=== PATIENT | female | born 1950 | race Caucasian/White ===

== ENCOUNTER 2017-03-08 11:06 | Emergency (ER) | payer MEDICARE, MEDICAID, SELFPAY | END 2017-03-08 12:43 | disposition home or self-care (01) | PROVIDERS: Emergency Provider Nurse Practitioner Family; Family Provider Family Medicine; Visit Provider Nurse Practitioner Family | DX: J10.1 Influenza due to other identified influenza virus with other respiratory manifestations (principal); Z79.899 Other long term (current) drug therapy; I10 Essential (primary) hypertension | CPT/HCPCS: G0463; 87804; 99201 ==

== ENCOUNTER → 2017-04-02 08:27 | Outpatient (CLI) | payer MEDICARE, MEDICAID, SELFPAY ==
--- NOTE | 2017-04-02 08:41 | US_ITS ---
US abdomen limited HISTORY: Right upper quadrant pain ITS.REASON: ABD PAIN ORDERING PHYSICIAN: Colin Montoya MD PATIENT AGE: 66 years COMPARISON: None FINDINGS: The pancreas, liver, and right kidney show no acute finding. Multiple gallstones are present with a thickened gallbladder wall is up to 1 cm. Minimal pericholecystic fluid noted. Common bile duct is normal at 3 mm. IMPRESSION: Cholelithiasis with thickened gallbladder wall and minimal pericholecystic fluid suggesting cholecystitis.
== END ==
PROVIDERS: Family Provider Family Medicine; PCP Family Medicine; Visit Provider Family Medicine
DX: R10.9 Unspecified abdominal pain (principal)
CPT/HCPCS: 76705

== ENCOUNTER 2017-04-09 06:02 | Day surgery (SDC) | payer MEDICARE, MEDICAID, SELFPAY ==
[2017-04-07 11:10] VITALS: BMI 24.5
[2017-04-09] VITALS (11 sets, daily range): BP systolic 115–138; BP diastolic 59–80; PULSE 63–84; RESP 16–18; TEMP 36.1–43; O2SAT 90–100
--- NOTE | 2017-04-09 07:09 | P.PN_ITS ---
[facility] Anesthesia Checklist - Patient Identification Patient Identification: Arm Band, Verbal (Name & ) - Structural Data Admitted From: Home Planned Operative Procedure/s: lap choly Consent for Planned Operative Procedure(s) Verified: Yes Verified Documents: Surgical Consent - Chart Verification Results Verified: CBC, BMP - Additional verifications Patient : No Anesthesia Reactions: No Hx Blood Transfusions: No Blood Transfusion Reaction: No Cephalosporin Allergy: No Previous Colonoscopy: No - Cardiovascular Assessment Heart Sounds: S1 & S2 Pulse Strength: Strong Pulse Rhythm: Regular Peripheral Edema: No - Airway Assessment C-Spine Mobility Assessed: Yes TMJ Mobility Assessed: Yes Dentition: Good Dentition - Neurological Assessment Level of Consciousness: Awake, Alert, Appropriate Hx Seizures: No Numbness or tingling in extremities: No - Genitourinary Assessment 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 Anesthesia HX I have reviewed the patient's past medical history: Yes Medical History: Reports:: Cancer (skin), Carotid Stenosis, Coronary Artery Disease, Depression, Gastroesophageal Reflux Disease(GERD), Hypertension Denies:: Diabetes Mellitus Type 1, Diabetes Mellitus Type 2, Internal Pacemaker, MRSA, Seizures Other Medical History: Reports: Fibromyalgia. Denies: Blood Transfusion Reaction Laterality Cases: Bilateral: Tonsillectomy Other Surgeries: Yes: Hysterectomy-Total, Other (back). No: Pacemaker Amputation: No Fractures: No *Family Hx:: Cancer, Diabetes, Heart Attack, Hypertension, Stroke
--- NOTE | 2017-04-09 08:57 | HMH.OPNOTE ---
Date of procedure: 04/09/17 Pre-op Diagnosis:: Chronic cholecystitis Post-op diagnosis:: other (Acute cholecystitis) Procedure performed:: Laparoscopic cholecystectomy Surgeon:: Tate Diaz MD Motor Expert(s):: Liliya Brantley SENIOR QA TESTER:: Dimas Cota Anesthesia: SIOBHAN Estimated blood loss (mL): 50 Clinical Note:: Patient is a pleasant 66-year-old white female referred by Dr. Blas Montoya. She had about 12 days ago episode of acute postprandial pain in the high epigastric area with radiation to the bilateral upper quadrants and into her back with associated bloating. She tried [id number] regimens without relief. She saw her primary care provider and had a gallbladder ultrasound which revealed multiple gallstones with gallbladder wall thickening and some minor pericholecystic fluid. She was scheduled for outpatient surgical consultation and was seen in the office a couple of days ago. Her symptoms were partially controlled with strict dietary monitoring. She has some tenderness in the right upper quadrant. Options were discussed and she wished to proceed with cholecystectomy. Operative findings:: Thickened inflamed edematous gallbladder with multiple stones consistent with acute on chronic cholecystitis. Operative note:: Consent was obtained and patient was taken to the operating room. She was positioned in a supine position. General anesthesia was induced via endotracheal tube. Abdomen was prepped and draped in the standard surgical fashion. Infraumbilical skin incision was made. While performing abdominal wall lifts Veress needle was inserted and CO2 pneumoperitoneum was achieved to 15 mmHg. 11 mm trocar was inserted the umbilicus. Intraperitoneal contents were visualized. It was noted that there was some gas within the omentum during insufflation adjacent to the colon. At the completion of procedure this was inspected and there appeared to be no obvious bowel injury. Patient was positioned in reverse Trendelenburg with left side down. A couple of 5 mm trochars were inserted in the right upper abdomen. 10 mm trocar was inserted in the epigastrium. Gallbladder is easily identified. It was very edematous tense indurated. It was grasped and retracted anteriorly over the dome of the liver. They are worse acute inflammatory adhesions which were easily swept out of the gallbladder. Infundibulum/Gonzalez's pouch of the gallbladder retracted anteriorly and laterally. Careful dissection was carried out at the neck of the gallbladder ultimately identifying the cystic duct and cystic artery. Critical view of safety was identified. Cystic duct was multiply clipped and then divided. Cystic artery was correlated with Brayan ultrasonic harmonic lexx and divided. Gallbladder was dissected free from the liver in a retrograde fashion using Brayan ultrasonic harmonic lexx. Gallbladder was placed within an Endo Catch retrieval device and removed from the peritoneal cavity via the umbilical trocar site which required some extension of the skin and fascial incisions for delivery. Gallbladder fossa and perihepatic spaces were irrigated and aspirated until clear. Some spot use of electrocautery was used on the gallbladder fossa for good hemostasis. At the completion of the procedure inspection of the air within the omental tissues was inspected and there appeared to be no obvious injury. This was performed with visual inspection of the pericolonic tissues using the endoscopic [place]. Due to pneumoperitoneum was then evacuated. Fascia at the umbilicus was closed with several interrupted 0 Vicryl sutures. Local anesthetic was infiltrated. Skin incisions were closed with 4-0 Monocryl in a subcuticular fashion. Steri-Strips and dressings were applied. Condition: stable Disposition: PACU Specimens:: Gallbladder & contents Complications:: None
--- NOTE | 2017-04-09 08:59 | HMH.ANESI ---
[facility] Anesthesia Record Part I Intake, IV Amount: 1,800 Estimated blood loss (mL): 10 Urine output (mL): 0 Blood Products used (#): none Blood Pressure: 138/65 SaO2: 96 Pulse Rate: 79 Respiratory Rate: 16 Temperature: 97.5 F Patient is:: Drowsy, Nasal O2 Stable to PACU at:: 08:57
--- NOTE | 2017-04-09 09:00 | P.PN_ITS ---
[facility] Anesthesia Record Part II Discharge Time: 09:27 Destination: Surgical Day Care (OP Surgery) PACU nurse assessment reviewed?: Yes Patient Condition:: Good Anesthesia Complications:: None
--- NOTE | 2017-04-09 09:00 | P.OP_ITS ---
Date of procedure: 04/09/17 Pre-op Diagnosis:: Chronic cholecystitis Post-op diagnosis:: other (Acute cholecystitis) Procedure performed:: Laparoscopic cholecystectomy Surgeon:: Tate Diaz MD Steel Handler(s):: Liliya Brantley PEOPLESOFT HCM DEVELOPER:: Dimas Cota Anesthesia: SIOBHAN Estimated blood loss (mL): 50 Clinical Note:: Patient is a pleasant 66-year-old white female referred by Dr. Blas Montoya. She had about 12 days ago episode of acute postprandial pain in the high epigastric area with radiation to the bilateral upper quadrants and into her back with associated bloating. She tried [id number] regimens without relief. She saw her primary care provider and had a gallbladder ultrasound which revealed multiple gallstones with gallbladder wall thickening and some minor pericholecystic fluid. She was scheduled for outpatient surgical consultation and was seen in the office a couple of days ago. Her symptoms were partially controlled with strict dietary monitoring. She has some tenderness in the right upper quadrant. Options were discussed and she wished to proceed with cholecystectomy. Operative findings:: Thickened inflamed edematous gallbladder with multiple stones consistent with acute on chronic cholecystitis. Operative note:: Consent was obtained and patient was taken to the operating room. She was positioned in a supine position. General anesthesia was induced via endotracheal tube. Abdomen was prepped and draped in the standard surgical fashion. Infraumbilical skin incision was made. While performing abdominal wall lifts Veress needle was inserted and CO2 pneumoperitoneum was achieved to 15 mmHg. 11 mm trocar was inserted the umbilicus. Intraperitoneal contents were visualized. It was noted that there was some gas within the omentum during insufflation adjacent to the colon. At the completion of procedure this was inspected and there appeared to be no obvious bowel injury. Patient was positioned in reverse Trendelenburg with left side down. A couple of 5 mm trochars were inserted in the right upper abdomen. 10 mm trocar was inserted in the epigastrium. Gallbladder is easily identified. It was very edematous tense indurated. It was grasped and retracted anteriorly over the dome of the liver. They are worse acute inflammatory adhesions which were easily swept out of the gallbladder. Infundibulum/Gonzalez's pouch of the gallbladder retracted anteriorly and laterally. Careful dissection was carried out at the neck of the gallbladder ultimately identifying the cystic duct and cystic artery. Critical view of safety was identified. Cystic duct was multiply clipped and then divided. Cystic artery was correlated with Brayan ultrasonic harmonic lexx and divided. Gallbladder was dissected free from the liver in a retrograde fashion using Brayan ultrasonic harmonic lexx. Gallbladder was placed within an Endo Catch retrieval device and removed from the peritoneal cavity via the umbilical trocar site which required some extension of the skin and fascial incisions for delivery. Gallbladder fossa and perihepatic spaces were irrigated and aspirated until clear. Some spot use of electrocautery was used on the gallbladder fossa for good hemostasis. At the completion of the procedure inspection of the air within the omental tissues was inspected and there appeared to be no obvious injury. This was performed with visual inspection of the pericolonic tissues using the endoscopic [place]. Due to pneumoperitoneum was then evacuated. Fascia at the umbilicus was closed with several interrupted 0 Vicryl sutures. Local anesthetic was infiltrated. Skin incisions were closed with 4-0 Monocryl in a subcuticular
== END 2017-04-09 10:20 | disposition home or self-care (01) ==
PROVIDERS: Family Provider Family Medicine; PCP Nurse Practitioner Family; Visit Provider Surgery
PROC: 0FT44ZZ Resection of Gallbladder, Percutaneous Endoscopic Approach (ICD-10-PCS; CPT 47562; principal; 2017-04-09 07:30)
DX: K81.1 Chronic cholecystitis (principal)
CPT/HCPCS: 47562; 88304; 96374; J0131; J2405; J2710

== ENCOUNTER → 2017-09-30 07:47 | Outpatient (CLI) | payer MEDICARE, MEDICAID, SELFPAY ==
--- NOTE | 2017-09-30 07:50 | CT_ITS ---
CT lumbar spine wo con INDICATION: Low back pain. Previous surgery. ITS.REASON: LUMBAR RADICULOPATHY ORDERING PHYSICIAN: Marvin Simental PATIENT AGE: 66 years COMPARISON: MRI of lumbar spine from today as well as 05/03/2015 and 10/27/2014 TECHNIQUE: Axial images are obtained without contrast. Sagittal and coronal reformatted images are reviewed as well. All CT scans at the facility use one or more dose reduction, viz: automated exposure control; ma/kV adjustment per patient size (including targeted exams where dose is matched to indication; i.e. head); or iterative reconstruction technique. FINDINGS Previous extensive laminectomy with posterior fusion. L2-L 5 Stable, good alignmentThrough the fused segment Bilateral pedicle screws at L2, L3, L4 and L5 with associated posterior rods and fixation elements The metallic streak artifact from these fixation elements does slightly decreased resolution but adequate quality scan overall.. We again see the extensive laminectomy defect from L2 through L4/5 level which decompressing the spinal canal through this region.. Multilevel discectomy when compared back to 2015. Single Disc spacer device is seen at each of the involved levels-L2/3, L3/4, L4/5. . Again note the relative straightening of the lumbar lordosis but improvement in the alignment with with correction of mild retrolisthesis L4-5 and mild anterolisthesis L2/3 with this surgical procedure versus 2015 presurgical images L5/S1. Degenerative disc changes,. A small mildly hyperdense cephalad extruded disc fragment I believe present at the right lateral recess axial image 38. It measures 7.5 mm at its base on this image. Likely arises from the right L5/S1 disc itself which appears slightly decreased in height versus previous 2016 MR study. There is also been progressive ligament flavum hypertrophy.. [id number] recess and foraminal encroachment due to combination of features. L4/5.: Laminectomy. Pedicle screws Posterior fusion elements. Disc spacer device Mild posterior hypertrophic endplate ridging, with focal leftward spurring most evident towards the left lateral recess and anterior to the left foramen. Axial slice 35 sagittal 34. Yields mild Encroachment at the left lateral recess and entrance to left foramen Note focal endplate irregularity and mild endplate concavity most evident at superior endplate midline anteriorly. Perhaps slight progression of the reactive endplate features versus 2016 about this narrowed L4/5 disc/. . L3/4 Laminectomy. Pedicle screws Posterior fusion elements. Disc spacer device disc space narrowing. Minimal spurring and disc prominence at entry right foramen-yields mild right foraminal encroachment L2/3. Laminectomy. Pedicle screws Posterior fusion elements. Disc spacer device Scant posterior hypertrophic ridging and spondylosis. Mild encroachment at entry of foramen L1/2 disc intact with perhaps scant bulge But Facet & calcified ligamentum flavum hypertrophy indents the posterior thecal sac and yield borderline-spinal stenosis . T12/L1.Stable Disc intact. Mild posterior element hypertrophy and degenerative change T11/12. Nondisplaced narrowing. Mild posterior element hypertrophy. Minor disc bulge towards right foramen. Disc bulge towards the right foramen. .. ......IMPRESSION...... 1.. Postsurgical changes L-spine: L2-L5 : extensive decompression laminectomy with posterior fusion.. Disc spacer device placement each of these disc levels. Slight additional/progressive reactive endplate changes and irregularities about the L4/5 L3/4 levels. No significant recurrent disc herniation or protrusion evident at the in this postsurgical segment 2... *L5/S1. :Small new cephalad extruded disc fragment on right, most likely
--- NOTE | 2017-09-30 08:09 | MR_ITS ---
MR lumbar spine wo/w con, MR 3-d myelogram/MRCP Ordering Physician: Marvin Simental Patient Age: 66 years: Female HISTORY: ITS.REASON: LUMBAR RADICULOPATHY Back surgery in January 2015.. Persistent/recurrent Low back pain with bilateral hip and leg pain. Pain with sitting and walking. AllMild bilateral foraminal encroachment PATIENT AGE: 66 years COMPARISON: MRI of lumbar spine from today as well as 05/03/2015 and 10/27/2014 TECHNIQUE: Axial images are obtained without contrast. Sagittal and coronal reformatted images are reviewed as well. All CT scans at the facility use one or more dose reduction, viz: automated exposure control; ma/kV adjustment per patient size (including targeted exams where dose is matched to indication; i.e. head); or iterative reconstruction technique. FINDINGS Previous extensive laminectomy with posterior fusion. L2-L 5 Stable, good alignmentThrough the fused segment Bilateral pedicle screws at L2, L3, L4 and L5 with associated posterior rods and fixation elements The metallic susceptibility artifact from these fixation elements does slightly decreased resolution but adequate quality scan overall.. We again see the extensive laminectomy defect from L2 through L4/5 level which decompressing the spinal canal through this region.. Multilevel discectomy when compared back to 2015. Single Disc spacer device is seen at each of the involved levels-L2/3, L3/4, L4/5. . Again note the relative straightening of the lumbar lordosis but improvement in the alignment with with correction of mild retrolisthesis L4-5 and mild anterolisthesis L2/3 with this surgical procedure versus 2015 presurgical images L5/S1. Degenerative disc changes,. On both CT and MR from today there appears to be a small cephalad extruded disc fragment I believe present encroach upon right lateral recess axial image 30. It measures 8 mm mm at its base on this image. Likely arises from the right L5/S1 disc & extending superiorly. L5/S1 disc demonstrates additional desiccation with slight decreased height versus previous 2016 MR study reflecting such as well.. There is also been progressive of now generous ligament flavum hypertrophy along with facet hypertrophy. Features together combine to yield [id number] recess and foraminal encroachment.. L4/5.: Laminectomy. Pedicle screws Posterior fusion elements. Disc spacer device Mild posterior ridging, with mild focal spurring to the left most evident towards the left lateral recess and anterior left foramen. This is actively better seen on CT.. (Sagittal slice 10, MR axial slice 27). Resulting mild Encroachment at the left lateral recess and entrance to left foramen Slight progressive reactive endplate signal changes and irregularities about the narrowed disc... These features may demonstrate some mild enhancement but at this level and L3/4 but most likely reflection of endplate reactive change. No good evidence of discectomy. Again Perhaps slight progression of the reactive endplate features versus 2016 at both L4/5 and L3/4 level.. . L3/4 Laminectomy. Pedicle screws Posterior fusion elements. Disc spacer device disc space narrowing. Mild posterior ridging. Minimal spurring & disc prominence at entry right and left foramen-yields mild encroachment upon entry of both right. Right slightly more than left . Mild reactive endplate changes about the narrowed disc L2/3. Laminectomy. Pedicle screws Posterior fusion elements. Disc spacer device Mild posterior hypertrophic ridging with trace foraminal disc bulge. Mild foraminal encroachment bilateral. L1/2 disc intact with very minor scant bulge Most notable is the calcified ligamentum flavum hypertrophy along with facet hypertrophy. Indents these features the posterior thecal sac and yield
--- NOTE | 2017-09-30 09:02 | HMH.ITSHM ---
PERCOCET GABAPENTIN CYMBALTA NEXIUM TIAZADONE
== END ==
PROVIDERS: Family Provider Family Medicine; PCP Nurse Practitioner Family; Visit Provider Neurological Surgery
DX: M54.16 Radiculopathy, lumbar region (principal)
CPT/HCPCS: 72131; 72158; 76376; A9576

== ENCOUNTER → 2018-10-02 10:28 | Outpatient (CLI) | payer MEDICARE, MEDICAID, SELFPAY ==
--- NOTE | 2018-10-02 10:30 | CA_ITS ---
PROCEDURE: 2-D M-mode and color Doppler study INDICATIONS FOR THE TEST: Chest pain+ COPD Heart Murmur Tobacco Smoking Palpitations+ Fatigue+ Syncope Edema+ Hypertension+Diabetes Mellitus Rheumatic Fever SOB+PRINGLE+Obesity Hyperlipidemia+ Family History HD Additional History CAD, ABN EKG, GERD PATIENT INFORMATION HEIGHT: 61 WEIGHT:145 GENDER: Female B/P:138/76 2-D/M-MODE INTERPRETATION: 2-D MEASUREMENTS OBSERVED VALUES IN CMS Right Ventricular Dimension (RVDd) 2.0 Interventricular Septum (Thickness)(IVsd) 1.4 Left Ventricular Internal Dimensions(LVIDd) 4.5 Left Ventricular Posterior Wall (Thickness)(LVPWd) 0.9 Aortic Root 2.4 Aortic Cusp Separation 1.9 Left Atrial Dimensions (LAD) 3.0 2D 1. Left atrium is mildly enlarged, left ventricle is normal size, mild concentric left hypertrophy, visually estimated ejection fraction 55% with no regional wall motion abnormality. 2. The right atrium and right ventricle are normal size and contractility. 3. The aortic valve is minimally thickened and fibrosed. 4. The mitral and tricuspid valve leaflets are minimally thickened. 5. The pulmonic valve is poorly visualized 6. No significant pericardial effusion noted. DOPPLER INTERROGATION: Doppler interrogation of the aortic, mitral and tricuspid valvular presence of mild mitral and tricuspid regurgitation, tricuspid regurgitation jet velocity is inadequate for calculation of the right ventricular systolic pressure, grade 1 diastolic dysfunction seen with tissue Doppler evidence of raised left atrial pressure. CONCLUSION: 1. Mildly enlarged left atrium, normal left ventricular size, mild concentric left ventricular hypertrophy, visually estimated ejection fraction 55% with no regional wall motion abnormality, grade 1 diastolic dysfunction seen with tissue Doppler evidence of raised left atrial pressure. 2. Mild mitral and tricuspid regurgitation 3. No significant pericardial effusion noted.
--- NOTE | 2018-10-02 12:19 | NM_ITS ---
NM cedric perf SPECT rest str History:Chest pain, SOB, Palpitations, Syncope, Fatigue, HTN, High cholesterol, Family history Procedure: Patient received a 0.4 mg of intravenous Lexiscan, resting heart rate 55 bpm, resting blood pressure 145/74, with Lexiscan maximum heart rate achieve was bpm which is % of the maximum predicted heart rate and blood pressure was 147/72. WIth Lexiscan patient complained of chest pain. Electrocardiogram: Resting electrocardiogram showed sinus rhythm, with Lexiscan there is less than 1.5mm ST segment depression noted from the baseline EKG. The EKG portion of the Lexiscan Myoview is nondiagnostic. Cardias Stress and Resting SPECT images: Cardias Stress and Resting SPECT images were obtained using technetium 99m Myoview 32.3 mCi stress and 10.46 mCi at rest. Gated SPECT further analysis of segmental wall motion and calculation of ejection fraction also done. Cardiac stress and resting SPECT show uniform myocardial activity without segmental perfusion abnormality, however there appears to be transient ischemic dilatation of the left ventricle is in the concern is for presence balanced ischemia, the computer derived ejection fraction is over 65% with no regional wall motion abnormality Conclusion: 1. The EKG portion of the Lexiscan Myoview is nondiagnostic. 2. No scintigraphic evidence of reversible ischemia seen, computer derived ejection fraction is over 65% with no regional wall motion abnormality, however there appears to be transient ischemic dilatation of the left ventricle raising the concern is for presence of balanced ischemia. 3. Abnormal Lexiscan Myoview study.
[2018-10-02 12:22] LABS: Anion Gap 10.6 mEq/L (5-15); Blood Urea Nitrogen 18 mg/dL (7-18); Calcium 9.2 mg/dL (8.5-10.1); Carbon Dioxide 32 mmol/L (21.0-32.0); Chloride 102 mmol/L (98-107); Creatinine,Serum 1.13 mg/dL (0.55-1.02); Estimated Glomerular Filt Rate 48 ml/min (>60); GFR (African American) 58 ML/MIN (>60); Glucose 91 mg/dL (74-106); Potassium 4.6 mmoL/L (3.5-5.1); Sodium 140 mmol/L (136-145)
--- NOTE | 2018-10-02 13:14 | HMH.ITSHM ---
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 [] gabapentine metoprolol losartan estrdiol aripirazole
== END ==
PROVIDERS: PCP Family Medicine; Visit Provider Internal Medicine Cardiovascular Disease
DX: R06.02 Shortness of breath (principal); I20.9 Angina pectoris, unspecified; I50.9 Heart failure, unspecified; R53.83 Other fatigue
CPT/HCPCS: 36415; 78452; 80048; 83880; 93017; 93306; A9502; J2785

== ENCOUNTER → 2018-10-07 07:48 | Outpatient (CLI) | payer SELFPAY ==
--- NOTE | 2018-10-07 08:05 | CT_ITS ---
HISTORY dyspnea. Short of breath. Chest pain. CAD. 67 years COMPARISON: None Technique: All CT scans at this facility use one or more dose reduction techniques, viz.: automated exposure control, ma/kV adjustment per patient size (including targeted exams where dose is matched to indication, i.e. head) or iterative reconstruction technique. FINDINGS: Coronary calcium score 9, indicating minimal plaque burden & low cardiovascular disease risk. I would note that score of 9 calcification, reflects minimal calcification Left Anterior Descending artery only Limited images submitted of the chest for the calcium score shows demonstrate dense calcified node anterior to the left bronchus reflecting old granulomatous disease. Mild Chronic changes at medial lung jones bilaterally incidentally noted.. IMPRESSION Coronary calcium score = 9, indicating minimal plaque burden & low cardiovascular disease risk.
== END ==
PROVIDERS: PCP Family Medicine; Visit Provider Internal Medicine Cardiovascular Disease
DX: I20.9 Angina pectoris, unspecified (principal); R06.02 Shortness of breath; R53.83 Other fatigue
CPT/HCPCS: 75571

== ENCOUNTER → 2018-10-14 12:52 | Outpatient (CLI) | payer MEDICARE, SELFPAY | PROVIDERS: PCP Family Medicine; Visit Provider Internal Medicine Cardiovascular Disease | DX: R40.0 Somnolence (principal); R53.83 Other fatigue; G47.33 Obstructive sleep apnea (adult) (pediatric) | CPT/HCPCS: G0399 ==

== ENCOUNTER 2018-10-28 09:25 | Outpatient (RCR) | payer MEDICARE, SELFPAY | END 2018-12-07 13:52 | disposition home or self-care (01) | LOC: PT 09:25 | PROVIDERS: Visit Provider Internal Medicine | DX: Z95.5 Presence of coronary angioplasty implant and graft (principal) | CPT/HCPCS: 93798 ==

== ENCOUNTER → 2019-01-05 16:26 | Outpatient (CLI) | payer MEDICARE, SELFPAY ==
[2019-01-05 18:36] LABS: Blood Urea Nitrogen 15 mg/dL (7-18); Creatinine,Serum 1.08 mg/dL (0.55-1.02); Estimated Glomerular Filt Rate 50 ml/min (>60); GFR (African American) 61 ML/MIN (>60)
== END ==
PROVIDERS: Visit Provider Urology
DX: R31.9 Hematuria, unspecified (principal)
CPT/HCPCS: 36415; 82565; 84520

== ENCOUNTER → 2019-01-06 08:48 | Outpatient (CLI) | payer MEDICARE, SELFPAY ==
--- NOTE | 2019-01-06 08:51 | CT_ITS ---
PROCEDURE: CT ABDOMEN PELVIS WO/W CON CLINICAL INDICATION: HEMATURIA Hematuria, low to mid abdominal pain/pelvic cramping COMPARISON: SPLUMBWO CT lumbar spine wo con from 09/30/2017 TECHNIQUE: IV Contrast: 75ML OPTIRAY 350 Oral Contrast none Axial images obtained with sagittal and coronal reformats. All CT scans at the facility use one or more dose reduction, viz: automated exposure control, ma/kV adjustment per patient size (including targeted exams where dose is matched to indication, i.e. head), or iterative reconstruction technique. FINDINGS: Lower thorax: No acute finding The the liver, spleen, adrenal glands, pancreas, and kidneys have an unremarkable appearance. No renal or ureteral calculi. No renal mass. No hydronephrosis. Delayed images of the right kidney show bilateral excretion without evidence of obstruction. Artifact is present from lumbar surgery with multilevel inter pedicular screws from L1-S1. Mild amount of retained colonic feces. No intestinal obstruction or free air. There is a tiny umbilical hernia containing fat. No evidence of appendicitis or diverticulitis. There are post hysterectomy changes. There are few scattered diverticula within the sigmoid colon. Urinary bladder has an unremarkable appearance extensive postsurgical changes are present in the lumbar spine and sacrum. Sclerotic density involves the right ilium inferiorly and anteriorly may be due to a bone island. IMPRESSION: No acute abdominal or pelvic findings. Extensive postsurgical changes of the lumbar spine. No renal or ureteral calculi. Dictated by: Ganesh Jurado MD 01/06/2019 17:27 Electronically signed by Ganesh Jurado MD in [place] 01/07/2019 06:29
== END ==
PROVIDERS: PCP Family Medicine; Visit Provider Urology
DX: R31.9 Hematuria, unspecified (principal)
CPT/HCPCS: 74178; Q9967

== ENCOUNTER → 2019-01-26 14:25 | Outpatient (CLI) | payer MEDICARE, SELFPAY ==
--- NOTE | 2019-01-26 14:58 | XR_ITS ---
PROCEDURE: XR CHEST 2V CLINICAL HISTORY: HYPERTENSION, PRE-OP Productive cough COMPARISON: CXR CHEST(2 VIEWS-NOT PORTABLE) from 01/23/2016 FINDINGS: The cardiomediastinal silhouette and pulmonary vascularity are within normal limits. The lungs are clear without infiltrates, suspicious nodules, or pleural effusions. Granulomas present in the left upper lobe. Postsurgical changes of the lumbar spine with inter pedicular screws and stabilizing larry at L1 and L2. Coronary artery stent is present. IMPRESSION: No change with no acute finding Dictated by: Ganesh Jurado MD 01/26/2019 15:16 Electronically signed by Ganesh Jurado MD in [place] 01/26/2019 15:16
== END ==
PROVIDERS: PCP Family Medicine; Visit Provider Nurse Practitioner Family
DX: Z01.818 Encounter for other preprocedural examination (principal); I10 Essential (primary) hypertension
CPT/HCPCS: 71046

== ENCOUNTER → 2019-02-18 20:17 | Outpatient (CLI) | payer MEDICARE, SELFPAY | PROVIDERS: PCP Family Medicine; Visit Provider Nurse Practitioner Family | DX: G47.33 Obstructive sleep apnea (adult) (pediatric) (principal); G47.00 Insomnia, unspecified; I25.10 Atherosclerotic heart disease of native coronary artery without angina pectoris; R07.9 Chest pain, unspecified; I10 Essential (primary) hypertension | CPT/HCPCS: 95811 ==

== ENCOUNTER → 2019-07-28 06:15 | Outpatient (CLI) | payer MEDICARE, MEDICAID, SELFPAY ==
--- NOTE | 2019-07-28 06:16 | CA_ITS ---
APPROVED REPORT Exam: Pharmacologic Technologist: Kristina Mckeon Ht: 5 ft 1 in Wt: 145 lbs BSA: 1.65 m2 HR: 55 bpm BP: 109/62 mmHg Indications: Shortness of Air, chest pain Medical History Medications: Furosemide (LASIX),,,,, Gabapentin,,,,, Losartan,,,,, Atorvastatin,,,,, Estradiol,,,,, CloPIdogrel,,,,, DulOXETINE,,,,, OxYCODONE,,,,, Tizanidine,,,,, Esomeprazole,,,,, Trazodone,,,,, Asprin,,,,, Stress Test Details Test: LEXISCAN HR Resting HR: 62 bpm Max Heart Rate (APMHR): 150 bpm Max HR Achieved: 77 bpm Target HR (85% APMHR): 127 bpm % of APMHR: 51 Recovery HR: 65 bpm BP Resting BP: 109.0/62.0 mmHg Max BP: 131.0/71.0 mmHg Recovery BP: 131.0/71.0 mmHg ECG Clinical Exercise duration: 04:00 min Highest Stage Achieved: Exercise capacity: 1.0 METs Stress ECG Conclusion Resting ECG: Sinus Bradycardia Lexiscan portion completed. Patient complained of shortness of breath during peak infusion. Symptoms: Shortness of breath during peak infusion. Resolved in recovery. No chest pain. Arrhythmias/Ectopy: Occasional PAC ST-T Changes: Less than 1.[address] depression. Conclusion: Images to follow. Test Summary RECOVERY 05:00 . . 61 . 131/ 71 . . REST 16:19 . . 62 . 109/ 62 . . Stage 1 . . . . . . . Myoview Injected Stage 1 01:00 . . 68 . . . . Stage 2 01:00 . . 68 . 111/ 66 . . Stage 3 01:00 . . 64 . 110/ 77 . . Stage 4 01:00 . . 67 . 114/ 69 . Stop exercise at 04:00 RECOVERY 01:00 . . 68 . 111/ 71 . . RECOVERY 02:00 . . 67 . 111/ 71 . . RECOVERY 03:00 . . 65 . 113/ 68 . . RECOVERY 04:00 . . 63 . 93/ 70 . . RECOVERY 05:00 . . 61 . 131/ 71 . . RECOVERY 05:10 . . 66 . 131/ 71 . . Electronically signed by : Terry Boyle, 07/29/2019 10:40:49
--- NOTE | 2019-07-28 06:16 | CA_ITS ---
APPROVED REPORT EXAM: Comprehensive 2D, Doppler, and color-flow Echocardiogram Infrastructure Developer: Reina Du CRT Ht: 5 ft 1 in Wt: 147lbs BSA: 1.66 BP: 135/69 mmHg Indications: cad, cp, stents, deidre, gerd, anxiety, cm, htn, hld, sob, 2D Dimensions LVOT 1.72 cm (M/F) 1.5-2.5 M-Mode Dimensions RVDd 2.71 cm (0.9-2.6) LVDd 3.71 cm (3.5-5.7) LVDs 2.22 cm (3.5-5.7) IVSd 1.68 cm (0.6-1.1) PWd 0.75 cm (0.6-1.1) EF (Teich) 71.60% FS 40.20% EDV (Teich) 58.50 mL ESV (Teich) 16.60 mL LV Diastology E/A Ratio 0.73 Mitral Valve MV A Velocity 77.00 (40-130 cm/s) Left Ventricle Atrium is mildly enlarged, left ventricle is normal size, mild concentric left ventricular hypertrophy, visually estimated ejection fraction 55% with no regional wall motion abnormality. Grade 1 diastolic dysfunction seen without tissue Doppler evidence of raise left atrial pressure. Right Ventricle Right atrium and right ventricle are normal size and contractility. Aortic Valve The aortic valve is minimally thickened and fibrosed, there is no aortic stenosis or aortic insufficiency. Mitral Valve Mitral valve is grossly normal, there is mild mitral regurgitation. Tricuspid Valve Tricuspid valve is grossly normal, there is mild tricuspid regurgitation, tricuspid regurgitation jet velocity is inadequate for calculation of the right ventricular systolic pressure. Pulmonic Valve Pulmonic valve is poorly visualized. Great Vessels Aortic root is normal size. Pericardium No significant pericardial effusion noted. Conclusion 1. Mildly enlarged left atrium, normal left ventricular size, mild concentric left ventricular hypertrophy visually estimated ejection fraction 55% with no regional wall motion abnormality, grade 1 diastolic dysfunction seen without tissue Doppler evidence of raise left atrial pressure. 2. Mild mitral and tricuspid regurgitation. 3. No significant pericardial effusion noted. Electronically signed by : Terry Boyle, 07/29/2019 12:03:32
--- NOTE | 2019-07-28 06:16 | NM_ITS ---
APPROVED REPORT Exam: Nuclear Stress Test Indication: Chest pain, SOB, CAD, HTN, High cholesterol, Family history Patient Location: Outpatient Stress Tech: Kristina Mckeon NM Tech:Leta Macedo, ARRT, RT (R)(N) Ht: 5 ft 1 in Wt: 145 lbs Bra Size: 34D HR: 55 bpm BP: 109/62 mmHg BSA: 1.65 m2 BMI: 27.3 History: Chest pain, SOB, CAD, HTN, High cholesterol, Family history Procedure: Patient received a 0.4 mg of intravenous Lexiscan, resting heart rate 55 bpm, resting blood pressure 109/62 mmHg, with Lexiscan maximum heart rate achived was 70 bpm which is Less than 85 % of the maximum predicted heart rate and blood pressure was 111/66 mmHg. With Lexiscan, patient denied any complaint of chest pain. Electrocardiogram Resting electrocardiogram showed sinus rhythm, with Lexiscan there is less than 1.[address] segment depression noted from the baseline EKG. The EKG portion of the Lexiscan Myoview is nondiagnostic. Cardiac Stress and Resting SPECT Images: Cardiac Stress and Resting SPECT images were obtained using technetium 99m Myoview 31.8 mCi stress and 10.45 mCi at rest. Gated SPECT with analysis of segmental wall motion and calculation of the ejection fraction also done. Cardiac stress and resting SPECT images show a mild fixed defect in the anterior wall with normal contracted gated SPECT is likely secondary to soft tissue attenuation, no reversible ischemia seen. Computer derived ejection fraction is over 65% with no regional wall motion abnormality, right ventricle is normal size and contractility. Conclusion: 1. The EKG portion of the Lexiscan Myoview is nondiagnostic. 2. No scintigraphic evidence of reversible ischemia seen, a mild fixed defect in the anterior wall is likely secondary to soft tissue attenuation, computer derived ejection fraction is over 65% with no regional wall motion abnormality, right ventricle is normal size and contractility. 3. Likely normal Lexiscan Myoview study. Electronically signed by : Terry Boyle, 07/29/2019 10:44:04
--- NOTE | 2019-07-28 08:23 | HMH.ITSHM ---
Current Home Medications as stated by this patient Anahi Leach or billing representative. []ARIPIPRAZOLE DULOXETINE ESTRADIOL LOSARTAN METOPROLOL LIPITOR GABAPENTIN ESOMEPRAZOLE OXYCODONE TIZANIDINE ASA PLAVIX FUROSEMIDE
== END ==
PROVIDERS: PCP Family Medicine; Visit Provider Urology
DX: E78.2 Mixed hyperlipidemia (principal); I25.118 Atherosclerotic heart disease of native coronary artery with other forms of angina pectoris; I65.29 Occlusion and stenosis of unspecified carotid artery; R06.02 Shortness of breath
CPT/HCPCS: 78452; 93017; 93306; A9502; J2785

== ENCOUNTER 2019-08-26 07:41 | Day surgery (SDC) | payer MEDICARE, MEDICAID, SELFPAY ==
[2019-08-26] VITALS (13 sets, daily range): BP systolic 116–149; BP diastolic 66–84; PULSE 65–77; RESP 16; TEMP 36.8; O2SAT 91–99; BMI 28.1
[2019-08-26 08:15] LABS: Basophils % 0.6 % (0.1-2.0); Eosinophils # 0.2 K/mm3 (0.0-0.4); Eosinophils % 3.3 % (0.1-12.0); Hematocrit 42.9 % (37.0-47.0); Hemoglobin 13.7 g/dL (12.2-16.2); Lymphocytes # 1.2 K/mm3 (0.7-4.5); Lymphocytes % 17.5 % (10-50); Mean Corpuscular HGB Conc 31.9 g/dL (31.8-35.4); Mean Corpuscular Hemoglobin 29.4 pg (27.0-31.2); Mean Corpuscular Volume 92.2 fl (81-99); Mean Platelet Volume 7.1 fl (7.4-10.4); Monocytes # 0.5 K/mm3 (0.1-1.0); Monocytes % 7.2 % (1.7-9.3); Neutrophils # 4.8 K/mm3 (1.8-7.8); Neutrophils % 71.4 % (37.0-80.0); Platelet Count 309 K/mm3 (142-424); Red Blood Count 4.65 M/mm3 (4.20-5.40); White Blood Count 6.7 K/mm3 (4.8-10.8)
[2019-08-26 08:24] LABS: Chloride 103 mmol/L (98-107)
[2019-08-26 08:25] LABS: Potassium 4.4 mmoL/L (3.5-5.1); Sodium 137 mmol/L (136-145)
[2019-08-26 08:28] LABS: Anion Gap 11.4 mEq/L (5-15); Blood Urea Nitrogen 17 mg/dl (7-17); Calcium 9.1 mg/dl (8.4-10.2); Carbon Dioxide 27 mmol/L (22.0-30.0); Creatinine Clearance Estimated 56 mL/min (50-200); Estimated Glomerular Filt Rate 62 ml/min (>60); GFR (African American) 75 ML/MIN (>60); Glucose 104 mg/dl (74-100)
[2019-08-26 10:17] LABS: CATHL Activated Clotting Time 348 SEC (74-125)
--- NOTE | 2019-08-26 13:04 | HMH.PHACLD ---
Anahi Leach has received discharge medication counseling on the following medications: CONTINUE MEDICATIONS: PLAVIX, ASPIRIN, METOPROLOL, ATORVASTATIN, LOSARTAN
== END 2019-08-26 13:14 | disposition home or self-care (01) ==
LOC: CATHLAB 07:42
PROVIDERS: PCP Family Medicine; Visit Provider Internal Medicine
DX: I11.0 Hypertensive heart disease with heart failure; I25.118 Atherosclerotic heart disease of native coronary artery with other forms of angina pectoris; I65.29 Occlusion and stenosis of unspecified carotid artery; E78.5 Hyperlipidemia, unspecified; Z95.5 Presence of coronary angioplasty implant and graft; Z79.02 Long term (current) use of antithrombotics/antiplatelets; Z79.82 Long term (current) use of aspirin; Z79.899 Other long term (current) drug therapy; Z88.8 Allergy status to other drugs, medicaments and biological substances; I50.32 Chronic diastolic (congestive) heart failure
CPT/HCPCS: 80048; 85025; 85347; 92928; 93458; 93571; 99152; 99153; C1725; C1769; C1876; C9600; J0153; J1644; Q9967

== ENCOUNTER → 2019-09-23 13:52 | Outpatient (CLI) | payer MEDICARE, MEDICAID, SELFPAY ==
--- NOTE | 2019-09-23 15:01 | XR_ITS ---
PROCEDURE: XR DEXA AXIAL SKELETON CLINICAL HISTORY: POSTMENOPAUSAL [age] COMPARISON: No exams were available for comparison FINDINGS: The right hip BMD is 0.640 with a t-score of -1.9. The left hip BMD is 0.582 with a t-score of -2.4. The left forearm BMD is 0.649 with a t-score of -0.8. IMPRESSION: This patient is considered osteopenic according to the World Health Organization criteria. Bone density is between 10 and 25 percent below young normal . Fracture risk is moderate. Treatment is advised. Based on these results of follow-up exam is recommended in 2 years Dictated by: Ganesh Jurado MD 09/23/2019 18:23 Electronically signed by Ganesh Jurado MD in [place] 09/24/2019 10:06
--- NOTE | 2019-09-23 15:02 | MM_ITS ---
PROCEDURE: MM DIG SCREENING MAMM BI W/CAD DIGITAL BREAST TOMOSYNTHESIS INCLUDED Patient Age:68Y CLINICAL INDICATION: SCREENING 68-year-old.-Takes estrogen. No new complaints. Family history noncontributory COMPARISON: DIGMAMMS MAMMOGRAM SCREEN-DIGITAL SALES MANAGER N/C from 06/14/2004 [facility] DIGITAL MAMM-SCREEN BILATERAL from 12/07/2009 [facility] DIGITAL MAMM-DX BILATERAL from 06/13/2010 TECHNIQUE: Standard CC and MLO images were obtained. R2 CAD reviewed. Bilateral digital breast tomosynthesis included. FINDINGS: Slight heterogeneous, the Moderately dense breast bilaterally but note slow gradual fatty replacement when compared back to prior 2010 digital mammogram fibroglandular elements are most notable towards superior breast but no new dominant or suspicious mass but no suspicious calcifications. Left breast: Stable. No significant new findings. Right breast Stable. No significant new findings. Tomosynthesis images are helpful particularly at right breast but IMPRESSION: Stable mammogram-with no new areas of significant concern. Moderately dense breast Bilateral follow-up 1 year recommended The BI-RAD Category: 2 Benign Finding(s) FOLLOW-UP: 1YR 1 Year Follow-up (A letter has been sent to the patient regarding results of the study.) Dictated by: Chilango Irby MD 09/29/2019 13:00 Electronically signed by Chilango Irby MD in [place] 09/29/2019 13:00
== END ==
PROVIDERS: PCP Family Medicine; Visit Provider Physician Assistant
DX: Z12.31 Encounter for screening mammogram for malignant neoplasm of breast (principal); Z78.0 Asymptomatic menopausal state; R06.02 Shortness of breath
CPT/HCPCS: 77063; 77067; 77080; 94060; 94640; 94726; 94729

== ENCOUNTER → 2019-09-28 07:45 | Outpatient (CLI) | payer MEDICARE, MEDICAID, SELFPAY ==
[2019-09-28 08:59] LABS: Basophils # 0.1 K/mm3 (0-0.2); Basophils % 1.2 % (0.1-2.0); Eosinophils # 0.2 K/mm3 (0.0-0.4); Eosinophils % 3.4 % (0.1-12.0); Hematocrit 44.4 % (37.0-47.0); Hemoglobin 14.4 g/dL (12.2-16.2); Lymphocytes % 14.3 % (10-50); Mean Corpuscular HGB Conc 32.4 g/dL (31.8-35.4); Mean Corpuscular Hemoglobin 30.5 pg (27.0-31.2); Mean Platelet Volume 7.3 fl (7.4-10.4); Monocytes # 0.4 K/mm3 (0.1-1.0); Neutrophils # 5.3 K/mm3 (1.8-7.8); Platelet Count 334 K/mm3 (142-424); Red Blood Count 4.73 M/mm3 (4.20-5.40); Red Cell Distribution Width 13.5 % (11.5-17.5); White Blood Count 7.1 K/mm3 (4.8-10.8)
[2019-09-28 09:12] LABS: Chloride 101 mmol/L (98-107)
[2019-09-28 09:13] LABS: Potassium 5.1 mmoL/L (3.5-5.1); Sodium 138 mmol/L (136-145)
[2019-09-28 09:15] LABS: Alanine Aminotransferase 14 U/L (12-78); Albumin Level 3.9 g/dl (3.5-5.0); Albumin/Globulin Ratio 1.7 (1.1-1.8); Alkaline Phosphatase 96 U/L (38-126); Anion Gap 12.1 mEq/L (5-15); Aspartate Amino Transferase 20 U/L (14-36); Bilirubin,Total 0.3 mg/dl (0.2-1.3); Blood Urea Nitrogen 16 mg/dl (7-17); Carbon Dioxide 30 mmol/L (22.0-30.0); Cholesterol 110 mg/dl (140-200); Estimated Glomerular Filt Rate 71 ml/min (>60); GFR (African American) 86 ML/MIN (>60); Globulin 2.3 g/dL (1.3-3.2); Total Protein,Serum 6.2 g/dl (6.3-8.2); Triglycerides 167 mg/dl (30-150); VLDL Cholesterol 33 mg/dL (0-40)
[2019-09-28 09:16] LABS: Chol/HDL Ratio 2.2 (1-3.5); HDL Cholesterol 50 mg/dl (40-60)
[2019-09-28 09:22] LABS: Calcium 9.3 mg/dl (8.4-10.2)
[2019-09-28 09:27] LABS: Direct LDL Cholesterol 43.65 mg/dL (100-129)
[2019-09-28 09:28] LABS: Glucose 99 mg/dl (74-100)
[2019-09-28 09:31] LABS: Free T4 (Free Thyroxine) 0.96 ng/dl (0.78-2.19)
[2019-09-28 09:46] LABS: Thyroid Stimulating Hormone 1.47 uIU/mL (0.465-4.68)
[2019-09-29 15:27] LABS: Vitamin B12 570 pg/mL (232-1245)
== END ==
PROVIDERS: Visit Provider Physician Assistant
DX: E53.8 Deficiency of other specified B group vitamins (principal); E78.2 Mixed hyperlipidemia; H81.10 Benign paroxysmal vertigo, unspecified ear; I10 Essential (primary) hypertension
CPT/HCPCS: 36415; 80053; 80061; 82607; 84439; 84443; 85025

== ENCOUNTER → 2019-09-30 13:01 | Outpatient (CLI) | payer MEDICARE, MEDICAID, SELFPAY ==
[2019-09-30 14:36] LABS: NT Pro Brain Natriuretic Pep. 51.1 pg/mL (0-125)
== END ==
PROVIDERS: Internal Medicine Cardiovascular Disease; Visit Provider Nurse Practitioner Family
DX: E78.5 Hyperlipidemia, unspecified (principal); I10 Essential (primary) hypertension; I25.10 Atherosclerotic heart disease of native coronary artery without angina pectoris; I65.29 Occlusion and stenosis of unspecified carotid artery; R06.02 Shortness of breath
CPT/HCPCS: 36415; 83880

== ENCOUNTER → 2019-11-23 12:05 | Outpatient (CLI) | payer MEDICARE, SELFPAY ==
[2019-11-23 12:45] LABS: Basophils # 0.1 K/mm3 (0-0.2); Basophils % 0.7 % (0.1-2.0); Eosinophils # 0.2 K/mm3 (0.0-0.4); Eosinophils % 2.2 % (0.1-12.0); Hematocrit 44.4 % (37.0-47.0); Lymphocytes # 1.2 K/mm3 (0.7-4.5); Lymphocytes % 17.2 % (10-50); Mean Corpuscular HGB Conc 33.7 g/dL (31.8-35.4); Mean Corpuscular Volume 91.9 fl (81-99); Monocytes # 0.4 K/mm3 (0.1-1.0); Monocytes % 5.3 % (1.7-9.3); Neutrophils # 5.1 K/mm3 (1.8-7.8); Neutrophils % 74.5 % (37.0-80.0); Platelet Count 277 K/mm3 (142-424); Red Blood Count 4.84 M/mm3 (4.20-5.40); Red Cell Distribution Width 13.4 % (11.5-17.5); White Blood Count 6.9 K/mm3 (4.8-10.8)
[2019-11-23 14:02] LABS: Alanine Aminotransferase 15 U/L (12-78); Albumin Level 4.3 g/dl (3.5-5.0); Albumin/Globulin Ratio 1.8 (1.1-1.8); Alkaline Phosphatase 98 U/L (38-126); Anion Gap 13.4 mEq/L (5-15); Aspartate Amino Transferase 20 U/L (14-36); Bilirubin,Total 0.6 mg/dl (0.2-1.3); Blood Urea Nitrogen 14 mg/dl (7-17); Calcium 9.9 mg/dl (8.4-10.2); Carbon Dioxide 31 mmol/L (22.0-30.0); Chloride 99 mmol/L (98-107); Creatine Kinase 34 U/L (30-135); Estimated Glomerular Filt Rate 55 ml/min (>60); GFR (African American) 66 ML/MIN (>60); Globulin 2.4 g/dL (1.3-3.2); Glucose 97 mg/dl (74-100); Potassium 4.4 mmoL/L (3.5-5.1); Sodium 139 mmol/L (136-145); Total Protein,Serum 6.7 g/dl (6.3-8.2); Uric Acid 5.3 mg/dl (2.5-6.2)
[2019-11-23 14:06] LABS: C-Reactive Protein 1.5 mg/L (0-4)
[2019-11-23 14:14] LABS: Erythrocyte Sedimentation Rate 10 mm/hr (0-30)
[2019-11-23 14:32] LABS: Thyroid Stimulating Hormone 1.56 uIU/mL (0.465-4.68)
[2019-11-24 13:15] LABS: RA Latex Turbid. <10.0 IU/mL (0.0-13.9)
[2019-11-25 08:38] LABS: Anti-Cyclic Citrullinated Pept 2 units (0-19)
== END ==
PROVIDERS: Visit Provider Internal Medicine Rheumatology
DX: M79.7 Fibromyalgia (principal); M79.604 Pain in right leg; M19.041 Primary osteoarthritis, right hand; M25.50 Pain in unspecified joint; M54.9 Dorsalgia, unspecified
CPT/HCPCS: 36415; 80053; 82550; 84443; 84550; 85025; 85651; 86140; 86200; 86431

== ENCOUNTER → 2020-05-15 15:12 | Outpatient (CLI) | payer MEDICARE, SELFPAY ==
[2020-05-15 17:08] LABS: Blood Urea Nitrogen 18 mg/dl (7-17); Estimated Glomerular Filt Rate 55 ml/min (>60); GFR (African American) 66 ML/MIN (>60)
== END ==
PROVIDERS: Visit Provider Psychiatry & Neurology Neurology
DX: Z01.818 Encounter for other preprocedural examination (principal); M54.5 Low back pain; M54.2 Cervicalgia
CPT/HCPCS: 36415; 82565; 84520

== ENCOUNTER → 2020-05-17 13:30 | Outpatient (CLI) | payer MEDICARE, SELFPAY ==
--- NOTE | 2020-05-17 13:36 | MR_ITS ---
PROCEDURE: MR CERVICAL SPINE WO/W CON CLINICAL INDICATION: POSTURAL TREMOR AND CERVICAL DISC MYELOPATHY Chronic neck pain and right hand tremors COMPARISON: CT CSWO CT CERVICAL SPINE W/O CONT from 06/07/2012 TECHNIQUE: Standard multiplanar multiecho sequences are performed without contrast. 3-D MIP and myelographic images are also rendered and reviewed FINDINGS: There is reversal of the cervical lordosis. Craniocervical junction has an unremarkable appearance. C2-C3: 3 mm anterolisthesis of C2. Moderate left-sided foraminal narrowing is present from facet hypertrophic change. C3-C4: Degenerate disc disease with minimal bulging disc. Bilateral foraminal narrowing left greater than right. C4-C5: Degenerative disc disease with minimal bulging disc. Bilateral foraminal narrowing. C5-C6: Degenerative disc disease with mild bulging disc slightly eccentric toward the left. Mild bilateral foraminal narrowing. C6-C7: Degenerative disc disease with minimal bulging disc with mild bilateral foraminal narrowing. C7-T1: 3 mm anterolisthesis of C7. There is a hyperintense T1 and T2 lesion involving the T2 vertebral body with punctate areas of decreased signal consistent with a hemangioma. There is minimal bulging disc at T2-T3 and T3-T4. IMPRESSION: Multilevel cervical spondylosis with bulging disc as well as foraminal narrowing. Please see above for detailed description at each level. Dictated by: Ganesh Jurado MD 05/18/2020 15:56 Ganesh Jurado MD in [place] 05/18/2020 15:56
== END ==
PROVIDERS: PCP Family Medicine; Referring Provider Psychiatry & Neurology Neurology; Visit Provider Psychiatry & Neurology Neurology
DX: M54.2 Cervicalgia (principal); G25.2 Other specified forms of tremor
CPT/HCPCS: 72156; 76376; A9576

== ENCOUNTER 2020-05-31 13:03 | Outpatient (RCR) | payer MEDICARE, SELFPAY | END 2020-05-31 13:05 | disposition home or self-care (01) | LOC: PT 13:03 | PROVIDERS: PCP Family Medicine; Visit Provider Anesthesiology | DX: M96.1 Postlaminectomy syndrome, not elsewhere classified (principal) | CPT/HCPCS: 97163 ==

== ENCOUNTER 2021-03-07 07:14 | Emergency (ER) | payer MEDICARE, SELFPAY ==
[2021-03-07 07:15] VITALS: BP 153/90; PULSE 77; RESP 18; TEMP 36.8; O2SAT 96; BMI 25.1
--- NOTE | 2021-03-07 07:40 | XR_ITS ---
PROCEDURE INFORMATION: Exam: XR Right Hip Exam date and time: 03/07/2021 7:40 AM Age: 70 years old Clinical indication: Hip pain; Right hip; Prior surgery; Additional info: Severe low back pain into right hip TECHNIQUE: Imaging protocol: XR Right hip. Views: 2 or 3 views hip with pelvis when performed. AP view of the pelvis, AP views of the right hip in neutral and frogleg position COMPARISON: CT ABDOMEN PELVIS WO/W CON 01/06/2019 9:12 AM FINDINGS: Bones/joints: Similar sclerotic focus lateral right iliac bone. Similar lumbosacral fusion hardware. Stable bone island left proximal femur. Mild degenerative changes at the symphysis pubis again noted. No significant degenerative changes of the hips, no fracture or malalignment. Soft tissues: Unremarkable. IMPRESSION: No acute findings.
--- NOTE | 2021-03-07 07:42 | XR_ITS ---
PROCEDURE INFORMATION: Exam: XR Lumbosacral Spine Exam date and time: 03/07/2021 7:42 AM Age: 70 years old Clinical indication: Low back pain; Prior surgery; Additional info: Severe low back pain into right hip TECHNIQUE: Imaging protocol: XR of the lumbosacral spine. Views: 2 or 3 views. AP, lateral and spot lumbosacral views COMPARISON: SPLUMBWW MR lumbar spine wo/w con 09/30/2017 8:19 AM FINDINGS: Bones/joints: Spinal fusion rods and pedicle screws again noted traversing L2 through L5, additional hardware has been placed inferiorly with pedicle screws traversing S1 bilaterally and more inferior screws traversing bilateral SI joints. Interbody disc grafts again noted including addition of disc graft at L5-S1. Increasing sclerosis within the articular endplates of L1-L2. No wedge compression deformity. Discogenic endplate changes lower thoracic spine. Soft tissues: Unremarkable. Intraperitoneal space: There has been a cholecystectomy. IMPRESSION: Postoperative changes as detailed above. Worsening discogenic endplate changes at L1-L2.
--- NOTE | 2021-03-07 09:36 | HMH.EDGENADL ---
ED Disposition Clinical Impression: Back pain Disposition: Home, Self-Care Condition on Discharge: Fair Instructions: DI for Chronic Pain -- Adult Prescriptions: predniSONE [Prednisone 20mg Tab] 40 mg PO DAILY #5 tab Transmission Status: Pending to [id number] Referrals: Tiffany Sweeney APRN [Primary Care Provider] - - Critical Care Critical Care Time: No Attestation: On 03/07/21, the high probability of a clinically significant, sudden or life threatening deterioration of the following system(s) required my full and direct attention, intervention and personal management. The time I documented below is in addition to time spent performing reported procedures but includes the following listed in this critical care notation. Medical Decision Making - Jeovany Inquiry Pt receiving controlled substance: Yes Jeovany was queried for this patient: Yes Risks and benefits of using a controlled substance: were discussed with pt by me Vital Signs: 03/07/21 07:15 Temperature 98.3 F Temperature Source Oral Pulse Rate [Right Radial] 77 Respiratory Rate 18 Blood Pressure [Right Arm] 153/90 H Blood Pressure Mean [Right Arm] 111 Blood Pressure Source [Right Arm] Automatic Cuff Blood Pressure Position [Right Arm] Sitting 02 Sat by Pulse Oximetry 96 Oxygen Delivery Method Room Air - Lab Data Lab results reviewed: Yes: I reviewed the patient's lab results. Orders (Tests/Meds): ED MEDICATIONS Generic Name Dose Route Start Last Admin Trade Name Freq PRN Reason Stop Dose Admin Lidocaine 1 each 03/07/21 08:30 03/07/21 09:09 Lidocaine 5% Transdermal Patch TP 04/06/21 08:29 1 each Q24H KATELYNN Administration Methocarbamol 500 mg 03/07/21 09:00 03/07/21 09:10 Methocarbamol 500mg Tablet PO 04/06/21 08:59 500 mg BID KATELYNN Administration Discontinued Medications Generic Name Dose Route Start Last Admin Trade Name Freq PRN Reason Stop Dose Admin Morphine Sulfate 4 mg 03/07/21 09:37 Morphine 4mg/Ml Syringe IV 03/07/21 09:38 ONCE ONE Morphine Sulfate 4 mg 03/07/21 09:53 03/07/21 09:55 Morphine 2mg/Ml Syringe IM 03/07/21 09:54 4 mg ONCE ONE Administration Prednisone 60 mg 03/07/21 09:38 03/07/21 09:55 Prednisone 20mg Tab PO 03/07/21 09:39 60 mg ONCE ONE Administration ORDERS Category Date Time Status UA [Urinalysis and Microscopic] Stat Lab 03/07/21 08:48 Ordered Medical Decision Narrative: Patient is a 70-year-old female with past medical history of chronic back pain presenting to the ED with right-sided back pain. Patient is awake, alert, not in acute distress. Patient is hemodynamically stable, well. Patient's physical exam is remarkable for right-sided paraspinal lumbar muscle tenderness. No midline tenderness. Differential includes but is not limited to muscloskeletal pain, sciatica, arthritis, low concern for acute fractures, dislocations. This x-rays of patient's lumbar spine were performed. Patient is given lidocaine patch, Robaxin. Was also given morphine, prednisone which helped the patient's pain resolved. Patient is stable for discharge. Patient is given strict return precautions and follow-up instructions. General Adult HPI - General Chief complaint: PAIN Stated complaint: right back/hip pain Time Seen by Provider: 03/07/21 09:36 Mode of Arrival: Ambulatory Limitations: No Limitations Description of Symptoms (Recalled from ER Triage Doc. by RN): Pt c/o rt hip pain. Pt states that she pulled a muscle around the rt hip the day before Thanksgiving when trying to pull down the door to her attic. Pt states that she has been evaluated by her PCP and just completed a round of PO steroids. Pt advises that she took care of her grandchild a couple days ago and over done it and is now c/o pain again. Pt states that the pain will sometimes go down her rt leg and tingle across lumbar region of the back, but mainly stays in the area of the
--- NOTE | 2021-03-07 11:32 | PC.NURSE ---
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
[2021-03-07 12:35] VITALS: BP 129/71; PULSE 79; RESP 14; TEMP 36.8; O2SAT 97
== END 2021-03-07 12:36 | disposition home or self-care (01) ==
PROVIDERS: Emergency Provider Emergency Medicine; PCP Nurse Practitioner Family
DX: M54.50 Low back pain, unspecified (principal); M25.551 Pain in right hip; I25.10 Atherosclerotic heart disease of native coronary artery without angina pectoris; F41.8 Other specified anxiety disorders; I10 Essential (primary) hypertension; E78.5 Hyperlipidemia, unspecified; K21.9 Gastro-esophageal reflux disease without esophagitis; M79.7 Fibromyalgia
CPT/HCPCS: 72100; 73502; 96372; 99282

== ENCOUNTER → 2021-08-29 12:28 | Outpatient (CLI) | payer MEDICARE, SELFPAY ==
[2021-08-29 13:39] LABS: Blood Urea Nitrogen 8 mg/dl (7-17); Estimated Glomerular Filt Rate 71 ml/min (>60); GFR (African American) 85 ML/MIN (>60)
== END ==
PROVIDERS: PCP Nurse Practitioner Family; Visit Provider Nurse Practitioner Family
DX: R10.9 Unspecified abdominal pain (principal)
CPT/HCPCS: 36415; 82565; 84520

== ENCOUNTER → 2021-08-31 08:37 | Outpatient (CLI) | payer MEDICARE, MEDICAID, SELFPAY ==
--- NOTE | 2021-08-31 08:41 | CT_ITS ---
FINAL REPORT TECHNIQUE: Axial CT images of the abdomen and pelvis were obtained before and after the administration of IV contrast. Oral contrast was administered.This study was performed with techniques to keep radiation doses as low as reasonably achievable (ALARA). Individualized dose reduction techniques using automated exposure control or adjustment of mA and/or kV according to the patient''s size were employed. CLINICAL HISTORY: ABD PAIN COMPARISON: January 06, 2019 FINDINGS: Abdomen: There is mild bibasilar atelectasis. The heart is normal in size. The liver has an unremarkable appearance, without evidence of mass or biliary duct dilatation. There has been cholecystectomy. The spleen is unremarkable. No adrenal masses present. The pancreas has an unremarkable appearance. The kidneys enhance normally. There is mild vascular calcification. The aorta is normal in caliber. There is no free fluid or adenopathy. No mass or abnormal fluid collection is seen. Precontrast images demonstrate no evidence of nephrolithiasis. Pelvis: The appendix is normal. The urinary bladder is unremarkable. No inflammatory process is seen. There is no evidence of mass or adenopathy. There has been hysterectomy. There is diverticulosis of the sigmoid colon. There is no evidence of bowel obstruction. Postoperative changes are seen in the lumbar spine and pelvis. IMPRESSION: No evidence of acute intra-abdominal process. Reviewed, Interpreted and Dictated by Tate Aguiar III, MD Transcribed by Mic Obrien Authenticated and . [facility]
== END ==
PROVIDERS: PCP Nurse Practitioner Family; Visit Provider Nurse Practitioner Family
DX: R10.11 Right upper quadrant pain (principal)
CPT/HCPCS: 74178; Q9967

== ENCOUNTER 2021-09-16 15:46 | Emergency (ER) | payer MEDICARE, MEDICAID, SELFPAY ==
--- NOTE | 2021-09-16 16:45 | HMH.EDUTC ---
[facility] [place] Impression: Herpes zoster Qualifiers: Herpes zoster complications: without complications Qualified Code(s): B02.9 - Zoster without complications Disposition: Home, Self-Care Condition on Discharge: Good Instructions: Shingles, DI for Shingles, Lidocaine Transdermal Patch, Acyclovir Additional Instructions: Take tylenol or ibuprofen for pain or fever. Take the medications as directed. Follow up with your regular doctor in 48 to 72 hours GO TO THE ER FOR ANY WORSENING SYMPTOMS Don't start the oral steroids until tomorrow, since you had the shot here today. Prescriptions: Acyclovir 800 mg PO 5XDAY 7 Days #35 tab Transmission Status: Received by [facility] predniSONE [Deltasone 10mg tablet] 10 mg PO DAILY 9 Days #21 tab Transmission Status: Received by [facility] Lidocaine [Lidoderm 5% transdermal patch] 1 each TP Q24H PRN #10 patch PRN Reason: Moderate Pain Transmission Status: [facility] Referrals: Tiffany Sweeney APRN [Primary Care Provider] - Time of Disposition: 17:35 Medical Decision Making - Medical Records Medical records reviewed: No: I reviewed the patient's medical records. - Jeovany Inquiry Pt receiving controlled substance: No Vital Signs: 09/16/21 16:59 09/16/21 17:36 Temperature 98.1 F 98.1 F Temperature Source Oral Pulse Rate 85 Pulse Rate [Left] 85 Respiratory Rate 16 16 Blood Pressure 127/65 Blood Pressure [Right Arm] 127/65 Blood Pressure Mean [Right Arm] 85 02 Sat by Pulse Oximetry 99 Orders (Tests/Meds): ED MEDICATIONS Discontinued Medications Generic Name Dose Route Start Last Admin Trade Name Freq PRN Reason Stop Dose Admin Methylprednisolone Sodium Succinate 125 mg 09/16/21 16:59 09/16/21 17:00 Methylprednisolone Sod Succ 125mg Vial IM 09/16/21 17:00 125 mg ONCE ONE [place] [facility] [place] - General Stated complaint: possible shingles Time Seen by Provider: 09/16/21 16:46 - History of Present Illness Provider Complaint: She states that since 2 days ago she has had a painful rash on her right upper leg. - Related Data Home Medications Medication Instructions Recorded Confirmed estradiol 1 mg tablet 1 mg PO QDAY 04/07/17 03/26/21 gabapentin 800 mg tablet 800 mg PO TID 04/07/17 03/26/21 aripiprazole 5 mg tablet 5 mg PO DAILY 09/24/18 03/26/21 duloxetine 60 mg capsule,delayed 60 mg PO BID cap 09/24/18 03/26/21 release tizanidine 4 mg capsule 4 mg PO DAILY PRN 09/24/18 03/26/21 oxycodone-acetaminophen 5 mg-325 1 tab PO BID tab 10/29/18 03/26/21 mg tablet aspirin 81 mg tablet,delayed 81 mg PO DAILY 02/18/19 03/26/21 release esomeprazole magnesium 40 mg 40 mg PO DAILY cap 07/21/19 03/26/21 capsule,delayed release amantadine HCl 100 mg capsule 100 mg PO BID 03/26/21 03/26/21 furosemide 20 mg tablet 20 mg PO Q OTHER DAY PRN tab 03/26/21 Previous Rx's Medication Instructions Recorded clopidogrel 75 mg tablet See Rx Instructions .ROUTE 03/19/21 .COMPLEX #30 tab losartan 50 mg tablet See Rx Instructions .ROUTE 05/16/21 .COMPLEX #30 tab atorvastatin 40 mg tablet See Rx Instructions .ROUTE 07/17/21 .COMPLEX #90 tab Acyclovir 800 mg PO 5XDAY 7 Days #35 tab 09/16/21 Lidocaine [Lidoderm 5% transdermal 1 each TP Q24H PRN #10 patch 09/16/21 patch] predniSONE [Deltasone 10mg tablet] 10 mg PO DAILY 9 Days #21 tab 09/16/21 Allergies Allergy/AdvReac Type Severity Reaction Status Date / Time iodine Allergy Mild Verified 03/26/21 09:28 [facility] History - Hepatitis A Screen Attestation statement:: This patient has been screened for Hepatitis A risk factors. I have reviewed the patient's past medical history: Yes Medical History: Reports:: Anxiety, Cancer, Cardiomyopathy, Carotid Stenosis, Coronary Artery Disease, Depression, Gastroesophageal Reflux Disease(GERD), Hyperlipidemia, Hypertension Denies:: Diabetes Mellitus
[2021-09-16 16:59] VITALS: BP 127/65; PULSE 85; RESP 16; TEMP 36.7; O2SAT 99; BMI 24.9
[2021-09-16 17:36] VITALS: BP 127/65; PULSE 85; RESP 16; TEMP 36.7
== END 2021-09-16 17:41 | disposition home or self-care (01) ==
PROVIDERS: Emergency Provider Nurse Practitioner Family; PCP Nurse Practitioner Family
DX: B02.9 Zoster without complications (principal)
CPT/HCPCS: 99212; G0463

== ENCOUNTER → 2021-09-24 08:15 | Outpatient (CLI) | payer MEDICARE, MEDICAID, SELFPAY ==
--- NOTE | 2021-09-24 08:17 | XR_ITS ---
FINAL REPORT TECHNIQUE: Bone densitometry calculations of the left forearm and both hips were obtained. CLINICAL HISTORY: . OSTEOPENIA COMPARISON: September 23, 2019 FINDINGS: DEXA BONE DENSITY AXIAL SKELETON Using the left forearm, the bone mineral density of the distal 1/3 is 0.652 g/cm2, corresponding to T-score of -0.7. Previously measured 0.649 g/cm2, corresponding to T-score of -0.8. Using the left hip, the bone mineral density of the femoral neck is 0.589 g/cm2, corresponding to a T-score of -2.3. Previously measured 0.582 g/cm2, corresponding to T-score of -2.4. Using the right hip, the bone mineral density of the femoral neck is 0.600 g/cm2, corresponding to a T-score of -2.2 previously measured. 0.640 g/cm2, corresponding to T-score of -1.9. NOTE: T-score: Standard deviation compared with peak bone mass of young adult mean. *Following the recommendations of the International Society of Bone densitometry, classification of hip BMD is based on the lower of two T-scores; total hip or femoral neck. IMPRESSION: Diminished bone mineral density of the left forearm and both hips consistent with osteopenia. FRAX 10 year fracture risk is 13 % for major osteoporotic fracture based on right hip calculations. Reviewed, Interpreted and Dictated by Feng Heck MD Transcribed by Ava Tucker Authenticated and [facility]
--- NOTE | 2021-09-24 08:17 | MM_ITS ---
PROCEDURE INFORMATION: Exam: MG Bilateral Screening 3D Mammography Exam date and time: 09/24/2021 8:21 AM Age: 70 years old Clinical indication: Screening mammogram. TECHNIQUE: Imaging protocol: Bilateral Screening tomosynthesis and 2D mammography including computer-aided detection (CAD) when performed. COMPARISON: 1. MG MM DIG SCREENING MAMM BI W/CAD 09/23/2019 3:34 PM 2. MG DMDB DIGITAL MAMM-DX BILATERAL 06/13/2010 1:07 PM 3. MG DMSB DIGITAL MAMM-SCREEN BILATERAL 12/07/2009 2:38 PM 4. OT DIGMAMMS MAMMOGRAM SCREEN-PLATE SHOP HELPER N/C 06/14/2004 6:39 PM FINDINGS: MAMMOGRAPHY: Breast composition: The breast is heterogeneously dense, which may obscure small masses. Mass: None. Architectural distortion: No new or suspicious architectural distortion. Calcifications: No new or suspicious calcifications are present Asymmetric density: No new or suspicious asymmetric density is present Skin thickening: None. Axillary adenopathy: None. IMPRESSION: No mammographic evidence of malignancy. Recommend annual screening mammography unless otherwise clinically indicated. ASSESSMENT: BI-RADS category 1: Negative
== END ==
PROVIDERS: PCP Nurse Practitioner Family; Visit Provider Nurse Practitioner Family
DX: Z12.31 Encounter for screening mammogram for malignant neoplasm of breast (principal); Z78.0 Asymptomatic menopausal state
CPT/HCPCS: 77063; 77067; 77080

== ENCOUNTER → 2022-04-10 07:24 | Outpatient (CLI) | payer MEDICARE, MEDICAID, SELFPAY ==
--- NOTE | 2022-04-10 07:26 | CA_ITS ---
FINAL REPORT TECHNIQUE: Color Doppler, duplex Doppler and dykes scale sonography of the bilateral neck arterial vasculature was performed. Velocities were measured in the carotid arteries. Stenosis evaluation based on the validated velocity criteria. CLINICAL HISTORY: TIRSO, CAD FINDINGS: The peak systolic velocity of the right common carotid artery is 72 cm/s. The peak systolic velocity of the right internal carotid artery is 128 cm/s and end diastolic velocity 43 cm/s. The ICA/CCA ratio is 2.5. A small amount of plaque is present. The right external carotid artery is patent. The right vertebral artery is patent with antegrade flow. The peak systolic velocity of the left common carotid artery is 101 cm/s. The peak systolic velocity of the left internal carotid artery is 121 cm/s and end diastolic velocity 45 cm/s. The ICA/CCA ratio is 1.7. A small amount of plaque is present. The left external carotid artery is patent.The left vertebral artery is patent with antegrade flow. IMPRESSION: Less than 50% bilateral carotid stenoses. Bilateral patent vertebral arteries with antegrade flow. If indicated, CTA or MRA could further evaluate. Reviewed, Interpreted and Dictated by Javed Nava MD Transcribed by Tiffany Valencia Authenticated and [facility]
--- NOTE | 2022-04-10 07:26 | CA_ITS ---
APPROVED REPORT EXAM: Comprehensive 2D, Doppler, and color-flow Echocardiogram Group Insurance Special Agent: Daniela cJ, TAMMY, RVS Ht: 5 ft 1 in Wt: 142lbs BSA: 1.63 BP: 132/77 mmHg Indications: SOA, Abn EKG, CAD, Hx-CM Echo Enhancing Agent Comments: Lung impedence throughout exam 2D Dimensions IVSd 1.16 cm LVEF (Visual) 66.20 % PWd 0.94 cm LA Volume 28.50 mL LVDd 3.90 cm LA Volume Index [id number] mL/m2 (M/F) 16-34 LVDs 2.50 cm Aortic Root 2.86 cm Left Atrium 2.50 cm LVOT 2.01 cm (M/F) 1.5-2.5 M-Mode Dimensions LA Diam 3.15 cm (1.9-4.0) Ao Diam 2.74 cm (2.0-3.7) EPSs 0.24 cm TAPSE 2.06 (<1.7) LV Diastology E Decel Time 163.00 (160-240 msec) E/A Ratio 0.70 MED E' 5.60 (< 7 cm/sec) MED A' 13.20 cm/s E'/MED E' Ratio 10.07 (>14) LAT E' 6.50 (<10 cm/sec) LAT A' 9.30 cm/s E/LAT E' Ratio 8.68 (>14) Aortic Valve LVOT Max 88.00 (70-110 cm/s) LVOT VTI 22.03 cm AoV Peak Edward. 118.00 (50-130 cm/s) AO Peak GR. 5.60 mmHg AO Mean GR. 2.80 (<5 mmHg) AO VTI 22.76 (18-25 cm) VANNESSA (VTI) 3.07 (2.5-4.5 cm2) Mitral Valve MV A Velocity 81.00 (40-130 cm/s) E/A Ratio 0.70 MV Decel. Time 163.00 (160-240 ms) MV PHT 77.00 ms Pulmonary Valve PV Peak Velocity 81.00 (50-150 cm/s) Tricuspid Valve TR P. Velocity 224.00 cm/s RAP Estimate 10.00 mmHg RVSP 30.10 mmHg Left Ventricle Left atrium is mildly enlarged the left ventricle is normal size, mild concentric left ventricular hypertrophy estimated ejection fraction 55% with no regional wall motion abnormality, grade 1 diastolic dysfunction seen without tissue Doppler evidence of raise left atrial pressure. Right Ventricle Right atrium and right ventricle are mildly enlarged with normal contractility. Aortic Valve Aortic valve is minimally thickened and fibrosed there is no aortic stenosis or aortic insufficiency. Mitral Valve Mitral valve is grossly normal, there is trace mitral regurgitation. Tricuspid Valve Tricuspid valve grossly normal, there is trace tricuspid regurgitation, tricuspid regurgitation jet velocity is inadequate for calculation of the right ventricular systolic pressure. Pulmonic Valve Pulmonic valve is poorly visualized. Great Vessels Aortic root normal size. Inferior vena cava is normal size with normal inspiratory collapse. Pericardium No significant pericardial effusion noted. Conclusion 1. Mild biatrial enlargement, normal left ventricular size, mild concentric left ventricular hypertrophy, estimated ejection fraction 55% with no regional wall motion abnormality, grade 1 diastolic dysfunction seen without tissue Doppler evidence of raise left atrial pressure. 2. Mildly enlarged right ventricle with normal contractility. 3. Trace mitral and tricuspid regurgitation. 4. No significant pericardial effusion noted. 5. Inferior vena cava is normal size with normal inspiratory collapse. Electronically signed by : Terry Boyle MD 04/11/2022 05:38:57
--- NOTE | 2022-04-10 07:29 | NM_ITS ---
APPROVED REPORT Exam: Nuclear Stress Test Indication: CAD, HTN, HYPERLIPIDEMIA, FM HX, C.P., SOB Patient Location: Outpatient Stress Tech: Kristina Mckeon NM Tech:Blaire Gonzales EDWARDRosita RT (R)(N)(M) Ht: 5 ft 1 in Wt: 138 lbs Bra Size: 34D HR: 71 bpm BP: 123/75 mmHg BSA: 1.61 m2 TID: 1.71 BMI: 26.0 History: CAD, HTN, HYPERLIPIDEMIA, FM HX, C.P., SOB Procedure: Patient received a 0.4 mg of intravenous Lexiscan, resting heart rate 71 bpm, resting blood pressure 123/75 mmHg, with Lexiscan maximum heart rate achived was 87 bpm which is Less than 35 % of the maximum predicted heart rate and blood pressure was 135/77 mmHg. With Lexiscan, patient denied any complaint of chest pain. Electrocardiogram Resting electrocardiogram shows sinus rhythm, with Lexiscan less than 1.[address] segment depression noted from a baseline EKG seen. The EKG portion of the Lexiscan is nondiagnostic. Cardiac Stress and Resting SPECT Images: Cardiac Stress and Resting SPECT images were obtained using technetium 99m Myoview 31.4 mCi stress and 10.00 mCi at rest. Gated SPECT for analysis of segmental wall motion and calculation of the ejection fraction also done. Prone images were also obtained. Cardiac stress and muscle SPECT may show uniform myocardial activity without segmental perfusion abnormality, however there is marked transient ischemic dilatation of the left ventricle seen, raising the concern for presence of balanced ischemia or multivessel coronary artery disease. Computer derived ejection fraction is over 65% with no regional wall motion abnormality, right ventricle is mildly enlarged with normal contractility. Conclusion: 1. The EKG portion of the Lexiscan is nondiagnostic. 2. No scintigraphic evidence of reversible ischemia seen, computer derived ejection fraction is over 65% with no regional wall motion abnormality, right ventricle is mildly enlarged with normal contractility, there is marked transient ischemic dilatation of the left ventricle seen, raising the concerns for presence of balanced ischemia or multivessel coronary artery disease, right ventricle is mildly enlarged with normal contractility. 3. Abnormal Lexiscan Myoview study. Electronically signed by : Terry Boyle MD 04/11/2022 06:48:38
--- NOTE | 2022-04-10 10:00 | CA_ITS ---
APPROVED REPORT Exam: Pharmacologic Technologist: Kristina Mckeon Ht: 5 ft 1 in Wt: 142 lbs BSA: 1.63 m2 HR: 71 bpm BP: 123/75 mmHg Indications: Chest pain, Shortness of Air Medical History Medications: Aspirin,,,,, Metoprolol,,,,, Gabapentin,,,,, Losartan,,,,, Estradiol,,,,, CloPIdogrel,,,,, DulOXETINE,,,,, Tizanidine,,,,, PriMIDONE,,,,, AmANTADINE,,,,, RoSUVASTATIN,,,,, Aripiprazole,,,,, Stress Test Details Test: LEXISCAN HR Resting HR: 66 bpm Max Heart Rate (APMHR): 147.105669 bpm Max HR Achieved: 87 bpm Target HR (85% APMHR): 124.037012 bpm % of APMHR: 59.18 Recovery HR: 67 bpm BP Resting BP: 123.0/75.0 mmHg Max BP: 154.0/79.0 mmHg Recovery BP: 140.0/73.0 mmHg ECG Resting ECG: Normal sinus rhythm, low voltage QRS Clinical Exercise duration: 04:00 min Highest Stage Achieved: Stress ECG Conclusion Symptoms: Mild shortness of air and head discomfort. No chest pain. Arrhythmias/Ectopy: None ST-T Changes: No significant changes. Conclusion: Unremarkable Lexiscan stress. Myoview images reported separately. Test Summary REST . . . . . . . Resting REST 05:13 . . 66 . 123/ 75 . . Stage 1 . . . . . . . Myoview Injected Stage 1 01:00 . . 81 . . . . Stage 2 01:00 . . 79 . 135/ 77 . . Stage 3 01:00 . . 74 . 138/ 74 . . Stage 4 01:00 . . 73 . 133/ 75 . Stop exercise at 04:00 RECOVERY 01:00 . . 77 . . . . RECOVERY 02:00 . . 72 . . . . RECOVERY 03:00 . . 67 . 154/ 79 . . RECOVERY 03:17 . . 71 . 146/ 76 . . Electronically signed by : Terry Boyle MD 04/11/2022 06:36:09
== END ==
PROVIDERS: PCP Nurse Practitioner Family; Visit Provider Nurse Practitioner Family
DX: E78.2 Mixed hyperlipidemia (principal); I10 Essential (primary) hypertension; I25.118 Atherosclerotic heart disease of native coronary artery with other forms of angina pectoris; I42.9 Cardiomyopathy, unspecified; I51.89 Other ill-defined heart diseases; I65.29 Occlusion and stenosis of unspecified carotid artery; R06.00 Dyspnea, unspecified; R07.89 Other chest pain; R09.89 Other specified symptoms and signs involving the circulatory and respiratory systems; R94.31 Abnormal electrocardiogram [ECG] [EKG]
CPT/HCPCS: 78452; 93017; 93306; 93880; A9502; J2785

== ENCOUNTER → 2022-04-15 09:33 | Outpatient (CLI) | payer MEDICARE, MEDICAID, SELFPAY ==
[2022-04-15 10:26] LABS: Basophils # 0.1 K/mm3 (0-0.2); Basophils % 0.9 % (0.1-2.0); Eosinophils # 0.3 K/mm3 (0.0-0.4); Eosinophils % 3.4 % (0.1-12.0); Hematocrit 41.5 % (37.0-47.0); Hemoglobin 13.5 g/dL (12.2-16.2); Lymphocytes # 1.2 K/mm3 (0.7-4.5); Lymphocytes % 15.3 % (10-50); Mean Corpuscular HGB Conc 32.5 g/dL (31.8-35.4); Mean Corpuscular Hemoglobin 29.4 pg (27.0-31.2); Mean Corpuscular Volume 90.3 fl (81-99); Mean Platelet Volume 7.7 fl (7.4-10.4); Monocytes # 0.4 K/mm3 (0.1-1.0); Monocytes % 5.6 % (1.7-9.3); Neutrophils # 5.8 K/mm3 (1.8-7.8); Neutrophils % 74.7 % (37.0-80.0); Platelet Count 320 K/mm3 (142-424); Red Blood Count 4.59 M/mm3 (4.20-5.40); Red Cell Distribution Width 13.5 % (11.5-17.5); White Blood Count 7.8 K/mm3 (4.8-10.8)
[2022-04-15 10:43] LABS: Chloride 108 mmol/L (98-107); Potassium 4.3 mmoL/L (3.5-5.1); Sodium 141 mmol/L (136-145)
[2022-04-15 10:45] LABS: Bilirubin,Unconjugated 0.1 mg/dL (0.0-1.1); Blood Urea Nitrogen 13 mg/dl (7-17); Estimated Glomerular Filt Rate 61 ml/min (>60); GFR (African American) 74 ML/MIN (>60)
[2022-04-15 10:46] LABS: Alanine Aminotransferase 19 U/L (12-78); Albumin Level 3.9 g/dl (3.5-5.0); Alkaline Phosphatase 109 U/L (38-126); Anion Gap 11.3 mEq/L (5-15); Aspartate Amino Transferase 23 U/L (14-36); Bilirubin,Direct 0.2 mg/dl (0.0-0.4); Bilirubin,Indirect 0.1 mg/dL (0.0-0.9); Bilirubin,Total 0.3 mg/dl (0.2-1.3); Calcium 8.9 mg/dl (8.4-10.2); Carbon Dioxide 26 mmol/L (22.0-30.0); Chol/HDL Ratio 2.2 (1-3.5); Cholesterol 93 mg/dl (140-200); Glucose 119 mg/dl (74-100); HDL Cholesterol 42 mg/dl (40-60); Magnesium 1.9 mg/dl (1.6-2.3); Total Protein,Serum 6.1 g/dl (6.3-8.2); Triglycerides 205 mg/dl (30-150); VLDL Cholesterol 41 mg/dL (0-40)
[2022-04-15 10:58] LABS: Direct LDL Cholesterol 37.72 mg/dL (100-129)
[2022-04-15 11:04] LABS: Free T4 (Free Thyroxine) 1.13 ng/dl (0.78-2.19)
[2022-04-15 11:18] LABS: Thyroid Stimulating Hormone 0.07 uIU/mL (0.465-4.68)
== END ==
PROVIDERS: PCP Nurse Practitioner Family; Visit Provider Nurse Practitioner
DX: R94.30 Abnormal result of cardiovascular function study, unspecified; R06.09 Other forms of dyspnea; I20.8 Other forms of angina pectoris
CPT/HCPCS: 36415; 80048; 80061; 80076; 83735; 84439; 84443; 85025

== ENCOUNTER 2022-04-22 08:16 | Day surgery (SDC) | payer MEDICARE, MEDICAID, SELFPAY ==
[2022-04-22] VITALS (16 sets, daily range): BP systolic 108–158; BP diastolic 59–85; PULSE 54–89; RESP 17–18; TEMP 37.1; O2SAT 92–97; BMI 26.6
--- NOTE | 2022-04-22 | IR_ITS ---
APPROVED REPORT Patient Location: Outpatient Utilization Management Manager: FERNY Tay RT (R) PROCEDURES Selective coronary angiogram Intravascular ultrasound of the LAD Intravascular ultrasound of the dominant right coronary Drug-eluting stent deployment to the mid dominant right coronary INDICATION Coronary artery disease, History of coronary artery stents with suspected in-stent restenosis, Ambiguous angiography, Dominant right coronary artery with an MLA of 3.9 mm???, High risk abnormal Myoview, Accelerated angina pectoris Informed consent was obtained prior to the procedure. COMPLICATIONS None Estimated Blood Loss: Less than 10 ml TECHNIQUE One percent lidocaine used to anesthetize the right anterior aspect of the wrist. The right radial artery was accessed via the Seldinger technique. A 6 Stateless sheath was placed in the right radial artery. 2.5 mg of verapamil, 800 mcg of nitroglycerin, 1mg Lidocaine and 5000 U Heparin were given through the arterial sheath. The papa catheter was also used to perform selective coronary angiogram. At the end the diagnostic angiogram therapeutic heparin was administered giving a therapeutic ACT and the guide catheter was placed in the left main artery followed by Choice PT extra-support wire. Intravascular ultrasound probe was used to interrogate the LAD. There was haziness at the transition between the jackson vessel in the mid LAD stent as well as angiographic ambiguity within the stent suggesting possible severe in-stent restenosis. Because of this intravascular ultrasound probe was advanced which demonstrated excellent stent apposition within the mid LAD with no significant in-stent restenosis as well as an excellent transition from the jackson mid LAD into the LAD itself. Because of this no intervention was performed on the LAD. The guide catheter was pulled back and then used to cannulate the right coronary artery. Wire was placed distally and intravascular ultrasound probe was advanced which demonstrated an MLA of 3.9 mm??? within the mid dominant right coronary. A 4 mm x 18 mm resolute Sonoita stent was placed in the mid dominant right coronary artery and deployed at 20 dena reducing the stenosis to 0%. There was proximal spasm which responded to 800 mcg of intracoronary nitroglycerin. VEE-3 flow was present before and after the procedure. At the end of the procedure the apparatus was removed the sheath was removed good hemostasis was achieved using TR banding patient was transferred to the postop putting in stable condition ANGIOGRAPHIC RESULTS The left main artery Normal The left anterior descending artery Has proximal 20 to 30% eccentric stenosis with a stent in the mid segment which is widely patent with minimal in-stent restenosis nothing greater than 20 to 30%. The vessel has excellent proximal distal transitioning. The remaining LAD has mild 10% luminal irregularities The circumflex artery Nondominant with mild mid vessel luminal regularities 10 to 20% in severity The right coronary artery There is a dominant vessel and has a 60 to 70% stenosis by angiography which produced an MLA of 3.9 mm??? The COOLEY ventriculogram reveals Not performed The left ventricular end-diastolic pressure Not measured IMPRESSION Severe stenosis in the mid dominant right coronary artery as described above with successful stenting reducing the severe stenosis to 0% with 1 drug-eluting stent Widely patent mid LAD stent with minimal in-stent restenosis PLAN 1. Dual antiplatelet therapy 2. Risk factor modification 3. LDL less than 55 to be treated with high intensity statin 4. Avoidance of tobacco products 5. Cardiac rehabilitation Electronically signed by
[2022-04-22 10:41] LABS: CATHL Activated Clotting Time 322 SEC (74-125)
--- NOTE | 2022-04-22 14:13 | P.CONPHA_ITS ---
PHA Back Hoe Machine Operator Discharge Med Motor Racer: Anahi Mccrayg has received discharge medication counseling on the following medications: -ASPIRIN (PATIENT ON PREVIOUSLY, NO QUESTIONS) -PLAVIX (PATIENT ON PREVIOUSLY, NO QUESTIONS) -LOSARTAN (PATIENT ON PREVIOUSLY, NO QUESTIONS) -METOPROLOL (PATIENT ON PREVIOUSLY, NO QUESTIONS) -ROSUVASTATIN (PATIENT ON PREVIOUSLY, NO QUESTIONS) PATIENT VERBALIZED NO QUESTIONS AT THIS TIME.
== END 2022-04-22 14:08 | disposition home or self-care (01) ==
PROVIDERS: PCP Nurse Practitioner Family; Visit Provider Internal Medicine
DX: R94.39 Abnormal result of other cardiovascular function study (principal); I25.118 Atherosclerotic heart disease of native coronary artery with other forms of angina pectoris; Z82.49 Family history of ischemic heart disease and other diseases of the circulatory system; I65.23 Occlusion and stenosis of bilateral carotid arteries; I10 Essential (primary) hypertension; E78.5 Hyperlipidemia, unspecified; Z79.899 Other long term (current) drug therapy
CPT/HCPCS: 85347; 92928; 92978; 92979; 93454; 99152; C1725; C1769; C1876; C9600; J1644; Q9967

== ENCOUNTER → 2022-05-08 07:30 | Outpatient (CLI) | payer MEDICARE, MEDICAID, SELFPAY ==
[2022-05-08 07:54] LABS: Basophils # 0.1 K/mm3 (0-0.2); Basophils % 1.2 % (0.1-2.0); Eosinophils # 0.3 K/mm3 (0.0-0.4); Hematocrit 42.8 % (37.0-47.0); Hemoglobin 13.3 g/dL (12.2-16.2); Lymphocytes # 1.1 K/mm3 (0.7-4.5); Lymphocytes % 17.5 % (10-50); Mean Corpuscular HGB Conc 31.1 g/dL (31.8-35.4); Mean Corpuscular Hemoglobin 28.9 pg (27.0-31.2); Mean Platelet Volume 7.3 fl (7.4-10.4); Monocytes # 0.4 K/mm3 (0.1-1.0); Monocytes % 6.7 % (1.7-9.3); Neutrophils # 4.4 K/mm3 (1.8-7.8); Neutrophils % 70.5 % (37.0-80.0); Platelet Count 336 K/mm3 (142-424); Red Cell Distribution Width 13.5 % (11.5-17.5); White Blood Count 6.2 K/mm3 (4.8-10.8)
[2022-05-08 08:08] LABS: Chloride 102 mmol/L (98-107); Potassium 4.4 mmoL/L (3.5-5.1); Sodium 136 mmol/L (136-145)
[2022-05-08 08:11] LABS: Anion Gap 8.4 mEq/L (5-15); Blood Urea Nitrogen 16 mg/dl (7-17); Calcium 8.6 mg/dl (8.4-10.2); Carbon Dioxide 30 mmol/L (22.0-30.0); Estimated Glomerular Filt Rate 70 ml/min (>60); GFR (African American) 85 ML/MIN (>60); Glucose 108 mg/dl (74-100)
== END ==
PROVIDERS: PCP Nurse Practitioner Family; Visit Provider Internal Medicine
DX: I25.10 Atherosclerotic heart disease of native coronary artery without angina pectoris (principal); Z48.89 Encounter for other specified surgical aftercare
CPT/HCPCS: 36415; 80048; 85025

== ENCOUNTER 2023-05-28 08:31 | Day surgery (SDC) | payer MEDICARE, MEDICAID, SELFPAY ==
[2023-05-28] VITALS (12 sets, daily range): BP systolic 136–177; BP diastolic 78–100; PULSE 60–79; RESP 16–19; TEMP 36.6; O2SAT 95–99; BMI 27.8
--- NOTE | 2023-05-28 | IR_ITS ---
APPROVED REPORT Patient Location: Outpatient Darkroom Worker: FERNY Tay RT (R) PROCEDURES Left heart catheterization Left ventriculogram Selective coronary angiogram FFR to the proximal LAD INDICATION Coronary artery disease, Worsening angina pectoris Informed consent was obtained prior to the procedure. COMPLICATIONS None Estimated Blood Loss: Less than 10 mls TECHNIQUE One percent lidocaine used to anesthetize the right anterior aspect of the wrist. The right radial artery was accessed via the Seldinger technique. A 6 Korean sheath was placed in the right radial artery. 2.5 mg of Verapamil, 800 mcg of nitroglycerin, 1mg Lidocaine and 5000 U Heparin were given through the arterial sheath. The papa catheter was also used to perform left heart catheterization, left ventriculogram and selective coronary angiogram. Following the diagnostic angiogram cath works FFR angiography was performed which demonstrated the proximal LAD had an FFR index of 0.95. Because of this the apparatus was removed the sheath was removed good hemostasis was achieved using TR banding patient was transferred to the postop holding area in stable condition. ANGIOGRAPHIC RESULTS The left main artery Normal The left anterior descending artery Has a proximal 40% stenosis followed by an additional 40% stenosis immediately distal to the first diagonal artery followed by a widely patent stent which has excellent distal transitioning. The circumflex artery Nondominant with diffuse 10 to 20% luminal irregularities The right coronary artery Is large and dominant and has a proximal 30 to 40% tubular stenosis followed by a mid vessel stent which is also widely patent with excellent distal transitioning The COOLEY ventriculogram reveals Normal 60% The left ventricular end-diastolic pressure 15 mmHg FFR index 0.95 in the proximal LAD IMPRESSION Nonocclusive coronary disease with widely patent stents in the mid LAD and mid dominant right coronary Normal ejection fraction Normal left ventricular end-diastolic pressure PLAN 1. Continue medical management with risk factor modification Electronically signed by : Marvin Disla MD 05/28/2023 10:59:43
[2023-05-28 09:14] LABS: Basophils # 0.1 K/mm3 (0-0.2); Eosinophils # 0.3 K/mm3 (0.0-0.4); Eosinophils % 4.1 % (0.1-12.0); Hematocrit 46.9 % (37.0-47.0); Hemoglobin 15.4 g/dL (12.2-16.2); Lymphocytes # 1.4 K/mm3 (0.7-4.5); Lymphocytes % 22.5 % (10-50); Mean Corpuscular HGB Conc 32.8 g/dL (31.8-35.4); Mean Corpuscular Hemoglobin 31.3 pg (27.0-31.2); Mean Corpuscular Volume 95.4 fl (81-99); Mean Platelet Volume 7.8 fl (7.4-10.4); Monocytes # 0.5 K/mm3 (0.1-1.0); Neutrophils # 3.9 K/mm3 (1.8-7.8); Neutrophils % 63.4 % (37.0-80.0); Platelet Count 289 K/mm3 (142-424); Red Blood Count 4.92 M/mm3 (4.20-5.40); Red Cell Distribution Width 13.6 % (11.5-17.5); White Blood Count 6.1 K/mm3 (4.8-10.8)
[2023-05-28 09:25] LABS: Anion Gap 13.3 mEq/L (5-15); Blood Urea Nitrogen 12 mg/dl (7-17); Calcium 9.4 mg/dl (8.4-10.2); Carbon Dioxide 30 mmol/L (22.0-30.0); Chloride 101 mmol/L (98-107); Creatinine Clearance Estimated 52 mL/min (50-200); Estimated Glomerular Filt Rate 54 ml/min (>60); GFR (African American) 66 ML/MIN (>60); Glucose 102 mg/dl (74-100); Potassium 4.3 mmoL/L (3.5-5.1); Sodium 140 mmol/L (136-145)
[2023-05-28] MEDS: diphenhydrAMINE 50MG/ML VIAL 50 MG IV (10:37)
[2023-05-28] MEDS: HEPARIN 1,000 UNITS/500ML NS (CATH LAB) 3000 UNIT IV (10:39)
[2023-05-28] MEDS: VERAPAMIL 2.5MG/ML 2ML VIAL 2.5 MG IV (10:39)
[2023-05-28] MEDS: NITROGLYCERIN 800MCG/8ML SYR (CATH LAB) 800 MCG IA (10:39)
[2023-05-28] MEDS: HEPARIN 1,000 UNITS/ML 10ML VIAL (CATH LAB) 10000 UNIT IV (10:39)
[2023-05-28] MEDS: LIDOCAINE 1% 10ML MDV 20 ML IJ (10:39)
[2023-05-28] MEDS: MIDAZOLAM HCL 1MG/1ML 5ML VIAL 1 MG IV (10:40)
[2023-05-28] MEDS: FENTANYL 100MCG/2ML VIAL 50 MCG IV (10:40)
[2023-05-28] MEDS: 0.9 % SODIUM CHLORIDE 500 ML 25 ML IV (10:40)
[2023-05-28] MEDS: IOPAMIDOL-370 (76%);100ML BOTTLE 50 ML IV (13:10)
== END 2023-05-28 13:58 | disposition home or self-care (01) ==
PROVIDERS: PCP Nurse Practitioner Family; Visit Provider Internal Medicine
DX: I25.110 Atherosclerotic heart disease of native coronary artery with unstable angina pectoris (principal); Z95.5 Presence of coronary angioplasty implant and graft; Z79.899 Other long term (current) drug therapy; R94.31 Abnormal electrocardiogram [ECG] [EKG]; I11.0 Hypertensive heart disease with heart failure; E78.5 Hyperlipidemia, unspecified; I50.9 Heart failure, unspecified
CPT/HCPCS: 80048; 85025; 93458; 93571; 99152; C1725; C1769; J1644; Q9967

== ENCOUNTER 2023-06-13 08:26 | Day surgery (SDC) | payer MEDICARE, MEDICAID, SELFPAY ==
[2023-06-10 15:27] VITALS: BMI 27.6
[2023-06-13] VITALS (7 sets, daily range): BP systolic 112–137; BP diastolic 57–67; PULSE 69–78; RESP 16–18; TEMP 36.2; O2SAT 92–97
[2023-06-13] MEDS: LACTATED RINGERS 1000ML 1,000 ML 25 ML IV (08:52)
--- NOTE | 2023-06-13 08:56 | P.PCN_ITS ---
Procedure: Date: 06/13/23 Patient Date of :: 1950 Procedure Performed:: Esophagogastroduodenoscopy with biopsy Colonoscopy with removal of polypoid mass and polypectomy Indications:: Patient is a 72-year-old female whom I had seen in the past for gallbladder. She has a family history of colon cancer with her mother being diagnosed with colon cancer in her 60s. She had performed colonoscopy with Dr. Jon in 2009 which was reportedly completely normal . 5 to 6-year follow-up colonoscopy was recommended. Recently she has had some atypical chest pain and underwent cardiac workup which was negative for cardiac etiology. She describes difficulty swallowing pills and chest pressure . Cardiology had asked if I could perform upper endoscopy as well as colonoscopy. Plan was to proceed with colonoscopy for her family history of colon cancer and performed upper endoscopy for dysphagia and atypical noncardiac chest pain. However, this sounds as though it could be functional such as esophageal spasm. . Performing Provider:: Tate Diaz MD Referring Provider:: Tiffany Sweeney Sedation:: MAC sedation Procedure:: Patient history was obtained and appropriate physical examination was performed. Patient's medications and allergies were reviewed. Informed consent was obtained after explaining the benefits, alternatives, and risks of the procedure including, but not limited to, bleeding, perforation, missed lesions, and adverse reaction to anesthesia medications. Patient was transported to endoscopy procedure room. Patient was connected to monitoring devices. Throughout the procedure the patient's blood pressure, pulse, and oxygen saturations were monitored continuously. Patient identification and planned procedure were verified by the staff. Patient was positioned in lateral decubitus position. Attention was first turned initially to upper endoscopy. Olympus endoscope was inserted via the oropharynx. There was some minor cricopharyngeal spasm. There was some tortu osity to the esophagus consistent with mild esophageal dysmotility. There was no evidence of any appreciable esophagitis. Gastroesophageal junction was encountered at approximately 35 cm. Stomach was cannulated and insufflated. There was some diffuse moderate gastritis/gastropathy. Linear gastropathy in the antrum. There were scattered polyps consistent with fundic gland polyps. A couple of these were biopsied. At the gastric cardia when retroflexion was performed there appeared to be polyps consistent with hyperplastic polyps. Ultimately biopsy was obtained. Gastric antral biopsy was obtained to assess for H. pylori. Pylorus was traversed. Duodenum appeared unremarkable. Endoscope was withdrawn into the distal esophagus and biopsy was obtained to evaluate for microscopic esophagitis. Stomach was desufflated and the endoscope was withdrawn. Attention was then turned to colonoscopy. Digital anorectal exam was performed. Variable stiffness Olympus colonoscope was inserted and advanced under direct visualization to the cecum. Adequacy of the colonic preparation was noted. The colonoscope was advanced a short distance into the terminal ileum. The colonoscope was then slowly withdrawn while carefully examining the color, texture, anatomy, and integrity of the mucosoa circumferentially. Colonoscope was then withdrawn. IMPRESSION: Colonic preparation was rather poor. Fair visualization was achieved with thorough irrigation and suctioning. In the cecum seemingly across from the ileocecal valve there was a large flat sessile polypoid masslike lesion. This m easured approximately 25 to 30 cm. It was removed in a piecemeal fashion initially using the hot snare. Retrieval of specimens required maceration with Mcmillan net and retrieval in a piecemeal fashion. What appeared to be residual polypoid tissue was then removed with cold snare followed by biopsy forceps. Due to the edema it was difficult to determine if the lesion was removed in its entirety but it appeared as likely. Minimal amount of Ailin ink was used to jannette the area for possible future colonoscopy submucosally. Hemoclip was placed at the site. Initially there was felt to be a possible polyp on the proximal side of the ileocecal valve but this was not noted at this time. However, prep was suboptimal. Colonoscope was then slowly withdrawn through the remainder of the colon with high-volume irrigation and suctioning performed as needed. In the distal sigmoid colon there was a moderate adenomatous polyp removed with cold snare. There was some minor oozing and Hemoclip was deployed for assurance of hemostasis. Colonoscope was withdrawn. . Findings:: Cricopharyngeal spasm Minor esophageal dysmotility Gastroesophageal junction at approximately 35 cm Possible hyperplastic gastric cardia polyps, biopsied Diffuse fundic gland polyps, biopsied Moderate nonerosive gastritis/gastropathy Fair colonic preparation despite high-volume irrigation and suctioning Sessile polypoid mass in the cecum Adenomatous polyp in the distal sigmoid colon Recommendations:: Pending her pathology she may require right hemicolectomy versus early interval follow-up colonoscopy in a few months with aggressive alternate bowel prep. Complications:: None immediately apparent Estimated blood obtained (mL): 3 Colonoscopy Component Colonoscopy Component Was a colonoscopy performed during today's procedure?: Yes Recommended follow up colonoscopy of at least 10 years?: No If no, follow up colonoscopy recommended in ___ years?: See above Reason for not recommending >/= 10 yr follow-up interval?: See above
--- NOTE | 2023-06-13 10:15 | EXP.ANES.CKL ---
[facility] Disclaimer: The information contained in this section may have been updated after the patient was seen, as this information can be updated by other users. Medical History Abnormal result of cardiovascular function study CAD (coronary artery disease) Typical angina Diastolic dysfunction Family history of coronary artery disease HLD (hyperlipidemia) Abnormal EKG Daytime somnolence Chest pain Fatigue HTN (hypertension) Carotid artery stenosis Cardiomyopathy Surgical History History of tonsillectomy and adenoidectomy History of colonoscopy History of back surgery History of hysterectomy Family History Other Colon cancer Social History Smoking Status: Never smoker second hand exposure: No alcohol intake: never counseling provided: provider counseling substance use type: denies use current occupational status: retired Travel in the last 8 weeks: Inside the [facility] household members: none housing: house current occupational exposures/hazards: No caffeine: No H Anesthesia Checklist Patient Identification Patient Identification: Arm Band and Verbal (Name & ) Structural Data Admitted From: Home Planned Operative Procedure/s: EGD/Colonoscopy Consent for Planned Operative Procedure(s) Verified: Yes Verified Documents: Surgical Consent and History and Physical NPO Status Verified Time NPO: 06:00 Chart Verification Results Verified: CBC, BMP and ECG Additional verifications Patient : No Anesthesia Reactions: No Hx Blood Transfusions: No Blood Transfusion Reaction: No Cardiovascular Assessment Heart Sounds: S1 & S2 Pulse Rhythm: Irregular Peripheral Edema: No Airway Assessment Mallampati Score:: Class II C-Spine Mobility Assessed: Yes (FROM) TMJ Mobility Assessed: Yes Dentition: Good Dentition (Nothing loose per pt.) Neurological Assessment Level of Consciousness: Awake, Alert, Appropriate and Follows Commands Hx Seizures: No Numbness or tingling in extremities: No Anesthesia Plan Anesthesia Risk discussed: Yes Anesthesia Plan: Verified ASA Class: III Anesthesia Type: MAC
--- NOTE | 2023-06-13 11:47 | EXP.ANES.I ---
[facility] Anesthesia Record Part I Anesthesia Record I Intake, IV Amount: 500 Hydration: Adequate Estimated blood loss (mL): 5 Urine output (mL): 0 Blood Products used (#): none Blood Pressure: 112/58 SaO2: 93 Pulse Rate: 72 Airway Patency: Patent Respiratory Rate: 16 Temperature: 97.1 F Patient is:: Awake (Talking) and Stable Stable to PACU at:: 11:49
== END 2023-06-13 12:11 | disposition home or self-care (01) ==
PROVIDERS: PCP Nurse Practitioner Family; Visit Provider Surgery
PROC: 0DJ08ZZ Inspection of Upper Intestinal Tract, Via Natural or Artificial Opening Endoscopic (ICD-10-PCS; CPT 43235; principal; 2023-06-13 09:30)
DX: K22.4 Dyskinesia of esophagus (principal); J39.2 Other diseases of pharynx; R07.89 Other chest pain; D12.5 Benign neoplasm of sigmoid colon; D12.0 Benign neoplasm of cecum; K21.00 Gastro-esophageal reflux disease with esophagitis, without bleeding; R13.10 Dysphagia, unspecified; Z80.0 Family history of malignant neoplasm of digestive organs; Z12.11 Encounter for screening for malignant neoplasm of colon; K31.7 Polyp of stomach and duodenum
CPT/HCPCS: 43239; G0105; 88305; J2704

== ENCOUNTER 2023-08-14 10:37 | Outpatient (CLI) | payer MEDICARE, MEDICAID, SELFPAY ==
--- NOTE | 2023-08-14 10:41 | MR_ITS ---
FINAL REPORT CLINICAL HISTORY: POST-LAMINECTOMY SYNDROME COMPARISON: None FINDINGS: Multiplanar MR imaging of the lumbar spine was performed without contrast. There is magnetic susceptibility artifact secondary to instrumentation used for a posterior L2-S1 fusion. There are also interbody grafts present at the L2-3, L3-4, L4-5, and L5-S1 disc space levels. On the sagittal T2-weighted images, there is abnormal decreased signal throughout the lumbar discs. The vertebrae are of normal height. The vertebral alignment is normal. At the T11-12 and T12-L1 levels there are diffuse bulges present that produces neural foraminal narrowing. These were not imaged in the axial plane, however if clinically indicated an MRI of the thoracic spine could be performed for further evaluation. L1-2: A small annular bulge is present with posterolateral disc protrusions and moderate bilateral neural foraminal narrowing. L2-3: There is mild endplate hypertrophy and mild bilateral neural foraminal narrowing. L3-4: There is mild endplate hypertrophy and mild bilateral neural foraminal narrowing. L4-5: There is mild endplate hypertrophy and mild bilateral neural foraminal narrowing. L5-S1: There is mild endplate hypertrophy. IMPRESSION: There is no significant canal stenosis or neural foraminal narrowing. Reviewed, Interpreted and Dictated by Feng Heck MD Transcribed by Megan Rooney Authenticated and [facility]
== END 2023-08-14 23:59 | disposition home or self-care (01) ==
LOC: RAD 10:38
PROVIDERS: PCP Nurse Practitioner Family; Visit Provider Anesthesiology
DX: M96.1 Postlaminectomy syndrome, not elsewhere classified (principal)
CPT/HCPCS: 72148

== ENCOUNTER 2023-10-27 10:37 | Outpatient (CLI) | payer MEDICARE, SELFPAY ==
--- NOTE | 2023-10-27 10:43 | MM_ITS ---
PROCEDURE INFORMATION: Exam: MG Bilateral Screening 3D Mammography Exam date and time: 10/27/2023 10:30 AM Age: 72 years old Clinical indication: Screening examination TECHNIQUE: Imaging protocol: Bilateral Screening tomosynthesis and 2D mammography including computer-aided detection (CAD) when performed. COMPARISON: 1. MG MM DIG SCREENING MAMM BI W/CAD 09/24/2021 8:21 AM 2. MG MM DIG SCREENING MAMM BI W/CAD 09/23/2019 3:34 PM FINDINGS: MAMMOGRAPHY: Breast composition: The breasts are heterogeneously dense, which may obscure small masses. Mass: None. Architectural distortion: None. Calcifications: No suspicious calcifications. Asymmetric density: None. Skin thickening: None. Axillary adenopathy: None. IMPRESSION: No mammographic evidence of malignancy. Annual screening is recommended unless otherwise clinically indicated. ASSESSMENT: BI-RADS Category 1: Negative
== END 2023-10-27 23:59 | disposition home or self-care (01) ==
LOC: RAD 10:37
PROVIDERS: PCP Nurse Practitioner Family
DX: Z12.31 Encounter for screening mammogram for malignant neoplasm of breast (principal)
CPT/HCPCS: 77063; 77067

== ENCOUNTER 2023-12-25 10:22 | Day surgery (SDC) | payer MEDICARE, SELFPAY ==
[2023-12-23 14:42] VITALS: BMI 27.6
[2023-12-25 10:45] VITALS: BP 162/81; PULSE 94; RESP 18; TEMP 36.2; O2SAT 96
[2023-12-25] MEDS: LACTATED RINGERS 1000ML 1,000 ML 25 ML IV (10:53)
--- NOTE | 2023-12-25 11:02 | EXP.ANES.CKL ---
[facility] Disclaimer: The information contained in this section may have been updated after the patient was seen, as this information can be updated by other users. Medical History Abnormal result of cardiovascular function study CAD (coronary artery disease) Typical angina Diastolic dysfunction Family history of coronary artery disease HLD (hyperlipidemia) Abnormal EKG Daytime somnolence Chest pain Fatigue HTN (hypertension) Carotid artery stenosis Cardiomyopathy Surgical History History of tonsillectomy and adenoidectomy History of colonoscopy History of back surgery History of hysterectomy Family History Other Colon cancer Social History Smoking Status: Never smoker second hand exposure: No alcohol intake: never counseling provided: provider counseling substance use type: denies use current occupational status: retired Travel in the last 8 weeks: None household members: none housing: house current occupational exposures/hazards: No caffeine: Yes [facility] Anesthesia Checklist Patient Identification Patient Identification: Arm Band and Verbal (Name & ) Structural Data Admitted From: Home Planned Operative Procedure/s: Colonoscopy Consent for Planned Operative Procedure(s) Verified: Yes Verified Documents: Surgical Consent, History and Physical and Cardiac Clearance NPO Status Verified Time NPO: 00:00 Additional verifications Anesthesia Reactions: No Hx Blood Transfusions: No Blood Transfusion Reaction: No Airway Assessment Mallampati Score:: Class II C-Spine Mobility Assessed: Yes TMJ Mobility Assessed: Yes Dentition: Good Dentition Neurological Assessment Level of Consciousness: Awake Hx Seizures: No Numbness or tingling in extremities: Yes Anesthesia Plan Anesthesia Risk discussed: Yes Anesthesia Plan: Verified ASA Class: III Anesthesia Type: MAC
--- NOTE | 2023-12-25 12:27 | EXP.HP ---
History of Present Illness *Admission Date: 12/25/23 *Reason for visit:: Large adenomatous colon polyp *History of present illness: Mrs. Alejandro is a 73-year-old female who is here for colonoscopy secondary to a large adenomatous polyp. The examination is deemed medically necessary for colonoscopy. The patient has been seen, interviewed and examined prior to the procedure by both myself and the anesthesia provider. [facility] Disclaimer: The information contained in this section may have been updated after the patient was seen, as this information can be updated by other users. Medical History Abnormal result of cardiovascular function study CAD (coronary artery disease) Typical angina Diastolic dysfunction Family history of coronary artery disease HLD (hyperlipidemia) Abnormal EKG Daytime somnolence Chest pain Fatigue HTN (hypertension) Carotid artery stenosis Cardiomyopathy Surgical History History of tonsillectomy and adenoidectomy History of colonoscopy History of back surgery History of hysterectomy Family History Other Colon cancer Social History Smoking Status: Never smoker second hand exposure: No alcohol intake: never counseling provided: provider counseling substance use type: denies use current occupational status: retired Travel in the last 8 weeks: None household members: none housing: house current occupational exposures/hazards: No caffeine: Yes Other Medical History Have you received the Flu Vaccine for this season: Yes Have you received the Pneumonia Vaccine: Yes Review of Systems Review of Systems Review of systems (narrative): Negative *Cardiovascular Comments: Negative *Gastrointestinal Comments: Negative *Genitourinary Comments: Negative *Musculoskeletal Comments: Negative *Neurologic Comments: Negative Meds Home Medications and Allergies Home Medications ?Medication ?Instructions ?Recorded ?Confirmed ?Type estradiol 1 mg tablet 1 mg PO QDAY hormones 04/07/17 12/25/23 History duloxetine 60 mg capsule,delayed 60 mg PO BID nerves 09/24/18 12/25/23 History release tizanidine 4 mg capsule 4 mg PO DAILY PRN restlessness 09/24/18 12/25/23 History aspirin 81 mg tablet,delayed 81 mg PO DAILY . 02/18/19 12/25/23 History release (Aspir-) atorvastatin 40 mg tablet 40 mg PO DAILY #90 tabs 09/05/22 12/25/23 Rx sodium sul 1.479 gram-potas ch See Rx Instructions PO PER PKG DIR 07/03/23 12/25/23 Rx 0.188 gram-magnes sul 0.225 gram #24 tabs tablet (Sutab) losartan 50 mg tablet 50 mg PO DAILY . #90 tabs 07/25/23 12/25/23 Rx metoprolol succinate 25 mg 25 mg PO DAILY . #90 tabs 09/29/23 12/25/23 Rx tablet,extended release 24 hr (Toprol XL) aripiprazole 10 mg tablet 10 mg PO DAILY 11/24/23 12/25/23 History isosorbide mononitrate 30 mg 30 mg PO DAILY #90 tabs 11/24/23 12/25/23 Rx tablet,extended release 24 hr oxycodone-acetaminophen 10 mg-325 1 tab PO BID 11/24/23 12/25/23 History mg tablet esomeprazole magnesium 40 mg 40 mg PO DAILY 12/18/23 12/25/23 History capsule,delayed release gabapentin 600 mg tablet 600 mg PO BID 12/18/23 12/25/23 History ciprofloxacin HCl 100 mg tablet 0 mg PO BID 12/25/23 12/25/23 History New Prescriptions to Start Prescriptions: Allergies Allergy/AdvReac Type Severity Reaction Status Date / Time iodine Allergy Mild Hives Verified 12/25/23 10:36 Exam Data for Last 24 hours Vital signs and Labs for Last 24 Hours: Temp Pulse Resp BP Pulse Ox O2 Del Method 97.1 F L 94 H 18 162/81 H 96 Room Air 12/25/23 10:45 12/25/23 10:45 12/25/23 10:45 12/25/23 10:45 12/25/23 10:45 12/25/23 10:45 I & O for Last 24 hours: Intake & Output 12/22/23 12/23/23 12/24/23 12/25/23 23:59 23:59 23:59 23:59 Weight 146 lb *Routine HEENT Exam Head: Present normocephalic Eye: Present EOMI and PERRL ENT: Present mucous membranes moist *Routine Neck Exam Neck: Present supple *Routine Respiratory Exam Respiratory: Present CTA bilaterally *Routine Cardiovascular Exam Cardiovascular: Present RRR *Routine Abdominal Exam Abdominal: Present soft and normoactive bowel sounds; Absent tenderness *Routine Rectal Exam Rectal:: deferred *Routine Genitalia Exam Genitalia:: deferred *Routine Extremities Exam Extremities: Absent cyanosis, clubbing or edema *Routine Skin Exam Skin: Present warm; Absent rash *Routine Neurological Exam Neurological: Present alert and oriented X3 Assessment and Plan *Assessment and plan (1) Personal history of colon polyps, unspecified: Status: Acute Category: Medical Code(s): Z86.0100 - Personal history of colon polyps, unspecified (2) Family history of colon cancer: Status: Acute Category: Medical Code(s): Z80.0 - Family history of malignant neoplasm of digestive organs Plan A/P: 1. Personal history of large adenomatous polyp and strong family history of colon cancer is the preprocedural diagnosis. The patient will be anesthetized/sedated using MAC sedation. The patient has been seen and examined. Cardiac and lung assessment prior to the examination is stable. Proceed with planned colonoscopy
[2023-12-25 12:32] VITALS: O2SAT 100
--- NOTE | 2023-12-25 12:38 | HMH.PROCNOTE ---
[facility] Procedure Note Date: 12/25/23 Time: 13:10 Procedure Note:: Colonoscopy Procedure Report: Colonoscopy with foreign body (Endo Clip) removal, cold snare polypectomy and soft coagulation Endoscopist: Korey Maxwell II, MD Referring physician: Tiffany BOYD Date of Procedure: December 25, 2023 Equipment: Olympus 190 variable stiffness pediatric colonoscope Sedation: MAC sedation Indication: Mrs. Leach is a 73-year-old female who underwent a colonoscopy in 2009 ([facility]) and this was normal. She had a colonoscopy again in May 2023 and had a large cecal polyp that measured 25 to 30 mm. This was removed in a piecemeal fashion. There appeared to be residual polypoid tissue in the patient is arrange for repeat colonoscopy with removal of any residual advanced adenoma. The patient's mother had colon cancer at the age of 68. The patient does report some chronic constipation. She reports no rectal bleeding, weight loss or abdominal pain. Procedure: Prior to the procedure, a history and physical exam was performed, and patient's medications and allergies were reviewed. The risks, benefits and alternatives of the sedation and procedure were discussed with the patient. All questions were answered and informed consent was obtained. The patient was brought to the procedure room. Patient identification and proposed procedure were verified by the physician and the nurse. The patient was placed in a left lateral decubitus position and the scope was passed under direct vision. Throughout the procedure, the patient's blood pressure, pulse, and oxygen saturations were monitored continuously. The colonoscopy was accomplished without difficulty. The patient tolerated the procedure well. Findings: On digital rectal examination there was normal rectal tone. There were external hemorrhoidal tags. The colonoscope was introduced through the anal canal to the rectum and advanced to the cecum. The ileocecal valve and appendiceal orifice were identified. The scope was advanced a short distance into the ileum which appeared grossly normal. The scope was then withdrawn into the colon. There was spot ink tattoo in the cecum. There was also an Endo Clip that was over the site of the prior polyp removal. Because there was remaining adenomatous polyp in this location, the Endo Clip was removed using the snare. After this clip was removed, the polyp was assessed to be about 10-11 mm. This was removed completely via cold snare polypectomy and was flat granular adenoma. The margins of this polyp and the central portion were ablated/coagulated using soft coagulation with the snare tip. Upon withdrawal there were 2 additional polyps (ascending x 1 (5 mm) and sigmoid x 1 (4 mm)). Both of these were removed via cold snare polypectomy. There were a few scattered diverticuli in the descending and sigmoid colon. There was some plant residue in the colon but the preparation was still optimal. Upon retroflexion within the rectum there were grade 2 internal hemorrhoids. The preparation was excellent throughout with [place] Preparation Score of 7?8 out of 9. The cecal time was 12 minutes. Impression: 1. Residual cecal polyp (10 to 11 mm) status post removal and soft coagulation of margin and polypectomy site 2. 2 additional diminutive polyps 3. Left-sided diverticulosis 4. Grade 2 internal hemorrhoids with external tags Plan: I will follow-up the polyp histology . Prior pathology had not shown any high-grade dysplasia and this was a flat and larger tubular adenoma. Now that this has been completely removed, I would recommend 3-year surveillance interval and this will certainly be based on polyp pathology. I would recommend a fiber bowel regimen on a long-term daily maintenance basis.
[2023-12-25 13:08] VITALS: BP 176/98; PULSE 89; RESP 18; TEMP 36.5; O2SAT 90
[2023-12-25 13:18] VITALS: BP 125/65; PULSE 88; RESP 18; O2SAT 96
[2023-12-25 13:28] VITALS: BP 137/74; PULSE 96; RESP 18; O2SAT 96
[2023-12-25 13:38] VITALS: BP 132/86; PULSE 84; RESP 18; O2SAT 97
== END 2023-12-25 13:38 | disposition home or self-care (01) ==
PROVIDERS: PCP Nurse Practitioner Family; Visit Provider Internal Medicine Gastroenterology
PROC: 0DJD8ZZ Inspection of Lower Intestinal Tract, Via Natural or Artificial Opening Endoscopic (ICD-10-PCS; CPT 45378; principal; 2023-12-25 12:00)
DX: K63.5 Polyp of colon (principal); K57.30 Diverticulosis of large intestine without perforation or abscess without bleeding; K64.1 Second degree hemorrhoids; Z86.0100 Personal history of colon polyps, unspecified; Z80.0 Family history of malignant neoplasm of digestive organs
CPT/HCPCS: 45385; 88300; 88305; J7120

== ENCOUNTER 2024-07-09 12:52 | Outpatient (CLI) | payer MEDICARE, SELFPAY ==
--- OUTSIDE RECORDS SUMMARY | 2024-07-09 12:54 | XMS_ITS | Data Portability ---
Author Organization [facility] - TODD Arndt MODE CLOSED Address [address] [facility] [facility] [facility] [address] [place] [address] Care Team Providers Care Director Of Revenue Name Role Phone HARSHIL RACHAEL Primary Care Provider Assessment Encounter Date Assessment Date Assessment LastModified by Organization Details LastModified Time 04/24/2018 04/24/2018 Pt is S/P L5-S1 Extension of Fusion To Iliac Bolts (Previous L2-5) on 04/08/2018. Here for staple removal. Incision is well healed, rick were removed. Pt tolerated procedure well. [email or web address] Not available 04/24/2018 14:53:37 05/11/2018 05/11/2018 Mrs. Leach is doing very well after an L5-S1 extension. Her x-rays today look great. I gave her printed copies. She will follow up again in 3 months with repeat x-rays of the lumbar spine. I encouraged her to break her Percocet 7.5 sent half if she needs to. She has been taking some leftover Percocet fives rarely. We discussed her expected level of activity over the coming 3 months. [email or web address] Not available 05/11/2018 13:13:26 08/03/2018 08/03/2018 lumbar x ray performed today shows good placement of hardware without evidence of loosening Ms. Leach is a 67-year-old female status post extension of her lumbar fusion to include L2 through the iliacs on 04/08/[address] Simental reassured her that she can continue to heal from the surgery for up to a year. Expect her back and leg symptoms to gradually improve with time. She understands to call if she has any questions or concerns. Follow up as needed. Seen by Dr. Simental and myself. [email or web address] Not available 08/03/2018 13:18:28 Plan of Treatment Reminders Order Date Submit Date Provider Last Modified By Organization Details Last Modified Time Details Appointments None recorded. Lab surgical pathology study 2023 024 [facility], [address] [place], [address], 4 14:31:27 urinalysis , dipstick, auto 2018 019 [email or web address] [facility], [address], [place], [address], 9 20:36:18 Referral None recorded. Procedures None recorded. Surgeries None recorded. Imaging None recorded. Medication Orders Efudex 5 % topical cream 2023 024 [email or web address] [id number] [id number], [address], [id number], 4 10:23:34 Patient TargetsNo targets recorded. Patient Instructions Encounter Date Encounter Id Patient Instructions Last Modified By Organization Details Last Modified Time 12/23/2018 [id number] healthy together Not availabl e 12/24/2018 20:36:18 blood in the urine: care instructions [email or web address] Not available 12/24/2018 20:36:18 Reason for Referral None Reported. Results Created Date Observation Date Name Description Value Unit Range Abnormal Flag Note LastModifiedBy Organization Detail LastModifiedTime 12/24/19 19 12/23/2018 urina lysis , dipst ick, auto Unknown Analyte Yellow Not Available [facility] [address] [facility] [address], [place], [address], 12/23/2018 12:24:43 12/24/19 19 12/23/2018 urina lysis , dipst ick, auto Unknown Analyte Clear Not Available [facility] [address], [place], [address], 12/23/2018 12:24:43 12/24/1912/23/2018 urina lysis , dipst ick, auto Unknown Analyte 1.015 Not Available [facility] [address] [facility] [address], [place], [address], 12/23/2018 12:24:43 12/24/1912/23/2018 urina lysis , dipst ick, auto Unknown Analyte 1.003 - 1.035 Not Available [facility] [address] [facility] [address], [place], [address], 12/23/2018 12:24:43 12/24/1912/23/2018 urina lysis , dipst ick, auto Unknown Analyte 5.0 Not Available [facility] [address], [place], [address], 12/23/2018 12:24:43 12/24/1912/23/2018 urina lysis , dipst ick, auto Unknown Analyte 5.0 - 8.0 Not Available [facility] [address] [place] [address] [address], [place], [address], 12/23/2018 12:24:43 12/24/1912/23/2018 urina lysis , dipst ick, auto Unknown Analyte 500 Trini/ul (++) Not Available [facility] [address] [facility] [address], [place], [address], 12/23/2018 12:24:43 12/24/1912/23/2018 urina lysis , dipst ick, auto Unknown Analyte Negati ve Not Available [facility] [address], [place], [address], 12/23/2018 12:24:43 12/24/1912/23/2018 urina lysis , dipst ick, auto Unknown Analyte Negati ve Not Available [facility] [address] [facility] [address], [place], [address], 12/23/2018 12:24:43 12/24/1912/23/2018 urina lysis , dipst ick, auto Unknown Analyte Negati ve Not Available [facility] [address], [place], [address], 12/23/2018 12:24:43 12/24/1912/23/2018 urina lysis , dipst ick, auto Unknown Analyte Negtiv e Not Available [facility] [address], [place], [address], 12/23/2018 12:24:43 12/24/1912/23/2018 urina lysis , dipst ick, auto Unknown Analyte Negati ve - Trace Not Available [facility] [address], [place], [address], 12/23/2018 12:24:43 12/24/1912/23/2018 urina lysis , dipst ick, auto Unknown Analyte Normal Not Available [facility] [address], [place], [address], 12/23/2018 12:24:43 12/24/1912/23/2018 urina lysis , dipst ick, auto Unknown Analyte Normal Not Available [facility] [address], [place], [address], 12/23/2018 12:24:43 12/24/1912/23/2018 urina lysis , dipst ick, auto Unknown Analyte Negati ve Not Available [facility] [address] [facility] [address], [place], [address], 12/23/2018 12:24:43 12/24/1912/23/2018 urina lysis , dipst ick, auto Unknown Analyte Negati ve Not Available [facility] [address], [place], [address], 12/23/2018 12:24:43 12/24/1912/23/2018 urina lysis , dipst ick, auto Unknown Analyte Normal Not Available [facility] [address], [place], [address], 12/23/2018 12:24:43 12/24/1912/23/2018 urina lysis , dipst ick, auto Unknown Analyte Normal - 1mg/dl Not Available [facility] [address], [place], [address], 12/23/2018 12:24:43 12/24/1912/23/2018 urina lysis , dipst ick, auto Unknown Analyte Negati ve Not Available [facility] [address], [place], [address], 12/23/2018 12:24:43 12/24/1912/23/2018 urina lysis , dipst ick, auto Unknown Analyte Negati ve Not Available [facility] [address] [facility] [address], [place], [address], 12/23/2018 12:24:43 12/24/19 19 12/23/2018 urina lysis , dipst ick, auto Unknown Analyte Negati ve Not Available [facility] [address] [facility] [address], [place], [address], 12/23/2018 12:24:43 12/24/1912/23/2018 urina lysis , dipst ick, auto Unknown Analyte Negati ve Not Available [facility] [address] [facility] [address], [place], [address], 12/23/2018 12:24:43 12/24/1912/23/2018 urina lysis , dipst ick, auto Unknown Analyte Clean Catch Not Available [facility] [address] [place] [address] [address], [place], [address], 12/23/2018 12:24:43 12/24/1912/23/2018 urina lysis , dipst ick, auto Unknown Analyte Automa nikky Not Available [facility] [address] [place] [address] [address], [place], [address], 12/23/2018 12:24:43 05/11/19 19 05/11/2018 XR, lumbo sacra l spine , 2 or [address] [place] [address] Patidaniel lara Name: CARLOS lara : [address] Orderi ng Provid er: VIANEY SIMENTAL EXAM DATE: 2018 EXAM: XR LUMBAR AP/LAT CLINIC AL INFORM ATION: Postop erativ e. IMAGES PROVID ED: AP, latera l, and coned- down views of the lumbar spine. COMPAR ANGEL LUIS: None. FINDIN GS AND IMPRES MALU: Spinal fusion is noted at L2-S2 level with pedicu lar screws and connec ting rods. Surgic al hardwa re is satisf actori ly placed . No eviden ce of loosen ing or infect ion is seen. Other levels are normal . Interp reted By: Magalie Madden MD Electr onical ly Signed By: Magalie Madden MD on 1:33 PM [facility] [address] [place] [address], [address], 05/20/2018 12:23:41 08/04/19 19 08/03/2018 XR, lumbo sacra l spine , 2 or [address] [address] [address] lara Name: CARLOS alra : [address] Orderi ng Provid er: VIANEY SIMENTAL EXAM DATE: 2018 EXAM: XR LUMBAR AP/LAT CLINIC AL INFORM ATION: Back pain. IMAGES PROVID ED: AP, latera l and coned down views of the lumbar spine. COMPAR ANGEL LUIS: FINDIN GS: Previo us lumbos acral fusion . This extend s from L2 to S2. No hardwa re compli cation . No loosen ing is noted. The psoas margin s are define d. No radiog raphic eviden ce of injury is noted. IMPRES MALU: Stable uncomp licate d appear ing lumbos acral fusion Interp reted By: Junaid Patel MD Electr onical ly Signed By: Junaid Patel MD on 12:06 PM [facility] [address] [place], [address], 08/07/2018 12:32:16 01/08/20 19 01/06/2019 CT, abdom en + pelvi s, w/wo contr ast No observ ation record ed. [email or web address] [place] [address] [facility] [address] [place], [phone], 01/25/2019 06:55:42 Result Notes None recorded. Problems Name Problem SNOMED Code Status Onset Date Resolution Date Notes Provider Name and Address Organization Details Recorded Time Pain in right lower limb 385759520 Active 2014 From Automated Load;Provi tam: Lorraine Oakes;Juan tatus: [facility] 07:[facility]18 Low back pain 223849930 Active 2014 From Automated Load;Provi tam: Lorraine Oakes;Juan tatus: Active [facility] 9 07:59:18 Lumbar spondylosi s 662042362 Active 2015 From Automated Load;Provi tam: Siegrist, Elin;Sta tus: Active Dana Mckeon [facility] 9 07:59:18 Problem Notes None recorded. Procedures Surgical History Date Name Laterality Status Provider Name and Address Organization Details Recorded Time 04/07/19 24 Blade Biopsy w/ ED&C completed [facility] 04/07/2023 10:09:12 04/07/19 24 Destruction Premalignant Lesion(s) completed [facility] 04/07/2023 10:20:41 04/08/19 19 POSTERIOR LUMBAR INTERBODY FUSION, ADDITIONAL INTERSPACE (SURG) completed [facility] 05/08/2018 08:31:56 Cholecystectomy completed [facility] 09/22/2017 11:18:28 Back Surgery completed [facility] 09/22/2017 11:18:35 Other completed [facility] 09/22/2017 11:18:55 Other completed [facility] 09/22/2017 11:19:10 Imaging Results Imaging Date Name Status LastModified by Organiz ation Details LastModified Time 05/11/2018 XR, lumbosacral spine, 2 or 3 view completed [facility] [address] [place], [address], 05/20/2018 12:23:41 08/03/2018 XR, lumbosacral spine, 2 or 3 view completed [facility] [address] [place], [address], 08/07/2018 12:32:16 01/06/2019 CT, abdomen + pelvis, w/wo contrast completed [address] [facility] [address], [id number], 01/25/2019 06:55:42 Procedure Notes None recorded. Medical Equipment None Reported. Allergies No known drug allergies Medications Name Sig Start Date Stop Date Status Note LastModified by Organization Details LastModified Time ibuprofen 200mg active Not Available Not Available Not Available muscle rub active Not Available Not Av ailable Not Available toothpaste - 2 pack active Not Available Not Available Not Available magnesium oxide 400mg active Not Available Not Available Not Available losartan 50 mg tablet TAKE 1 TABLET BY MOUTH ONCE DAILY active Not Available Not Available No t Available cyclobenzapr ine 10 mg tablet Take 1 tablet 3 times a day by oral route as needed. 2018 active Not Available Not Available Not Avai lable atorvastatin 40 mg tablet TAKE 1 TABLET BY MOUTH ONCE DAILY active Not Available Not Available No t Available primidone 50 mg tablet TAKE 4 TABLETS BY MOUTH EVERY NIGHT AT BEDTIME active Not Available Not Available No t Available gabapentin 600 mg tablet Three times a day active Not Available Not Available No t Available Multiple Vitamin capsule Daily active Frequ ency: daily ;Medi catio n Descr iptio n: multi vitam in; Dosag e:1; Route :oral ; refil ls:0 Not Available Not Available Not Available ofloxacin 0.3 % eye drops active Not Available Not Available Not Available tizanidine 4 mg tablet TAKE 1 TABLET BY MOUTH EVERY 8 HOURS active Not Available Not Available No t Available tolterodine ER 4 mg capsule,exte nded release 24 hr active Not Available Not Available Not Available meloxicam 15 mg tablet Daily active Frequ ency: daily ;Medi catio n Descr iptio n: melox icam; Dosag e:1; Route :oral ; refil ls:0 Not Available Not Available Not Available isosorbide mononitrate ER 30 mg tablet,exten ded release 24 hr TAKE 1 TABLET BY MOUTH ONCE DAILY active Not Available Not Available No t Available fluorouracil 5 % topical cream APPLY TOPICALLY TO THE AFFECTED AREA TWICE DAILY FOR 2 WEEKS active Not Available Not Available No t Available topiramate 25 mg tablet active Not Available Not Available Not Available clopidogrel 75 mg tablet active Not Available Not Available Not Available amlodipine 5 mg tablet Two times a day active Not Available Not Available No t Available pramipexole 0.5 mg tablet TAKE 1 TABLET BY MOUTH THREE TIMES DAILY active Not Available Not Available Not Available oxycodone-ac etaminophen 5 mg-325 mg tablet active Not Available Not Available Not Available propranolol 10 mg tablet TAKE 1 TABLET BY MOUTH TWICE DAILY active Not Available Not Available No t Available prednisolone acetate 1 % eye drops,suspen malu INSTILL 1 DROP INTO THE LEFT EYE THREE TIMES DAILY active Not Available Not Available Not Available estradiol 1 mg tablet Daily active Not Available Not Available No t Available gabapentin 800 mg tablet TAKE 1 TABLET BY MOUTH THREE TIMES DAILY DIRECTED active Not Available Not Available Not Available meclizine 25 mg tablet active Not Available Not Available No t Available cephalexin 500 mg capsule active Not Available Not Available Not Available pantoprazole 40 mg tablet,delay ed release active Not Available Not Available N ot Available oseltamivir 75 mg capsule active Not Available Not Available Not Available diclofenac 0.1 % eye drops active Not Available Not Available Not Available esomeprazole magnesium 40 mg capsule,mayo yed release Daily active Not Available Not Available Not Available buspirone 10 mg tablet active Not Available Not Available No t Available furosemide 20 mg tablet TAKE 1 TABLET BY MOUTH EVERY OTHER DAY NEEDED active Not Available Not Available No t Available metoprolol succinate ER 25 mg tablet,exten ded release 24 hr TAKE 1 TABLET BY MOUTH ONCE DAILY active Not Available Not Available No t Available polyethylene glycol 3350 17 gram/dose oral powder active Not Available Not Available Not Available oxycodone-ac etaminophen 7.5 mg-325 mg tablet TAKE 1 TABLET BY MOUTH EVERY 8 HOURS active Not Available Not Available No t Available levofloxacin 750 mg tablet active Not Available Not Available Not Available methylpredni solone 4 mg tablets in a dose pack FOLLOW PACKAGE DIRECTIONS active Not Available Not Available N ot Available losartan 50 mg-hydrochlo rothiazide 12.5 mg tablet active Not Available Not Available Not Available aripiprazole 10 mg tablet active Not Available Not Available Not Available aripiprazole 5 mg tablet active Not Available Not Available Not Available rosuvastatin 5 mg tablet TAKE 1 TABLET BY MOUTH ONCE DAILY active Not Available Not Available No t Available nitrofuranto in monohydrate/ macrocrystal s 100 mg capsule TAKE 1 CAPSULE BY MOUTH EVERY 12 HOURS WITH FOOD FOR 7 DAYS active Not Available Not Available N ot Available duloxetine 60 mg capsule,mayo yed release Daily active Not Available Not Available Not Available tizanidine 4 mg capsule Bedtime active Frequ ency: hs;Me dicat ion Descr iptio n: tizan idine ; Dosag e:1-2 ; Route :oral ; refil ls:0 Not Available Not Available Not Available aripiprazole 2 mg tablet active Not Available Not Available Not Available Xiidra 5 % eye drops in a dropperette active Not Available Not Available Not Available Relistor 150 mg tablet TAKE 3 TABLETS BY MOUTH EVERY DAY DIRECTED active Not Available Not Available No t Available Restasis MultiDose 0.05 % eye drops active Not Available Not Available Not Available Sutab 1.479-0.188- 0.225 gram tablet TAKE DIRECTED active Not Available Not Available No t Available Vitals Date Recorded Body height Body mass index (BMI) Body weight Systolic blood pressure Diastolic blood pressure Provider Name and Address Organization Details Last Updated DateTime 05/11/2018 154.94 cm 25.7 kg/m2 07285.56 g 120 mm[Hg] 80 mm[Hg] [facility] 9 13:06:32 Date Recorded Body height Body mass index (BMI) Body weight Systolic blood pressure Diastolic blood pressure Provider Name and Address Organization Details Last Updated DateTime 08/03/2018 154.94 cm 25.7 kg/m2 70047.56 g 126 mm[Hg] 82 mm[Hg] [facility] 9 13:02:19 Date Recorded Body height Body mass index (BMI) Body weight Provider Name and Address Organization Details Last Updated DateTime 12/23/2018 154.94 cm 27 kg/m2 43729.71 g Allie Hoskins [facility] 12/23/2018 12:22:18 Social History Question Answer Notes LastModified by Organizat ion Details LastModified Time Tobacco Smoking Status Never Smoker Marce Coleman [facility] 09/22/2017 11:18:18 What Is Your Level Of Alcohol Consumption? None Information not available 12/23/2018 How Much Tobacco Do You Chew? None [email or web address] Information not available 12/23/2018 Marital Status [email or web address] Informatio n not available 12/23/2018 What Was The Date Of Your Most Recent Tobacco Screening? 08/03/2018 Information n ot available 05/04/2019 How Much Tobacco Do You Smoke? No [email or web address] Information not available 12/23/2018 Sex: Unknown Functional Status None recorded. Mental Status None recorded. Family History Relationship Description Onset Age of this Age Resolved Age Notes LastModified by Organization Details LastModified Time Unspecified Relation Malignant neoplastic disease [email or web address] Not available 09/22 11:17:50 Unspecified Relation Diabetes mellitus [email or web address] Not available 09/22 11:17:55 Unspecified Relation Hypertensive disorder [email or web address] Not available 09/22 11:17:59 Unspecified Relation Cerebrovascu lar accident [email or web address] Not available 11:18:07 Medical History Condition Response Osteoporosis/Osteopenia Y Arthritis Y High Cholesterol Y Acid Reflux (GERD) Y Cancer Y Fibromyalgia Y Hypertension Y Depression Y Gynecological HistoryNo gynecological history recorded. Obstetrics History GPAL:G 0 P 0 0 0 0 Past Encounters Encounter ID Performer Location Encounter Start Date Encounter Closed Date Diagnosis/Indication Diagnosis SNOMED-CT Code Diagnosis ICD10 Code Diagnosis Note [id number] KAREEM BORGES PA-C [facility] [address] [place] [address] 09/22/2017 10:15:27 09/22/2017 13:07:04 Lumbar radiculopathy 232857806 M54.16 Ms. Leach presents with progressiv chema worsening mechanical low back and bilateral radicular leg pain. Interestin gly she had great relief of these symptoms after a SCS trial last year, but did not get the same relief after placement of a permanent stimulator . She had the stimulator removed after the generator failed. Her exam is non-focal without signs of cauda equina or myelopathy . Given her progressiv e symptoms despite exhaustive conservati ve treatment, including chiropract ic, narcotic medication s, and a spinal cord stimulator , will proceed with a lumbar MRI to assess for any adjacent level stenosis. In particular L5-S1 as this seems to best follow her leg pain. Will also proceed with a lumbar CT to assess for any pseudoarth rosis or hardware issues. She will follow up with Dr. Simental after these studies. She is happy with this plan. [id number] YOCASTA SCHRADER PA-C [facility] [address] [place] [address] 10/09/2017 13:31:19 10/10/2017 14:38:35 Lumbar radiculopathy [id number] M54.[address] LC Films Pt provided CD - Well fused L2-L5 fusion, appropriat e placement of hardware - Right L5S1 superior migrated disc herniation abutting the descending L5 nerve root. 66F s/p L2-L5 PLIF [place] [address] Simental, prior SCS, with Right L5-S1 disc herniation . The patients primary symptom is low back pain. She does have some right leg pain, but seems secondary to her axial pain. Treatment options were discussed in detail with the patient including extension of fusion to iliac as well as trialing more injections . Given that she has not had an injection in over 2 years and the size of the herniation , I feel that she should give this a try first. She may get better from this disc herniation and not require extension. Additional ly her primary symptom is not posterior leg pain, so extension of fusion surgery may not be the best answer for her axial back pain, but remains an option. We will have her back in clinic in 2 months to monitor her progress. Pt agrees with this plan. I gave her CD back at the end of this visit. [id number] YOCASTA SCHRADER PA-C [facility] [address] [place] [address] 03/02/2018 15:00:36 03/04/2018 10:43:12 Lumbar radiculopathy [id number] M54.[address] LC Films Pt provided CD - Well fused L2-L5 fusion, appropriat e placement of hardware - Right L5S1 superior migrated disc herniation abutting the descending L5 nerve root. 66F s/p L2-L5 PLIF [place] [address] Simental, prior Percutaneo us spinal cord stimulator Removed earlier this year, with adjacent level stenosis and right greater than left foraminal stenosis. The patient is track conservati ve therapy for her adjacent level disease but only found of modest temporary relief. This case was discussed with Dr. Simental he is recommendi ng extending her fusion to iliac bolts. This procedure was discussed in detail using a spinal model and discussing the risks benefits and postoperat jovani course in detail with the patient. The patient agrees to proceed. We would expect her to stay in the hospital a couple days. She agrees to proceed. We will have her meet with her surgery coordinato r to schedule. The patient was seen and examined by myself and also by Dr. Simental who agrees with above. [id number] THAO SIMENTAL MD NEUROSURG MARTIN DAVIS [address] [place] [address] 04/24/2018 10:59:02 04/24/2018 14:54:28 [id number] THAO SIMENTAL MD NEUROSURG MARTIN [facility] R[facility]AN [address] [place] [address] 05/11/2018 13:00:10 05/12/2018 12:18:35 Postoperative care [id number] Z48.89 [id number] THAO SIMENTAL MD NEUROSURG MARTIN UZMA DAVIS [address] [place] [address] 08/03/2018 12:53:02 08/03/2018 13:31:42 Lumbar radiculopathy [id number] M54.16 [id number] GINETTE CORTES MD [facility] [address] [place] [address] 12/23/2018 11:32:02 12/23/2018 12:35:03 Yoan hematuria [id number] R31.0 we will arrange for CT scan of the abdomen and pelvis without and with IV contrast. She will contact me for results. We discussed the probabilit y of cystoscopy . [id number] GRUPO SEPULVEDA MD [address] [place] [address] 04/07/2023 09:43:50 04/11/2023 13:31:38 History of malignant neoplasm of skin [id number] Z85.828 L90.5 - No evidence of recurrence today- Call with any worrisome lesions or if treated lesions return- Return at regular intervals for skin exam as recommende d Multiple b enign melanocytic nevi [id number] D22.5 - Benign lesions seen on exam today- SPF 30 or higher broad-spec trum sunscreen recommende d with re-applica tion every 2 hours- Discussed sun protection measures, including wide-brimm ed hat, sun-protec tive clothing, and avoidance of sun during peak hours of 10am-4pm- Avoid tanning beds as these can increase the chances of all 3 types of skin cancer- Instructed to monitor for changes and to call us for appointmen t with any changing or worrisome lesions Seborrheic keratosis [id number] L82.1 - Benign overgrowth s of skin - Hereditary Senile angioma [id number] I 78.1 - Benign blood vessel growths - Hereditary Solar lentigo [id number] L 81.4 - Benign brown spots - Sun-induce d Actinic keratosis [id number] today, no wound care. May represent early sup bcc. Will recheck at next visitRecom mend Efudex 5% compound, SE reviewedIn structed to wait 1 month and tx bilateral forearms and dorsal handsApply bid x 2 weeks, pt showed understand ingFup with change or concerns History of Malignant melanoma [id number] Z85.89 L90.5 - No evidence of recurrence today- Call with any worrisome lesions or if treated lesions return- Return at regular intervals for skin exam as recommende d Melanoma increases the risk for another melanoma. All melanoma patients should have ongoing follow ups with dermatolog ist for skin checks and should perform monthly self exams including lymph node exams. The should also follow up with their pcp regularly to monitor for internal spread of melanoma. All first degree relatives should be checked for melanoma as the tendency may be genetic Neoplasm o f uncertain behavior of skin [id number] D48.5 Wound care givenWill fup with bx results, txd by ED&C Health Concerns Section Related Observation LastModified by Organization Detai ls LastModified Time None Recorded Concern Status LastModified by Organization Details LastModified Time None Recorded Advance Directives Directive None Recorded Payers Encounter Date Sequence Insurance Name Policy Number Policy Celeste Covered Member ID Celeste Member ID Guarantor Name 04/24/2018 1 [employer] (MEDICARE REPLACEMENT/A DVANTAGE - PPO) Carlos Leach [id number] Carlos Leach 05/11/2018 1 [employer] (MEDICARE REPLACEMENT/A DVANTAGE - PPO) Carlos Leach [id number] Carlos Leach 08/03/2018 1 [employer] (MEDICARE REPLACEMENT/A DVANTAGE - PPO) Carlos Leach [id number] Carlos Leach 12/23/2018 1 [employer] (MEDICARE REPLACEMENT/A DVANTAGE - PPO) Carlos Leach [id number] Carlos Leach 04/07/2023 1 [employer] (MEDICARE REPLACEMENT/A DVANTAGE - PPO) Carlos Leach [id number] Carlos Leach Notes Date Note Type Note Provider Name and Address Organization Details Recorded Time 05/11/2018 text/html Mrs. Carlos Leach is a 67-year-old female status post extension of both previous L2-L5 fusion L5-S1 on April 08, 2018. She is doing well with good relief of her presenting pain. THAO SIMENTAL MD [address] [place] [address], [phone], [facility] 05/11/2018 13:13:40 08/03/2018 text/html Ms. Leach is status post extension of her previous L2 through L5 fusion to L2 through iliacs on 04/08/2018. She reports her preoperative leg pain is at least 90% better. She does have some discomfort in her low back and a diffuse discomfort in her legs bilaterally. She states that her legs feel weak. She still has some difficulty walking up an incline. ELIN REDDY PA-C [address] [place] [address], [phone], [facility] 08/03/2018 13:19:12 12/23/2018 text/html patient is here for initial visit. She was referred for persistent microscopic hematuria. This was first noticed about 3 months ago. At that time she had actually had some spotting on her underwear and total hyper. That persisted for several weeks within seen to resolve. Occasionally the urine would appear slightly blood tinged. She has had no radiographic studies. She states that she typically has nocturia 2-3 times per night and urinates too often. 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 [address] a place on my chest. GRUPO SEPULVEDA MD [address] [place] [address], [phone], [facility] 04/07/2023 10:37:58 OBGyn Episode No OBEpisode recorded.
--- OUTSIDE RECORDS SUMMARY | 2024-07-09 12:54 | XMS_ITS ---
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
--- NOTE | 2024-07-09 12:55 | MR_ITS ---
FINAL REPORT CLINICAL HISTORY: PT HAS RODS IN BACK TREMORS OF NERVOUS SYSTEM lower back pain bilateral leg pain , numbness and tingling worse on right side no injury COMPARISON: 08/14/2023 FINDINGS: Multiplanar MR imaging of the lumbar spine was performed without contrast. There is extensive streak artifact from posterior fusion hardware bridging L2-S1. There is no malalignment. There are endplate reactive signal changes throughout the lumbar spine. T12-L1: There is a mild disc bulge and a left posterior lateral disc protrusion. There is moderate bilateral neuroforaminal narrowing. L1-2: There is a moderate diffuse disc bulge and moderate bilateral neuroforaminal narrowing. L2-3: There is no significant canal stenosis or neural foraminal narrowing. L3-4: There is no significant canal stenosis or neural foraminal narrowing. L4-5: There is no significant canal stenosis or neural foraminal narrowing. L5-S1: There is no significant canal stenosis or neural foraminal narrowing. IMPRESSION: Disc bulges at T12-L1 and L1-L2 with bilateral neuroforaminal narrowing. Findings appear similar to the previous exam. Reviewed, Interpreted and Dictated by Feng Heck MD Transcribed by Kya Duque Authenticated and . [facility]
== END 2024-07-09 23:59 | disposition home or self-care (01) ==
LOC: RAD 12:52
PROVIDERS: PCP Nurse Practitioner Family; Visit Provider Nurse Practitioner Family
DX: R25.1 Tremor, unspecified (principal)
CPT/HCPCS: 72148

== ENCOUNTER 2024-10-13 13:20 | Outpatient (CLI) | payer MEDICARE, SELFPAY ==
--- OUTSIDE RECORDS SUMMARY | 2023-12-30 06:20 | XMS_ITS ---
Author Organization [facility] Address [address] [address] Care Team Providers Care Incident Handler Name Role Phone Ariana Puri Primary Care Provider Halley Galvan Unavailable [phone] Katrin Fitch Unavailable [phone] REASON FOR VISIT *Evaluation and Management of Chronic Medical Conditions Encounters Encounter Location Date Provider Diagnosis [address] [address] 12/30/2023 Katrin Fitch Plan Of Treatment No Information Progress Notes * CARLOS BOYKINDOB:1950 ( 73 yo F)Acc No.[id number]:12/30/2023 Patient: CARLOS FRANK Provider: Chirss Tucker DNP :1950 A ge:73 Y S ex:Female Date:12/30/2023 Address: [place], [id number] Pcp:Ariana Puri Structured Data:General cons ent obtained : Written; Date obtained: : 08/22/2023 Subjective: * Chief Complaints: * 1 . *Evaluation and Management of Chronic Medical Conditions. * Medical History: Objective: * Vitals: Assessment: Plan: * Treatment: * * Electronic signature of Paddy Fitch APRN on 10/13/2024 at 01:23 PM EDT Sign off status: Pending * Provider: Chriss Tucker DNP Date: 1 Generated for Aruna frost/Daisy/Donnell on: 0 10/13/2024 01:23 PM EDT
--- OUTSIDE RECORDS SUMMARY | 2024-04-19 09:15 | XMS_ITS ---
Author Organization [facility] Address [address] [facility] [address] [place] [id number] Care Team Providers Care Disease Case Manager Name Role Phone Lenora Montoya Primary Care Provider [phone] Michelle Sweeney [phone] Allergies Allergen (clinical drug ingredient) Drug/Non Drug Allergy documented on EMR Reaction Allergy Type Onset Date Status Efudex hives Drug Allergy Active REASON FOR VISIT discuss medication Medications Medication SIG (Take, Route, Frequency, Duration) Notes Start Date End Date Status ARIPiprazole 10 MG 1 tablet Orally Once a day; Duration: 90 day(s) Active Percocet 7.5-325 MG 1 tab(s) orally three times a day increase by pain clinic to tid Active Vitamin C 1000 MG 1 tab(s) orally once a day Active Multiple Vitamin - 1 cap(s) orally once a day Active Lubiprostone 8 MCG 1 capsule with food and water Orally Twice a day prn Active DULoxetine HCl 60 MG TAKE 1 CAPSULE TWICE DAILY Active Ondansetron 4 MG 1 tablet on the tongue and allow to dissolve Orally q8h prn Active MiraLax 17 GM/SCOOP 1 scoop mixed with 8 ounces of fluid Orally twice daily 01/27/2024 Active Estradiol 1 MG 1 tab(s) orally once a day; Duration: 90 days Active Aspirin Adult Low Dose 81 MG 1 tab(s) orally once a day Active Atorvastatin Calcium 40 MG 1 tab(s) orally once a day Active tiZANidine HCl 4 MG 1 or 2 tab(s) orally qhs Active Esomeprazole Magnesium 40 MG TAKE 1 CAPSULE EVERY DAY Active Plavix 75 MG 1 tablet Orally Once a day Active Losartan Potassium 50 MG 1 tab(s) orally once a day Active Problems Problem Type SNOMED Code ICD Code Onset Dates Problem Status W/U Status Risk Notes Problem Anxiety and depression (F41.8) Active confirmed Vital Signs Weight 144.0 lbs 04/19/2024 Blood pressure systolic 126 mm Hg 04/19/19 25 Blood pressure diastolic 70 mm Hg 025 Heart Rate 83 /min 04/19/2024 Height 61 in 04/19/2024 BMI 27.21 kg/m2 04/19/2024 Encounters Encounter Location Date Provider Diagnosis [facility] [address] [place], [place] [id number] 04/19/2024 Michelle Sweeney Anxiety and depression F41.8 Assessments Encounter Date Diagnosis (ICD Code) Assessment Notes Treatment Notes Treatment Clinical Notes Section Notes 04/19/2024 Anxiety and depression (ICD-10 - F41.8) she is also now dealing with the of her grandson ; discussed briefly 04/19/2024 Other she continues to follow with pain management and Dr. Maxwell Plan Of Treatment Medication Medication Name Sig Start Date Stop Date Notes ARIPiprazole 10 MG 1 tablet Orally Once a day; Duration: 90 day(s) DULoxetine HCl 60 MG TAKE 1 CAPSULE TWICE DAILY Treatment Notes Assessment Notes Anxiety and depression she is also now d ealing with the of her grandson ; discussed briefly Other she continues to fol low with pain management and Dr. Maxwell Next Appt Details Follow Up: prn, Reason: Progress Notes * LUCRETIA CARLOSDOB:1950 ( 73 yo F)Acc No.[id number]:04/19/2024 Progress Notes Patient: CARLOS FRANK Provider: OLIVER Prescott :1950 A ge:73 Y S ex:Female Date:04/19/2024 [address] [id number] Pcp:Lenora Montoya Subjective: * Chief Complaints: * 1 . Discuss medication. * HPI: H PI: 73 year old female presents with c/o Patient is here today for?Pt sts she would like to discuss her Aripiprazole. Pt sts she needs refills, and sts that when she called in to the office it could not be found where it was prescribed to her. reviewed meds; this med started in 2018 ; has not been on her med list for the past year; will reenter. * ROS: C ARDIOLOGY: no C hest pain. n o S hortness of breath. ? G ASTROENTEROLOGY: Positive for h aving colonoscopy . n o N ausea. n o V omiting. n o D iarrhea. U ROLOGY: Difficulty urinating yes. n o B lood in urine.? * Medical History: H [place], Stress/Anxiety, Back pain, Sinus problems, Hiatal Hernia, Fibromyalgia, GERD, Tremor. * Surgical History: t otal hysterectomy 2004, lower back fusion 2014, tubal , tonsilectomy , back surgery mar 2018 , Cardiac Stent x1 Oct 2018, Cardiac Stent 04/22/2022. * Hospitalization/Major Diagno stic Procedure: B ack surgery Mar 2018. * Family History: F ather: 60 yrs, colon inflammation. M other: 62 yrs, colon cancer. 1 sister(s) . 1 daughter(s) . . pt has a sister due to COPD\nPt has son due to Pul Edema. * Social History: C URRENT TOBACCO USE: No . C affeine: yes, frequency: coffee, soft drinks tea. New since last visit: none. Alcohol: Yes, Type: beer once a day , Frequency: ,Years: , Determination:. * Medications: T ronald ARIPiprazole 10 MG Tablet 1 tablet Orally Once a day , Taking Lubiprostone 8 MCG Capsule 1 capsule with food and water Orally Twice a day prn , Taking Multiple Vitamin - Capsule 1 cap(s) orally once a day , Taking Vitamin C 1000 MG Tablet 1 tab(s) orally once a day , Taking Percocet 7.5-325 MG Tablet 1 tab(s) orally three times a day , Notes to Pharmacist: increase by pain clinic to tid, Taking Losartan Potassium 50 MG Tablet 1 tab(s) orally once a day , Taking Plavix 75 MG Tablet 1 tablet Orally Once a day , Taking Aspirin Adult Low Dose 81 MG Tablet Delayed Release 1 tab(s) orally once a day , Taking Estradiol 1 MG Tablet 1 tab(s) orally once a day , Taking tiZANidine HCl 4 MG Tablet 1 or 2 tab(s) orally qhs , Taking Atorvastatin Calcium 40 MG Tablet 1 tab(s) orally once a day , Taking Esomeprazole Magnesium 40 MG Capsule Delayed Release TAKE 1 CAPSULE EVERY DAY , Taking MiraLax 17 GM/SCOOP Powder 1 scoop mixed with 8 ounces of fluid Orally twice daily , Taking Ondansetron 4 MG Tablet Disintegrating 1 tablet on the tongue and allow to dissolve Orally q8h prn , Taking DULoxetine HCl 60 MG Capsule Delayed Release Particles TAKE 1 CAPSULE TWICE DAILY , Discontinued Wegovy 0.25 MG/0.5ML Solution Auto-injector 0.5 mL Subcutaneous , Discontinued Amitiza 24 MCG Capsule 1 capsule with food and water Orally Twice a day , Medication List reviewed and reconciled with the patient * Allergies: E fudex: hives. Objective: * Vitals: W t:144.0, Temp:97.9, BP:126/70, HR:83, O2 Sat:95% on RA, Nurse:YVES, Ht: 61, BMI:27.21. * Examination: G eneral Examination: General Appearance: NAD, alert, pleasant; tremors of hands bilaterally. H eart: RRR. L ungs: CTAB A&P. N eurologic Exam: alert and oriented. E xtremities: no leg edema. Assessment: * Assessment: 1. A nxiety and depression - F41.8 (Primary) Plan: * Treatment: 2. O thers Notes: she continues to follow with pain management and Dr. Maxwell * Procedure Codes: G 2211 Complex e/m visit add on, 3074F SYST BP LT 130 MM HG, 3078F DIAST BP < 80 MM HG * Follow Up: p rn * Images: Billing Information: * Visit Code: 64531 Office Visit, Est Pt., Level 3. * Procedure Codes: G2211 Complex e/m visit add on. 3074F SYST BP LT 130 MM HG. 3078F DIAST BP < 80 MM HG. * Electronic signature of Yana Sweeney APRN on 10/13/2024 at 01:23 PM EDT Sign off status: Pending * Provider: OLIVER Prescott Date: 0 04/19/2024 Generated for Aruna frost/Daisy/Brosmitting on: 0 10/13/2024 01:23 PM EDT History and Physical Notes * HPI (History of Present Illness) Category Sub-Category Detail Notes Category Not es HPI Patient is here toda y for Pt sts she would like to discuss her Aripiprazole. Pt sts she needs refills, and sts that when she called in to the office it could not be found where it was prescribed to her reviewed meds; this med started in 2018 ; has not been on her med list for the past year; will reenter Examination Category Sub-Category Detail Notes Category Not es General Examination Heart: RRR Lungs: CTAB A&P Extremities: no leg edema General Appearance: NAD, alert, pleasant ; tremors of hands bilaterally Neurologic Exam: alert and oriented
--- OUTSIDE RECORDS SUMMARY | 2024-06-21 06:15 | XMS_ITS ---
Author [facility] [address] [facility] [address] [place] [phone] Care Team Providers Care Cracking Unit Operator Name Role Phone Lenora Montoya Primary Care Provider Michelle Sweeney Unavailable [phone] Allergies Allergen (clinical drug ingredient) Drug/Non Drug Allergy documented on EMR Reaction Allergy Type Onset Date Status Efudex hives Drug Allergy Active Results Component Value Reference Range Notes MRI : Lumbar Spine without c ontrast Reviewed date:07/13/2024 01:10:27 PM Interpretation: Performing Lab: Notes/Report: Reason For Referral Diagnosis 1 Tremors of nervous s ystem (R25.1) Referral [facility] Referring Provider First Name Michelle Referring Provider Last Name Patel [facility]erred Provider Neurosurgery, . Referred Provider Specialty Neurological Surgery General Notes Michelle Sweeney 06/21/2024 10:32:10 AM > has seen Dr. Simental previously with Hx of surgery; worsening back pain; will do MRI; does go to pain management, Roula Queen 06/21/2024 11:42:54 AM > submitted via [facility] website Referral Priority Routine REASON FOR VISIT back pain, discuss referral to Dr. Simental Medications Medication SIG (Take, Route, Frequency, Duration) Notes Start Date End Date Status Percocet 7.5-325 MG 1 tab(s) orally three times a day increase by pain clinic to tid Active ARIPiprazole 10 MG 1 tablet Orally Once a day; Duration: 90 day(s) Active Ondansetron 4 MG 1 tablet on the tongue and allow to dissolve Orally q8h prn Active MiraLax 17 GM/SCOOP 1 scoop mixed with 8 ounces of fluid Orally twice daily 01/27/2024 Active tiZANidine HCl 4 MG 1 or 2 tab(s) orally qhs Active Atorvastatin Calcium 40 MG 1 tab(s) orally once a day Active MetroLotion 0.75 % 1 application Externally Twice a day; Duration: 30 days 06/21/2024 Active Aspirin Adult Low Dose 81 MG 1 tab(s) orally once a day Active Plavix 75 MG 1 tablet Orally Once a day Active Losartan Potassium 50 MG 1 tab(s) orally once a day Active Multiple Vitamin - 1 cap(s) orally once a day Active Lubiprostone 8 MCG 1 capsule with food and water Orally Twice a day prn Active Esomeprazole Magnesium 40 MG TAKE 1 CAPSULE EVERY DAY; Duration: 90 Active Vitamin C 1000 MG 1 tab(s) orally once a day Active Estradiol 1 MG TAKE 1 TABLET EVERY DAY; Duration: 90 Active DULoxetine HCl 60 MG TAKE 1 CAPSULE TWIC E DAILY Active Problems Problem Type SNOMED Code ICD Code Onset Dates Problem Status W/U Status Risk Notes Problem Lumbosacral arthrodesis (58215804) Fusion of spine, 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) Active confirmed Problem Rosacea (L71.9) Active confirmed Vital Signs Weight 147.0 lbs 06/21/2024 Blood pressure systolic 118 mm Hg 06/22/19 25 Blood pressure diastolic 70 mm Hg 025 Heart Rate 74 /min 06/21/2024 Height 61 in 06/21/2024 BMI 27.77 kg/m2 06/21/2024 Encounters Encounter Location Date Provider Diagnosis [facility] [address], [place] [phone] 06/21/2024 Michelle Sweeney Tremors of nervous system R25.1 ; Chronic pain disorder G89.4 ; Fibromyalgia M79.7 ; Lumbago with sciatica, unspecified side M54.40 ; Fusion of spine, lumbosacral region M43.27 ; Rosacea L71.9 ; Mixed hyperlipidemia E78.2 ; Essential hypertension I10 ; Moderate episode of recurrent major depressive disorder F33.1 and BMI 27.0-27.9,adult Z68.27 Assessments Encounter Date Diagnosis (ICD Code) Assessment Notes Treatment Notes Treatment Clinical Notes Section Notes 06/21/2024 Tremors of nervous system (ICD-10 - R25.1) 06/21/2024 Chronic pain disorder (ICD-10 - G89.4) continue with pain management 06/21/2024 Fibromyalgia (ICD-10 - M79.7) 06/21/2024 Lumbago with sciatica, unspecified side (ICD-10 - M54.40) worsening back pain; referral to Dr. Simental; encouraged not to lift/push or pull; she uses creams and heat andcold application 06/21/2024 Fusion of spine, lumbosacral region (ICD-10 - M43.27) 06/21/2024 Rosacea (ICD-10 - L71.9) 06/21/2024 Mixed hyperlipidemia (ICD-10 - E78.2) 06/21/2024 Essential hypertension (ICD-10 - I10) 06/21/2024 Moderate episode of recurrent major depressive disorder (ICD-10 - F33.1) 06/21/2024 BMI 27.0-27.9,adult (ICD-10 - Z68.27) Plan Of Treatment Medication Medication Name Sig Start Date Stop Date Notes Percocet 7.5-325 MG 1 tab(s) orally thre e times a day increase by pain clinic to tid tiZANidine HCl 4 MG 1 or 2 tab(s) orally qhs MetroLotion 0.75 % 1 application System Specialist ally Twice a day; Duration: 30 days 06/21/2024 Treatment Notes Assessment Notes Chronic pain disorder continue with pain management Lumbago with sciatica, unspecified side worsening back pain; referral to Dr. Simental; encouraged not to lift/push or pull; she uses creams and heat andcold application Referrals Referral Date Details 06/21/2024 06/21/2024, . Neuros urgery Next Appt Details Follow Up: prn, Reason: Progress Notes * CARLOS BOYKINDOB:1950 ( 73 yo F)Acc No.[id number]:06/21/2024 Progress Notes Patient: CARLOS FRANK Provider: OLIVER Prescott :1950 A ge:73 Y S ex:Female Date:06/21/2024 Address:[address], [place], [id number] Pcp:Lenora Montoya Subjective: * Chief Complaints: * 1 . back pain, discuss referral to Dr. Smiental. * HPI: Vernon saucedo back: 73 year old female presents with c/o Low Back Pain P t sts she has been having some lower back pain that is radiating down both of her legs. Pt sts she has had the back pain for a long time, but sts the leg pain has gotten worse in the past 3 weeks. Pt sts she would like a referral to Dr. Simental and needs an MRI done. c/o radiation of pain t o both legs. c/o previous surgery. c/o previous therapy. c/o previous imaging. Denies : tingling/ numbness. D enies : bowel or bladder dysfunction. has had previous back surgery with rods; continues with home and yard care; states she sits when pain is worse; usually no pain at rest. * ROS: C ARDIOLOGY: no C hest pain. n o S hortness of breath. ? G ASTROENTEROLOGY: Positive for h avi colonoscopy . n o N ausea. n o V omiting. n o D iarrhea. U ROLOGY: Difficulty urinating yes. n o B lood in urine.? * Medical History: H [place], Stress/Anxiety, Back pain, Sinus problems, Hiatal Hernia, Fibromyalgia, GERD, Tremor. * Surgical History: t otal hysterectomy 2004, lower back fusion 2014, tubal , tonsilectomy , back surgery mar 2018, Cardiac Stent x1 Oct 2018, Cardiac Stent [...] Frequency: ,Years: , Determination:. * Medications: T aking Lubiprostone 8 MCG Capsule 1 capsule with [...] tab(s) orally once a day , Taking MiraLax 17 GM/SCOOP Powder 1 scoop mixed with 8 ounces of fluid Orally twice daily , Taking Ondansetron 4 MG Tablet Disintegrating 1 tablet on the tongue and allow to dissolve Orally q8h prn , Taking ARIPiprazole 10 MG Tablet 1 tablet Orally Once a day , Taking DULoxetine HCl 60 MG Capsule Delayed Release Particles TAKE 1 CAPSULE TWICE DAILY , Taking Estradiol 1 MG Tablet TAKE 1 TABLET EVERY DAY , Taking Esomeprazole Magnesium 40 MG Capsule Delayed Release TAKE 1 CAPSULE EVERY DAY , Medication List reviewed and reconciled with the patient * Allergies: E fudex: hives. Objective: * Vitals: W t: 147.0, Temp: 98.4, BP: 118/70, HR: 74, Nurse: adelso, Ht: 61, BMI:27.77. * Examination: G eneral Examination: General Appearance: NAD, appears healthy, alert, pleasant. H eart: RRR. L ungs: CTAB A&P. N eurologic Exam: alert and oriented. S kin: erythema and red papules on bilateral cheeks and forehead. P eripheral pulses: normal (2+) bilaterally. E xtremities: no leg edema, pulses 2 plus bilaterally; color of feet and legs are good. L ower back: Inspection: exaggerated lordosis, scar from previous surgery. P alpation: paraspinal tenderness bilaterally at Lumbar level. S traight leg raising test: negative bilaterally. M otor system: V/ V bilaterally. R eflexes: bilaterally symmetrical, 1+. G ait: normal. R jeffry of motion: normal. ? Assessment: * Assessment: 1. T remors of nervous system - R25.1 (Primary) 2 . C hronic pain disorder - G89.4 3 . F ibromyalgia - M79.7 4 . L umbago with sciatica, unspecified side - M54.40 5 . F usion of spine, lumbosacral region - M43.27 6. R osacea - L71.9 7 . M ixed hyperlipidemia - E78.2 ? 8 . E ssential hypertension - I10 9 . M oderate episode of recurrent major depressive disorder - F33.1 1 0. B NH 27.0-27.9,adult - Z68.27 ? Plan: * Treatment: ? Referral To:. Neurosurgery??Neurological Surgery ?Reason: 2.?Chronic pain disorder? Continue Percocet Tablet, 7.5-325 MG, 1 tab(s), orally, three times a day, Notes to Pharmacist: increase by pain clinic to tid.?? Notes: continue with pain management??3.?Lumbago with sciatica, unspecified side ? Continue tiZANidine HCl Tablet, 4 MG, 1 or 2 tab(s), orally, qhs.?? Notes: worsening back pain; referral to Dr. Simental; encouraged not to lift/push or pull; she uses creams and heat andcold application??4.?Rosacea? Start MetroLotion Lotion, 0.75 %, 1 application, Externally, Twice a day, 30 days, 1, Refills 5. ? * Procedure Codes: G 2211 Complex e/m visit add on, 3074F SYST BP LT 130 MM HG, 3078F DIAST BP < 80 MM HG * Follow Up: p rn * Images: Billing Information: * Visit Code: 52676 Office Visit, Est Pt., Level 4. * Procedure Codes: G2211 Complex e/m visit add on. 3074F SYST BP LT 130 MM HG. 3078F DIAST BP < 80 MM HG. * Electronic signature of Yana Sweeney APRN on 10/13/2024 at 01:23 PM EDT Sign off status: Pending * Provider: OLIVER Prescott Date: 0 06/21/2024 Generated for Aruna frost/Daisy/Donnell on: 0 10/13/2024 01:23 PM EDT History and Physical Notes * HPI (History of Present Illness) Category Sub-Category Detail Notes Category Not es Lower back tingling/ numbness has had p revious back surgery with rods; continues with home and yard care; states she sits when pain is worse; usually no pain at rest Low Back Pain Pt sts she has been having some lower back pain that is radiating down both of her legs. Pt sts she has had the back pain for a long time, but sts the leg pain has gotten worse in the past 3 weeks. Pt sts she would like a referral to Dr. Simental and needs an MRI done radiation of pain to both legs previous surgery previous therapy previous imaging bowel or bladder dysfunction Examination Category Sub-Category Detail Notes Category Not es General Examination Heart: RRR Lungs: CTAB A&P Extremities: no leg edema, pulses 2 plus bilaterally; color of feet and legs are good General Appearance: NAD, appears healthy , alert, pleasant Skin: erythema and red pap ules on bilateral cheeks and forehead Neurologic Exam: alert and oriented Peripheral pulses: normal (2+) bilatera lly Lower back Straight leg raising test: negative bilat erally Motor system: V/ V bilaterally Reflexes: bilaterally symmetri giselle, 1+ Gait: normal Inspection: exaggerated lordosis , scar from previous surgery Palpation: paraspinal tendernes s bilaterally at Lumbar level Range of motion: normal Consultation Request Notes Referral Date Referring Provider Referred Provider Not es 06/21/2024 Michelle Sweeney Neurosurgery, .
--- OUTSIDE RECORDS SUMMARY | 2024-10-11 09:15 | XMS_ITS ---
Author Organization [facility] Address [address] [facility] [address] [place] [id number] Care Team Providers Care Dispute Resolution Specialist Name Role Phone Lenora Montoya Primary Care Provider Michelle Sweeney Unavailable [phone] Allergies Allergen (clinical drug ingredient) Drug/Non Drug Allergy documented on EMR Reaction Allergy Type Onset Date Status Efudex hives Drug Allergy Active REASON FOR VISIT face broken out Medications Medication SIG (Take, Route, Frequency, Duration) Notes Start Date End Date Status Estradiol 1 MG TAKE 1 TABLET EVERY DAY; Duration: 90 Active DULoxetine HCl 60 MG TAKE 1 CAPSULE TWICE DAILY Active Esomeprazole Magnesium 40 MG TAKE 1 CAPSULE EVERY DAY; Duration: 90 Active tiZANidine HCl 4 MG 1 or 2 tab(s) orally qhs Active Percocet 7.5-325 MG 1 tab(s) orally three times a day increase by pain clinic to tid Active MiraLax 17 GM/SCOOP 1 scoop mixed with 8 ounces of fluid Orally twice daily 01/27/2024 Not-Taking Atorvastatin Calcium 40 MG 1 tab(s) orally once a day Active Ondansetron 4 MG 1 tablet on the tongue and allow to dissolve Orally q8h prn Active Plavix 75 MG 1 tablet Orally Once a day Not-Taking Bactrim DS 800-160 MG 1 tablet Orally twice a day; Duration: 7 days 10/11/2024 Active Medrol 4 MG as directed orally daily; Duration: 6 days 10/11/2024 Active Losartan Potassium 50 MG 1 tab(s) orally once a day Active Vitamin C 1000 MG 1 tab(s) orally once a day Active Aspirin Adult Low Dose 81 MG 1 tab(s) orally once a day Active MetroLotion 0.75 % 1 application Externally Twice a day; Duration: 30 days 06/21/2024 Active Multiple Vitamin - 1 cap(s) orally once a day Active Gabapentin 600 MG 1 tablet Orally twice a day Active Problems Problem Type SNOMED Code ICD Code Onset Dates Problem Status W/U Status Risk Notes Problem Acne rosacea (L71.9) Active confirmed Vital Signs Weight 136.4 lbs 10/11/2024 Blood pressure systolic 122 mm Hg 10/12/19 25 Blood pressure diastolic 62 mm Hg 025 Heart Rate 72 /min 10/11/2024 Height 61 in 10/11/2024 BMI 25.77 kg/m2 10/11/2024 Encounters Encounter Location Date Provider Diagnosis [facility] [address] [facility] [address] [place] [address], [place] [id number] 10/11/2024 Michelle Sweeney Acne rosacea L71.9 and Abscess or cellulitis of face L03.211 Assessments Encounter Date Diagnosis (ICD Code) Assessment Notes Treatment Notes Treatment Clinical Notes Section Notes 10/11/2024 Acne rosacea (ICD-10 - L71.9) f 10/11/2024 Abscess or cellulitis of face (ICD-10 - L03.211) facial cleansing discussed Plan Of Treatment Medication Medication Name Sig Start Date Stop Date Notes Bactrim DS 800-160 MG 1 tablet Orally tw ice a day; Duration: 7 days 10/11/2024 Medrol 4 MG as directed orally d aily; Duration: 6 days 10/11/2024 MetroLotion 0.75 % 1 application Supervisor Chemical ally Twice a day; Duration: 30 days 06/21/2024 Treatment Notes Assessment Notes Acne rosacea f Abscess or cellulitis of face facial burton ansing discussed Next Appt Details Follow Up: prn, Reason: Progress Notes * CARLOS BOYKINDOB:1950 ( 73 yo F)Acc No.[id number]:10/11/2024 Progress Notes Patient: CARLOS FRANK Provider: OLIVER Prescott :1950 A ge:73 Y S ex:Female Date:10/11/2024 Address:[address], [place], [place] Pcp:Lenora Montoya Subjective: * Chief Complaints: * 1 . Face broken out. * HPI: D ermatology: 73 year old female presents with c/o rash P t states that this started 4 weeks ago. Pt states that it was very bad. Pt states she has the creams with her that she has been usingbut they have not been helping. * ROS: C ARDIOLOGY: no D izziness. n o C hest pain. G ASTROENTEROLOGY: no N ausea. n o V omiting. n o D iarrhea.? U ROLOGY: no D ifficulty urinating. n o B lood in urine. * Medical History: H [place], Stress/Anxiety, Back [...] ,Years: , Determination:. * Medications: T aking Gabapentin 600 MG Tablet 1 tablet Orally twice a day , Taking Multiple Vitamin - Capsule 1 cap(s) orally once a day , Taking Vitamin C 1000 MG Tablet 1 tab(s) orally once a day , Taking Losartan Potassium 50 MG Tablet 1 tab(s) orally once a day , Taking Aspirin Adult Low Dose 81 MG Tablet Delayed Release 1 tab(s) orally once a day , Taking Atorvastatin Calcium 40 MG Tablet 1 tab(s) orally once a day , Taking Ondansetron 4 MG Tablet Disintegrating 1 tablet on the tongue and allow to dissolve Orally q8h prn , Taking DULoxetine HCl 60 MG Capsule Delayed Release Particles TAKE 1 CAPSULE TWICE DAILY , Taking Estradiol 1 MG Tablet TAKE 1 TABLET EVERY DAY , Taking Esomeprazole Magnesium 40 MG Capsule Delayed Release TAKE 1 CAPSULE EVERY DAY , Taking MetroLotion 0.75 % Lotion 1 application Externally Twice a day , Taking Percocet 7.5-325 MG Tablet 1 tab(s) orally three times a day , Notes to Pharmacist: increase by pain clinic to tid, Taking tiZANidine HCl 4 MG Tablet 1 or 2 tab(s) orally qhs , Not-Taking Plavix 75 MG Tablet 1 tablet Orally Once a day , Not- Taking MiraLax 17 GM/SCOOP Powder 1 scoop mixed with 8 ounces of fluid Orally twice daily , Discontinued Lubiprostone 8 MCG Capsule 1 capsule with food and water Orally Twice a day prn , Discontinued ARIPiprazole 10 MG Tablet 1 tablet Orally Once a day , Medication List reviewed and reconciled with the patient * Allergies: E fudex: hives. Objective: * Vitals: W t: 136.4, Temp: 98.4, BP: 122/62, HR: 72, Nurse: pe, Ht: 61, BMI:25.77. * Examination: D ermatology: Face: m acular, erythema scattered. G eneral Examination: General Appearance: N AD, appears healthy, alert, pleasant.?Heart: R RR. L ungs: n ormal, clear to auscultation. N eurologic Exam: a lert and oriented. P eripheral pulses: n ormal (2+) bilaterally. Assessment: * Assessment: 1. A cne rosacea - L71.9 (Primary) 2 . A bscess or cellulitis of face - L03.211 Plan: * Treatment: 2. A bscess or cellulitis of face Start Bactrim DS Tablet, 800-160 MG, 1 tablet, Orally, twice a day, 7 days, 14 Tablet. Notes: facial cleansing discussed * Follow Up: p rn * Images: Billing Information: * Visit Code: 37939 Office Visit, Est Pt., Level 3. * Procedure Codes: * Electronic signature of Yana Sweeney APRN on 10/13/2024 at 01:24 PM EDT Sign off status: Pending * Provider: OLIVER Prescott Date: 10/11/2024 Generated for Aruna frost/Daisy/Mayuritting on: 10/13/2024 01:24 PM EDT History and Physical Notes * HPI (History of Present Illness) Category Sub-Category Detail Notes Category Not es Dermatology rash Pt states that t his started 4 weeks ago. Pt states that it was very bad. Pt states she has the creams with her that she has been usingbut they have not been helping Examination Category Sub-Category Detail Notes Category Not es General Examination Heart: RRR Lungs: normal, clear to aus cultation General Appearance: NAD, appears healthy , alert, pleasant Neurologic Exam: alert and oriented Peripheral pulses: normal (2+) bilatera lly Dermatology Face: macular, erythema scattered
--- OUTSIDE RECORDS SUMMARY | 2024-10-13 13:23 | XMS_ITS | Encounter Summary ---
Author Organization [employer] ([place], [place], [place], [place]) Address [address] [place] [address] Care Team Providers Care Turn Supervisor Name Role Phone Unavailable Primary Care Provider Unavailabl e Encounter Details Date Type Department Care Team (Late st Contact Info) Description 03/28/2021 Transcribed Document [facility] [address] [place] [address] ProviderJuarez MD [address] [place] [address] Social History Tobacco Use Types Packs/Day Years Used Date Smoking Tobacco: Never Assessed Comments Unknown Sex and Gender Information Value Date Recorded Sex Assigned at Female 09/11/2021 3:33 PM CDT Legal Sex Female 3:33 PM CDT Gender Identity Female 09/11/2021 3:33 PM CDT Sexual Orientation Not on file documented as of this encounter Miscellaneous Notes * Cerner Conversion Note - Historical ProviderMD - 03/28/2021 1:52 PM 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 Ambulatory Intake and History Entered On: 03/28/2021 14:02 EST Performed On: 03/28/2021 13:52 EST by Halima Rogers LPN-LVN-PATIENT CARE BEDSIDE General Info Ambulatory Accompanied By : Other: self Chief Complaint : Low Back Pain Primary Language : Indian Halima Rogers LPN-LVN-PATIENT CARE BEDSIDE - 03/28/2021 13:52 EST Height and Weight, Clinical Dosing Height Source : Measured Height Entry Format : [place] Weight Source : Standing scale Weight Entry Format : [place] Clinical Dosing Weight : 60.45 kg Weight, Pounds : 133 lb Halima Rogers LPN-LVN-PATIENT CARE BEDSIDE - 03/28/2021 13:52 EST Vital Measurements Temperature Source : Temporal artery scanning Temperature Mode : Fahrenheit Temperature, Fahrenheit : 97.9 Deg F Clinical Temperature, C : 36.6 Deg C Pulse Method : Non-Invasive BP Device Pulse Source : Brachial, Right Heart Rate, Apical : 80 bpm Pulse Rhythm : Regular Respiratory Rate : 18 Breaths/Min Blood Pressure Location : Arm, right upper Blood Pressure Source : Non-Invasive BP Device Systolic Blood Pressure : 135 mmHg Diastolic Blood Pressure : 81 mmHg Oxygen Saturation : 99 % MichaelYoselynHalima LPN-LVN-PATIENT CARE BEDSIDE - 03/28/2021 13:52 EST Pain Assessment Pain Assessment : Initial assessment Duration : years Pain Scale Used : 0-10 Scale Location : Back, lower Onset : Chronic Pain Location Comment : constant Quality : Aching, Numbness, Pressure, Sharp, Throbbing Pain Radiation : Yes Pain Radiation Location : Other: right side of body Pain Worsened by : Movement Pain Improved by : Cold therapy, Heat therapy, Massage, Medication, Relaxation Pain Intervention, Drug : Medicated Pain Intervention, Non-Drug : Cold therapy, Heat, Positioning, Relaxation Intervention, Consult : Pain management Halima Rogers LPN-LVN-PATIENT [facility] - 03/28/2021 13:52 EST Patient Health Questionnaire Depression Scale-9 (PHQ-9) Trouble Falling/Staying Asleep/Sleeping : Several days Little Interest or Pleasure Doing Things : Not at all Feeling Down, Depressed, Hopeless : Not at all Feeling Tired or Little Energy : Several days Poor Appetite or Overeating : Not at all Feel Bad About Self/That You are Failure : Not at all Trouble Concentrating on Things : Not at all Moving/Speaking Slowly, Fidgety/Restless : Not at all Thoughts of Better Off /Hurting Self : Not at all PHQ-9 Score : 2 PHQ-9 Score Interpretation : Minimal depression (0-4) Halima Rogers LPN-LVN-PATIENT [facility] - 03/28/2021 13:52 EST Functional Assessment Living Situation : Home Sensory Deficits : None Home Equipment Therapy, PT : None Professional Skilled Services : None Halima Rogers LPN-LVN-PATIENT [facility] - 03/28/2021 13:52 EST Teaching/Learning Assessment Barriers To Learning : None evident Individuals Taught : Patient Readiness to Learn : Cooperative Readiness to Learn : Demonstration, Explanation, Teach back method Learning Style Preferences Patient : Demonstration, Verbal explanation Learning Style Preferences Family : Demonstration, Verbal explanation Tamara [id number]-[id number] CARE BEDSIDE - 03/28/2021 13:52 EST Fall Risk Scales ABCs Fall Injury Risk Identification : None HUGO Hx Falls Immediate/Within 3 Months : No Hugo Secondary Diagnosis : No HUGO Use of Ambulatory Aid : None HUGO IV Therapy or IV Access : No Hugo Gait/Transferring : Normal, bedrest, immobile Hugo Mental Status : Oriented to own ability Hugo Fall Risk Score : 0 HUGO Fall Scale Risk Level : 0-24 Low Risk [place] Fall Interventions : Adequate lighting, Personal items within reach, Room free of clutter/spills Tamara Rogershugh BAO-YPU-DDEBAIS CARE BEDSIDE - 03/28/2021 13:52 EST Sleep Apnea Risk Assmt Hx of Obstructive Sleep Apnea Diagnosis : No Snore Loudly : No Tired, Fatigued, or Sleepy During Day : No Observed Stopping Breathing During Sleep : No Have/Are Being Treated for Hypertension : No BMI Greater Than 35 kg/m2 : No Age over 50 Years Old : Yes Neck Circumference Greater Than 40 cm : No Gender Male : No STOP-BANG Sleep Apnea Risk Level Score : 1 KenHalima [id number] CARE BEDSIDE - 03/28/2021 13:52 EST Pain Scale Intensity : 5 KenHalima [id number] CARE BEDSIDE - 03/28/2021 13:52 EST Image 4 - Images currently included in the form version of this document have not been included in the text rendition version of the form. documented in this encounter Plan of Treatment Not on file documented as of this encounter Visit Diagnoses Not on filedocumented in this encounter
--- OUTSIDE RECORDS SUMMARY | 2024-10-13 13:23 | XMS_ITS | Encounter Summary ---
Author Organization [employer] ([place], [place], [place], [place]) Address [address] [place] [address] Care Team Providers Care Welder Apprentice Arc Name Role Phone Unavailable Primary Care Provider Unavailabl e Encounter Details Date Type Department Care Team (Late st Contact Info) Description 05/23/2021 Transcribed Document [facility] [place] [place] Family Medicine [address] [place] [address] ProviderJuarez MD [address] [place] [address] Social History Tobacco Use Types Packs/Day Years Used Date Smoking Tobacco: Never Assessed Food Insecurity Answer Date Recorded Food run out past 12 months Not on file 03/17 Food did not last past 12 months Not on file 04/04/2023 Employment Answer Date Recorded Help finding and keeping a job Not on file 0 04/04/2023 Family and Community Support Answer Nicolas e Recorded Help with Day to Day Activities Not on file 04/04/2023 Feeling Lonely or Isolated Not on file 04/04 Educational Attainment Answer Date Jeronimo rded Speak language other than Slovenian at home Not on file 04/04/2023 Want help with school or training Not on file 04/04/2023 Substance Use Answer Date Recorded Used prescription meds for non-medical reasons N ot on file 04/04/2023 Used illegal drugs past 12 months Not on file 04/04/2023 Comments Unknown Sex and Gender Information Value Date Recorded Sex Assigned at Female 09/11/2021 3:33 PM CDT Legal Sex Female 3:33 PM CDT Gender Identity Female 09/11/2021 3:33 PM CDT Sexual Orientation Not on file documented as of this encounter Functional Status documented as of this encounter Miscellaneous Notes * Cerner Conversion Note - Historical ProviderMD - 05/23/2021 12:21 PM PROCUREMENT SPECIALIST BELLA [address] [place] [address] LUCRETIA ANAHI Alexander :1950 Visit Time:05/23/2021 Your Visit Summary Your Care Team Admitting Physician - IRVIN FLORES MD-ANS Attending Physician - IRVIN FLORES MD-ANS Primary Care Physician - SHAHRIAR CHUA MD-FAM Referring Physician - IRVIN FLORES MD-ANS These Are Your Goals No qualifying data available. Discharge Vitals Temperature 36.7 ??C Heart Rate 78 Respiratory Rate 18 Blood Pressure 123/75 What to do next Follow-Up Appointments Follow Up with IRVIN FLORSE MD-ANS When Within 2 months Where: [facility] [address] [address]- Medications What How Much When Instructions Next Dose acetaminophen-oxyCODONE (acetaminophen-oxyCODONE 325 mg-5 mg oral tablet) 1 Tablet(s) Oral Two Times A Day acetaminophen-oxyCODONE (acetaminophen-oxyCODONE 325 mg-7.5 mg oral tablet) 1 Tablet(s) Oral Every 6 Hours as needed for for pain amantadine (amantadine 100 mg oral capsule) Oral Two Times A Day ARIPiprazole (ARIPiprazole 10 mg oral tablet with sensor) Oral Every Day ascorbic acid (Vitamin C 1000 mg oral tablet) 1 Tablet(s) Oral Every Day atorvastatin (atorvastatin 40 mg oral tablet) 1 Tablet(s) Oral Every Day clopidogrel (clopidogrel 75 mg oral tablet) 1 Tablet(s) Oral Every Day DULoxetine 120 Milligram(s) Oral Every Day esomeprazole (NexIUM 40 mg oral delayed release capsule) 1 Capsule(s) Oral Every Day estradiol (estradiol 1 mg oral tablet) 1 Tablet(s) Oral Every Day gabapentin 800 Milligram(s) Oral Three Times A Day gabapentin (gabapentin 800 mg oral tablet) 1 Tablet(s) Oral Three Times A Day Duration: 30 Day(s) losartan (losartan 50 mg oral tablet) 1 Tablet(s) Oral Every Day multivitamin (Multi Vitamin+) promethazine (promethazine 25 mg oral tablet) 1 Tablet(s) Oral Three Times A Day as needed for as needed for nausea/vomiting tiZANidine (tiZANidine 4 mg oral tablet) 1 Tablet(s) Oral At Bedtime Take your medications faithfully. Do NOT skip medication. Do NOT stop taking medications without the direction of a physician. Carry a list of your medications with you at all times, and take this medication list with you to your first follow up visit. Report any side effects. Avoid herbal remedies unless discussed with your physician. As part of your treatment plan, your physician may have prescribed a limited course of a controlled substance. This medication may be given to help people with moderate or severe pain or for other medical conditions, but there are risks involved with treatment. Common side effects may include nausea, constipation, drowsiness, sweating, itching, dry mouth, and rash. More serious side effects may include cognitive and motor impairment, like problems with thinking, concentrating, alertness, and movement (e.g. slowed reflexes), and driving and operating heavy machinery can be dangerous. It is important for you to talk to your physician if you have these side effects or questions. These controlled substances can produce physical dependence and be habit-forming if taken for an extended period of time, which means that the body has gotten used to them and may experience withdrawal symptoms if they are abruptly stopped. Withdrawal symptoms can include runny nose, sweating, goose bumps, diarrhea, abdominal cramping, rapid heartbeat, difficulty sleeping, and nervousness. Please dispose of unused and medications per your retail pharmacy guidance. Allergies No Known Allergies No Known Medication Allergies Immunizations This Visit No Immunizations Found Education Materials Fall Prevention in the Home, Adult Falls can cause injuries and can happen to people of all ages. There are many things you can do to make your home safe and to help prevent falls. Ask for help when making these changes. What actions can I take to prevent falls? General Instructions ??? Use good lighting in all rooms. Replace any light bulbs that burn out. ??? Turn on the lights in dark areas. Use night-lights. ??? Keep items that you use often in [id number] places. Lower the shelves around your home if needed. ??? Set up your furniture so you have a clear path. Avoid moving your furniture around. ??? Do not have throw rugs or other things on the floor that can make you trip. ??? Avoid walking on wet floors. ??? If any of your floors are uneven, fix them. ??? Add color or contrast paint or tape to clearly jannette and help you see: ? Grab bars or handrails. ? First and last steps of staircases. ? Where the edge of each step is. ??? If you use a stepladder: ? Make sure that it is fully opened. Do not climb a closed stepladder. ? Make sure the sides of the stepladder are locked in place. ? Ask someone to hold the stepladder while you use it. ??? Know where your pets are when moving through your home. What can I do in the bathroom? Keep the floor dry. Clean up any water on the floor right away. ??? Remove soap buildup in the tub or shower. ??? Use nonskid mats or decals on the floor of the tub or shower. ??? Attach bath mats securely with double-sided, nonslip rug tape. ??? If you need to sit down in the shower, use a plastic, nonslip stool. ??? Install grab bars by the toilet and in the tub and shower. Do not use towel bars as grab bars. What can I do in the bedroom? Make sure that you have a light by your bed that is easy to reach. ??? Do not use any sheets or blankets for your bed that hang to the floor. ??? Have a firm chair with side arms that you can use for support when you get dressed. What can I do in the kitchen? Clean up any spills right away. ??? If you need to reach something above you, use a step stool with a grab bar. ??? Keep electrical cords out of the way. ??? Do not use floor indian or wax that makes floors slippery. What can I do with my stairs? Do not leave any items on the stairs. ??? Make sure that you have a light switch at the top and the bottom of the stairs. ??? Make sure that there are handrails on both sides of the stairs. Fix handrails that are broken or loose. ??? Install nonslip stair treads on all your stairs. ??? Avoid having throw rugs at the top or bottom of the stairs. ??? Choose a carpet that does not hide the edge of the steps on the stairs. ??? Check carpeting to make sure that it is firmly attached to the stairs. Fix carpet that is loose or worn. What can I do on the outside of my home? Use bright outdoor lighting. ??? Fix the edges of walkways and driveways and fix any cracks. ??? Remove anything that might make you trip as you walk through a door, such as a raised step or threshold. ??? Trim any bushes or trees on paths to your home. ??? Check to see if handrails are loose or broken and that both sides of all steps have handrails. ??? Install guardrails along the edges of any raised decks and porches. ??? Clear paths of anything that can make you trip, such as tools or rocks. ??? Have leaves, snow, or ice cleared regularly. ??? Use sand or salt on paths during winter. ??? Clean up any spills in your garage right away. This includes grease or oil spills. What other actions can I take? Wear shoes that: ? Have a low heel. Do not wear high heels. ? Have rubber bottoms. ? Feel good on your feet and fit well. ? Are closed at the toe. Do not wear open-toe sandals. ??? Use tools that help you move around if needed. These include: ? Canes. ? Walkers. ? Scooters. ? Crutches. ??? Review your medicines with your doctor. Some medicines can make you feel dizzy. This can increase your chance of falling. Ask your doctor what else you can do to help prevent falls. Where to find more information ??? Centers for Disease Control and Prevention, [place]: www.cdc.gov ??? National [place] on Aging: www.deirdre.nih.gov Contact a doctor if: ??? You are afraid of falling at home. ??? You feel weak, drowsy, or dizzy at home. ??? You fall at home. Summary ??? There are many simple things that you can do to make your home safe and to help prevent falls. ??? Ways to make your home safe include removing things that can make you trip and installing grab bars in the bathroom. ??? Ask for help when making these changes in your home. This information is not intended to replace advice given to you by your health care provider. Make sure you discuss any questions you have with your health care provider. Document Revised: 10/04/2020 Document Reviewed: 10/04/2020 [employer] Patient Education ?? 2020 [employer]. Emergency Awareness and Preventative Care STROKE is an EMERGENCY Every Minute Counts Act FAST and Check for these signs: FACE Does the face look uneven? ARM Does one arm drift down? SPEECH Does their speech sound strange? TIME Call at any sign of stroke Stroke Risk Factors Atrial Fibrillation (irregular heartbeat) Diabetes Family history of stroke Heart Disease Heavy alcohol use High Blood Pressure High Cholesterol Physical inactivity and obesity Smoking Cigarette Smoking The facts are clear, cigarette smoking will shorten your life. Smoking can cause many illnesses along the way. As a healthcare provider, we recommend that you stop smoking. Assistance with quitting is available by contacting 9-533-GRHY-NOW. This is a free resource providing counseling, support, and referral. Or you may contact your personal physician. National Suicide Prevention Lifeline: The National Suicide Prevention Lifeline is a national network of local crisis centers that provides free and confidential emotional support to people in suicidal crisis or emotional distress 24 hours a day, 7 days a week. Don't Wait! Stop a Heart Attack Before it Starts What is a heart attack? A heart attack is damage or to a part of the heart from severely decreased or lack of blood flow to the heart. Over time, arteries can become narrow from the buildup of fat and cholesterol, which is called plaque. The plaque can rupture causing a blood clot to form. When the blood clot forms, the artery can become severely narrowed or completely blocked, causing a heart attack. Heart attack is the leading cause of in the [place]. 85% of muscle damage occurs within the first 2 hours. Delay in the recognition of heart attack symptoms increases the chances of . Know the early symptoms of a heart attack: Nausea Feeling of fullness in chest Jaw Pain Pain that travels down one or both arms Fatigue/being tired Anxiety Back Pain Chest pressure, squeezing, or discomfort Shortness of breath Sweating, or a cold sweat Feeling of impending doom There are unusual signs of a heart attack, too! Women, the elderly, and diabetics may present with atypical symptoms: Fainting/dizziness Weakness Confusion Risk Factors for a Heart Attack Some heart disease risk factors, such as age and family history, cannot be changed. Others, like smoking and lack of exercise, can be changed. Smoking High Cholesterol High Blood Pressure Family History Obesity Age Gender (Males are at higher risk) Lack of Exercise Diabetes Diet Stress Excessive Alcohol Intake If you or someone you know is experiencing the signs and symptoms of a heart attack, DON???T DELAY. Call immediately and seek help. If someone collapses, perform CPR! Do not attempt to drive if you are having symptoms of heart attack. Hands-Only CPR Why Hands-Only CPR? Hands-Only CPR has been shown to be as effective as conventional CPR for cardiac arrests that occur outside of a hospital. Survival depends on immediately receiving CPR from someone nearby. How do you perform Hands-Only CPR? There are two easy steps: Call if you see a teen or adult collapse Push hard and fast in the center of the chest at a beat of 100 beats per minute. Save a life! 4 WAYS TO GET AHEAD OF SEPSIS SEPSIS is a MEDICAL EMERGENCY. Time matters! Infections put you and your family at risk for a life-threatening condition called sepsis. Sepsis is the body's extreme response to an infection. It is life-threatening, and without timely treatment, sepsis can rapidly lead to tissue damage, organ failure, and . Sepsis happens when an infection you already have-in your skin, lungs, urinary tract or somewhere else-triggers a chain reaction throughout your body. 1 PREVENT INFECTIONS Take good care of chronic conditions. Talk to your doctor about getting the recommended vaccines. 2 PRACTICE GOOD HYGIENE Wash your hands frequently. Keep cuts or open sores clean and covered until they are healed. 3 KNOW THE SYMPTOMS Confusion or disorientation Shortness of breath High heart rate Fever, shivering, or feeling very cold Extreme pain or discomfort Clammy or sweaty skin 4 ACT FAST Get medical care IMMEDIATELY if you suspect sepsis or if you have an infection that is not getting better or is getting worse. To learn more about sepsis and how to prevent infections, visit www.cdc.gov/sepsis. Test Results Laboratory or Other Results This Visit (last charted value for your 05/23/2021 visit) Urine Chemistry 03/28/2021 4:19 PM Gabapentin, Urine: 347.2 Toxicology 03/28/2021 4:19 PM Oxymorphone by LC-MS/MS, Urine: Negative Oxycodone by LC-MS/MS, Urine: Positive Phenobarbital by GCMS, Urine: 2251 ng/mL Prescribed Drug 1, Urine: gabapentin Prescribed Drug 2, Urine: percocet Prescribed Drug 3, Urine: tizanidine Prescribed Drug 4, Urine: cybalta Barbiturates Screen, Urine: Positive Heroin Metabolites, Urine PM: Negative Amphetamines, Urine PM: Negative Cannabinoids, Urine PM: Negative Cocaine, Urine PM: Negative Phencyclidine, Urine PM: Negative Propoxyphene, Urine PM: Negative Barbiturates, Urine PM: Conf to Follow Benzodiazepines, Urine PM: Negative Methadone, Urine PM: Negative Meperidine, Urine PM: Negative Tramadol, Urine PM: Negative Fentanyl, Urine PM: Negative Carisoprodol, Urine PM: Negative Oxycodone, Urine PM: Conf to Follow Opiates, Urine PM: Negative Tricyclic Antidepressants, Urine PM: Negative pH, Urine PM: 5.4 Specific [place], Urine PM: 1.005 Creatinine, Toxicology PM: 30.9 mg/dL Oxycodone Ur: 569 ng/mL Amobarbital, Urine: Negative Butalbital, Urine: Negative Secobarbital, Urine: Negative Tox Note Ur: Comment Pentobarbital, Urine: Negative Phenobarbital, Urine: Positive Oxycodone/Oxymorph: Positive Patient Name:ANAHI BOYKIN I have received and understand this information and was given the opportunity to ask questions. Patient/Agricultural Equipment Sales Manager Name: Patient/Agricultural Equipment Sales Manager Signature: Relationship to Patient: Clinician/Hospital Agricultural Equipment Sales Manager Signature: Date: Electronically signed by Titi Villar Conversion Environmental Services Associate Christine at 07/02/2022 5:42 PM CDT documented in this encounter Plan of Treatment Not on file documented as of this encounter Visit Diagnoses Not on filedocumented in this encounter
--- OUTSIDE RECORDS SUMMARY | 2024-10-13 13:23 | XMS_ITS | Clinical Summary ---
Author Organization Healthcare Address [address] [place] [address] Care Team Providers Care Smearer Name Role Phone Dimas Del Cid MD Primary Care Provider [phone] Allergies Active Allergy Reactions Criticality Noted Date Comments Iodine Other - please docum ent in the comment field Low 09/24/2021 Too much iodine, skin blistered Medications amLODIPine (Norvasc) 5 MG tablet 2 (two) times a day. 01/04/2013 Active ARIPiprazole (Abilify) 5 MG tablet 1 (one) time each day. Active clopidogrel (Plavix) 75 MG tablet 1 (one) time each day. Active DULoxetine (Cymbalta) [address] capsule 2 (two) times a day. 2022 Active gabapentin (Neurontin) 800 MG tablet 3 (three) times a day. Active esomeprazole (NexIUM) [address] capsule 1 (one) time each day. 11/26/2022 Active estradiol (Estrace) 1 MG tablet 1 (one) time each day. Active losartan (Cozaar) 50 MG tablet 1 (one) time each day. Active tiZANidine (Zanaflex) 4 MG capsule Bedtime Active metoprolol succinate XL (Toprol-XL) 25 MG 24 hr tablet 1 (one) time each day. Active oxyCODONE-aceta minophen (Percocet) 5-325 MG tablet if needed. Act jovani Active Problems No known active problems Family History Medical History Relation Name Comments Colon cancer Mother Relation Name Status Comments Mother Social History Tobacco Use Types Packs/Day Years Used Date Smoking Tobacco: Never Smokeless Tobacco: Never Tobacco Cessation:Counseling Given: Not Answered Alcohol Use Standard Drinks/Week Comments Not Currently 0 (1 standard drink = 0.6 oz pur e alcohol) Comments Unknown Sex and Gender Information Value Date Recorded Sex Assigned at Not on file Legal Sex Female 6:22 PM EDT Gender Identity Not on file Sexual Orientation Not on file Last Filed Vital Signs Vital Sign Reading Time Taken Comments Blood Pressure 128/82 02/05/2023 10:51 AM EST Pulse 80 02/05/2023 10:51 AM EST Temperature - - Respiratory Rate - - Oxygen Saturation 93% 02/05/2023 10:51 AM EST Inhaled Oxygen Concentration - - Weight 64.9 kg (143 lb) 02/05/2023 10:51 AM EST Height 154.9 cm (5' 1 ) 02/05/2023 10:51 AM EST Body Mass Index 27.02 02/05/2023 10:51 AM EST Plan of Treatment Health Maintenance Due Date Last Done Comments [facility]-Bone Density Scan 1950 [facility]-Depression Screening 1950 [facility]-Hepatitis C Screening 1950 [facility]-Medicare Annual Wellness (AWV) 1950 [facility]-Infant/Child/Adol SDOH Screenings 1950 [facility]- SDOH Screenings 1966 [facility]-Adult SDOH Screenings 1966 CT Colonography 1993 Colonoscopy 1993 FIT-DNA 1993 FIT 1993 FOBT 1993 Sigmoidoscopy 1993 [facility]-Colorectal Cancer Screening 1993 [facility]-Zoster Vaccines (1 of 2) 1998 [id number] Vaccine ( season) 2023 01/10/2023, 11/09/2020, 04/19/2020, Additional history exists [facility]-RSV Vaccine: 60+ Years or (1 - 1-dose 75+ series) 12/11/2023 [facility]-Influenza Vaccine (#1) 11/15/202401/10, 01/07/2022, 01/05/2021, Additional history exists [facility]-DTaP,Tdap,and Td Vaccines (2 - Td or Tdap) 07/01/2028 07/01/2018 [facility]-Pneumococcal Vaccine: 50+ Years Completed 09/16/2019, 07/01/2018 [facility]-Obesity Intervention Completed 02/05/2023 HPV Vaccines Aged Out No longer eligi ble based on patient's age to complete this topic [facility]-HIB Vaccines Aged Out No longer e ligible based on patient's age to complete this topic [facility]-Hepatitis A Vaccines Aged Out No longer eligible based on patient's age to complete this topic [facility]-IPV Vaccines Aged Out No longer e ligible based on patient's age to complete this topic [facility]-Rotavirus Vaccines Aged Out No lo nger eligible based on patient's age to complete this topic Insurance [employer] MEDICARE Care Teams Smearer Relationship Specialty Start Date End Date Dimas Del Cid MD [facility] [place] [address] PCP - General 07/28/20
--- OUTSIDE RECORDS SUMMARY | 2024-10-13 13:23 | XMS_ITS | Encounter Summary ---
Author Organization [employer] ([place], [place], [place], [place]) Address [address] [place] [address] Care Team Providers Care Commercial Baking Teacher Name Role Phone Unavailable Primary Care Provider Unavailabl e Encounter Details Date Type Department Care Team (Late st Contact Info) Description 05/23/2021 Transcribed Document [facility] [place] Family Medicine [address] [place] [address] ProviderJuarez MD [address] [place] [address] Social History Tobacco Use Types [...] Date Jeronimo rded Speak language other than Icelandic at home Not on file 04/04/2023 Want [...] - Historical ProviderMD - 05/23/2021 12:21 PM MATHEMATICS IMPROVEMENT TEACHER Patient Education Materials Follows: Fall Prevention in the Home, Adult Falls [...] Keep items that you use often in [id number]-vy-[id number] places. Lower the shelves around your home [...] the way. ??? Do not use floor croatian or wax that makes floors slippery. What [...] Control and Prevention, [place]: www.cdc.gov ??? National [place] on Aging: www.deirdre.nih.gov Contact a doctor if: [...] provider. Document Revised: 10/04/2020 Document Reviewed: 10/04/2020 [employer] Patient Education ? 2020 [employer] Electronically signed by Titi Villar Conversion Public Events Facilities Rental Manager Cerner at 07/02/2022 5:31 PM CDT documented in this encounter Plan of Treatment Not on file documented as of this encounter Visit Diagnoses Not on filedocumented in this encounter
--- OUTSIDE RECORDS SUMMARY | 2024-10-13 13:23 | XMS_ITS | Encounter Summary ---
Author Organization [employer] ([place], [place], [place], [place]) Address [address] [place] [address] Care Team Providers Care Authorization Specialist Name Role Phone Unavailable Primary Care Provider Unavailabl e Encounter Details Date Type Department Care Team (Late st Contact Info) Description 03/28/2021 Transcribed Document [facility] Family Medicine [facility] [place] [address] ProviderJuarez MD [facility] [place] [address] Social History Tobacco Use Types Packs/Day Years Used Date Smoking Tobacco: Never Assessed Comments Unknown Sex and Gender Information Value Date Recorded Sex Assigned at Female 09/11/2021 3:33 PM CDT Legal Sex Female 3:33 PM CDT Gender Identity Female 09/11/2021 3:33 PM CDT Sexual Orientation Not on file documented as of this encounter Miscellaneous Notes * Cerner Conversion Note - Juarez ProviderMD - 03/28/2021 3:07 PM DIRECTOR OF BUSINESS SERVICES Patient: ANAHI BOYKIN Age: 70 Years Sex: Female : 1950 Chief Complaint Low Back Pain Primary Care Provider SHAHRIAR CHUA MD-[facility] History of Present Illness This is a pleasant 70-year-old female well-known to my practice. She has a history of lumbar fusion, lumbar spondylosis, spinal stenosis. She is here for 2-month medication follow-up. Since her last visit she reports worsening of right-sided low back pain. This occurred around . She has had steroid packs, been to the ER, had treatment with her primary care. The only thing that is giving her much relief is NSAIDs. It does seem to be getting somewhat better, she has more good days now than bad days. If she has to work she notices the following day that her pain is worse. She rates this pain 10/10 she described as a spasm, aching, sharp and constant. She reports this is worse with sitting, bending, transitioning, walking. She denies any new pains radiating into her legs. She reports medications help with her regular chronic pain but not much with this new pain. She does report having constipation which she reports treating with conservative treatments. She denies any other side effects. She denies misuse or diversion of medications. Review of Systems 14 system review performed today. Pertinent positives and negatives discussed in HPI. Vital Signs T: 36.6 ??C HR: 80 RR: 18 BP: 135/81 SpO2: 99% WT: 60.45 kg Oxygen Settings (Last) No qualifying data available. Physical Exam General: Appears stated age, appears comfortable without acute distress Spine lumbosacral: Large well-healed surgical scar, no focal tenderness, range of motion: Flexion was limited and painful at 65, extension limited and painful at 0, straight leg raise is negative bilaterally Neurologic: Gait is nonantalgic, motor 5/5. Deep tendon reflexes symmetrical. Sensation light touch intact L1-S1. Psychological: Alert and oriented x3. Mood and affect are appropriate. Judgment and insight are intact. Assessment/Plan Low back strain Failed back surgical syndrome Lumbar spondylosis Spinal stenosis Chronic opiate use Chronic pain Mrs. Boykin has sprained her low back since her last visit. This does appear to be improving. Have encouraged her to continuing conservative treatments for the time being. There is no new focal deficits. Her medicines do not appear to be helping much with this new pain but do help with her chronic issues. Treatment plan: Interventions: None currently Rehabilitation: Encouraged rest, ice, avoidance of lifting, bending, twisting until this new pain subsides Behavioral: Low risk score. No aberrant behavior. Random urine drug screen today to monitor for compliance and to determine if she is in diversion. Medications: Jeovany report #[id number] was reviewed and appropriate. We have updated our controlled substances policies and agreements with her today. I reviewed safe usage and storage of medications with her as well. We will refill her Percocet 5 mg 3 times daily and gabapentin major milligrams 3 times daily and will follow-up in 2 months. If no improvement, can consider increasing her opiate regimen. Ordered: acetaminophen-oxyCODONE, 1 Tab, Oral, TID, X 30 Day(s), # 90 Tab, 0 Refill(s), Pharmacy: [facility], 154.94, cm, 01/15/21 12:31:00 EDT, CLINICALHEIGHT, 60.45, kg, 03/28/21 13:52:00 EST, CLINICALWEIGHT, 05/13/21 acetaminophen-oxyCODONE, 1 Tab, Oral, TID, X 30 Day(s), # 90 Tab, 0 Refill(s), Pharmacy: [facility], 154.94, cm, 01/15/21 12:31:00 EDT, CLINICALHEIGHT, 60.45, kg, 03/28/21 13:52:00 EST, CLINICALWEIGHT, 04/13/21 gabapentin, 1 Tab, Oral, Tab, TID, # 90 Tab, 1 Refill(s), Pharmacy: [facility], 154.94, cm, 01/15/21 12:31:00 EDT, CLINICALHEIGHT, 60.45, kg, 03/28/21 13:52:00 EST, CLINICALWEIGHT, 04/13/21 VTE Prophylaxis - Medical No VTE Prophylaxis Orders. Problem List/Past Medical History Ongoing Anxiety and depression with panic attacks Arthritis Bulging lumbar disc Cardiomyopathy (questionable) Carotid artery disorder (mild, right) Cataract Coronary artery disease (mild) DDD (degenerative disc disease), lumbar dry eyes Female stress incontinence Fibromyalgia Fibromyalgia GERD - Gastro-esophageal reflux disease H/O dizziness H/O seasonal allergies Hemorrhoids Hiatal hernia Hypertension Malignant melanoma of skin of left lower leg Restless legs syndrome Sleep apnea (family report) Historical History of mononucleosis Lumbar spinal stenosis -s/p fusion Spinal stenosis Wears reading eyeglasses Procedure/Surgical History EXCISION OF LUMBOSACRAL DISC, OPEN APPROACH (04/08/2018), FUSION LUMSAC JT W INTBD FUS DEV, POST APPR A COL, OPEN (04/08/2018), spinal cord stimulator removed (05/2017), lap low (03/2017), lumbar fusion L2-5) (2014), hysterectomy (2004), heart cath (negative) (2002), melanoma removed from left calf (2001), tonsillectomy (1964), colonoscopy, epidural and facet injection steroids, right foot bunionectomy, spinal cord stimulator attempted, wisdom teeth. Home Medications (18) Active acetaminophen-oxyCODONE 325 mg-5 mg oral tablet 1 Tab, Oral, BID acetaminophen-oxyCODONE 325 mg-5 mg oral tablet 1 Tab, Oral, TID acetaminophen-oxyCODONE 325 mg-5 mg oral tablet 1 Tab, Oral, TID acetaminophen-oxyCODONE 325 mg-7.5 mg oral tablet 1 Tab, PRN, Oral, Q6H amantadine 100 mg oral capsule , Oral, BID ARIPiprazole 10 mg oral tablet with sensor , Oral, Daily atorvastatin 40 mg oral tablet 40 mg = 1 Tab, Oral, Daily clopidogrel 75 mg oral tablet 75 mg = 1 Tab, Oral, Daily DULoxetine 120 mg, Oral, Daily estradiol 1 mg oral tablet 1 mg = 1 Tab, Oral, Daily gabapentin 800 mg, Oral, TID gabapentin 800 mg oral tablet 800 mg = 1 Tab, Oral, TID losartan 50 mg oral tablet 50 mg = 1 Tab, Oral, Daily Multi Vitamin+ NexIUM 40 mg oral delayed release capsule 40 mg = 1 Cap, Oral, Daily promethazine 25 mg oral tablet 25 mg = 1 Tab, PRN, Oral, TID tiZANidine 4 mg oral tablet 4 mg = 1 Tab, Oral, At Bedtime Vitamin C 1000 mg oral tablet 1,000 mg = 1 Tab, Oral, Daily Allergies No Known Allergies No Known Medication Allergies Social History Alcohol Alcohol Use History No. Employment/School Retired Home/Environment Lives with Alone. Substance Abuse Drug Use Hx: No. Use in Last 12 Months: No. Tobacco Smoking Status Never smoker. Used Tobacco, but Quit No. Second Hand Smoke Exposure: No. Additional Documentation Code Status No Code Status Order on Record documented in this encounter Plan of Treatment Not on file documented as of this encounter Visit Diagnoses Not on filedocumented in this encounter
--- OUTSIDE RECORDS SUMMARY | 2024-10-13 13:23 | XMS_ITS | Encounter Summary ---
Author Organization [employer] ([place], [place], [place], [place]) Address [address] [place] [address] Care Team Providers Care Lye Bath Operator Name Role Phone Unavailable Primary Care Provider Unavailabl e Encounter Details Date Type Department Care Team (Late st Contact Info) Description 05/23/2021 Transcribed Document [facility] [place] [address] [place] [address] ProviderJuarez MD [address] [place] [address] Social History Tobacco Use Types [...] Date Jeronimo rded Speak language other than Georgian at home Not on file 04/04/2023 Want [...] - Historical ProviderMD - 05/23/2021 12:21 PM VP [employer] Nursing Discharge Summary Entered On: 05/23/2021 12:22 EST Performed On: 05/23/2021 12:21 EST by ALBERT VACA RN-PATIENT CARE NON-ACUTE NON-EXEMPT Discharge Documentation Discharge Date/Time : 05/23/2021 12:21 EST Patient Disposition, General : Discharge Discharge To : Home with ambulatory/outpatient follow-up Mode Of Departure, General Discharge : Ambulatory Accompanied By, Discharge : Unaccompanied Prescriptions Given to Patient : Electronically sent Medications Given to Patient : No Discharge Instructions Reviewed With, Opportunity For Questions Given : Patient Patient Education Completed : Yes Teaching Method : Explanation, Printed materials, Teach back method Teaching Evaluation : Verbalizes understanding ALBERT VACA RN-PATIENT CARE NON-ACUTE NON-EXEMPT - 05/23/2021 12:21 EST Electronically signed by [facility] Conversion Ranch Hand Supervisor Cerner at 07/02/2022 5:49 PM CDT documented in this encounter Plan of Treatment Not on file documented as of this encounter Visit Diagnoses Not on filedocumented in this encounter
--- OUTSIDE RECORDS SUMMARY | 2024-10-13 13:23 | XMS_ITS | Encounter Summary ---
Author Organization [employer] ([place], [place], [place], [place]) Address [address] [place] [address] Care Team Providers Care Air Conditioning Supervisor Name Role Phone Unavailable Primary Care Provider Unavailabl e Encounter Details Date Type Department Care Team (Late st Contact Info) Description 04/08/2018 Transcribed Document [facility] Family Medicine [facility] [address] ProviderJuarez MD [facility] [place], [place] [address] Social History Tobacco Use Types Packs/Day Years Used Date Smoking Tobacco: Never Assessed Comments Unknown Sex and Gender Information Value Date Recorded Sex Assigned at Female 09/11/2021 3:33 PM CDT Legal Sex Female 3:33 PM CDT Gender Identity Female 09/11/2021 3:33 PM CDT Sexual Orientation Not on file documented as of this encounter Miscellaneous Notes * Cerner Conversion Note - Juarez ProviderMD - 04/08/2018 6:39 AM REPLANTER Admission History, Adult Entered On: 04/08/2018 16:14 EST Performed On: 04/08/2018 6:39 EST by Stephanie Hernandez RN Advance Directive Patient has Advance Directive *Q : No, patient refuses Advance Directive information Stephanie Hernandez RN - 04/08/2018 16:01 EST Anesthesia/Transfusion History Family History of Anesthesia Reaction : No prior transfusion(s) Blood Transfusion Acceptable to Patient : Yes Transfusion History : Prior anesthesia without reaction Family History of Anesthesia Reaction : None Stephanie Hernandez RN - 04/08/2018 16:01 EST Functional Assessment Living Situation : Home Patient Lives With : Alone Current Home Treatments : None Stephanie Hernandez RN - 04/08/2018 16:01 EST General Info Preferred Name : Anahi Arrived From : Home Mode of Arrival on Unit : Ambulatory Support Person/Patient Pulp Piler : Yes Support Person/Pt Rep Name : Carmen Smith Support Person/Pt Rep Contact Information : [phone] Want Family/Rep/Phys Notified of Admit : No Emergency Contact #1 : Carmen Smith Emergency Contact #1 Emergency Contact #1 Relationship : daughter Emergency Contact #2 : n Emergency Contact #2 Phone Number : n Emergency Contact #2 Relationship : n Information Obtained From : Patient Primary Language : Kyrgyz Preferred Communication Mode : Verbal Communication Barrier : None Stephanie Hernandez RN - 04/08/2018 16:01 EST Fall Risk Scales ABCs Fall Injury Risk Identification : Age, Bones, Surgery ABC Fall Injury Risk : Moderate to high injury risk Injury Moderate to High Risk Interventions : Specialty low bed, Supervise toileting as indicated, Transport methods appropriate to patient, Visual cues in place, Wrist band (fall risk) on per policy HUGO Hx Falls Immediate/Within 3 Months : Yes Hugo Secondary Diagnosis : Yes HUGO Use of Ambulatory Aid : Bed rest/Nurse assist HUGO IV Therapy or IV Access : Yes Hugo Gait/Transferring : Weak John Mental Status : Oriented to own ability Hugo Fall Risk Score : 70 HUGO Fall Scale Risk Level : 46 or > High Risk [place] Fall Interventions : Adequate lighting, Assistive devices within reach, Bed in low position, Call device within reach, Fall prevention handout/education per facility policy, Frequent orientation to call device, Frequent orientation to surroundings, Hourly comfort/safety rounds, Non-slip footwear, Personal items within reach, Reinforced to call for assistance before getting out of bed, Room free of clutter/spills, Upper side-rails up, Wheels locked, Wires/Cords secured Stephanie Hernandez RN - 04/08/2018 16:01 EST Fall Risk Education Grid Alarms : Verbalizes understanding Assistive Equipment Use : Verbalizes understanding Bed Height/Stabilization : Verbalizes understanding Call light use : Verbalizes understanding Door Open : Verbalizes understanding Environmental Management : Verbalizes understanding Eyeglasses Use : Verbalizes understanding Fall Community Resources : Verbalizes understanding Fall Contract/Letter : Verbalizes understanding Fall Prevention in the Home : Verbalizes understanding Stephanie Hernandez RN - 04/08/2018 16:01 EST Barriers to Learning : None evident Learning Style Preferences Patient : Printed materials Fall Risk Scale Calc Temp : 0 Stephanie Hernandez RN - 04/08/2018 16:01 EST Health Histories Smoking Status : Never (less than 100 in lifetime; none in last 30 days) Smokeless Tobacco Status : Never Stephanie Hernandez RN - 04/08/2018 16:01 EST Social History (As Of: 04/08/2018 16:14:06 EST) Tobacco: Smoking Status Never smoker. Used Tobacco, but Quit No. Second Hand Smoke Exposure: No. (Last Updated: 01/10/2015 11:10:13 EDT by EFRAIN EGAN RN) Alcohol: Alcohol Use History No. (Last Updated: 04/02/2018 11:36:42 EST by DULCE BYRD RN) Substance Abuse: Drug Use Hx: No. Use in Last 12 Months: No. (Last Updated: 01/10/2015 11:10:38 EDT by EFRAIN EGAN RN) Home/Environment: Lives with Alone. (Last Updated: 01/10/2015 11:10:32 EDT by EFRAIN EGAN RN) Employment/School: Retired (Last Updated: 01/10/2015 11:10:24 EDT by EFRAIN EGAN RN) Height and Weight, Clinical Dosing Height Source : Measured Height Entry Format : [place] Height, Feet : 0 ft(Converted to: 0 cm, 0 Inch) Height, Inches : 61 Inch(Converted to: 5 ft 1 Inch, 154.94 cm) Clinical Height : 154.94 cm Weight Source : Standing scale Weight Entry Format : [place] Clinical Dosing Weight : 65.17 kg Weight, Pounds : 143 lb Weight, Ounces : 6 oz Body Surface Area (BSA) : 1.64 m2 Body Mass Index : 27.1 kg/m2 (HI) [place] Body Weight : 47 kg Stephanie Hernandez RN - 04/08/2018 16:01 EST Infectious Disease History Infectious Disease History : Chicken pox/Shingles, Influenza, Measles, Mononucleosis, Mumps Fever/Chills Last 48 Hours : No Travel To Regions with Travel Advisories : No Travel Outside [place] Within Last 30 Days : No Contact With Traveler to Advisory Region : No Tuberculosis Symptoms : None Stephanie Hernandez RN - 04/08/2018 16:01 EST Influenza Vaccine Asmt, Adult Previous Vaccines from Immunization Schedule : No qualifying data available. Influenza Immunization, Current Season : Yes Influenza Immunization Date : 12/31/2017 EDT Stephanie Hernandez RN - 04/08/2018 16:01 EST Pneumococcal Vaccine Previous Vaccines from Immunization Schedule : No qualifying data available. Pneumonia Immunization Received : Yes Pneumonia Immunization Date : 12/31/2017 EDT Stephanie Hernandez RN - 04/08/2018 16:01 EST Nutrition History Eating Poorly Due to Decreased Appetite : No Unplanned Weight Loss in Past 3-6 Months : No Malnutrition Screening Tool Total(mal) : 0 Malnutrition Screening Tool Risk Level : Patient not at risk Stephanie Hernandez RN - 04/08/2018 16:01 EST Psychosocial History Do You Have a History of the Following? : Anxiety, Depression, Other: panic attacks (occasional) Currently in Unsafe Situation : No Tried to Harm Yourself in the Past? : No Thoughts of Harming/Killing Yourself : No Stephanie Hernandez RN - 04/08/2018 16:01 EST Sleep Apnea Risk Assmt Hx of Obstructive Sleep Apnea Diagnosis : No Snore Loudly : Yes Tired, Fatigued, or Sleepy During Day : Yes Observed Stopping Breathing During Sleep : No Have/Are Being Treated for Hypertension : Yes STOP Sleep Apnea Risk Level Score : 3 STOP Sleep Apnea Risk Level : High Stephanie Hernandez RN - 04/08/2018 16:01 EST Valuables and Belongings Valuables and Belongings : Clothing, No comfort items, No jewelry, No personal devices, No personal items, No assistive devices, No respiratory devices, No medications Clothing : Common streetwear, Outerwear Clothing Disposition : Bedside Stephanie Hernandez RN - 04/08/2018 16:01 EST Electronically signed by [facility] Conversion Qa Consultant Cerner at 07/02/2022 5:31 PM CDT documented in this encounter Plan of Treatment Not on file documented as of this encounter Visit Diagnoses Not on filedocumented in this encounter
--- OUTSIDE RECORDS SUMMARY | 2024-10-13 13:23 | XMS_ITS | Encounter Summary ---
Author Organization [employer] ([place], [place], [place], [place]) Address [address] [place] [address] Care Team Providers Care Commercial Photographer Name Role Phone Unavailable Primary Care Provider Unavailabl e Encounter Details Date Type Department Care Team (Late st Contact Info) Description 05/23/2021 Transcribed Document [facility] [place] Family Medicine [address] [place] [address] ProviderJuarez MD [address] [place] [address] Social History Tobacco Use Types [...] Date Jeronimo rded Speak language other than Maltese at home Not on file 04/04/2023 Want [...] Conversion Note - Historical ProviderMD - 05/23/2021 1:26 PM UNIFORM ATTENDANT Patient: ANAHI BOYKIN Age: 70 Years Sex: Female : 1950 Chief Complaint Back pain Primary Care Provider SHAHRIAR CHUA MD-[facility] History of Present Illness Mrs. Boykin is here for 2-month medication follow-up visit. She reports having worsening back pain over the last several visits. She complains that her medications do not seem to be working very well, she hardly gets any relief from them at all. She has been even doing chiropractic and some homeopathic care that is helped some with the spasms but the deep pain is not affected. She reports it has become increasing hard for her to stand. She cannot stand for more than 15 minutes without terrible numbness in her legs. She has to go sit down which seems to relieve the pain. It is very frustrating to her, she wants to stand, she would like to be able to start getting a garden together and do more activities outdoors. She has been on this pain medication regimen for some time and would like to consider increasing the dose today. She reports occasional constipation from her pain medications but is well managed and denies any other side effects. She is had injections in the past, none of them have ever been of much benefit. She is hesitant to have another surgery because she knows it will decrease her motion tremendously. She reports being on a medication from her neurologist that made her hair fall out, she thinks it was primidone. They rotated her to a new medication now. PHQ 2 Review of Systems 14 system review performed today. Pertinent positives and negatives discussed in HPI. Vital Signs T: 36.7 ??C HR: 78 RR: 18 BP: 123/75 SpO2: 96% HT: 154.94 cm WT: 60.45 kg BMI: 25.2 Oxygen Settings (Last) Oxygen Therapy Mode: Room air (05/23/21 11:43:00) Physical Exam General: Appears comfortable, appears stated age, weight is appropriate Spine lumbosacral: Large well-healed scars, no focal tenderness with muscular tension is noted, range of motion: Flexion was limited and painful at 70, extension limited and painful at 0, rotation and lateral bending were severely limited but not painful, straight leg raise is negative bilaterally, facet loading is positive bilaterally Neurologic: Gait nonantalgic, motor 5/5. Deep tendon reflexes symmetrical, sensation light touch intact L1-S1 dermatomes bilaterally Psychological: Alert and oriented x3. Mood and affect are appropriate. Judgment and insight are intact. Assessment/Plan Failed back surgical syndrome Spinal stenosis Chronic pain Chronic opiate use Mrs. Mccray has been having worse pain consecutively over the last several visits. Her medications seem to be losing effect. Conservative and alternative treatments have been somewhat beneficial but are not helping enough. She asks to increase her medications today. Injections have not been beneficial for her in the past. Her exam is stable. Treatment plan: Interventions: None currently, we discussed ordering a myelogram. She would like to follow-up with her surgeon before taking any other actions. I am in support of this. Rehabilitation: I encouraged stretches and home exercises as tolerated which she does regularly Behavioral: Low risk patient. No aberrant behavior. Her drug screen at her last visit did show barbiturates, this would make sense with the primidone. Otherwise drug screen was appropriate. Deferred random drug screen today. Medications: Jeovany report #[id number] was reviewed and appropriate. With lack of other treatment options at this time we have elected to increase her medications to a Percocet 7.5 mg 3 times a day. I have reviewed safe usage and storage of medications with her and advised her to be cautious for any side effects. We reviewed the risks and benefits of increasing medications and feel that at this time this increase is warranted. Will follow up with her in 2 months. Ordered: acetaminophen-oxyCODONE, 1 Tab, Oral, TID, X 30 Day(s), # 90 Tab, 0 Refill(s), Pharmacy: [facility], 154.94, cm, 05/23/21 11:43:00 EST, CLINICALHEIGHT, 60.45, kg, 05/23/21 11:43:00 EST, CLINICALWEIGHT, 07/16/21 acetaminophen-oxyCODONE, 1 Tab, Oral, TID, X 30 Day(s), # 90 Tab, 0 Refill(s), Pharmacy: [facility], 154.94, cm, 05/23/21 11:43:00 EST, CLINICALHEIGHT, 60.45, kg, 05/23/21 11:43:00 EST, CLINICALWEIGHT, 06/16/21 gabapentin, 1 Tab, Oral, Tab, TID, # 90 Tab, 1 Refill(s), Pharmacy: [facility], 154.94, cm, 05/23/21 11:43:00 EST, CLINICALHEIGHT, 60.45, kg, 05/23/21 11:43:00 EST, CLINICALWEIGHT, 06/16/21 VTE Prophylaxis - Medical No VTE Prophylaxis [...] cord stimulator attempted, wisdom teeth. Home Medications (17) Active acetaminophen-oxyCODONE 325 mg-7.5 mg oral tablet 1 Tab, Oral, TID acetaminophen-oxyCODONE 325 mg-7.5 mg oral tablet 1 Tab, Oral, TID amantadine 100 mg oral capsule , Oral, [...] 800 mg = 1 Tab, Oral, TID gabapentin 800 mg oral tablet [...]
--- OUTSIDE RECORDS SUMMARY | 2024-10-13 13:24 | XMS_ITS | Encounter Summary ---
Author Organization [employer] ([place], [place], [place], [place]) Address [address] [place] [address] Care Team Providers Care Manager Roofing Name Role Phone Unavailable Primary Care Provider Unavailabl e Encounter Details Date Type Department Care Team (Late st Contact Info) Description 04/08/2018 Transcribed Document [facility] [place] Family Medicine [address] [place] [address] ProviderJuarez MD [address] [place] [address] Social History Tobacco Use Types [...] Conversion Note - Juarez ProviderMD - 04/08/2018 12:21 PM LASERIST [facility] Main OR PACU Summary Primary Physician: THAO MURPHY MD-[facility] Finalized Date/Time: 04/08/18 15:33:46 Pt. Name: ANAHI BOYKIN /Sex: 1950 Female Med Rec #: [id number] Physician: THAO MURPHY MD-[facility] Financial #: [id number] Pt. Type: I Room/Bed: ASA/5 Admit/Disch: 04/08/18 06:40:00 - Institution: [facility] Main OR PACU I Case Times Entry 1 In PACU I 04/08/18 14:38:00 Ready for PACU 04/08/18 15:15:00 Discharge Discharge from PACU 04/08/18 15:30:00 I Last Modified By: VICKIE VAZQUEZ RN 04/08/18 15:32:44 [facility] Main OR PACU I Case Times Audit 04/08/18 15:32:44 Open Pit Quarry Supervisor: [id number] Modifier: [id number] <+> 1 Ready for PACU Discharge <+> 1 Discharge from PACU I [facility] Main OR PACU Acuity Entry 1 Start Time 04/08/18 15:15:00 Stop Time 04/08/18 15:30:00 Acuity Level [facility] PACU Acuity I Last Modified By: VICKIE VAZQUEZ RN 04/08/18 15:32:59 Finalized By: VICKIE VAZQUEZ, RN Document Signatures Signed By: VICKIE VAZQUEZ RN 04/08/18 15:33 Electronically signed by [facility] Conversion Wire Turning Machine Operator Cerner at 07/02/2022 5:43 PM CDT documented in this encounter Plan of Treatment Not on file documented as of this encounter Visit Diagnoses Not on filedocumented in this encounter
--- OUTSIDE RECORDS SUMMARY | 2024-10-13 13:24 | XMS_ITS | Encounter Summary ---
Author Organization [employer] ([place], [place], [place], [place]) Address [address] [place] [address] Care Team Providers Care Marine Farmer Name Role Phone Unavailable Primary Care Provider Unavailabl e Encounter Details Date Type Department Care Team (Late st Contact Info) Description 05/28/2021 Transcribed Document [facility] [place] [address] [place] [address] ProviderJuarez MD [address] [place] [address] Social History Tobacco Use Types [...] Date Jeronimo rded Speak language other than [place] at home Not on file 04/04/2023 Want [...] Cerner Conversion Note - Historical ProviderMD - 05/28/2021 4:33 PM CDT Event Note Entered On: 05/28/2021 16:35 EDT Performed On: 05/28/2021 16:33 EDT by Halima Rogers LPN-LVN-PATIENT CARE BEDSIDE Event Note Event Date/Time : 05/28/2021 16:34 EDT Event Location : Other: Rx refill Event Details : Other: Rx refill Description of Event : Ms. Leach called today to get a refill on Tiazandine 4mg, she would like for this rx to go to [facility]. I called [facility] @ and confirmed refill with Rosa Whitfield. Halima Rogers LPN-LVN-PATIENT CARE BEDSIDE - 05/28/2021 16:33 EDT Electronically signed by Titi Villar Conversion Wallpaper Inspector And Shipper Cerner at 07/02/2022 5:43 PM CDT documented in this encounter Plan of Treatment Not on file documented as of this encounter Visit Diagnoses Not on filedocumented in this encounter
--- OUTSIDE RECORDS SUMMARY | 2024-10-13 13:24 | XMS_ITS | Encounter Summary ---
Author Organization [employer] ([place], [place], [place], [place]) Address [address] [place] [address] Care Team Providers Care Cruise Counselor Name Role Phone Unavailable Primary Care Provider Unavailabl e Encounter Details Date Type Department Care Team (Late st Contact Info) Description 01/15/2021 Transcribed Document [facility] [place] Family Medicine [address] [place] [address] ProviderJuarez MD [address] [place] [address] Social History Tobacco Use Types [...] Cerner Conversion Note - Juarez ProviderMD - 01/15/2021 2:22 PM CDT [facility] Main OR IntraOp Summary Primary Physician: RASHAAD HUNTER MD-OPT Finalized Date/Time: 01/15/21 14:46:52 Pt. Name: ANAHI BOYKIN /Sex: 1950 Female Med Rec #: [id number] Physician: RASHAAD HUNTER MD-OPT Financial #: [id number] Pt. Type: O Room/Bed: [facility]/ Admit/Disch: 01/15/21 11:44:00 - Institution[place] [facility] [place]Op Case Attendance Entry 1 Entry 2 Entry 3 Case Attendee RASHAAD HUNTER WHITAKER, CARLY, LONGSWORTH, GARY, RN MD-OPT ROLL EDGE MACHINE OPERATOR-ANS Role Performed Surgeon/Proceduralist, ROLL EDGE MACHINE OPERATOR/Nurse Load Out Worker Account Installation Specialist, First First Time In 01/15/21 14:08:00 01/15/21 14:08:00 01/15/21 14:08:00 Time Out 01/15/21 14:46:00 01/15/21 14:46:00 01/15/21 14:46:00 Procedure Cataract Extraction w Cataract Extraction w Cataract Extraction w Intraocular Lens I Intraocular Lens I Intraocular Lens I Other Attendee Superficial Wound Closed By: Last Modified By: LATONIA PROCTOR, RN LATONIA PROCTOR, RN LATONIA PROCTOR, CHRIS 01/15/21 14:46:50 01/15/21 14:46:50 01/15/21 14:46:50 Entry 4 Case Attendee Kristin Krueger Gunstock Repairer Role Performed Scrub, First Time In 01/15/21 14:08:00 Time Out 01/15/21 14:46:00 Procedure Cataract Extraction w Intraocular Lens I Other Attendee Superficial Wound Closed By: Last Modified By: LATONIA PROCTOR RN 01/15/21 14:46:50 [facility] IntraOp Case Attendance Audit 01/15/21 14:46:50 Pit And Auxiliaries Supervisor: LONGGA Modifier: LONGGA 1 <+> Time Out 1 <*> Procedure Cataract Extraction w Intraocular Lens I 2 <+> Time Out 2 <*> Procedure Cataract Extraction w Intraocular Lens I 3 <+> Time Out 3 <*> Procedure Cataract Extraction w Intraocular Lens I 4 <+> Time Out 4 <*> Procedure Cataract Extraction w Intraocular Lens I 01/15/21 14:18:35 Pit And Auxiliaries Supervisor: LONGGA Modifier: LONGGA <+> 1 Time In <+> 1 Procedure 2 <+> Time In 2 <*> Procedure Cataract Extraction w Intraocular Lens I 3 <+> Time In 3 <*> Procedure Cataract Extraction w Intraocular Lens I 4 <+> Time In 4 <*> Procedure Cataract Extraction w Intraocular Lens I [facility] IntraOp Case Times Entry 1 Patient In Room Time 01/15/21 14:08:00 Out Room Time 01/15/21 14:46:00 Anesthesia Start Time 01/15/21 14:08:00 Stop Time 01/15/21 14:46:00 Anesthesia Ready 01/15/21 14:08:00 Surgery / Procedure Times Start Time 01/15/21 14:22:00 Stop Time 01/15/21 14:43:00 Last Modified By: LATONIA PROCTOR RN 01/15/21 14:46:48 [facility] IntraOp Case Times Audit 01/15/21 14:46:48 Pit And Auxiliaries Supervisor: LONGGA Modifier: LONGGA <+> 1 Out Room Time <+> 1 Stop Time 01/15/21 14:42:22 Pit And Auxiliaries Supervisor: LONGGA Modifier: LONGGA <+> 1 Stop Time 01/15/21 14:22:23 Pit And Auxiliaries Supervisor: LONGGA Modifier: LONGGA <+> 1 Start Time [facility] IntraOp Communication Entry 1 Communication To Family/Significant other Comment PROCEDURE STARTNG Communication By LATONIA PROCTOR RN Date and Time 01/15/21 14:24:00 Last Modified By: LATONIA PROCTOR RN 01/15/21 14:24:20 [facility] IntraOp Counts Verification Entry 1 Procedure Cataract Extraction w Intraocular Lens I Count Info Count Type Sharps Counts Verification Baseline/pre-procedure Sequence Count Results Correct, surgeon notified Counts Performed By Count Performed By Kristin Krueger Scrub (Scrub) Tech Count Performed By LATONIA PROCTOR, RN (RN) Last Modified By: LATONIA PROCTOR RN 01/15/21 13:58:36 [facility] IntraOp Counts Final Entry 1 Procedure Cataract Extraction w Intraocular Lens I Final Count Info Count Type Sharps Counts Verification Skin Closure/end of Sequence procedure Count Results Correct, surgeon notified Counts Performed By Count Performed By Kristin Krueger Scrub (Scrub) Tech Count Performed By LATONIA PROCTOR, RN (RN) Last Modified By: LATONIA PROCTOR RN 01/15/21 14:21:47 [facility] IntraOp Departure from OR Entry 1 Integumentary Assessment Integumentary WDL Assessment WDL Skin Description Dry (WDL with exeptions) Transfer/Handoff Transfer to Ambulatory unit, Phase II Handoff Method Bedside/Face to face Post-op Transport Stretcher/Gurney Via Patient Transport ANGELIQUE TAYLOR, Accompanied by HITESH BRAVO GARY, RN Last Modified By: LATONIA PROCTOR RN 01/15/21 14:42:12 [facility] IntraOp Dressing and Packing Entry 1 Type Dressing Location LEFT EYE Wound Dressing Item Eye Pad, Eye Shield Tape Type Other Applied By RASHAAD HUNTER MD-OPT Other Comments TRANSPORE TAPE Last Modified By: LATONIA PROCTOR RN 01/15/21 14:21:59 [facility] IntraOp Fire Risk Assessment Entry 1 Fire Info Surgical Site or 1- Yes Incision Above the Xyphoid Open O2 Source 1- Yes (Mask or Cannula) Available Ignition 0- No (ESU, Laser, Light Source) Fire Risk 2 Assessment Score Fire Score Fire Risk Yes Assessment Complete Fire Risk LATONIA PROCTOR RN Assessment Verified By Fire Risk 01/15/21 13:58:00 Assessment Verified Date/Time Fire Risk High Risk Protocol Yes Implemented Standard Fire Yes Safety Precautions Followed Last Modified By: LATONIA PROCTOR RN 01/15/21 13:58:52 [facility] IntraOp General Case Fill Plant Operator 1 Case Information OR OR 09 [facility] Case Level 1 Room Verified Yes Wound Class 1 - Clean Specialty Ophthalmology Anesthesia Type MAC ASA Class 3 Diagnosis Preop Diagnosis CATARACT, LEFT EYE Postop Same As Preop Yes Postop Diagnosis CATARACT, LEFT EYE Wound Class Definitions Last Modified By: LATONIA PROCTOR RN 01/15/21 14:26:29 [facility] IntraOp General Case Data Audit 01/15/21 14:26:29 Pit And Auxiliaries Supervisor: SEBASTIAN Modifier: LONGGA 1 <*> OR OR 07 [facility] 1 <+> Specialty 1 <+> ASA Class 1 <+> Wound Class 1 <+> Anesthesia Type 1 <+> Postop Same As Preop 1 <+> Preop Diagnosis 1 <+> Postop Diagnosis 1 <+> Room Verified [facility] IntraOp Implant Log Entry 1 Type Implant (Synthetic) Implant Log Implant Type Lens Implant IOL LENS ULTRASERT Identification [id number] Description Implant Quantity 1 Implant Site LEFT EYE Implant [id number] Identification Serial Number Implant [facility] Lab:Surg Identification Discount Clerk Name: Implant [id number] Identification Catalog Number Implant Has an Yes Expiration Date Implant Expiration 02/28/23 Date Tissue Implant Last Modified By: LATONIA PROCTOR RN 01/15/21 14:38:41 [facility] IntraOp Intraoperative Assessment Entry 1 Handoff Method Other Valid History / Yes Physical in Chart Preoperative Yes Checklist Reviewed/Evaluated Allergies Reviewed Yes Patient is Latex No Sensitive Isolation Not applicable Precautions Noted Level of WDL Consciousness (WDL = Alert, Oriented to Person, Place, and Time) Skin Assessment Yes Verified Present Upon IVs Arrival to OR Last Modified By: LATONIA PROCTOR RN 01/15/21 14:24:38 [facility] IntraOp Intraoperative Assessment Audit 01/15/21 14:24:38 Pit And Auxiliaries Supervisor: SEBASTIAN Modifier: LONGGA <+> 1 Patient is Latex Sensitive [facility] IntraOp Intraoperative Equipment Entry 1 Type Equipment Equipment Equipment Phacoemulsification ID Number INFINITY #1 Intraop Monitoring Electrocardiogram Three lead placement (ECG) Electrode Placement Blood Pressure Non-Invasive BP Device Source Antiembolic Devices Scopes Photo/Video Documentation Photo No Video No Last Modified By: LATONIA PROCTOR RN 01/15/21 14:24:48 [facility] IntraOp Medication Admin Entry 1 Entry 2 Entry 3 Medication/Irrigant tetracaine hcl 0.5% 2ml BSS 15ml - [id number] Duovisc ophthalmic ophthalmic solution - 0.4ml - [id number] Combo Med List Time Administered Route of TOPICAL topical INTRAOCCULAR Administration Dose Dose Unit of Measure drops drops Volume QS QS QS Administered By RASHAAD HUNTER Moore, Amanda, Scrub DUDEE, JITANDER S, -OPT Tech MD-OPT Procedure Irrigation Irrigant Volume In Irrigant Volume Out Last Modified By: LATONIA PROCTOR RN LONGSWORTH, GARY, RN LONGSWORTH, GARY, RN 01/15/21 14:29:24 01/15/21 14:29:24 01/15/21 14:29:24 Entry 4 Entry 5 Entry 6 Medication/Irrigant BSS Plain 500ml - VisionBlue 0.06% 0.5ml Neosporin ointment [id number] ophthalmic - [id number] packet - [id number] Combo Med List 1 - Combo Med Time Administered Route of INTRAOCCULAR INTRAOCCULAR TOPICAL Administration Dose Dose Unit of Measure ml Volume QS QS QS Administered By RASHAAD HUNTER DUDEE, JITANDER S, RASHAAD HUNTER, -OPT MD-OPT MD-OPT Procedure Irrigation Irrigant Volume In Irrigant Volume Out Last Modified By: LONGSWORTH, LATONIA, RN LONGLATONIA WHEATLEY RN LONGSWORTH, GARY, RN 01/15/21 14:29:24 01/15/21 14:29:24 01/15/21 14:29:24 General Comments: SHUGARCAINE SOLUTION ( 9ML BSS, 4ML EPINEPHRINE, 3ML OF 4%LIDOCAINE ) USED BY Ki BLANCO IntraOp Patient Positioning Entry 1 Procedure Cataract Extraction w Intraocular Lens I Body Position Supine Left Arm Position Resting at side Right Arm Position Resting at side Left Leg Position Uncrossed, parallel Right Leg Position Uncrossed, parallel Position Comments PT REMAINED ON EYE STRETCHER IN BILATERAL WRIST RESTRAINTS WITH PILLOW UNDER KNEES. Feet Uncrossed Yes Pressure Points Yes Checked Positioning Devices Pillows, Soft Cuff Straps Device Position HEAD ON PADDED HEADREST. ARMS ADDUCTED TO SIDES. PILLOW UNDER KNEES. Positioned By LATONIA PROCTOR RN, RASHAAD HUNTER MD-OPT, ANGELIQUE TAYLOR CRNA-ANS Position Verified Positioning Yes Verified by Anesthesia Positioning Yes Verified by Surgeon Last Modified By: LATONIA PROCTOR RN 01/15/21 14:25:12 [facility] IntraOp Sign In Entry 1 Patient, Site, Yes Procedure Identified Surgical Consent Yes Confirmed Relevant Surgical Yes Documents Available Surgical Site Yes Marked by person performing procedure Anesthesia Machine Yes Check Completed Medication Checks Yes Completed Allergies No Airway Difficult No Airway/Aspiration Risk Difficult Yes Airway/Aspiration Intervention Equipment Available Blood Loss Risk No Blood Loss Yes Intervention Equipment Prepared and Ready Blood Identifiers Not applicable Verified Per Policy Hypothermia Risk Yes Warming Measures Yes Taken Last Modified By: LATONIA PROCTOR RN 01/15/21 14:21:30 [facility] Intra Op Sign Out Entry 1 RN Confirmation Surgical Yes Procedure(s) Identified Instrument, Sponge Yes and Sharps Counts Correct/Documented Equipment Problems N/A Documented Specimen Labeled N/A Correctly Urinary Catheter N/A Documented in IView Wound Yes classification reviewed, verified and updated post case in both the General Case Data and Procedure segments [place] Patient Yes Recovery Concerns Reviewed with Anesthesia Provider, Surgeon and RN [place] Patient Yes Management Concerns Reviewed with Anesthesia Provider, Surgeon and RN Safety Checklist Yes Elements Complete? RN Sign Out LATONIA PROCTOR RN Signature RN Sign Out 01/15/21 14:42:00 Signature Date/Time Plan of Care Outcome - Fire Risk OUTCOME STATEMENT: Goal met Patient is free from injury related to surgical fire Plan of Care Outcome - Pt Positioning OUTCOME STATEMENT: Goal met Absence of signs and symptoms of positioning injury. Plan of Care Outcome - Skin Prep OUTCOME STATEMENT: Goal met Intraoperative care is consistent with measures to prevent infection Plan of Care Outcome - Xray/Images OUTCOME STATEMENT: N/A Absence of observable signs or symptoms of radiation injury Plan of Care Outcome - Counts OUTCOME STATEMENT: Goal met Absence of signs and symptoms of injury related to extraneous objects Last Modified By: LATONIA PROCTOR RN 01/15/21 14:42:56 [facility] IntraOp Skin Prep Entry 1 Procedure Cataract Extraction w Intraocular Lens I Prescribed Yes Pre-Surgical Prep Completed Prep Area LEFT EYE Intraop Prep Integumentary WDL Assessment WDL Prep Agents Betadine solution Prep by LATONIA PROCTOR RN Skin Prep Comment 5% BETADINE Hair Removal Methods No hair removal performed Last Modified By: LATONIA PROCTOR RN 01/15/21 14:25:29 [facility] IntraOp Surgical Procedures Entry 1 Procedure Cataract Extraction w Intraocular Lens Implant Additional CATARACT EXTRACTION Procedure WITH IOL LEFT EYE Description Primary Procedure Yes Primary Surgeon RASHAAD HUNTER MD-OPT Start 01/15/21 14:22:00 Stop 01/15/21 14:43:00 Anesthesia Type MAC Specialty Ophthalmology Wound Class 1 - Clean Last Modified By: LATONIA PROCTOR RN 01/15/21 14:42:37 [facility] IntraOp Surgical Procedures Audit 01/15/21 14:42:37 Pit And Auxiliaries Supervisor: LONGGA Modifier: LONGGA <+> 1 Stop 01/15/21 14:22:36 Pit And Auxiliaries Supervisor: LONGGA Modifier: LONGGA 1 <*> Procedure Cataract Extraction w Intraocular Lens Implant 1 <+> Specialty 1 <+> Start 1 <+> Wound Class [facility] IntraOp Time Out Entry 1 Procedure to be Cataract Extraction w Performed Intraocular Lens I Time Out Time Out Pause Time 01/15/21 14:19:00 All activity Yes suspended (unless life threatening emergency) Team Verbally Correct patient Confirms Information identity, Correct side and site are marked, Consent form is present and accurate, Agreement on the procedure to be done, Correct patient position, Relevant images/results properly labeled/appropriately displayed, Confirm antibiotics have been administered, Confirm the skin prep has dried, Confirm prosthesis/implant/devic e is present, Performed in location of procedure after prepped/draped, Performed before each procedure if multiple procedures Antibiotic N/A Prophylaxis Administered Or In Progress Within the Last 60 Minutes Beta Iam N/A Administered Venous N/A Thromboembolism Prophylaxis Required Anticipated Critical Events Surgeon None expected Anesthesia Provider Patient specific concerns Nursing Assures Sterility of instruments, Equipment concerns or issues, Implant Availability Essential Imaging Yes Labeled and Displayed Last Modified By: LATONIA PROCTOR RN 01/15/21 14:21:17 Case Comments <None> Finalized By: LATONIA PROCTOR, RN Document Signatures Signed By: LATONIA PROCTOR RN 01/15/21 14:46 Electronically signed by [facility] Conversion Patients Transporter Cerner at 07/02/2022 5:37 PM CDT documented in this encounter Plan of Treatment Not on file documented as of this encounter Visit Diagnoses Not on filedocumented in this encounter
--- OUTSIDE RECORDS SUMMARY | 2024-10-13 13:24 | XMS_ITS | Encounter Summary ---
Author Organization [employer] ([place], [place], [place], [place]) Address [address] [place] [address] Care Team Providers Care Hand Ii Blocker Name Role Phone Unavailable Primary Care Provider Unavailabl e Encounter Details Date Type Department Care Team (Late st Contact Info) Description 03/28/2021 Transcribed Document [facility] [place] Family Medicine [address] [place] [address] ProviderJuarez MD [address] [place] [address] Social History Tobacco Use Types [...] Conversion Note - Juarez ProviderMD - 03/28/2021 2:20 PM POWER PRESS OPERATOR Patient Education Materials Follows: Fall Prevention in the Home, Adult Falls can cause injuries and can affect people from all age groups. There are many simple things that you can do to make your home safe and to help prevent falls. Ask for help when making these changes, if needed. What actions can I take to prevent falls? General instructions ??? Use good lighting in all rooms. Replace any light bulbs that burn out. ??? Turn on lights if it is dark. Use night-lights. ??? Place frequently used items in gvsx-gy-urdeh places. Lower the shelves around your home if necessary. ??? Set up furniture so that there are clear paths around it. Avoid moving your furniture around. ??? Remove throw rugs and other tripping hazards from the floor. ??? Avoid walking on wet floors. ??? Fix any uneven floor surfaces. ??? Add color or contrast paint or tape to grab bars and handrails in your home. Place contrasting color strips on the first and last steps of stairways. ??? When you use a stepladder, make sure that it is completely opened and that the sides are firmly locked. Have someone hold the ladder while you are using it. Do not climb a closed stepladder. ??? Be aware of any and all pets. What can I do in the bathroom? Keep the floor dry. Immediately clean up any water that spills onto the floor. ??? Remove soap buildup in the tub or shower on a regular basis. ??? Use non-skid mats or decals on the floor of the tub or shower. ??? Attach bath mats securely with double-sided, non-slip rug tape. ??? If you need to sit down while you are in the shower, use a plastic, non-slip stool. ??? Install grab bars by the toilet and in the tub and shower. Do not use towel bars as grab bars. What can I do in the bedroom? Make sure that a bedside light is easy to reach. ??? Do not use oversized bedding that drapes onto the floor. ??? Have a firm chair that has side arms to use for getting dressed. What can I do in the kitchen? Clean up any spills right away. ??? If you need to reach for something above you, use a sturdy step stool that has a grab bar. ??? Keep electrical cables out of the way. ??? Do not use floor guinean or wax that makes floors slippery. If you must use wax, make sure that it is non-skid floor wax. What can I do in the stairways? Do not leave any items on the stairs. ??? Make sure that you have a light switch at the top of the stairs and the bottom of the stairs. Have them installed if you do not have them. ??? Make sure that there are handrails on both sides of the stairs. Fix handrails that are broken or loose. Make sure that handrails are as long as the stairways. ??? Install non-slip stair treads on all stairs in your home. ??? Avoid having throw rugs at the top or bottom of stairways, or secure the rugs with carpet tape to prevent them from moving. ??? Choose a carpet design that does not hide the edge of steps on the stairway. ??? Check any carpeting to make sure that it is firmly attached to the stairs. Fix any carpet that is loose or worn. What can I do on the outside of my home? Use bright outdoor lighting. ??? Regularly repair the edges of walkways and driveways and fix any cracks. ??? Remove high doorway thresholds. ??? Trim any shrubbery on the main path into your home. ??? Regularly check that handrails are securely fastened and in good repair. Both sides of any steps should have handrails. ??? Install guardrails along the edges of any raised decks or porches. ??? Clear walkways of debris and clutter, including tools and rocks. ??? Have leaves, snow, and ice cleared regularly. ??? Use sand or salt on walkways during winter months. ??? In the garage, clean up any spills right away, including grease or oil spills. What other actions can I take? Wear closed-toe shoes that fit well and support your feet. Wear shoes that have rubber soles or low heels. ??? Use mobility aids as needed, such as canes, walkers, scooters, and crutches. ??? Review your medicines with your health care provider. Some medicines can cause dizziness or changes in blood pressure, which increase your risk of falling. Talk with your health care provider about other ways that you can decrease your risk of falls. This may include working with a physical therapist or business trainer to improve your strength, balance, and endurance. Where to find more information ??? Centers for Disease Control and Prevention, [place]: https://www.cdc.gov ??? National [place] on Aging: https://yt7vlan.deirdre.nih.gov Contact a health care provider if: ??? You are afraid of falling at home. ??? You feel weak, drowsy, or dizzy at home. ??? You fall at home. Summary ??? There are many simple things that you can do to make your home safe and to help prevent falls. ??? Ways to make your home safe include removing tripping hazards and installing grab bars in the bathroom. ??? Ask for help when making these changes in your home. This information is not intended to replace advice given to you by your health care provider. Make sure you discuss any questions you have with your health care provider. Document Revised: 02/13/2018 Document Reviewed: 10/16/2017 [employer] Patient Education ? 2020 [employer] documented in this encounter Plan of Treatment Not on file documented as of this encounter Visit Diagnoses Not on filedocumented in this encounter
--- OUTSIDE RECORDS SUMMARY | 2024-10-13 13:24 | XMS_ITS | Encounter Summary ---
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
--- OUTSIDE RECORDS SUMMARY | 2024-10-13 13:24 | XMS_ITS | Encounter Summary ---
Author Organization [employer] ([place], [place], [place], [place]) Address [address] [place] [address] Care Team Providers Care Business Services Clerk Name Role Phone Unavailable Primary Care Provider Unavailabl e Encounter Details Date Type Department Care Team (Late st Contact Info) Description 08/08/2021 Transcribed Document [facility] [place] Family Medicine [address] [place] [address] ProviderJuarez MD [address] [place] [address] Social History Tobacco Use Types [...] Date Jeronimo rded Speak language other than Danish at home Not on file 04/04/2023 Want [...] Cerner Conversion Note - Historical ProviderMD - 08/08/2021 11:20 AM CDT Ambulatory Intake and History Entered On: 08/08/2021 11:23 EDT Performed On: 08/08/2021 11:20 EDT by Halima Rogers LPN-LVN-PATIENT CARE BEDSIDE General Info Ambulatory Accompanied By : Other: self Chief Complaint : back pain Primary Language : Danish Halima Rogers LPN-LVN-PATIENT CARE BEDSIDE - 08/08/2021 11:20 EDT Height and Weight, Clinical Dosing Height Source : Measured Height Entry Format : [place] Height, Feet : 5 ft(Converted to: 152 cm, 60 Inch) Height, Inches : 1 Inch(Converted to: 0 ft 1 Inch, 2.54 cm) Clinical Height : 154.94 cm Weight Source : Standing scale Weight Entry Format : [place] Clinical Dosing Weight : 60 kg Weight, Pounds : 132 lb Body Surface Area (BSA) : 1.58 m2 Body Mass Index : 25 kg/m2 (HI) [place] Body Weight : 47 kg Halima Rogers LPN-LVN-PATIENT CARE BEDSIDE - 08/08/2021 11:20 EDT Vital Measurements Temperature Source : Temporal artery scanning Temperature Mode : Fahrenheit Temperature, Fahrenheit : 98.1 Deg F Clinical Temperature, C : 36.7 Deg C Peripheral Pulse Rate : 68 bpm Pulse Rhythm : Regular Respiratory Rate : 18 Breaths/Min Blood Pressure Location : Arm, right upper Blood Pressure Source : Non-Invasive BP Device Blood Pressure Position : Sitting Systolic Blood Pressure : 167 mmHg (HI) Diastolic Blood Pressure : 80 mmHg Oxygen Saturation : 97 % Oxygen Therapy Mode : Room air Halima Rogers LPN-LVN-PATIENT CARE BEDSIDE - 08/08/2021 11:20 EDT Pain Assessment Pain Assessment : Follow-up assessment Duration : years Pain Scale Used : 0-10 Scale Location : Back Onset : Chronic Pain Location Comment : constant Quality : Aching, Tearing Pain Radiation : Yes Pain Radiation Location : Legs, bilateral Halima Rogers LPN-LVN-PATIENT CARE BEDSIDE - 08/08/2021 11:20 EDT Patient Health Questionnaire Depression Scale-9 (PHQ-9) Trouble Falling/Staying Asleep/Sleeping : More than half the days Little Interest or Pleasure Doing Things : Not at all Feeling Down, Depressed, Hopeless : Not at all Feeling Tired or Little Energy : More than half the days Poor Appetite or Overeating : Not at all Feel Bad About Self/That You are Failure : Not at all Trouble Concentrating on Things : Not at all Moving/Speaking Slowly, Fidgety/Restless : More than half the days Thoughts of Better Off /Hurting Self : Not at all PHQ-9 Score : 6 PHQ-9 Score Interpretation : Mild depression (5-9) MichaelAminah Halima, [id number] CARE BEDSIDE - 08/08/2021 11:20 EDT Functional Assessment Living Situation : Home Sensory Deficits : None Home Equipment Therapy, PT : None Professional Skilled Services : None MichaelAminahHalima [id number] CARE BEDSIDE - 08/08/2021 11:20 EDT Teaching/Learning Assessment Barriers To Learning : None evident Individuals Taught : Patient Readiness to Learn : Cooperative Readiness to Learn : Printed materials Learning Style Preferences Patient : Printed materials Learning Style Preferences Family : Printed materials Tamara Rogersecca [id number] CARE BEDSIDE - 08/08/2021 11:20 EDT Fall Risk Scales ABCs Fall Injury Risk Identification : None HUGO Hx Falls Immediate/Within 3 Months : No Hugo Secondary Diagnosis : No HUGO Use of Ambulatory Aid : None HUGO IV Therapy or IV Access : No Hugo Gait/Transferring : Normal, bedrest, immobile Hugo Mental Status : Oriented to own ability [place] Fall Risk Score : 0 HUGO Fall Scale Risk Level : 0-24 Low Risk [place] Fall Interventions : Adequate lighting, Personal items within reach, Room free of clutter/spills Ken Halima, [id number] CARE BEDSIDE - 08/08/2021 11:20 EDT Pain Scale Intensity : 9 Michael-Ana Halima, [id number] CARE BEDSIDE - 08/08/2021 11:20 EDT Image 4 - Images currently included in the form version of this document have not been included in the text rendition version of the form. documented in this encounter Plan of Treatment Not on file documented as of this encounter Visit Diagnoses Not on filedocumented in this encounter
--- OUTSIDE RECORDS SUMMARY | 2024-10-13 13:24 | XMS_ITS | Encounter Summary ---
Author Organization [employer] ([place], [place], [place], [place]) Address [address] [place] [address] Care Team Providers Care Cook Frozen Dessert Name Role Phone Unavailable Primary Care Provider Unavailabl e Encounter Details Date Type Department Care Team (Late st Contact Info) Description 02/12/2021 Transcribed Document [facility] [place] [address] [place] [address] ProviderJuarez MD [address] [place] [address] Social History Tobacco Use Types [...] Cerner Conversion Note - Historical ProviderMD - 02/12/2021 1:57 PM RECOVERY ASSISTANT Event Note Entered On: 02/12/2021 14:03 EST Performed On: 02/12/2021 13:57 EST by Halima Rogers LPN-LVN-PATIENT CARE BEDSIDE Event Note Event Date/Time : 02/12/2021 13:58 EST Event Location : Other: Rx mishap Event Details : Other: Rx mishap Description of Event : Patient called the office today stating [facility] would not fill her handwritten rx. She requested a CB. I called pt and spoke with her concerning rx. [facility] did not feel rxs, so pt picked them up from [facility] and took them to [facility] in [place] to be filled, they stated they could not fill either? I callled and spoke with Jose Luis (pharmist), to see what the problem was? He stated that someone @ [email or web address] had writted on the rx that Dr. Ramos was not with [facility] at the time of rx being written. I verbally explained to him the situation of what had happened and he said he would fill them to just have pt bring them back into pharmacy. I then called pt and advised her, and she voiced understanding. Halima Rogers, [id number] CARE BEDSIDE - 02/12/2021 13:57 EST Electronically signed by [facility], [facility] Conversion Battery Mechanic Cerner at 07/02/2022 5:28 PM CDT documented in this encounter Plan of Treatment Not on file documented as of this encounter Visit Diagnoses Not on filedocumented in this encounter
--- OUTSIDE RECORDS SUMMARY | 2024-10-13 13:24 | XMS_ITS | Encounter Summary ---
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 Name: CARLOS BOYKIN /Sex: 1950 Female Med Rec #: [id number] Physician: THAO MURPHY MD-SNU Financial #: [id number] Pt. Type: I Room/Bed: [facility] Admit/Disch: 04/08/18 06:40:00 - Institution: [facility] IntraOp Case Attendance Entry 1 Entry 2 Entry 3 Case Attendee THAO MURPHY COMBEST, ASHLEY P, THAO BENNETT MD MD-SNU Role Performed Surgeon/Proceduralist, LADLE OPERATOR/Nurse Director Auto Anesthesiologist of First Record Time In 04/08/18 11:38:00 04/08/18 11:38:00 04/08/18 11:38:00 Time Out 04/08/18 14:35:00 04/08/18 14:35:00 04/08/18 14:35:00 Procedure Lumbar Fusion Posterior Lumbar Fusion Posterior Lumbar Fusion Posterior 3 Level 3 Level 3 Level Other Attendee Superficial Wound Closed By: Last Modified By: ANASTASIA MCGINNIS RN WASSON, SANDRA D, ANASTASIA ROBIN, CHRIS 04/08/18 14:35:39 04/08/18 14:35:39 04/08/18 14:35:39 Entry 4 Entry 5 Entry 6 Case Attendee ENEIDA BUSTAMANTE ERIN M. WASSON, SANDRA D, RN Role Performed Scrub, First Scrub, First Production Machine Computer Operator, First Time In 04/08/18 11:38:00 04/08/18 11:38:00 04/08/18 11:38:00 Time Out 04/08/18 14:35:00 04/08/18 12:17:00 04/08/18 14:35:00 Procedure Lumbar Fusion Posterior Lumbar Fusion Posterior Lumbar Fusion Posterior 3 Level 3 Level 3 Level Other Attendee break Superficial Wound Closed By: Last Modified By: ANASTASIA MCGINNIS RN Hull, Tamara, RN WASSON, SANDRA D, RN 04/08/18 14:35:39 04/08/18 11:38:33 04/08/18 14:35:39 Entry 7 Entry 8 Entry 9 Case Attendee Roman Adair RN BRADY, CHRISTINA M, RN SHELTON, CLARA S Role Performed Production Machine Computer Operator, Second Production Machine Computer Operator, First Road Machinery Inspector Time In 04/08/18 11:38:00 04/08/18 11:38:00 04/08/18 11:38:00 Time Out 04/08/18 14:35:00 04/08/18 12:15:00 04/08/18 13:01:00 Procedure Lumbar Fusion Posterior Lumbar Fusion Posterior Lumbar Fusion Posterior 3 Level 3 Level 3 Level Other Attendee ORIENTEE CHRIS VIEYRA Superficial Wound Closed By: Last Modified By: Roman Adair RN Hull, Tamara, RN WASSON, SANDRA D, RN 04/08/18 12:21:20 04/08/18 12:23:18 04/08/18 13:09:44 Entry 10 Entry 11 Entry 12 Case Attendee OTHER, ATTENDEE #1 ELIN REDDY, Corry Garza, Retail Pharmacy Merchandiser Role Performed Vendor Physician hospital medical assistant LADLE OPERATOR/Nurse Director Auto Time In 04/08/18 11:38:00 04/08/18 11:38:00 04/08/18 12:17:00 Time Out 04/08/18 14:35:00 04/08/18 14:35:00 04/08/18 12:24:00 Procedure Lumbar Fusion Posterior Lumbar Fusion Posterior Lumbar Fusion Posterior 3 Level 3 Level 3 Level Other Attendee CRYSTAL ROCK dirt bike mechanic lunch relief Superficial Wound Closed By: Last Modified By: Roman Adair RN WASSON, SANDRA D, ANASTASIA ROBIN RN 04/08/18 12:23:18 04/08/18 14:35:39 04/08/18 12:52:04 Entry 13 Entry 14 Case Attendee KALIA HINES, PAVEL SON, LADLE OPERATOR Role Performed LADLE OPERATOR/Nurse Director Auto Road Machinery Inspector Time In 04/08/18 12:24:00 04/08/18 13:01:00 Time Out 04/08/18 12:40:00 04/08/18 14:35:00 Procedure Lumbar Fusion Posterior Lumbar Fusion Posterior 3 Level 3 Level Other Attendee dirt bike mechanic lunch relief Superficial Wound Closed By: Last Modified By: ANASTASIA MCGINNIS, ANASTASIA ROBIN RN 04/08/18 12:52:04 04/08/18 14:35:39 [facility] IntraOp Case Attendance Audit 04/08/18 14:35:39 Director Auto: SONIA Modifier: SONIA 1 <+> Time Out 1 <*> Procedure Lumbar Fusion Posterior 3 Level 2 <+> Time Out 2 <*> Procedure Lumbar Fusion Posterior 3 Level 3 <+> Time Out 3 <*> Procedure Lumbar Fusion Posterior 3 Level 4 <+> Time Out 4 <*> Procedure Lumbar Fusion Posterior 3 Level 5 <*> Procedure Lumbar Fusion Posterior 3 Level 6 <+> Time Out 6 <*> Procedure Lumbar Fusion Posterior 3 Level 7 <+> Time Out 7 <*> Procedure Lumbar Fusion Posterior 3 Level 8 <*> Procedure Lumbar Fusion Posterior 3 Level 9 <*> Procedure Lumbar Fusion Posterior 3 Level 10 <+> Time Out 10 <*> Procedure Lumbar Fusion Posterior 3 Level 11 <+> Time Out 11 <*> Procedure Lumbar Fusion Posterior 3 Level 12 <*> Procedure Lumbar Fusion Posterior 3 Level 13 <*> Procedure Lumbar Fusion Posterior 3 Level 14 <+> Time Out 14 <*> Procedure Lumbar Fusion Posterior 3 Level 04/08/18 13:09:44 Director Auto: WASSONSY Modifier: WASSONSY 9 <+> Time Out 9 <*> Procedure Lumbar Fusion Posterior 3 Level <+> 14 Case Attendee <+> 14 Role Performed <+> 14 Time In <+> 14 Procedure 04/08/18 12:52:04 Director Auto: HAWA Modifier: WASSONSY <+> 12 Case Attendee <+> 12 Role Performed <+> 12 Time In <+> 12 Time Out <+> 12 Procedure <+> 12 Other Attendee <+> 13 Case Attendee <+> 13 Role Performed <+> 13 Time In <+> 13 Time Out <+> 13 Procedure <+> 13 Other Attendee 04/08/18 12:37:12 Director Auto: HAWA Modifier: [email or web address] <+> 1 Procedure 2 <*> Procedure Lumbar Fusion Posterior 3 Level 3 <*> Procedure Lumbar Fusion Posterior 3 Level 4 <*> Procedure Lumbar Fusion Posterior 3 Level 5 <*> Procedure Lumbar Fusion Posterior 3 Level 6 <*> Procedure Lumbar Fusion Posterior 3 Level 7 <*> Procedure Lumbar Fusion Posterior 3 Level 8 <*> Procedure Lumbar Fusion Posterior 3 Level 9 <*> Procedure Lumbar Fusion Posterior 3 Level 10 <*> Procedure Lumbar Fusion Posterior 3 Level 11 <+> Time In 11 <*> Procedure Lumbar Fusion Posterior 3 Level 04/08/18 12:34:48 Director Auto: [email or web address] Modifier: [email or web address] 2 <*> Procedure Lumbar Fusion Posterior 3 Level 3 <*> Procedure Lumbar Fusion Posterior 3 Level 4 <*> Procedure Lumbar Fusion Posterior 3 Level 5 <*> Procedure Lumbar Fusion Posterior 3 Level 6 <*> Procedure Lumbar Fusion Posterior 3 Level 7 <*> Procedure Lumbar Fusion Posterior 3 Level 8 <+> Time In 8 <*> Procedure Lumbar Fusion Posterior 3 Level 9 <+> Time In 9 <*> Procedure Lumbar Fusion Posterior 3 Level 10 <+> Time In 10 <*> Procedure Lumbar Fusion Posterior 3 Level <+> 11 Case Attendee <+> 11 Role Performed <+> 11 Procedure 04/08/18 12:23:18 Director Auto: HAWA Modifier: [email or web address] 2 <*> Procedure Lumbar Fusion Posterior 3 Level 3 <*> Procedure Lumbar Fusion Posterior 3 Level 4 <*> Procedure Lumbar Fusion Posterior 3 Level 5 <*> Procedure Lumbar Fusion Posterior 3 Level 6 <+> Time In 6 <*> Procedure Lumbar Fusion Posterior 3 Level 7 <+> Time In 7 <*> Procedure Lumbar Fusion Posterior 3 Level <+> 8 Case Attendee <+> 8 Role Performed <+> 8 Time Out <+> 8 Procedure <+> 8 Other Attendee <+> 9 Case Attendee <+> 9 Role Performed <+> 9 Procedure <+> 10 Case Attendee <+> 10 Role Performed <+> 10 Procedure <+> 10 Other Attendee 04/08/18 12:21:20 Director Auto: HAWA Modifier: [email or web address] <+> 1 Time In 2 <+> Time In 2 <*> Procedure Lumbar Fusion Posterior 3 Level 3 <+> Time In 3 <*> Procedure Lumbar Fusion Posterior 3 Level 4 <+> Time In 4 <*> Procedure Lumbar Fusion Posterior 3 Level 5 <+> Time In 5 <+> Time Out 5 <*> Procedure Lumbar Fusion Posterior 3 Level <+> 6 Case Attendee <+> 6 Role Performed <+> 6 Procedure <+> 7 Case Attendee <+> 7 Role Performed <+> 7 Procedure <+> 7 Other Attendee [facility] IntraOp Case Times Entry 1 Patient In Room Time 04/08/18 11:38:00 Out Room Time 04/08/18 14:35:00 Anesthesia Start Time 04/08/18 11:38:00 Stop Time 04/08/18 14:35:00 Surgery / Procedure Times Start Time 04/08/18 12:21:00 Stop Time 04/08/18 14:26:00 Last Modified By: ANASTASIA MCGINNIS RN 04/08/18 14:27:23 [facility] IntraOp Case Times Audit 04/08/18 14:35:36 Director Auto: WASSONSY Modifier: WASSONSY <+> 1 Out Room Time <+> 1 Stop Time 04/08/18 14:27:23 Director Auto: [email or web address] Modifier: WASSONSY <+> 1 Stop Time 04/08/18 12:21:23 Director Auto: [email or web address] Modifier: [email or web address] <+> 1 Start Time [facility] IntraOp Cautery Entry 1 Entry 2 ESU Identification Cautery Type Monopolar ESU BiPolar ESU Cautery Type Comments ID Number [id number] ID Type Hospital Number Hospital Number Cautery Settings Cut Setting 50 8 Coag Setting 50 50 Blend Setting Bipolar Setting Argon Setting Argon [place] ESU Grounding Pad Ground Pad Type Adult Grounding Pad Type Comment Grounding Pad Site Right thigh, Posterior Grounding Pad Site Comment Grounding Pad JOHN NEUMANN RN Applied By Grounding Pad Site Warm, dry and intact Skin Condition Before Cautery Site Skin Condition Before Comment Grounding Pad Site Unchanged Skin Condition After Cautery Site Skin Condition After Comment Last Modified By: Roman Adair RN Hull, Tamara, RN 04/08/18 12:25:32 04/08/18 12:25:32 [facility] IntraOp Communication Entry 1 Entry 2 Communication To Family/Significant other Family/Significant other Comment START UPDATE Communication By ANASTASIA MCGINNIS RN WASSON, SANDRA D, RN Date and Time 04/08/18 12:22:00 04/08/18 13:58:00 Last Modified By: Roman Adair RN WASSON, SANDRA D, RN 04/08/18 12:25:47 04/08/18 13:58:39 [facility] IntraOp Communication Audit 04/08/18 13:58:39 Director Auto: HAWA Modifier: WASSONSY <+> 2 Communication By <+> 2 Date and Time <+> 2 Communication To <+> 2 Comment [facility] IntraOp Counts Verification Entry 1 Entry 2 Procedure Lumbar Fusion Posterior Lumbar Fusion Posterior 3 Level 3 Level Count Info Count Type Sponge, Sharps, Sponge, Sharps, Miscellaneous Miscellaneous Counts Verification Baseline/pre-procedure Before wound closure Sequence Count Results Not Applicable Correct, surgeon notified If Incorrect or Waived complete the Counts Action Taken form: If Intentional Retention, complete the Intential Retention form: Counts Performed By Count Performed By FLAVIO ENGLISH PAULA R. (Scrub) Count Performed By Roman Adair, ANASTASIA ROBIN RN (RN) Last Modified By: Roman Adair RN WASSON, SANDRA D, RN 04/08/18 12:23:41 04/08/18 14:06:55 [facility] IntraOp Counts Verification Audit 04/08/18 14:06:55 Director Auto: [email or web address] Modifier: WASSONSY <+> 2 Procedure <+> 2 Count Type <+> 2 Counts Verification Sequence <+> 2 Count Results <+> 2 Count Performed By (Scrub) <+> 2 Count Performed By (RN) [facility] IntraOp Counts Final Entry 1 Procedure Lumbar Fusion Posterior 3 Level Final Count Info Count Type Sponge, Sharps, Miscellaneous Counts Verification Skin Closure/end of Sequence procedure Count Results Correct, surgeon notified Counts Performed By Count Performed By ENEIDA BUSTAMANTE (Scrub) Count Performed By ANASTASIA MCGINNIS RN (RN) Last Modified By: ANASTASIA MCGINNIS RN 04/08/18 13:41:37 [facility] IntraOp Counts Final Audit 04/08/18 14:26:05 Director Auto: [email or web address] Modifier: WASSONSY 1 <*> Procedure Lumbar Fusion Posterior 3 Level 1 <+> Count Performed By (Scrub) 1 <+> Count Performed By (RN) [facility] IntraOp Cultures and Spec Summary Entry 1 Cultrures and Specimens Specimen Ordered: Yes Specimens Types Pathology Specimen(s) Labeled Pathology and Sent to Last Modified By: ANASTASIA MCGINNIS RN 04/08/18 12:52:23 General Comments: A. EXPLANTED HARWARE [facility] IntraOp Departure from OR Entry 1 Integumentary Assessment Integumentary WDL Assessment WDL Transfer/Handoff Transfer to PACU Phase I Handoff Method Phone call Handoff Reported to BRITTANY PRINCE RN Post-op Transport Stretcher/Gurney Via Patient Transport JORDAN DELGADO, Accompanied by MAUREEN MARTIN MEGHAN, PA Last Modified By: ANASTASIA MCGINNIS RN 04/08/18 14:35:31 [facility] IntraOp Departure from OR Audit 04/08/18 14:35:31 Director Auto: WASLINDENSY Modifier: WASSONSY <+> 1 Handoff Reported to [facility] IntraOp Drains and Tubes Entry 1 Device Type Rancho Drain Size 15 FR Drain/Tube Activity Inserted Drain/Tube Suction Bulb Drain/Tube Drainage Sanguineous Device Location OP SITE Method of Drainage Compression Tube Dressing Dry, Intact Condition Last Modified By: ANASTASIA MCGINNIS RN 04/08/18 13:59:17 [facility] IntraOp Dressing and Packing Entry 1 Type Dressing Location OP SITE Wound Dressing Item Steristrip, Other Applied By ELIN REDDY PA Other Comments NEOSPORIN OINTMENT, STERISTRIPS, COVADERMS Last Modified By: ANASTASIA MCGINNIS RN 04/08/18 12:53:56 [facility] IntraOp Fire Risk Assessment Entry 1 Fire Info Surgical Site or 0- No Incision Above the Xyphoid Open O2 Source 0- No (Mask or Cannula) Available Ignition 1- Yes (ESU, Laser, Light Source) Fire Risk 1 Assessment Score Fire Score Fire Risk Yes Assessment Complete Fire Risk ANASTASIA MCGINNIS RN Assessment Verified By Fire Risk 04/08/18 11:37:00 Assessment Verified Date/Time Fire Risk Standard Fire Yes Safety Precautions Followed Last Modified By: Roman Adair RN 04/08/18 12:26:13 [facility] IntraOp General Case Marine Extension Agent 1 Case Information OR OR 10 [facility] Case Level 1 Room Verified Yes Wound Class I - Clean Specialty SN Neurosurgery Anesthesia Type General ASA Class 3 Diagnosis Preop Diagnosis M54.16, LUMBAR RADICULOPATHY Postop Same As Preop No Postop Diagnosis SEE MD POST OP NOTE Last Modified By: ANASTASIA MCGINNIS RN 04/08/18 12:50:59 [facility] IntraOp General Case Data Audit 04/08/18 12:50:59 Director Auto: ROMANPRADEEP Modifier: WASSONSY <+> 1 ASA Class [facility] IntraOp Implant Log Entry 1 Entry 2 Entry 3 Type Tissue Implant Tissue Implant Implant (Synthetic) (Biologic) (Biologic) Implant Log Implant Type Hardware Tissue Implant Type Implant BONE GRFT DBX BONE VIVIGEN FRMBLE SCR SPNE SUMA FIX Identification [id number] Description Implant Quantity 1 1 2 Implant Site LUMBAR SPINE LUMBAR SPINE OP SITE Implant Identification Model Number Implant [id number] Identification Serial Number Implant Identification Lot Number Implant Musculoskeletal Lifenet:Lifenet J&J:Depuy:Depuy Spine Identification Transplant Fnd Transplant Srv Prior Authorization Nurse Name: Implant [id number] Identification Catalog Number Implant Size Implant Has an Yes Yes Expiration Date Implant Expiration 11/12/19 03/19/19 Date Wasted Radioactive Material Time Implanted Tissue Implant Continue for Tissue Implant Documentation Tissue Identification Number Graft Prep Per Prior Authorization Nurse Instructions: Tissue Preparation Method: Reconstitution Solution: Reconstitution Solution Lot Number Reconstitution Solution Expiration Date: Thawing Solution Thawing Solution Lot Number Thawing Solution Expiration Date Preparation Materials, Other Preparation Materials, Other Lot Number Preparation Materials, Other Expiration Date Tissue Prepared/Processed By Prior Authorization Nurse Yes Yes Paperwork Completed Implant Type Comment Last Modified By: ANASTASIA MCGINNIS RN WASSON, SANDRA D, ANASTASIA ROBIN RN 04/08/18 13:41:21 04/08/18 13:41:21 04/08/18 14:09:11 Entry 4 Entry 5 Entry 6 Type Implant (Synthetic) Implant (Synthetic) Implant (Synthetic) Implant Log Implant Type Hardware Hardware Hardware Tissue Implant Type Implant SCR BN VPR [id number] [id number] CONCORDE BUL OBDULIA [id number] MITESH SPINE EXPEDIUM Identification [id number] Description Implant Quantity 2 2 1 Implant Site OP SITE OP SITE OP SITE Implant Identification Model Number Implant Identification Serial Number Implant Identification Lot Number Implant J&J:Depuy:Depuy Spine J&J:Depuy:Depuy Spine J&J:Depuy:Depuy Spine Identification Prior Authorization Nurse Name: Implant [id number] Identification Catalog Number Implant Size Implant Has an Expiration Date Implant Expiration Date Wasted Radioactive Material Time Implanted Tissue Implant Continue for Tissue Implant Documentation Tissue Identification Number Graft Prep Per Prior Authorization Nurse Instructions: Tissue Preparation Method: Reconstitution Solution: Reconstitution Solution Lot Number Reconstitution Solution Expiration Date: Thawing Solution Thawing Solution Lot Number Thawing Solution Expiration Date Preparation Materials, Other Preparation Materials, Other Lot Number Preparation Materials, Other Expiration Date Tissue Prepared/Processed By Prior Authorization Nurse Paperwork Completed Implant Type Comment Last Modified By: ANASTASIA MCGINNIS RN WASSON, SANDRA D, RN WASSON, SANDRA D, RN 04/08/18 14:09:11 04/08/18 14:09:11 04/08/18 14:09:11 Entry 7 Entry 8 Type Implant (Synthetic) Implant (Synthetic) Implant Log Implant Type Hardware Hardware Tissue Implant Type Implant MIS FRANCIS PLY SCRW SET CONN SPINE CROSS SFX Identification [id number] [id number] Description Implant Quantity 12 1 Implant Site OP SITE OP SITE Implant Identification Model Number Implant Identification Serial Number Implant Identification Lot Number Implant J&J:Depuy:Depuy Spine J&J:Depuy:Depuy Spine Identification Prior Authorization Nurse Name: Implant [id number] Identification Catalog Number Implant Size Implant Has an Expiration Date Implant Expiration Date Wasted Radioactive Material Time Implanted Tissue Implant Continue for Tissue Implant Documentation Tissue Identification Number Graft Prep Per Prior Authorization Nurse Instructions: Tissue Preparation Method: Reconstitution Solution: Reconstitution Solution Lot Number Reconstitution Solution Expiration Date: Thawing Solution Thawing Solution Lot Number Thawing Solution Expiration Date Preparation Materials, Other Preparation Materials, Other Lot Number Preparation Materials, Other Expiration Date Tissue Prepared/Processed By Prior Authorization Nurse Paperwork Completed Implant Type Comment Last Modified By: ANASTASIA MCGINNIS, RN ANASTASIA MCGINNIS RN 04/08/18 14:09:11 04/08/18 14:09:11 [facility] IntraOp Implant Log Audit 04/08/18 14:09:11 Director Auto: SONIA Modifier: SONIA <+> 3 Implant Identification Description <+> 3 Implant Identification Prior Authorization Nurse Name: <+> 3 Implant Site <+> 3 Implant Quantity <+> 3 Implant Identification Catalog Number <+> 3 Implant Type <+> 3 Type <+> 4 Implant Identification Description <+> 4 Implant Identification Prior Authorization Nurse Name: <+> 4 Implant Site <+> 4 Implant Quantity <+> 4 Implant Identification Catalog Number <+> 4 Implant Type <+> 4 Type <+> 5 Implant Identification Description <+> 5 Implant Identification Prior Authorization Nurse Name: <+> 5 Implant Site <+> 5 Implant Quantity <+> 5 Implant Identification Catalog Number <+> 5 Implant Type <+> 5 Type <+> 6 Implant Identification Description <+> 6 Implant Identification Prior Authorization Nurse Name: <+> 6 Implant Site <+> 6 Implant Quantity <+> 6 Implant Identification Catalog Number <+> 6 Implant Type <+> 6 Type <+> 7 Implant Identification Description <+> 7 Implant Identification Prior Authorization Nurse Name: <+> 7 Implant Site <+> 7 Implant Quantity <+> 7 Implant Identification Catalog Number <+> 7 Implant Type <+> 7 Type <+> 8 Implant Identification Description <+> 8 Implant Identification Prior Authorization Nurse Name: <+> 8 Implant Site <+> 8 Implant Quantity <+> 8 Implant Identification Catalog Number <+> 8 Implant Type <+> 8 Type [facility] IntraOp Intraoperative Assessment Entry 1 Handoff Method Online nursing summary Valid History / Yes Physical in Chart Preoperative Yes Checklist Reviewed/Evaluated Allergies Reviewed Yes Patient is Latex No Sensitive Isolation Not applicable Precautions Noted Level of WDL Consciousness (WDL = Alert, Oriented to Person, Place, and Time) Skin Assessment No Verified Present Upon IVs Arrival to OR Last Modified By: Roman Adair RN 04/08/18 12:28:23 [facility] IntraOp Intraoperative Equipment Entry 1 Type Equipment Equipment Equipment Sheldon Suction System ID Number [id number] Setting 200 MM HG Intraop Monitoring Electrocardiogram Three lead placement (ECG) Electrode Placement Blood Pressure Non-Invasive BP Device Source Antiembolic Devices Antiembolic Devices Sequential compression device, knee high Antiembolic Device Bilateral Location Antiembolic Device [id number] ID Number Scopes Photo/Video Documentation Photo No Video No Last Modified By: Roman Adair RN 04/08/18 12:32:14 [facility] IntraOp Medication Admin Entry 1 Entry 2 Entry 3 Medication/Irrigant Bacitracin 50,00units lidocaine 1% w/ Marcaine 0.25% 30ml powder vial epinephrine 1:100,000 vial - [id number] 30ml vial - [id number] Combo Med List Time Administered Route of ADDED TO NS IRRIGATION LOCAL LOCAL Administration Dose Dose 30205 20 30 Unit of Measure units ml ml Volume Administered By THAO MURPHY TUTT, MATTHEW PAIGE, TUTT, MATTHEW PAIGE, MD-SNU MD-SNU MD-SNU Procedure Irrigation Irrigant Volume In Irrigant Volume Out Last Modified By: Roman Adair RN Hull, Tamara, RN Hull, Tamara, RN 04/08/18 12:36:50 04/08/18 12:36:50 04/08/18 12:36:50 Entry 4 Entry 5 Entry 6 Medication/Irrigant Neosporin 15Gm ointment SEALR AQUAMANTYS BIPLR SPNG SURGFOAM - [id number] Combo Med List Time Administered Route of TOPICAL OTHER TOPICAL Administration Dose Dose 1 1 Unit of Measure pkt pkt Volume Administered By ELIN REDDY PA TUTT, MATTHEW PAIGE, TUTT, MATTHEW PAIGE, MD-SNU MD-SNU Procedure Irrigation Irrigant Volume In Irrigant Volume Out Last Modified By: Roman Adair RN Hull, Tamara, RN Hull, Tamara, RN 04/08/18 12:36:50 04/08/18 12:36:50 04/08/18 12:36:50 Entry 7 Entry 8 Medication/Irrigant thrombin 5000units vancomycin 1Gm vial - topical powder - [id number] Combo Med List Time Administered Route of TOPICAL TOPICAL Administration Dose Dose 5000 500 Unit of Measure units mg Volume Administered By THAO MURPHY TUTT, MATTHEW PAIGE, MD-SNU MD-SNU Procedure Irrigation Irrigant Volume In Irrigant Volume Out Last Modified By: Roman Adair RN WASSON, SANDRA D, RN 04/08/18 12:36:50 04/08/18 14:10:04 [facility] IntraOp Medication Admin Audit 04/08/18 14:10:04 Director Auto: WASSONSY Modifier: WASSONSY 8 <*> Medication/Irrigant vancomycin 1Gm vial - [id number] <*> Dose 1 8 <*> Unit of Measure mg 04/08/18 13:58:15 Director Auto: [email or web address] Modifier: WASSONSY <+> 8 Medication/Irrigant <+> 8 Route of Administration <+> 8 Administered By <+> 8 Dose <+> 8 Unit of Measure [facility] IntraOp Patient Positioning Entry 1 Procedure Lumbar Fusion Posterior 3 Level Body Position Prone Left Arm Position Secured on padded arm board Right Arm Position Secured on padded arm board Left Leg Position Elevated Right Leg Position Elevated Feet Uncrossed Yes Pressure Points Yes Checked Positioning Devices Head Rest, Pad, Arm, Pad, Elbow, Pillows, Safety Strap, Arm(s), Safety Strap, Thighs, Table, Spinal Device Position PRONE ON T3 TRUMPF FRAME WITH CHEST, HIP AND THIGH PADS Positioned By THAO MURPHY MD-SNU, JORDAN DELGADO, MARIO, JOHN NEUMANN, RN, ELIN REDDY PA Position Verified Positioning Yes Verified by Anesthesia Positioning Yes Verified by Surgeon Last Modified By: Roman Adair RN 04/08/18 12:34:56 [facility] IntraOp Patient Positioning Audit 04/08/18 12:34:56 Director Auto: HAWA Modifier: HAWA 1 <*> Procedure Lumbar Fusion Posterior 3 Level 1 <*> Positioned By THAO MURPHY MD-Cici [facility] IntraOp Sign In Entry 1 Patient, Site, Yes Procedure Identified Surgical Consent Yes Confirmed Relevant Surgical Yes Documents Available Surgical Site N/A Marked by person performing procedure Anesthesia Machine Yes Check Completed Medication Checks Yes Completed Allergies Yes Airway Difficult Yes Airway/Aspiration Risk Difficult Yes Airway/Aspiration Intervention Equipment Available Blood Loss Risk Yes Blood Loss Yes Intervention Equipment Prepared and Ready Blood Identifiers Yes Verified Per Policy Hypothermia Risk Yes Warming Measures Yes Taken Last Modified By: Roman Adair RN 04/08/18 12:32:32 [facility] IntraOp Sign Out Entry 1 RN Confirmation Surgical Yes Procedure(s) Identified Instrument, Sponge Yes and Sharps Counts Correct/Documented Equipment Problems N/A Documented Specimen Labeled Yes Correctly Urinary Catheter Yes Documented in IView [place] Patient Yes Recovery Concerns Reviewed with Anesthesia Provider, Surgeon and RN [place] Patient Yes Management Concerns Reviewed with Anesthesia Provider, Surgeon and RN Safety Checklist Yes Elements Complete? RN Sign Out ANASTASIA MCGINNIS, RN Signature RN Sign Out 04/08/18 14:35:00 Signature Date/Time Plan of Care Outcome - [...] of Care Outcome - Xray/Images OUTCOME STATEMENT: Goal met Absence of observable signs or symptoms of radiation injury Plan of Care Outcome - Counts OUTCOME STATEMENT: Goal met Absence of signs and symptoms of injury related to extraneous objects Last Modified By: ANASTASIA MCGINNIS RN 04/08/18 13:42:56 [facility] IntraOp Sign Out Audit 04/08/18 14:35:58 Director Auto: SONIA Modifier: WASSONSY <+> 1 RN Sign Out Signature <+> 1 RN Sign Out Signature Date/Time [facility] IntraOp Skin Prep Entry 1 Procedure Lumbar Fusion Posterior 3 Level Prescribed Yes Pre-Surgical Prep Completed Prep Area BACK AFTER ALCOHOL AND HIBICLENS PREP PER DR MURPHY Intraop Prep Integumentary WDL Assessment WDL Prep Agents Alcohol, Chlorhexadine gluconate, DuraPrep Prep by JOHN NEUMANN RN Hair Removal Methods No hair removal performed Last Modified By: Roman Adair RN 04/08/18 12:33:06 [facility] IntraOp Surgical Procedures Entry 1 Procedure Lumbar Fusion Posterior 3 Level Additional (L5-S1 EXTENTION OF Procedure FUSION TO ILIAC BOLTS Description {PREVIOUS L2-L5} USING BRAINLAB AND AIRO Primary Procedure Yes Primary Surgeon THAO MURPHY MD-SNU Start 04/08/18 12:21:00 Stop 04/08/18 14:26:00 Anesthesia Type General Specialty SN Neurosurgery Wound Class I - Clean Last Modified By: Roman Adair RN 04/08/18 12:37:11 General Comments: ANCEF 2 GRAM IV PER ANESTHESIA [facility] IntraOp Surgical Procedures Audit 04/08/18 14:27:26 Director Auto: RENE1 Modifier: WASSONSY <+> 1 Stop [facility] IntraOp Temp Regulation Devices Entry 1 Temp Regulation Temperature Warm blankets, Forced Regulation Device Air Warming device Temperature 40337 Regulation Device Serial/Unit Number Temperature Upper body Regulation Site Temperature Device 43 C Setting Temperature JORDAN DELGADO, LADLE OPERATOR Regulation Device Applied by Last Modified By: Roman Adair RN 04/08/18 12:37:53 [facility] IntraOP Time Out Entry 1 Procedure to be Lumbar Fusion Posterior Performed 3 Level Time Out Time Out Pause Time 04/08/18 12:19:00 All activity Yes suspended (unless life threatening emergency) Team Verbally Correct patient Confirms Information identity, Consent form is present and accurate, Agreement on the procedure to be done, Correct patient position, Relevant images/results properly labeled/appropriately displayed, Confirm antibiotics have been administered, Confirm the skin prep has dried, Confirm prosthesis/implant/devic e is present, Performed in location of procedure after prepped/draped Antibiotic Yes Prophylaxis Administered Or In Progress Within the Last 60 Minutes Beta Iam N/A Administered Venous Yes Thromboembolism Prophylaxis Required Anticipated Critical Events Surgeon None expected Anesthesia Provider Patient specific concerns Nursing Assures Sterility of instruments, Equipment concerns or issues, Implant Availability Essential Imaging Yes Labeled and Displayed Last Modified By: Roman Adair RN 04/08/18 12:22:02 Case Comments <None> Finalized By: WILL DUCKWORTH Document Signatures Signed By: ANASTASIA MCGINNIS RN 04/08/18 14:36 WILL DUCKWORTH 04/09/18 12:07 Unfinalized History Date/Time Username Reason for Unfinalizing Freetext Reason for Unfinalizing 04/09/18 12:04 NIRAJ Correct Billing Electronically signed by Andrew Villar Conversion Deicer Element Winder Machine Cerner at 07/02/2022 5:38 PM CDT documented in this encounter Plan of Treatment Not on file documented as of this encounter Visit Diagnoses Not on filedocumented in this encounter
--- OUTSIDE RECORDS SUMMARY | 2024-10-13 13:24 | XMS_ITS | Encounter Summary ---
Author Organization [employer] ([place], [place], [place], [place]) Address [address] [place] [address] Care Team Providers Care Maintainability Engineer Name Role Phone Unavailable Primary Care Provider Unavailabl e Encounter Details Date Type Department Care Team (Late st Contact Info) Description 08/08/2021 Transcribed Document [facility] [place] [address] [place] [address] ProviderJuarez MD [address] [place] [address] Social History Tobacco Use Types [...] Date Jeronimo rded Speak language other than Romansh at home Not on file 04/04/2023 Want [...] Conversion Note - Historical ProviderMD - 08/08/2021 11:53 AM CDT Patient Education Materials Follows: Fall Prevention in [...] Keep items that you use often in rrsm-ip-mohlk places. Lower the shelves around your home [...] the way. ??? Do not use floor chinese or wax that makes floors slippery. What [...] Control and Prevention, STEADI: www.cdc.gov ??? National [place] on Aging: www.deirdre.nih.gov Contact a doctor if: [...] provider. Document Revised: 10/04/2020 Document Reviewed: 10/04/2020 [employer] Patient Education ? 2020 [employer] documented in this encounter Plan of Treatment Not on file documented as of this encounter Visit Diagnoses Not on filedocumented in this encounter
--- OUTSIDE RECORDS SUMMARY | 2024-10-13 13:24 | XMS_ITS | Encounter Summary ---
Author Organization [employer] ([place], [place], [place], [place]) Address [address] [place] [address] Care Team Providers Care Seafood Clerk Name Role Phone Unavailable Primary Care Provider Unavailabl e Encounter Details Date Type Department Care Team (Late st Contact Info) Description 04/08/2018 Transcribed Document [facility] [place] Medicine [address] [place] [address] ProviderJuarez MD [address] [place] [address] Social History Tobacco Use Types [...] - Juarez ProviderMD - 04/08/2018 12:21 PM CHEMIST INORGANIC [facility] Main OR Preop Summary Primary Physician: THAO MURPHY MD-LYDIA Finalized Date/Time: 04/08/18 14:36:43 Pt. Name: ANAHI BOYKIN /Sex: 1950 Female Med Rec #: [id number] Physician: THAO MURPHY MD-LYDIA Financial #: [id number] Pt. Type: I Room/Bed: ASA/5 Admit/Disch: 04/08/18 06:40:00 - Institution: [facility] PreOp Case Times Entry 1 In Preop 04/08/18 08:53:00 Ready for Holding n/a Room Patient Ready for 04/08/18 10:15:00 Surgery Patient Out of Preop 04/08/18 11:34:00 Patient Out of n/a Holding Room Last Modified By: SAMI COSTELLO RN 04/08/18 14:35:29 [facility] PreOp Case Times Audit 04/08/18 14:35:29 Barbering Instructor: [email or web address] Modifier: [email or web address] <+> 1 Patient Out of Preop Finalized By: SAMI COSTELLO, RN Document Signatures Signed By: SAMI COSTELLO RN 04/08/18 14:36 Electronically signed by Aurea [facility] Conversion Correctional Substance Abuse Counselor Cerner at 07/02/2022 5:28 PM CDT documented in this encounter Plan of Treatment Not on file documented as of this encounter Visit Diagnoses Not on filedocumented in this encounter
--- OUTSIDE RECORDS SUMMARY | 2024-10-13 13:24 | XMS_ITS | Encounter Summary ---
Author Organization [employer] ([place], [place], [place], [place]) Address [address] [place] [address] Care Team Providers Care Make Up Editor Name Role Phone Unavailable Primary Care Provider Unavailabl e Encounter Details Date Type Department Care Team (Late st Contact Info) Description 04/08/2018 Transcribed Document [facility] [place] Family Medicine [address] [place] [address] ProviderJuarez MD [address] [place] [address] Social History Tobacco Use Types [...] Conversion Note - Juarez ProviderMD - 04/08/2018 2:33 PM FOOD SERVICE HOTEL RUNNER Pain Assessment Entered On: 04/10/2018 3:04 EST Performed On: 04/09/2018 19:17 EST by Rafa Baptiste Rn Intervention Information: oxyCODONE Performed by MARY SANCHEZ RN on 04/09/2018 18:17:00 EST oxyCODONE,10mg Oral,Pain (Moderate 4-6) Pain Assessment Pain Assessment : Follow-up assessment Pain Scale Goal : 3 Pain Scale Used : 0-10 Scale Location : Back Onset : Acute Quality : Aching Pain Radiation : No Pain Improved by : Medication Pain Worsened by : Movement Pain Improved by Intervention : Yes Rafa Baptiste Rn - 04/10/2018 3:04 EST Pain Scale Intensity : 3 Rafa Baptiste Rn - 04/10/2018 3:04 EST Image 4 - Images currently included in the form version of this document have not been included in the text rendition version of the form. documented in this encounter Plan of Treatment Not on file documented as of this encounter Visit Diagnoses Not on filedocumented in this encounter
--- OUTSIDE RECORDS SUMMARY | 2024-10-13 13:24 | XMS_ITS | Encounter Summary ---
Author Organization [employer] ([place], [place], [place]) Address [address] [place] [address] Care Team Providers Care Sealer Dry Cell Name Role Phone Unavailable Primary Care Provider Unavailabl e Encounter Details Date Type Department Care Team (Late st Contact Info) Description 04/08/2018 Transcribed Document [facility] [place] [address] [place] [address] ProviderJuarez MD [address] [place] [address] Social History Tobacco Use Types [...] - Juarez ProviderMD - 04/08/2018 2:33 PM CLEANING MAID Pain Assessment Entered On: 04/08/2018 17:42 EST Performed On: 04/08/2018 16:54 EST by Pebbles Robert, RN Intervention Information: morphine Performed by Pebbles Robert, RN on 04/08/2018 16:24:00 EST morphine,2mg IV Push,Peripheral Line 1,Pain (Moderate 4-6) Pain Assessment Pain Assessment : Follow-up assessment Pain Scale Goal : 3 Pain Improved by Intervention : Yes Pebbles Robert, RN - 04/08/2018 17:42 EST documented in this encounter Plan of Treatment Not on file documented as of this encounter Visit Diagnoses Not on filedocumented in this encounter
--- OUTSIDE RECORDS SUMMARY | 2024-10-13 13:24 | XMS_ITS | Encounter Summary ---
Author Organization [employer] ([place], [place], [place], [place]) Address [address] [place] [address] Care Team Providers Care Cloth Measurer Name Role Phone Unavailable Primary Care Provider Unavailabl e Encounter Details Date Type Department Care Team (Late st Contact Info) Description 08/08/2021 Transcribed Document [facility] [place] Family Medicine [address] [place] [address] ProviderJuarez MD [address] [place] [address] Social History Tobacco Use Types [...] Date Jeronimo rded Speak language other than Latvian at home Not on file 04/04/2023 Want [...] Conversion Note - Historical ProviderMD - 08/08/2021 11:54 AM CDT [facility] [address] [place] [id number] ANAHI BOYKIN :1950 Visit Time:08/08/2021 Your Visit Summary Your Care Team Admitting Physician - IRVIN FLORES MD-ANS Attending Physician - IRVIN FLORES MD-ANS Primary Care Physician - SHAHRIAR CHUA MD-FAM Referring Physician - IRVIN FLORES MD-ANS These Are Your Goals No qualifying data available. Discharge Vitals Temperature 36.7 ??C Respiratory Rate 18 Blood Pressure 167/80 What to do next Follow-Up Appointments Follow Up with [facility] When Within 2 months Where: [address] [place] [address]- Medications What How Much When Instructions Next Dose amantadine (amantadine 100 mg oral capsule) Oral [...] Three Times A Day Duration: 30 Day(s) gabapentin (gabapentin 800 mg oral tablet) 1 [...] Keep items that you use often in jrem-if-uqmkc places. Lower the shelves around your home [...] the way. ??? Do not use floor lao or wax that makes floors slippery. What [...] Control and Prevention, STEADI: www.cdc.gov ??? National [place] on Aging: www.deirdre.nih.gov Contact a doctor if: [...] provider. Document Revised: 10/04/2020 Document Reviewed: 10/04/2020 [employer] Patient Education ?? 2020 [employer]. Emergency Awareness and Preventative Care STROKE is [...] Assistance with quitting is available by contacting 8-868-GWBKIdentec SolutionsNOW. This is a free resource providing counseling, [...] This Visit (last charted value for your 08/08/2021 visit) No Laboratory or Other Results This Visit Patient Name:ANAHI BOYKIN I have received and understand this information and was given the opportunity to ask questions. Patient/Diorama Model Maker Name: Patient/Diorama Model Maker Signature: Relationship to Patient: Clinician/Hospital Diorama Model Maker Signature: Date: documented in this encounter Plan of Treatment Not on file documented as of this encounter Visit Diagnoses Not on filedocumented in this encounter
--- OUTSIDE RECORDS SUMMARY | 2024-10-13 13:24 | XMS_ITS | Encounter Summary ---
Author Organization [employer] ([place], [place], [place], [place]) Address [address] [place] [address] Care Team Providers Care Business Services Specialist Sales Name Role Phone Unavailable Primary Care Provider Unavailabl e Encounter Details Date Type Department Care Team (Late st Contact Info) Description 04/08/2018 Transcribed Document [facility] [place] [address] [place] [address] ProviderJuarez MD [address], [place] [address] Social History Tobacco Use Types Packs/Day Years [...] Conversion Note - Juarez ProviderMD - 04/08/2018 6:00 PM INSTRUMENT REPAIRER HELPER Pain Assessment Entered On: 04/08/2018 17:42 EST Performed On: 04/08/2018 17:24 EST by Pebbles Robert, RN Intervention Information: acetaminophen Performed by Pebbles Robert, RN on 04/08/2018 16:24:00 EST acetaminophen,650mg Oral Pain Assessment Pain Assessment : Follow-up assessment Pain Scale Goal : 3 Pain Improved by Intervention : Yes Pebbles Robert, RN - 04/08/2018 17:42 EST documented in this encounter Plan of Treatment Not on file documented as of this encounter Visit Diagnoses Not on filedocumented in this encounter
--- OUTSIDE RECORDS SUMMARY | 2024-10-13 13:24 | XMS_ITS | Encounter Summary ---
Author Organization [employer] ([place], [place], [place], [place]) Address [address] [place] [address] Care Team Providers Care Medical Oncologist Name Role Phone Unavailable Primary Care Provider Unavailabl e Encounter Details Date Type Department Care Team (Late st Contact Info) Description 05/23/2021 Transcribed Document [facility] [place] Family Medicine [address] [place] [address] ProviderJuarez MD [address] [place] [address] Social History Tobacco Use Types [...] Date Jeronimo rded Speak language other than Surinamese at home Not on file 04/04/2023 Want [...] Conversion Note - Historical ProviderMD - 05/23/2021 11:43 AM MANAGER INTERN Ambulatory Intake and History Entered On: 05/23/2021 11:49 EST Performed On: 05/23/2021 11:43 EST by Halima Rogers LPN-LVN-PATIENT CARE BEDSIDE General Info Ambulatory Accompanied By : Other: self Chief Complaint : Back pain Primary Language : Surinamese Halima Rogers LPN-LVN-PATIENT CARE BEDSIDE - 05/23/2021 11:43 EST Height and Weight, Clinical Dosing Height Source : Measured Height Entry Format : [place] Height, Feet : 5 ft(Converted to: 152 cm, 60 Inch) Height, Inches : 1 Inch(Converted to: 0 ft 1 Inch, 2.54 cm) Clinical Height : 154.94 cm Weight Source : Standing scale Weight Entry Format : [place] Clinical Dosing Weight : 60.45 kg Weight, Pounds : 133 lb Body Surface Area (BSA) : 1.59 m2 Body Mass Index : 25.2 kg/m2 (HI) [place] Body Weight : 47 kg Halima Rogers LPN-LVN-PATIENT CARE BEDSIDE - 05/23/2021 11:43 EST Vital Measurements Temperature Source : Temporal artery scanning Temperature Mode : Fahrenheit Temperature, Fahrenheit : 98.0 Deg F Clinical Temperature, C : 36.7 Deg C Pulse Method : Non-Invasive BP Device Pulse Source : Brachial, Right Heart Rate, Apical : 78 bpm Pulse Rhythm : Regular Respiratory Rate : 18 Breaths/Min Blood Pressure Location : Arm, right upper Blood Pressure Source : Non-Invasive BP Device Blood Pressure Position : Sitting Systolic Blood Pressure : 123 mmHg Diastolic Blood Pressure : 75 mmHg Oxygen Saturation : 96 % Oxygen Therapy Mode : Room air Halima Rogers LPN-LVN-PATIENT CARE BEDSIDE - 05/23/2021 11:43 EST Pain Assessment Pain Assessment : Follow-up assessment Duration : years Pain Scale Used : 0-10 Scale Location : Back Onset : Chronic Pain Location Comment : constant Quality : Aching, Numbness, Sharp, Shooting Pain Radiation : Yes Pain Radiation Location : Back, Legs, bilateral Pain Improved by : Cold therapy, Heat therapy, Pressure, Relaxation, Repositioning Pain Intervention, Non-Drug : Cold therapy, Heat, Positioning Pain Comment : 40% pain relief with medication Halima Rogers GHT-NOD-[id number] CARE BEDSIDE - 05/23/2021 11:43 EST Patient Health Questionnaire Depression Scale-9 (PHQ-9) Trouble Falling/Staying Asleep/Sleeping : Several days Little Interest or Pleasure Doing Things : Not at all Feeling Down, Depressed, Hopeless : Several days Feeling Tired or Little Energy : Not at all Poor Appetite or Overeating : Not at all Feel Bad About Self/That You are Failure : Not at all Trouble Concentrating on Things : Not at all Moving/Speaking Slowly, Fidgety/Restless : Not at all Thoughts of Better Off /Hurting Self : Not at all PHQ-9 Score : 2 PHQ-9 Score Interpretation : Minimal depression (0-4) Halima Rogers EKZ-PHR-UPZSLJU CARE BEDSIDE - 05/23/2021 11:43 EST Functional Assessment Living Situation : Home Sensory Deficits : None Home Equipment Therapy, PT : None Professional Skilled Services : None Halima Rogers UXU-MTN-GOCXLAC CARE BEDSIDE - 05/23/2021 11:43 EST Teaching/Learning Assessment Barriers To Learning : None evident Individuals Taught : Patient Readiness to Learn : Cooperative Readiness to Learn : Printed materials Learning Style Preferences Patient : Printed materials Learning Style Preferences Family : Printed materials Halima Rogers [id number]-[id number] CARE BEDSIDE - 05/23/2021 11:43 EST Pain Scale Intensity : 4 Halima Rogers HAD-DOA-RESBXSR CARE BEDSIDE - 05/23/2021 11:43 EST Image 4 - Images currently included in the form version of this document have not been included in the text rendition version of the form. documented in this encounter Plan of Treatment Not on file documented as of this encounter Visit Diagnoses Not on filedocumented in this encounter
--- OUTSIDE RECORDS SUMMARY | 2024-10-13 13:24 | XMS_ITS | Encounter Summary ---
Author Organization [employer] ([place], [place], [place], [place]) Address [address] [place] [address] Care Team Providers Care Hand Launderer Name Role Phone Unavailable Primary Care Provider Unavailabl e Encounter Details Date Type Department Care Team (Late st Contact Info) Description 01/15/2021 Transcribed Document [facility] [place] [facility] [place] [address] [place] [address] ProviderJuarez MD [address] [place] [address] Social History Tobacco Use Types Packs/Day Years Used Date Smoking Tobacco: Never Assessed Comments Unknown Sex and Gender Information Value Date Recorded Sex Assigned at Female 09/11/2021 3:33 PM CDT Legal Sex Female 3:33 PM CDT Gender Identity Female 09/11/2021 3:33 PM CDT Sexual Orientation Not on file documented as of this encounter Miscellaneous Notes * Cerner Conversion Note - uJarez ProviderMD - 01/15/2021 2:22 PM CDT [facility] Main OR PreOp Summary Primary Physician: RASHAAD HUNTER MD-OPT Finalized Date/Time: 01/15/21 14:34:36 Pt. Name: ANAHI BOYKIN /Sex: 1950 Female Med Rec #: [id number] Physician: RASHAAD HUNTER MD-OPT Financial #: [id number] Pt. Type: O Room/Bed: [facility]/ Admit/Disch: 01/15/21 11:44:00 - Institution: [facility] [place] PreOp Case Times Entry 1 In Preop 01/15/21 11:55:00 Ready for Holding n/a Room Patient Ready for 01/15/21 12:40:00 Surgery Patient Out of Preop 01/15/21 14:03:00 Patient Out of n/a Holding Room Last Modified By: Sarah Blue RN 01/15/21 14:34:33 [facility] [place] PreOp Case Times Audit 01/15/21 14:34:33 Pressroom Worker: PILAR Modifier: PILAR <+> 1 Patient Out of Preop Finalized By: Sarah Blue, CHRIS Document Signatures Signed By: Sarah Blue RN 01/15/21 14:34 Electronically signed by Aurea [facility] Conversion Oil Dispenser Cerner at 07/02/2022 5:42 PM CDT documented in this encounter Plan of Treatment Not on file documented as of this encounter Visit Diagnoses Not on filedocumented in this encounter
--- OUTSIDE RECORDS SUMMARY | 2024-10-13 13:24 | XMS_ITS | Encounter Summary ---
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 Evaluation, Occupational Therapy Entered On: 04/09/2018 15:40 EST Performed On: 04/09/2018 14:54 EST by JEANIE PANDYA OTR/[place] General Information, OT Visit Type, OT : Initial evaluation Patient Orders : Order Date Order Ordering 04/08/2018 14:34 Occupational Therapy Evaluation and Treatme Ordered By: THAO MURPHY MD-[facility] Active Diagnoses : 04/08/2018 14:32 Spinal instabilities, lumbosacral region Therapy Diagnosis, OT : decreased independence secondary to back pain Onset of Problem, OT : 04/08/2018 EST Admission Date : 04/08/2018 06:40 Co-treated by, OT : Physical Therapist Personal Devices : Personal Devices No Devices Recorded Assistive Devices : Assistive Devices No Devices Recorded Precautions in Place : Fall prevention measures, Log roll precautions General Information Comment, OT : Lumbar fusion with brace from previous sx. JEANIE PANDYA OTR/[place] - 04/09/2018 15:29 EST General Status Patient Received Status : Supine in bed Treatment Start Time : 04/09/2018 14:35 EST Patient Left Status : Supine in bed, RN/PCT informed, All needs met and within reach RN/PCT Informed Comment : CHRIS meehan Treatment End Time : 04/09/2018 14:54 EST Treatment Time : 19 Minute(s) JEANIE PANDYA OTR/[place] - 04/09/2018 15:29 EST History and Environment, OT Living Situation, Therapy : Home Patient Lives With : Alone Persons Providing Information : Patient Home Setup : One story Stairs : Yes Stair Location(s) : Outside Outside Stairs, Number of Steps : 1 Railing Outside : No JEANIE PANDYA OTR/[place] - 04/09/2018 15:29 EST Prior LOF Bathing, OT : Independent Prior LOF Bed Mobility : Independent Prior LOF Upper Body Dressing, OT : Independent Prior LOF Lower Body Dressing, OT : Independent Prior LOF Toileting : Independent Prior LOF Transfer : Independent Prior LOF Grooming, OT : Independent Prior LOF for IADLs, OT : Independent JEANIE PANDYA OTR/[place] - 04/09/2018 15:29 EST Upper Extremity Right UE Active ROM : WFL Right UE Strength : WFL Left UE Active ROM : WFL Left UE Strength : WFL JEANIE PANDYA OTR/[place] - 04/09/2018 15:29 EST Self Care/Home Management, OT Self Feeding Assist Level, OT : Independent, complete Grooming Assist Level, OT : Independent, complete Bathing Assist Level, OT : Supervision or set-up Upper Body Dressing Assist Level, OT : Supervision or set-up Lower Body Dressing Assist Level, OT : Assist, minimal Toileting Assist Level : Supervision or set-up Toilet Transfer Assist Level : Supervision or set-up Toilet Transfer Device : Belt, gait, Walker, rolling JEANIE PANDYA OTR/[place] - 04/09/2018 15:29 EST Functional Mobility Mobility Grid Bed Roll Left : Supervision/set-up Bed Roll Right : Supervision/set-up Bed Scooting : Supervision/set-up Supine to Sit : Supervision/set-up Sit to Stand : Supervision/set-up Bed to Chair : Supervision/set-up Chair to Bed : Supervision/set-up Stand to Sit : Supervision/set-up Sit to Supine : Supervision/set-up JEANIE PANDYA OTR/L - 04/09/2018 15:29 EST AM PAC Daily Activity Putting On/Taking Off Lower Body Clothes : A little Bathing (Washing, Rinsing, Drying) : A little Toileting Includes Toilet, Bedpan, Urinal : A little Putting On/Taking Off Upper Clothing : None Taking Care of Grooming : None Eating Meals : None AM-PAC Daily Activity Raw Score : 21 JEANIE PANDYA OTR/L - 04/09/2018 15:29 EST Image 3 - Images currently included in the form version of this document have not been included in the text rendition version of the form. Functional Limitation Reporting, OT Functional Limitation Visit Type, OT : Initial evaluation Severity Determination Method, OT : Clinical Judgment, AM PAC Daily Activity Self Care G8987 - Current Mod, OT : 20 - 39% impaired, limited or restricted (CJ) Self Care G8988 - Proj Goal Mod, OT : 1 - 19% impaired, limited or restricted (CI) JEANIE PANDYA OTR/L - 04/09/2018 15:29 EST Cognition Assessment, OT Orientation : Oriented x 4 JEANIE PANDYA OTR/L - 04/09/2018 15:29 EST Indication Assessment, OT Occupational Therapy Indicated : Yes JEANIE PANDYA OTR/L - 04/09/2018 15:29 EST Plan of Care, OT OT Tx Plan/Goals Established w Patient : Yes OT Frequency Rehab : Five days per week OT Duration Rehab : Fourteen days OT Treatments Planned : Activities of daily living, Balance training, Safety education, Therapeutic activities, Therapeutic exercises JEANIE PANDYA OTR/L - 04/09/2018 15:29 EST Margin Trimmer Goals, OT Dressing, Lower Body LTG Grid Goal #1 Activity : Dressing, Lower Body Assist : Independent, modified Equipment : Long Handled Production Department Supervisor, Sock aid, Long handled shoehorn Date to Meet : 04/23/2018 EST Goal Status : Initial goal JEANIE PANDYA OTR/L - 04/09/2018 15:29 EST Toilet Transfer LTG Grid Goal #1 Activity : Toilet Transfer, Ambulatory Assist : Independent, modified Date to Meet : 04/23/2018 EST Goal Status : Initial goal YALAMARJEANIEDANIA RODRIGUEZ - 04/09/2018 15:29 EST Bed Mobility/ Bed Transfer LTG Grid Goal #1 Activity : Bed Mobility/Bed Transfer Assist : Independent, complete Date to Meet : 04/23/2018 EST Goal Status : Initial goal YA DANIA WARE - 04/09/2018 15:29 EST Treatment Note Subjective Comment : agreeable Patient's Response to Treatment : pt tolerated fairly Additional Objective Information : pt to EOB supervision. Stood from EOB supervision. Transfered functional distance with RWx. cue to stand up straight. Transfered to chair to bed supervision. Supervision to supine. AE in room . Assessment : pt needs AE education Plan for Treatment : see poc JEANIE PANDYA OTR/L - 04/09/2018 15:29 EST Pain Assessment Pain Scaled Used : 0-10 Pain scale Pain Score During-Intervention : 5 JEANIE PANDYA OTR/L - 04/09/2018 15:29 EST Image 1 - Images currently included in the form version of this document have not been included in the text rendition version of the form. Anticipated Discharge Needs, OT/PT Anticipated Discharge to : Home, with family care JEANIE PANDYA OTR/L - 04/09/2018 15:29 EST [place] OT Charges OT Eval Low Complexity : 1 JEANIE PANDYA OTR/L - 04/09/2018 15:29 EST documented in this encounter Plan of Treatment Not on file documented as of this encounter Visit Diagnoses Not on filedocumented in this encounter
--- OUTSIDE RECORDS SUMMARY | 2024-10-13 13:24 | XMS_ITS | Encounter Summary ---
Author Organization [employer] ([place], [place], [place], [place]) Address [address] [place] [address] Care Team Providers Care Nitrating Acid Mixer Name Role Phone Unavailable Primary Care Provider Unavailabl e Encounter Details Date Type Department Care Team (Late st Contact Info) Description 04/08/2018 Transcribed Document [facility] [address] [facility] [address] [id number] Marvin Simental MD [address] [place] [address] Social History Tobacco Use Types Packs/Day Years Used Date Smoking Tobacco: Never Assessed Comments Unknown Sex and Gender Information Value Date Recorded Sex Assigned at Female 09/11/2021 3:33 PM CDT Legal Sex Female 3:33 PM CDT Gender Identity Female 09/11/2021 3:33 PM CDT Sexual Orientation Not on file documented as of this encounter Miscellaneous Notes * Cerner Conversion Note - Marvin Simental MD - 04/08/2018 10:36 AM EST Patient: ANAHI BOYKIN Age: 67 years Sex: Female : 1950 Associated Diagnoses: None Author: WALKER BRAVO APRN Chief Complaint back, amelie LE pain/paresthesia Review of Systems ROS reviewed as documented in chart no change since last seen by surgeon Health Status Allergies: Allergic Reactions (Selected) Severity Not Documented Percocet 10/325- Hallucinations., Allergies (1) Active Reaction Percocet 10/325 Hallucinations Current medications: (Selected) Documented Medications Documented DULoxetine: 120 mg, Oral, Daily, 0 Refill(s) NexIUM 40 mg oral delayed release capsule: 1 Cap, Oral, Daily, 30 Cap, 0 Refill(s) Percocet 5/325: Tab, Oral, TID, PRN: as needed for pain, 0 Refill(s) Vitamin C 1000 mg oral tablet: 1 Tab, Oral, Daily, 30 Tab, 0 Refill(s) amLODIPine 5 mg oral tablet: 1 Tab, Oral, BID, 30 Tab, 0 Refill(s) estradiol 1 mg oral tablet: 1 Tab, Oral, Daily, 30 Tab, 0 Refill(s) gabapentin: 800 mg, Oral, TID, 0 Refill(s) tiZANidine 4 mg oral tablet: 1 Tab, Oral, At Bedtime, 180 Tab, 0 Refill(s), Home Medications (8) Active amLODIPine 5 mg oral tablet 5 mg = 1 Tab, Oral, BID DULoxetine 120 mg, Oral, Daily estradiol 1 mg oral tablet 1 mg = 1 Tab, Oral, Daily gabapentin 800 mg, Oral, TID NexIUM 40 mg oral delayed release capsule 40 mg = 1 Cap, Oral, Daily Percocet 5/325 , PRN, Oral, TID tiZANidine 4 mg oral tablet 4 mg = 1 Tab, Oral, At Bedtime Vitamin C 1000 mg oral tablet 1,000 mg = 1 Tab, Oral, Daily , No qualifying data available Problem list: All Problems Lumbar spinal stenosis / SNOMED CT 26662006 / Confirmed Spinal stenosis / SNOMED CT 385000322 / Confirmed Sleep apnea (family report) / SNOMED CT 580544077 / Confirmed Restless legs syndrome / SNOMED CT 79673079 / Confirmed Bulging lumbar disc / SNOMED CT 542976090 / Confirmed panic attacks / SNOMED CT 079436080 / Confirmed mono in high school / Confirmed Anxiety and depression / SNOMED CT 501699100 / Confirmed melanoma left calf of leg / Confirmed Hypertension / SNOMED CT 78823768 / Confirmed Hiatal hernia / SNOMED CT 101007030 / Confirmed Hemorrhoids / SNOMED CT 185089062 / Confirmed H/O dizziness / SNOMED CT 646830432 / Confirmed GERD - Gastro-esophageal reflux disease / SNOMED CT 4358437255 / Confirmed Fibromyalgia / SNOMED CT 306036618 / Confirmed Female stress incontinence / SNOMED CT 986624149 / Confirmed dry eyes / SNOMED CT 559767853 / Confirmed Carotid artery disorder (mild, right) / SNOMED CT 5501026316 / Confirmed DDD (degenerative disc disease), lumbar / SNOMED CT 77530997 / Confirmed Coronary artery disease (mild) / SNOMED CT 7715820789 / Confirmed Cardiomyopathy (questionable) / SNOMED CT 738676221 / Confirmed questionable-medical education specialist Dr. Lis Pop denies this. Back pain / SNOMED CT 312756194 / Confirmed At risk for sleep apnea / IMO 38283197 / Confirmed Arthritis / SNOMED CT 8203735 / Confirmed H/O seasonal allergies / SNOMED CT 9833236036 / Confirmed Cataract / SNOMED CT 479478418 / Confirmed, Active Problems (26) Anxiety and depression Arthritis At risk for sleep apnea Back pain amelie LE radiculopathy/paresthesia Bulging lumbar disc Cardiomyopathy (questionable) Carotid artery disorder (mild, right) Cataract Coronary artery disease (mild) DDD (degenerative disc disease), lumbar dry eyes Female stress incontinence Fibromyalgia GERD - Gastro-esophageal reflux disease H/O dizziness H/O seasonal allergies Hemorrhoids Hiatal hernia Hypertension Lumbar spinal stenosis melanoma left calf of leg mono in high school panic attacks Restless legs syndrome Sleep apnea (family report) Spinal stenosis Histories Past Medical History: Resolved Wears reading eyeglasses (110134596): Resolved. Family History: No family history items have been selected or recorded. Procedure history: spinal cord stimulator removed in the month of 05/2017 at 66 Years. lap low in the month of 03/2017 at 66 Years. lumbar fusion L2-5) in 2014 at 64 Years. hysterectomy in 2004 at 54 Years. heart cath (negative) in 2002 at 52 Years. melanoma removed from left calf in 2001 at 51 Years. tonsillectomy in 1964 at 14 Years. colonoscopy. wisdom teeth. epidural and facet injection steroids. spinal cord stimulator attempted. Social History Social & Psychosocial Habits Alcohol 04/02/2018 Alcohol Use History, Social Habits No Employment/School 01/10/2015 Status: Retired Home/Environment 01/10/2015 Lives with: Alone Substance Abuse 01/10/2015 Recreational Drug Use History No Recreational Drug Use Last 12 Months No Tobacco 01/10/2015 Smoking Status Never smoker Used Tobacco, but Quit No Second Hand Smoke Exposure No . Physical Examination VS/Measurements No qualifying data available General: Alert and oriented, No acute distress. Eye: Pupils are equal, round and reactive to light, Extraocular movements are intact, glasses. HENT: Normocephalic, Normal hearing. Neck: Supple, Non-tender. Respiratory: Lungs are clear to auscultation, Respirations are non-labored. Cardiovascular: Normal rate, Regular rhythm, No murmur, No gallop, No edema. Gastrointestinal: Soft, Non-tender. Genitourinary: No costovertebral angle tenderness. Lymphatics: No lymphadenopathy neck, axilla, groin. Musculoskeletal: painful ROM back, amelie LE paresthesia. Integumentary: Warm, Dry, [place]. Neurologic: Alert, Oriented. Psychiatric: Cooperative, Appropriate mood & affect. Review / Management Results review: Labs (Last four charted values) WBC 5.8 (APR 02) HB 14.5 (APR 02) HCT H 46.5 (APR 02) Plt 359 (APR 02) Na 138 (APR 02) K 4.8 (APR 02) Cl 104 (APR 02) CO2 30 (APR 02) BUN 16 (APR 02) Cr 0.90 (APR 02) Glu R 104 (APR 02) Ca 9.6 (APR 02) . Impression and Plan Condition: Stable. documented in this encounter Plan of Treatment Not on file documented as of this encounter Visit Diagnoses Not on filedocumented in this encounter
--- OUTSIDE RECORDS SUMMARY | 2024-10-13 13:24 | XMS_ITS | Encounter Summary ---
Author Organization [employer] ([place], [place], [place], [place]) Address [address] [place] [address] Care Team Providers Care Summer Camp Counselor Name Role Phone Unavailable Primary Care Provider Unavailabl e Encounter Details Date Type Department Care Team (Late st Contact Info) Description 04/02/2018 Transcribed Document [facility] [place] [address] [place] [address] ProviderJuarez MD [address] [place] [id number] Social History Tobacco Use Types Packs/Day Years Used Date Smoking Tobacco: Never Assessed Comments Unknown Sex and Gender Information Value Date Recorded Sex Assigned at Female 09/11/2021 3:33 PM CDT Legal Sex Female 3:33 PM CDT Gender Identity Female 09/11/2021 3:33 PM CDT Sexual Orientation Not on file documented as of this encounter Miscellaneous Notes * Cerner Conversion Note - Juarez ProviderMD - 04/02/2018 11:34 AM LABEL OPERATOR PAT Adult Entered On: 04/02/2018 11:37 EST Performed On: 04/02/2018 11:34 EST by DULCE BYRD RN Vital Measurements Temperature Source : Temporal artery scanning Temperature Mode : Fahrenheit Temperature, Fahrenheit : 97.9 Deg F Clinical Temperature, C : 36.6 Deg C Pulse Method : Pulse Oximetry Peripheral Pulse Rate : 73 bpm Respiratory Rate : 18 Breaths/Min Blood Pressure Location : Arm, right upper Blood Pressure Source : Non-Invasive BP Device Blood Pressure Position : Sitting Systolic Blood Pressure : 123 mmHg Diastolic Blood Pressure : 79 mmHg Oxygen Saturation : 98 % Oxygen Therapy Mode : Room air DULCE BYRD RN - 04/02/2018 11:45 EST Height and Weight, Clinical Dosing Height Source : Measured Height Entry Format : [place] Height, Feet : 0 ft(Converted to: 0 cm, 0 Inch) Height, Inches : 61 Inch(Converted to: 5 ft 1 Inch, 154.94 cm) Clinical Height : 154.94 cm Weight Source : Standing scale Weight Entry Format : [place] Clinical Dosing Weight : 65.17 kg Weight, Pounds : 143 lb Weight, Ounces : 6 oz Body Surface Area (BSA) : 1.64 m2 Body Mass Index : 27.1 kg/m2 (HI) [place] Body Weight : 47 kg DULCE BYRD RN - 04/02/2018 11:34 EST Health Histories Smoking Status : Never (less than 100 in lifetime; none in last 30 days) Smokeless Tobacco Status : Never DULCE BYRD RN - 04/02/2018 11:34 EST Social History (As Of: 04/08/2018 09:30:16 EST) Tobacco: Smoking Status Never smoker. Used Tobacco, but Quit No. Second Hand Smoke Exposure: No. (Last Updated: 01/10/2015 11:10:13 EDT by EFRAIN EGAN RN) Alcohol: Alcohol Use History No. (Last Updated: 04/02/2018 11:36:42 EST by DULCE BYRD RN) Substance Abuse: Drug Use Hx: No. Use in Last 12 Months: No. (Last Updated: 01/10/2015 11:10:38 EDT by EFRAIN EGAN, RN) Home/Environment: Lives with Alone. (Last Updated: 01/10/2015 11:10:32 EDT by EFRAIN EGAN, CHRIS) Employment/School: Retired (Last Updated: 01/10/2015 11:10:24 EDT by EFRAIN EGAN, RN) Infectious Disease History Fever/Chills Last 48 Hours : No JIAN PETER - 04/08/2018 9:29 EST Infectious Disease History : Chicken pox/Shingles, Measles, Mumps Travel To Regions with Travel Advisories : No Travel Outside [place] Within Last 30 Days : No Contact With Traveler to Advisory Region : No Tuberculosis Symptoms : None DULCE BYRD RN - 04/02/2018 11:34 EST Anesthesia/Transfusion History Family History of Anesthesia Reaction : No prior transfusion(s) Blood Transfusion Acceptable to Patient : Yes Transfusion History : Prior anesthesia without reaction Family History of Anesthesia Reaction : None DULCE BYRD RN - 04/02/2018 11:34 EST Functional Assessment Functional ADL Evaluation Index EBN Bathing : Independent (2) Dressing : Independent (2) Toileting : Independent (2) Transferring Bed or Chair : Independent (2) Continence : Independent (2) Feeding : Independent (2) JIAN PETER - 04/08/2018 9:29 EST ADL Index Score : 12 JIAN PETER - 04/08/2018 9:29 EST Advance Directive Patient has Advance Directive *Q : No, patient refuses Advance Directive information DULCE BYRD RN - 04/02/2018 11:45 EST Spiritual/Cultural Needs Any Spiritual/Cultural Needs or Requests : No DULCE BYRD RN - 04/02/2018 11:45 EST Psychosocial History Do You Have a History of the Following? : Anxiety, Depression, Other: panic attacks (occasional) Currently in Unsafe Situation : No Tried to Harm Yourself in the Past? : No Thoughts of Harming/Killing Yourself : No DULCE BYRD RN - 04/02/2018 11:34 EST Teaching/Learning Assessment Learning Style Preferences Patient : Printed materials JIAN PETER - 04/08/2018 9:29 EST Barriers To Learning : None evident Individuals Taught : Patient Readiness to Learn : Cooperative DULCE BYRD RN - 04/02/2018 11:45 EST Education Topics, Periop Preadmission Perioperative Education Grid Arrival Time/Place : Verbalizes understanding [facility] Preoperative Bathing/Cloths : Verbalizes understanding Falls : Verbalizes understanding Infection Control : Verbalizes understanding IV's : Verbalizes understanding NPO Status/Directions : Verbalizes understanding Preprocedure Preparations : Verbalizes understanding Preprocedure Tests/Labs : Verbalizes understanding Remove Body Piercings : Verbalizes understanding Take/Hold Medications Pre-Procedure : Verbalizes understanding Other : Verbalizes understanding (Comment: Bactroban [DULCE BYRD RN - 04/02/2018 11:45 EST] ) General Info Arrived From : Home Mode of Arrival on Unit : Ambulatory JIAN PETER - 04/08/2018 9:29 EST Preferred Name : Anahi Support Person/Patient Industrial 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 : Yes Support Person/Pt Rep Name : Carmen Smith Support Person/Pt Rep Contact Information : [phone] Want Family/Rep/Phys Notified of Admit : No Emergency Contact #1 : Carmen Smith Emergency Contact #1 Emergency Contact #1 Relationship : daughter Emergency Contact #2 : n Emergency Contact #2 Phone Number : n Emergency Contact #2 Relationship : n Information Obtained From : Patient Primary Language : Cymro Preferred Communication Mode : Verbal Communication Barrier : None DULCE BYRD RN - 04/02/2018 11:45 EST Randy Scale Randy Sensory Perception : Slightly limited Randy Moisture : Occasionally moist Randy Activity : Walks occasionally Randy Mobility : Slightly limited Randy Nutrition : Adequate Randy Friction and Shear : No apparent problem Randy Score : 18 DULCE BYRD RN - 04/02/2018 11:45 EST Sleep Apnea Risk Assmt Hx of Obstructive Sleep Apnea Diagnosis : No Snore Loudly : Yes Tired, Fatigued, or Sleepy During Day : Yes Observed Stopping Breathing During Sleep : No Have/Are Being Treated for Hypertension : Yes STOP Sleep Apnea Risk Level Score : 3 STOP Sleep Apnea Risk Level : High DULCE BYRD RN - 04/02/2018 11:34 EST documented in this encounter Plan of Treatment Not on file documented as of this encounter Visit Diagnoses Not on filedocumented in this encounter
--- OUTSIDE RECORDS SUMMARY | 2024-10-13 13:24 | XMS_ITS | Encounter Summary ---
Author Organization [employer] ([place], [place], [place], [place]) Address [address] [place] [address] Care Team Providers Care Inside Account Representative Name Role Phone Unavailable Primary Care Provider Unavailabl e Encounter Details Date Type Department Care Team (Late st Contact Info) Description 03/28/2021 Transcribed Document [facility] [place] [facility] [place] [address] ProviderJuarez MD [facility] [place] [address] Social History Tobacco Use Types [...] Conversion Note - Juarez ProviderMD - 03/28/2021 2:21 PM BOARD MEMBER Nursing Discharge Summary Entered On: 03/28/2021 14:21 EST Performed On: 03/28/2021 14:21 EST by KAROL ALMENDAREZ RN Discharge Documentation Discharge Date/Time : 03/28/2021 14:21 EST Patient Disposition, General : Discharge Discharge To : Home with ambulatory/outpatient follow-up Accompanied By, Discharge : Unaccompanied Prescriptions Given to Patient : Electronically sent Medications Given to Patient : No Discharge Instructions Reviewed With, Opportunity For Questions Given : Patient Patient Education Completed : Yes Teaching Method : Explanation, Printed materials, Teach back method Teaching Evaluation : Verbalizes understanding KAROL ALMENDAREZ RN - 03/28/2021 14:21 EST Electronically signed by [facility] Licensed Practical Nurse Cerner at 07/02/2022 5:38 PM CDT documented in this encounter Plan of Treatment Not on file documented as of this encounter Visit Diagnoses Not on filedocumented in this encounter
--- OUTSIDE RECORDS SUMMARY | 2024-10-13 13:24 | XMS_ITS | Encounter Summary ---
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 Discharge Vitals Temperature 36.6 ??C Heart Rate 80 Respiratory Rate 18 Blood Pressure 135/81 What to do next Follow-Up Appointments Follow Up with IRVIN FLORES MD-ANS When Within 2 months Where: Medications What How Much When Instructions Next [...] 800 Milligram(s) Oral Three Times A Day losartan (losartan 50 mg oral tablet) 1 [...] night-lights. ??? Place frequently used items in jorw-su-hepdd places. Lower the shelves around your home [...] the way. ??? Do not use floor french or wax that makes floors slippery. If [...] include working with a physical therapist or first aid trainer to improve your strength, balance, and endurance. Where to find more information ??? Centers for Disease Control and Prevention, [place]: https://www.cdc.gov ??? National [place] on Aging: https://kv1edph.deirdre.nih.gov Contact a health care provider if: ??? [...] provider. Document Revised: 02/13/2018 Document Reviewed: 10/16/2017 Elsevier Patient Education ?? 2020 Elsevier Inc. Emergency Awareness and Preventative Care STROKE is an EMERGENCY Every Minute Counts Act FAST and Check for these signs: FACE Does the face look uneven? ARM Does one arm drift down? SPEECH Does their speech sound strange? TIME Call 9-1-1 at any sign of stroke Stroke Risk [...] Assistance with quitting is available by contacting 2-009-MRTPNOW. This is a free resource providing counseling, support, and referral. Or you may contact your personal physician. [place] Suicide Prevention Lifeline: The National Suicide Prevention [...] CPR? There are two easy steps: Call 9-1-1 if you see a teen or adult [...] This Visit (last charted value for your 03/28/2021 visit) No Laboratory or Other Results This Visit Patient Name:ANAHI BOYKIN I have received and understand this information and was given the opportunity to ask questions. Patient/Transportation Manager Name: Patient/Transportation Manager Signature: Relationship to Patient: Clinician/Hospital Transportation Manager Signature: Date: documented in this encounter Plan of Treatment Not on file documented as of this encounter Visit Diagnoses Not on filedocumented in this encounter
--- OUTSIDE RECORDS SUMMARY | 2024-10-13 13:24 | XMS_ITS | Encounter Summary ---
Author Organization [employer] ([place], [place], [place], [place]) Address [address] [place] [address] Care Team Providers Care Wafer Machine Operator Name Role Phone Unavailable Primary Care Provider Unavailabl e Encounter Details Date Type Department Care Team (Late st Contact Info) Description 04/08/2018 Transcribed Document [facility] [address] [facility] [address] [id number] Marvin Simental MD [address] [place] [address] Social History Tobacco Use Types Packs/Day Years [...] Note - Marvin Simental MD - 04/08/2018 3:38 PM EST DATE OF PROCEDURE:04/08/2018 PRIMARY CARE PHYSICIAN: Louise Herrera. PREOPERATIVE DIAGNOSIS(ES): 1. Previous L2 through L5 fusion. 2. L5-S1 severe neural foraminal stenosis and spinal instability. POSTOPERATIVE DIAGNOSIS(ES): 1. Previous L2 through L5 fusion. 2. L5-S1 severe neural foraminal stenosis and spinal instability. INDICATION FOR PROCEDURE: 1. Previous L2 through L5 fusion. 2. L5-S1 severe neural foraminal stenosis and spinal instability. PROCEDURE: 1. L5-S1 posterior lumbar interbody fusion with two interbody spacers. 2. Bilateral iliac fixation. 3. L2 to iliac instrumentation. 4. Intraoperative CT scan with stereotactic navigation. 5. Posterolateral fusion at L5-S1. SURGEON: Marvin Simental M.D. DESKTOP PUBLISHING SPECIALIST: Katherine Fournier PA-C. TYPE OF ANESTHESIA: GEA. DESCRIPTION OF PROCEDURE IN DETAIL: Once consent was noted to be on chart, Mrs. Leach was taken to the operating room. She was anesthetized and placed into the prone position on a Blair spine frame after a Espino catheter was placed. She was prepped and draped in the usual sterile fashion. Preoperative antibiotics were given. She was prepped and draped in the usual sterile fashion. A time-out was called. Initial low-dose CT scan was performed to plan the skin incision as well as to place two Steinmann pins into the right iliac crest. A two-pin fixator was placed on these pins and a reference ray for further stereotactic navigation. A 10-blade was used to reopen the midline incision from L2-S2. Bovie electrocautery was used to dissect down to into the lumbosacral fascia and previous scar tissue exposing the previous hardware. Two rods, set screws and a cross-link were removed. Soft tissue was removed off of L5-S1 as well as the S2 for the iliac bolt placement. Retractors were set. A repeat CT scan was performed of the L5-S1 segment in the pelvis for placement of instrumentation. Using stereotactic navigation, the usual freehand techniques and the Prenova system, pedicle screws were placed at S1 bilaterally, S2 to iliac screws were placed with stereotactic navigation. These were placed bilaterally. The laminectomy was then performed at L5-S1, complete facetectomy was bilaterally, full decompression of the exiting L5 and descending S1 nerve roots. A bilateral discectomy was performed and an 8 mm carbon fiber spacer 23 mm in length was placed on each side in the disk space. A repeat CT scan confirmed good placement of the cages as well as a new instrumentation. A larry was bent to contour to the polyaxial heads from L2-S2. Set screws were torqued to factory specifications bilaterally. A cross-link was placed at L5-S1. These screws were torqued to factory specifications. Posterolateral bone was decorticated at L5-S1 and additional allograft and autograft laid in place for posterolateral fusion. A Abdul ball probe passed easily out the L5-S1 foramen and down along the S1 nerve roots bilaterally. A ANN drain was left in the epidural space. One Vicryl reapproximated the paraspinous muscles, 0 Vicryl closed the fascia, 2-0 Vicryl closed the space and closed the skin subcuticularly. The skin was stapled, bacitracin and Covaderm was applied. Katherine Fournier assisted throughout the surgery and helped perform the closure. SPECIMEN SENT: Old hardware. ESTIMATED BLOOD LOSS: 250 mL. DRAINS: Blair-Garber round fully fluted. COMPLICATIONS: None. Marvin Simental M.D. Dict: 04/08/2018 14:38:41 Trans: 04/08/2018 18:33:21 CC1: Marvin Simental M.D. CC2: Louise Herrera, [address] [place] [address], [address] [place] [address] documented in this encounter Plan of Treatment Not on file documented as of this encounter Visit Diagnoses Not on filedocumented in this encounter
--- OUTSIDE RECORDS SUMMARY | 2024-10-13 13:24 | XMS_ITS | Encounter Summary ---
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 Evaluation, Physical Therapy Entered On: 04/09/2018 9:25 EST Performed On: 04/09/2018 9:24 EST by NEERAJ DENT, BRETT General Information, PT Visit Type, PT : Initial evaluation Patient Orders : Order Date Order Ordering 04/08/2018 14:34 Physical Therapy Eval and Treat Ordered By: THAO MURPHY MD-U Active Diagnoses : 04/08/2018 14:32 Spinal instabilities, lumbosacral region Therapy Diagnosis, PT : Acute pain and difficulty walking Onset of Problem, PT : 04/09/2018 EST Admission Date : 04/08/2018 06:40 Personal Devices : Personal Devices No Devices Recorded Assistive Devices : Assistive Devices No Devices Recorded Precautions in Place : Fall prevention measures, Log roll precautions NEERAJ DENT, PT - 04/09/2018 9:24 EST General Information Comment, PT : admit dx: s/p L5-s1 PLIF due to instability/stenosis Brace/spine precautions (pt reporting MD major for abdominal binder) Hx: spine surgery ~5yr ago per pt report, CAD, fibromyalgia NEERAJ DENT, PT - 04/09/2018 9:26 EST General Status Patient Received Status : Supine in bed Treatment Start Time : 04/09/2018 8:48 EST Patient Left Status : Up in chair, RN/PCT informed, Communication board completed, All needs met and within reach Treatment End Time : 04/09/2018 9:09 EST Treatment Time : 21 Minute(s) NEERAJ DENT, PT - 04/09/2018 9:26 EST History and Environment Patient Lives With : Alone Persons Providing Information : Patient Home Equipment Therapy, PT : Walker Walker : Walker, front wheel Home Setup : One story Stairs : Yes Stair Location(s) : Outside Outside Stairs, Number of Steps : 1 Railing Outside : No NEERAJ DENT, PT - 04/09/2018 9:26 EST Prior Level of Function PT GRID Prior LOF Ambulation, Household : Independent Prior LOF Ambulation, Community : Independent Prior LOF Bed Mobility : Independent Prior LOF Toileting : Independent Prior LOF Transfer : Independent NEERAJ DENT, PT - 04/09/2018 9:26 EST Prior LOF Assist with ADL Comment : Likes to garden and perform household duties; has 2 dogs NEERAJ DENT, PT - 04/09/2018 9:26 EST Lower Extremity RLE Active ROM : WFL Right LE Strength : WFL LLE Active ROM : WFL Left LE Strength : WFL NEERAJ DENT, PT - 04/09/2018 9:26 EST Functional Mobility Mobility Grid Supine to Sit : Rehab Minimal assistance Sit to Stand : Rehab Minimal assistance Bed to Chair : Rehab Minimal assistance Stand to Sit : Rehab Minimal assistance NEERAJ DENT, PT - 04/09/2018 9:26 EST Sit to Stand Device : Belt, gait, Walker, front wheel Bed to Chair Device : Belt, gait, Walker, front wheel Stand to Sit Device : Belt, gait, Walker, front wheel Functional MobilityComment : cues for body mechanics and posture for OOB transfers; supervision for donning abdominal binder NEERAJ DENT, PT - 04/09/2018 9:26 EST AM [facility] Basic Mobility Turning Over in Bed : Unable Sit Down On/Stand Up From Chair w/ Arms : Unable Move Back Lying to Sitting Side of Bed : Unable Moving To/From a Bed to Chair : A little Need to Walk in Hospital Room : A little Climbing 3-5 Steps with a Railing : Total AM-[facility] Basic Mobility Raw Score : 10 AM-[facility] Basic Mobility Standardized Score : 32.29 AM-[facility] Basic Mobility CMS 0-100% Score : 76.75 % NEERAJ DENT, PT - 04/09/2018 9:26 EST Image 1 - Images currently included in the form version of this document have not been included in the text rendition version of the form. Functional Limitation Reporting, PT Functional Limitation Visit Type, PT : Initial evaluation Severity Determination Method, PT : Clinical Judgment, [facility] Basic Mobility Mobility G8978 - Current Mod, PT : 60 - 79% impaired, limited or restricted (CL) Mobility G8979 - Proj Goal Mod, PT : 40 - 59% impaired, limited or restricted (CK) NEERAJ DENT, PT - 04/09/2018 9:26 EST Gait Training/Assessment, PT Gait Assistance Level : Assist, minimal Walking Distance : 280ft with RWx Charito for posture Ambulatory Devices : Gait belt, Walker, front wheel NEERAJ DENT, PT - 04/09/2018 9:26 EST Cognition Assessment, PT Orientation : Oriented x 4 Attention Assessment : Present NEERAJ DENT PT - 04/09/2018 9:26 EST [facility] Topics Physical Therapy Education Grid Gait Training : Verbalizes understanding, Returns demonstration, Needs reinforcement Role of Physical Therapy : Verbalizes understanding, Returns demonstration, Needs reinforcement Therapeutic Exercises : Verbalizes understanding, Returns demonstration, Needs reinforcement Transfer Training : Verbalizes understanding, Returns demonstration, Needs reinforcement NEERAJ DENT, PT - 04/09/2018 9:26 EST Indication Assesessment, PT Physical Therapy Indicated : Yes PT Problem List : Impaired, endurance tolerance, Impaired, gait, Impaired, strength, Impaired, transfers NEERAJ DENT, PT - 04/09/2018 9:26 EST Plan of Care, PT PT Tx Plan/Goals Established w Patient : Yes PT Frequency Rehab : Daily, twice (bid) PT Duration Rehab : Other: 14 days OR d/c OR no skilled PTx services needed PT Treatments Planned : Gait training, Therapeutic exercises, Transfer training DENTZULLYNEERAJ, PT - 04/09/2018 9:26 EST Alf Goals Mobility/Bed Mobility LTG PT Grid Goal #1 Goal #2 Activity : Supine to sit Sit to stand Assist : Independent, modified Independent, modified Date to Meet : 04/23/2018 EST 04/23/2018 EST Goal Status : Intial Goal Intial Goal Comment : via logroll DENTZULLYNEERAJ, PT - 04/09/2018 9:26 EST EDNTZULLYNEERAJ, PT - 04/09/2018 9:26 EST Ambulation LTG Grid Goal #1 Device : Walker, front wheel Distance : 500ft Assist : Independent, modified Date to Meet : 04/23/2018 EST Goal Status : Intial Goal DENTZULLYNEERAJ, PT - 04/09/2018 9:26 EST Treatment Note Subjective Comment : pt agreed to PTx eval Patient's Response to Treatment : Stable Additional Objective Information : Reviewed BLT and issued spine packet Assessment : pt with back pain, limited endurance but able to ambulate 280ft with RWx and contact/Charito for safety/posture Plan for Treatment : cont PTx POC DENTZULLYNEERAJ, PT - 04/09/2018 9:26 EST Pain Assessment Pain Scaled Used : 0-10 Pain scale Pain Score Pre-Intervention : 3 Pain Score Post-Intervention. : 4 Location : Back Pain Intervention, Drug : Medicated DENTZULLYNEERAJ, PT - 04/09/2018 9:26 EST Image 1 - Images currently included in the form version of this document have not been included in the text rendition version of the form. Anticipated Discharge Needs, OT/PT Anticipated Discharge to : Home, with family care, Home, with home health Anticipated Home Equipment : Other: owns RWx Recommend Continued Therapy at Discharge : Yes NEERAJ DENT, PT - 04/09/2018 9:26 EST [place] PT Charges PT Eval Moderate Complexity : 1 NEERAJ DENT PT - 04/09/2018 9:26 EST documented in this encounter Plan of Treatment Not on file documented as of this encounter Visit Diagnoses Not on filedocumented in this encounter
--- OUTSIDE RECORDS SUMMARY | 2024-10-13 13:24 | XMS_ITS | Encounter Summary ---
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 Care Management Assessment/Plan Entered On: 04/09/2018 18:13 EST Performed On: 04/09/2018 18:11 EST by Almita Castañeda RN Care Management Note Care Management Note : [id number] Documentation Status Complete : Yes Almita Castañeda RN - 04/09/2018 18:11 EST Patient History Information Obtained from, Care Mgt : Medical Record Emergency Contact #1 : Carmen Smith Emergency Contact #1 Emergency Contact #1 Relationship : daughter Emergency Contact #2 : n Emergency Contact #2 Phone Number : n Emergency Contact #2 Relationship : n Living Situation : Home Patient Lives With : Alone Current Home Treatments : None Home Equipment : Walker Home Situation/Environment : External stairs Outside Stairs, Number of Steps : 1 Patient History Note : Chart review: 67 yo male pt s/p 1) L5-S1 posterior lumbar interbody fusion with two interbody spacers, 2) Bilateral iliac fixation, 3) L2 to iliac instrumentation, 4) Intraoperative CT scan with stereotactic navigation, and 5) Posterolateral fusion at L5-S1. Pt ambualted 280ft with FRW and supervision with PT. Pt will likely dc home in 1-2 days +/- services. CM will follow. lAmita Castañeda RN - 04/09/2018 18:11 EST Ant. DC Needs/Initial Plan Anticipated Discharge Needs, Care Management : Equipment needs, Home health Anticipated Home Care Needs : Physical Therapy Almita Castañeda RN - 04/09/2018 18:11 EST documented in this encounter Plan of Treatment Not on file documented as of this encounter Visit Diagnoses Not on filedocumented in this encounter
--- OUTSIDE RECORDS SUMMARY | 2024-10-13 13:24 | XMS_ITS | Encounter Summary ---
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 ALSO CALLED PT'S HOME NUMBER LISTED AND LEFT MESSAGE THAT IT WAS CALLED IN. KAROL ALMENDAREZ RN - 02/28/2021 15:23 EST Electronically signed by Maria F[facility] Conversion [employer] at 07/02/2022 5:36 PM CDT documented in this encounter Plan of Treatment Not on file documented as of this encounter Visit Diagnoses Not on filedocumented in this encounter
--- OUTSIDE RECORDS SUMMARY | 2024-10-13 13:24 | XMS_ITS | Encounter Summary ---
Author Organization [employer] ([place], [place], [place], [place]) Address [address] [place] [address] Care Team Providers Care Mechanical Inspector Name Role Phone Unavailable Primary Care Provider Unavailabl e Encounter Details Date Type Department Care Team (Late st Contact Info) Description 08/08/2021 Transcribed Document [facility] [place] Family Medicine [address] [place] [address] ProviderJuarez MD [address] [place] [address] Social History Tobacco Use Types [...] Date Jeronimo rded Speak language other than Lao at home Not on file 04/04/2023 Want [...] Conversion Note - Historical ProviderMD - 08/08/2021 1:27 PM CDT Patient: ANAHI BOYKIN Age: 70 Years Sex: Female : 1950 Chief Complaint back pain Primary Care Provider SHAHRIAR CHUA MD-[facility] History of Present Illness Mrs. Boykin is here for 2-month medication follow-up. She reports the increase in her medication was very beneficial for her until Mother's Day, she was picking up a bag of mulch and reports pulling a muscle in her back. Is continued to bother her since that time. She reports she had an x-ray but it was normal and her primary care gave her some steroids that helped for just a few days. In the muscle relaxer does not seem to be helping very much. She complains today of 7/10 pain in the mid and low back on the right side, this is a constant tightness, pressure, spasm. She denies pain radiating into the legs. She is uncomfortable with standing, walking, transitioning, sitting and driving. She does not think she needs to be on any more medications and has not stopped working since this started. She denies new numbness, tingling, incontinence. Review of Systems 14 system review performed today. Pertinent positives and negatives in HPI. Vital Signs T: 36.7 ??C HR: 68(Peripheral) RR: 18 BP: 167/80 SpO2: 97% HT: 154.94 cm WT: 60 kg BMI: 25 Oxygen Settings (Last) Oxygen Therapy Mode: Room air (08/08/21 11:20:00) Physical Exam General: Appears comfortable, appears to be her stated age, weight is appropriate Spine lumbosacral: Large well-healed surgical scar, no focal tenderness with muscular tension is noted on the right side, she transitions with difficulty but her station is neutral, range of motion: Flexion limited and painful at 40, extension limited and painful at 0, rotation and lateral bending were limited and painful, straight leg raise negative bilaterally, facet loading positive bilaterally Neurologic: Gait is antalgic. Motor 5/5. Deep tendon reflexes symmetrical. Sensation light touch intact. Psychological: Alert and oriented x3. Mood and affect are appropriate. Judgment and insight are intact. Assessment/Plan Failed back surgical syndrome Myofascial pain Lumbar spondylosis Chronic pain Chronic opiate use Mrs. Boykin has strained her low back. Her medications she reports typically work well but she is having worse pain from this muscle strain. She denies new side effects and reports that her chronic constipation is well controlled. Her exam is stable but she does seem more uncomfortable today. Treatment plan: Interventions: None currently, as we discussed in the past I have encouraged her to have a myelogram done but she declines. I am concerned with the increasing frequency of her flares in her back pain. Rehabilitation: I encouraged rest, conservative measures, no lifting, bending, twisting Behavioral: Low risk patient. No aberrant behavior. Random drug screen today to monitor for compliance and to deter misuse and diversion. Medications: Jeovany report #[id number] was reviewed and appropriate. I have reviewed safe usage and storage of medications with her today reminding her to only take medications as prescribed, to keep them safe and locked, never to combine with other substances including alcohol or sedatives, to be mindful that these medications can impair you and if impaired he should not be operating any motor vehicles. We will refill her medications and plan to follow-up in 2 months. If she is not showing any improvement I encouraged her to follow-up with me sooner. Ordered: acetaminophen-oxyCODONE, 1 Tab, Oral, TID, X 30 Day(s), # 90 Tab, 0 Refill(s), Pharmacy: [facility], 154.94, , 08/08/21 11:20:00 EDT, CLINICALHEIGHT, 60, kg, 08/08/21 11:20:00 EDT, CLINICALWEIGHT, 09/16/21 acetaminophen-oxyCODONE, 1 Tab, Oral, TID, X 30 Day(s), # 90 Tab, 0 Refill(s), Pharmacy: [facility], 154.94, cm, 08/08/21 11:20:00 EDT, CLINICALHEIGHT, 60, kg, 08/08/21 11:20:00 EDT, CLINICALWEIGHT, 08/17/21 gabapentin, 1 Tab, Oral, Tab, TID, # 90 Tab, 1 Refill(s), Pharmacy: [facility], 154.94, , 08/08/21 11:20:00 EDT, CLINICALHEIGHT, 60, kg, 08/08/21 11:20:00 EDT, CLINICALWEIGHT, 08/17/21 VTE Prophylaxis - Medical No VTE Prophylaxis [...] cord stimulator attempted, wisdom teeth. Home Medications (15) Active acetaminophen-oxyCODONE 325 mg-7.5 mg oral tablet [...] = 1 Tab, Oral, Daily gabapentin 800 mg oral tablet 800 mg [...]
--- OUTSIDE RECORDS SUMMARY | 2024-10-13 13:24 | XMS_ITS | Encounter Summary ---
Author Organization [employer] ([place], [place], [place], [place]) Address [address] [place] [address] Care Team Providers Care Surgical Resident Name Role Phone Unavailable Primary Care Provider Unavailabl e Encounter Details Date Type Department Care Team (Late st Contact Info) Description 08/08/2021 Transcribed Document [facility] [place] Family Medicine [address] [place] [address] ProviderJuarez MD [address] [place] [address] Social History Tobacco Use Types [...] Date Jeronimo rded Speak language other than Belarusian at home Not on file 04/04/2023 Want [...] Historical ProviderMD - 08/08/2021 11:53 AM CDT Nursing Discharge Summary Entered On: 08/08/2021 11:54 EDT Performed On: 08/08/2021 11:53 EDT by ALIA BARKLEY RN Discharge Documentation Discharge Date/Time : 08/08/2021 11:53 EDT Patient Disposition, General : Discharge Discharge To : Home with ambulatory/outpatient follow-up Mode Of Departure, General Discharge : Ambulatory Accompanied By, Discharge : Unaccompanied Prescriptions Given to Patient : Electronically sent Medications Given to Patient : No Discharge Instructions Reviewed With, Opportunity For Questions Given : Patient Patient Education Completed : Yes Teaching Method : Explanation, Printed materials Teaching Evaluation : Verbalizes understanding ALIA BARKLEY RN - 08/08/2021 11:53 EDT documented in this encounter Plan of Treatment Not on file documented as of this encounter Visit Diagnoses Not on filedocumented in this encounter
--- OUTSIDE RECORDS SUMMARY | 2024-10-13 13:24 | XMS_ITS | Encounter Summary ---
Author Organization [employer] ([place], [place], [place], [place]) Address [address] [place] [address] Care Team Providers Care Automation Control Integrator Name Role Phone Unavailable Primary Care Provider Unavailabl e Encounter Details Date Type Department Care Team (Late st Contact Info) Description 01/15/2021 Transcribed Document [facility] Family Medicine [address] [place] [address] ProviderJuarez MD [address] [place] [address] Social History Tobacco Use Types [...] Conversion Note - Juarez ProviderMD - 01/15/2021 2:53 PM CDT [place] [id number] ANAHI BOYKIN :1950 Visit Time:01/15/2021 What to do next Your Diagnosis Combined forms of age-related cataract, left eye, Combined forms of age-related cataract, left eye Instructions From Your Care Team Discharge Activity: Discharge Activity: Activity as tolerated Diet: Discharge Diet: Resume usual diet as tolerated Follow-Up Appointments Follow Up with RASHAAD HUNTER MD-OPT When 01/16/2021 11:00 AM EDT Where: Medications What How Much When Instructions [...] Please dispose of unused and medications per pharmacy guidance. Education Materials Monitored Anesthesia Care, Care After This sheet gives you information about how to care for yourself after your procedure. Your health care provider may also give you more specific instructions. If you have problems or questions, contact your health care provider. What can I expect after the procedure? After the procedure, it is common to have: ??? Tiredness. ??? Forgetfulness about what happened after the procedure. ??? Impaired judgment for important decisions. ??? Nausea or vomiting. ??? Some difficulty with balance. Follow these instructions at home: For at least 24 hours after the procedure: ??? Have a responsible adult stay with you. It is important to have someone help care for you until you are awake and alert. ??? Rest as needed. ??? Do not participate in activities in which you could fall or become injured. ??? Do not drive. ??? Do not use machinery. ??? Do not drink alcohol. ??? Do not take sleeping pills or medicines that cause drowsiness. ??? Do not make important decisions or sign legal documents. ??? Do not take care of children on your own. Eating and drinking ??? Follow the diet that is recommended by your health care provider. ??? Drink enough fluid to keep your urine pale yellow. ??? If you vomit: ? Drink water, juice, or soup when you can drink without vomiting. ? Make sure you have little or no nausea before eating solid foods. General instructions ??? Take yaou-wxh-dymiafg and prescription medicines only as told by your health care provider. ??? If you have sleep apnea, surgery and certain medicines can increase your risk for breathing problems. Follow instructions from your health care provider about wearing your sleep device: ? Anytime you are sleeping, including during daytime naps. ? While taking prescription pain medicines, sleeping medicines, or medicines that make you drowsy. ??? Avoid smoking. ??? Keep all follow-up visits as told by your health care provider. This is important. Contact a health care provider if: ??? You keep feeling nauseous or you keep vomiting. ??? You feel light-headed. ??? You are still sleepy or having trouble with balance after 24 hours. ??? You develop a rash. ??? You have a fever. ??? You have redness or swelling around the IV site. Get help right away if: ??? You have trouble breathing. ??? You have new-onset confusion at home. Summary ??? For several hours after your procedure, you may feel tired. You may also be forgetful and have poor judgment. ??? Have a responsible adult stay with you for at least 24 hours or until you are awake and alert. ??? Rest as told. Do not drive or operate machinery. Do not drink alcohol or take sleeping pills. ??? Get help right away if you have trouble breathing, or if you suddenly become confused. This information is not intended to replace advice given to you by your health care provider. Make sure you discuss any questions you have with your health care provider. Document Revised: 02/03/2020 Document Reviewed: 02/03/2020 [employer] Patient Education ?? 2020 [employer] Cataract Surgery, Care After This sheet gives you information about how to care for yourself after your procedure. Your health care provider may also give you more specific instructions. If you have problems or questions, contact your health care provider. What can I expect after the procedure? After the procedure, it is common to have: ??? Itching. ??? Discomfort. ??? Fluid discharge. ??? Sensitivity to light and to touch. ??? Bruising in or around the eye. ??? Mild blurred vision. Follow these instructions at home: Eye care ??? Do not touch or rub your eyes. ??? Protect your eyes as told by your health care provider. You may be told to wear a protective eye shield or sunglasses. ??? Do not put a contact lens into the affected eye or eyes until your health care provider approves. ??? Keep the area around your eye clean and dry: ? Avoid swimming. ? Do not allow water to hit you directly in the face while showering. ? Keep soap and shampoo out of your eyes. ??? Check your eye every day for signs of infection. Watch for: ? Redness, swelling, or pain. ? Fluid, blood, or pus. ? Warmth. ? A bad smell. ? Vision that is getting worse. ? Sensitivity that is getting worse. Activity ??? Do not drive for 24 hours if you were given a sedative during your procedure. ??? Avoid strenuous activities, such as playing contact sports, for as long as told by your health care provider. ??? Do not drive or use heavy machinery until your health care provider approves. ??? Do not bend or lift heavy objects. Bending increases pressure in the eye. You can walk, climb stairs, and do light stud driver. ??? Ask your health care provider when you can return to work. If you work in a lucia environment, you may be advised to wear protective eyewear for a period of time. General instructions ??? Take or apply ybgh-wup-tznmuze and prescription medicines only as told by your health care provider. This includes eye drops. ??? Keep all follow-up visits as told by your health care provider. This is important. Contact a health care provider if: ??? You have increased bruising around your eye. ??? You have pain that is not helped with medicine. ??? You have a fever. ??? You have redness, swelling, or pain in your eye. ??? You have fluid, blood, or pus coming from your incision. ??? Your vision gets worse. ??? Your sensitivity to light gets worse. Get help right away if: ??? You have sudden loss of vision. ??? You see flashes of light or spots (floaters). ??? You have severe eye pain. ??? You develop nausea or vomiting. Summary ??? After your procedure, it is common to have itching, discomfort, bruising, fluid discharge, or sensitivity to light. ??? Follow instructions from your health care provider about caring for your eye after the procedure. ??? Do not rub your eye after the procedure. You may need to wear eye protection or sunglasses. Do not wear contact lenses. Keep the area around your eye clean and dry. ??? Avoid activities that require a lot of effort. These include playing sports and lifting heavy objects. ??? Contact a health care provider if you have increased bruising, pain that does not go away, or a fever. Get help right away if you suddenly lose your vision, see flashes of light or spots, or have severe pain in the eye. This information is not intended to replace advice given to you by your health care provider. Make sure you discuss any questions you have with your health care provider. Document Revised: 12/28/2019 Document Reviewed: 08/31/2018 [employer] Patient Education ?? 2020 [employer]. Emergency Awareness and Preventative Care STROKE is [...] Assistance with quitting is available by contacting 7-968-FAAC-NOW. This is a free resource providing counseling, [...] This Visit (last charted value for your 01/15/2021 visit) No Laboratory or Other Results This Visit Patient Name:ANAHI BOYKIN I have received this information and was given the opportunity to ask questions. Patient/Farm Instructor Name: Patient/Farm Instructor Signature: Relationship to Patient: Clinician/Hospital Farm Instructor Signature: Date: documented in this encounter Plan of Treatment Not on file documented as of this encounter Visit Diagnoses Not on filedocumented in this encounter
--- OUTSIDE RECORDS SUMMARY | 2024-10-13 13:24 | XMS_ITS | Encounter Summary ---
Author Organization [employer] ([place], [place], [place], [place]) Address [address] [place] [address] Care Team Providers Care Telephoner Name Role Phone Unavailable Primary Care Provider Unavailabl e Encounter Details Date Type Department Care Team (Late st Contact Info) Description 04/08/2018 Transcribed Document [facility] Radiology [address] [place] [address] Bo Butcher MD [address] [place] [id number] Social History Tobacco Use Types Packs/Day Years Used Date Smoking Tobacco: Never Assessed Comments Unknown Sex and Gender Information Value Date Recorded Sex Assigned at Female 09/11/2021 3:33 PM CDT Legal Sex Female 3:33 PM CDT Gender Identity Female 09/11/2021 3:33 PM CDT Sexual Orientation Not on file documented as of this encounter Miscellaneous Notes * Cerner Conversion Note - Bo Btucher MD - 04/08/2018 2:27 PM EST Patient: ANAHI BOYKIN Age: 67 years Sex: Female : 1950 Associated Diagnoses: None Author: DAVID HADDAD PA-JOSEMANUEL 04/08/18 cc: medical management s/p lumbar fusion per Dr. Simental HPI: Patient is a 67 yo female [address] to [facility] per Dr. Simental for a lumbar fusion. Preoperatively patient was found to have advanced spondylolisthesis of the lumbar spine and elected surgical intervention after failing conservative treatment. Patient is followed perioperatively while hospitalized for medical management. Initital visit on floor - Denies prior stroke or seizure. Denies [place], CHF or cardiac arrhythmia. Denies DM. Denies COPD, asthma or SACHIN. Denies DVT or PE. hx melanoma left calf. Denies any bladder issues. Denies any recent illnesses that required abx. Denies prior skin infections. +HTN. +snores; +hurting in back. denies any f/c/s. n o nv/d/. no cp, soa. Past Med Hx: Anxiety and depression Arthritis At risk for [...] syndrome Sleep apnea (family report) Spinal stenosis Procedure history: spinal cord stimulator removed in [...] facet injection steroids. spinal cord stimulator attempted. Family Hx: mother and father both . No health issues with siblings. Social & Psychosocial Habits Alcohol 04/02/2018 Alcohol Use History, Social Habits No Employment/School 01/10/2015 Status: Retired Home/Environment 01/10/2015 Lives with: Alone Substance Abuse 01/10/2015 Recreational Drug Use History No Recreational Drug Use Last 12 Months No Tobacco 01/10/2015 Smoking Status Never smoker Used Tobacco, but Quit No Second Hand Smoke Exposure No Allergies (1) Active Reaction Percocet 10/325 Hallucinations Home Medications (8) Active amLODIPine 5 mg [...] 1,000 mg = 1 Tab, Oral, Daily ROS: Constitutional: [No fevers, chills, sweats] HEENT: [No ear pain, nasal congestion, sore throat] Respiratory: [No shortness of breath, cough, sputum production] Cardiovascular: [No Chest pain, palpitations, shortness of breath] Gastrointestinal: [No nausea, vomiting, diarrhea, constipation] Genitourinary: [No hematuria, dysuria, incontinence Musculoskeletal: +back pain Integumentary: [No rash, pruritus, abrasions, lesions] Neurologic: [No seizures or stroke. No dizziness or syncope. Psychiatric: [+anxiety and depression. Exam: Vitals Signs (last 24 hrs) Last Charted Minimum Maximum Temp 99 (APR 08 09:00) 99 (APR 08 09:00) 99 (APR 08:00) Mon HR 78 (APR 08:00) 78 (APR 08 09:00) 78 (APR 08:00) Resp Rate 20 (APR 08 09:00) 20 (APR 08 09:00) 20 (APR 08:00) SBP 128 (APR 08 09:00) 128 (APR 08 09:00) 128 (APR 08 09:00) DBP 69 (APR 08 09:00) 69 (APR 08 09:00) 69 (APR 08:00) SpO2 97 (APR 08:00) 97 (APR 08:00) 97 (APR 08:00) GEN: awake, but still sleepy from surgery, NAD Lymph: no cervical or axillary LAD Neck: supple, no thyromegaly HEENT: NCAT, no icterus, no thrush, nares patent, CV: S1S2, no murmur. No LE edema Resp: CTAB, NL Abd: Soft, NT, ND +BS Skin: no rashes on inspection and palpation. Ext: No LE edema. No joint edema, erythema. Neuro: O x 3, CN grossly intact Data: preop: reviewed cbc, bmp, ua EKG Ventricular Rate : 71 BPM Atrial Rate : 71 BPM P-R Interval : 130 ms QRS Duration : 66 ms Q-T Interval : 382 ms QTC Calculation(Bezet) : 415 ms P [place] : 48 degrees R [place] : -1 degrees T [place] : 58 degrees Normal sinus rhythm Low voltage QRS, consider pulmonary disease, pericardial effusion, or normal variant Borderline ECG No previous ECGs available Confirmed by Ayla BAILEY NEZAR ([id number]), city editor Evy Barragan ([id number]) on 04/03/2018 8:54:13 AM Impression: spondylolisthesis Lspine; s/p lumbar fusion per Dr. Simental HTN snores, at risk of sleep apnea hx Anxiety and depression hx Arthritis hx At risk for sleep apnea hx Back pain amelie LE radiculopathy/paresthesia hx Bulging lumbar disc hx Cardiomyopathy (questionable) hx Carotid artery disorder (mild, right) hx Cataract hx Coronary artery disease (mild) hx DDD (degenerative disc disease), lumbar hx dry eyes hx Female stress incontinence hx Fibromyalgia GERD - Gastro-esophageal reflux disease H/O dizziness H/O seasonal allergies Hemorrhoids hx Hiatal hernia hx Hypertension hx Lumbar spinal stenosis hx melanoma left calf of leg hx mono in high school hx panic attacks hx Restless legs syndrome hx Sleep apnea (family report) hx Spinal stenosis hx spinal cord stimulator removed in the month of 05/2017 at 66 Years. hx lap low in the month of 03/2017 at 66 Years. hx lumbar fusion L2-5) in 2014 at 64 Years. hx hysterectomy in 2004 at 54 Years. hx heart cath (negative) in 2002 at 52 Years. 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 hx tonsillectomy in 1964 at 14 Years. hx colonoscopy. hx wisdom teeth. hx epidural and facet injection steroids. hx spinal cord stimulator attempted. Plan: recommend outpt sleep study, pt to f/u with PCP hold amlodipine, reevalute bp in am Monitor HTN; add PRN's, hold parameters bowel regimen incentive spirometer PT/OT DVT prophylaxis noted Pain management deferred to surgeon will monitor hb/hct daily for signs of ongoing acute blood loss will monitor bun/cr daily for signs of dehydration, prerenal azotemia will monitor for signs/symptoms of post-op wound infection or hospital acquired infectious process resume outpatient medication regimen for comorbidities Assessment and treatment plan made in conjunction with Prateek Butcher MD *Scribed by Caitlin Camposally signed by Bo Butcher MD at 07/02/2022 5:43 PM CDT documented in this encounter Plan of Treatment Not on file documented as of this encounter Visit Diagnoses Not on filedocumented in this encounter
--- OUTSIDE RECORDS SUMMARY | 2024-10-13 13:24 | XMS_ITS | Encounter Summary ---
Author Organization [employer] ([place], [place], [place], [place]) Address [address] [place] [address] Care Team Providers Care Circulation Worker Name Role Phone Unavailable Primary Care Provider Unavailabl e Encounter Details Date Type Department Care Team (Late st Contact Info) Description 01/15/2021 Transcribed Document [facility] [place] [address] ProviderJuarez MD [address] [place], [place] [id number] Social History Tobacco Use Types Packs/Day Years Used Date Smoking Tobacco: Never Assessed Comments Unknown Sex and Gender Information Value Date Recorded Sex Assigned at Female 09/11/2021 3:33 PM CDT Legal Sex Female 3:33 PM CDT Gender Identity Female 09/11/2021 3:33 PM CDT Sexual Orientation Not on file documented as of this encounter Miscellaneous Notes * Cerner Conversion Note - Juarez Grant MD - 01/15/2021 2:53 PM CDT Patient Education Materials Follows: Cataract Surgery, Care After This sheet gives [...] can walk, climb stairs, and do light scalemaker. ??? Ask your health care provider when you can return to work. If you work in a lucia environment, you may be advised to wear protective eyewear for a period of time. General instructions ??? Take or apply dzgz-pjw-fmaswgv and prescription medicines only as told by [...] provider. Document Revised: 12/28/2019 Document Reviewed: 08/31/2018 [employer] Patient Education ? 2020 [employer]. Pharmacology Monitored Anesthesia Care, Care After This sheet [...] eating solid foods. General instructions ??? Take igpi-fje-dshphtp and prescription medicines only as told by [...] provider. Document Revised: 02/03/2020 Document Reviewed: 02/03/2020 [employer] Patient Education ? 2020 [employer]. documented in this encounter Plan of Treatment Not on file documented as of this encounter Visit Diagnoses Not on filedocumented in this encounter
--- OUTSIDE RECORDS SUMMARY | 2024-10-13 13:24 | XMS_ITS | Encounter Summary ---
Author Organization [email or web address] ([place], [place], [place], [place]) Address [address] [place] [address] Care Team Providers Care Memorial Adviser Name Role Phone Unavailable Primary Care Provider Unavailabl e Encounter Details Date Type Department Care Team (Late st Contact Info) Description 01/15/2021 Transcribed Document [facility] [place] [address] [place] [address] ProviderJuarez MD [address] [place] [address] Social History Tobacco Use Types [...] 01/15/2021 2:22 PM CDT [facility] Main OR PostOp Summary Primary Physician: RASHAAD HUNTER MD-OPT Finalized Date/Time: 01/15/21 15:00:34 Pt. Name: ANAHI BOYKIN /Sex: 1950 Female Med Rec #: [id number] Physician: RASHAAD HUNTER MD-OPT Financial #: [id number] Pt. Type: O Room/Bed: [facility]/ Admit/Disch: 01/15/21 11:44:00 - Institution: [facility] Main OR PostOp Case Times Entry 1 In PACU II 01/15/21 14:45:00 Ready for PACU II 01/15/21 14:57:00 Discharge Discharge from PACU 01/15/21 14:57:00 II Last Modified By: OSVALDO GARRETT, RN 01/15/21 15:00:31 Finalized By: OSVALDO GARRETT, RN Document Signatures Signed By: OSVALDO GARRETT, RN 01/15/21 15:00 Electronically signed by Aurea [facility] Conversion Janitorial Assistant Cerner at 07/02/2022 5:30 PM CDT documented in this encounter Plan of Treatment Not on file documented as of this encounter Visit Diagnoses Not on filedocumented in this encounter
--- OUTSIDE RECORDS SUMMARY | 2024-10-13 13:25 | XMS_ITS | Encounter Summary ---
Author Organization [employer] ([place], [place], [place], [place]) Address [address] [place] [address] Care Team Providers Care Employee Welfare Manager Name Role Phone Unavailable Primary Care Provider Unavailabl e Encounter Details Date Type Department Care Team (Late st Contact Info) Description 02/24/2019 Transcribed Document [facility] [place] [address] [place] [address] ProviderJuarez MD [address] [place] [address] Social History Tobacco Use Types [...] Cerner Conversion Note - Juarez ProviderMD - 02/24/2019 9:02 AM EHS ENGINEER [facility] Main OR PACU Summary Primary Physician: CHANEL FOX DPM-POD Finalized Date/Time: 02/24/19 10:47:06 Pt. Name: ANAHI BOYKIN /Sex: 1950 Female Med Rec #: [id number] Physician: CHANEL FOX DPM-POD Financial #: [id number] Pt. Type: O Room/Bed: /1 Admit/Disch: 02/24/19 05:33:00 - Institution: [facility] Main OR PACU I Case Times Entry 1 In PACU I 02/24/19 09:55:00 Ready for PACU 02/24/19 10:45:00 Discharge Discharge from PACU 02/24/19 10:45:00 I Last Modified By: Ange Rae RN 02/24/19 10:47:00 Finalized By: Ange Rae, RN Document Signatures Signed By: Ange Rae RN 02/24/19 10:47 Electronically signed by Aurea [facility] Conversion Emergency Doctor Cerner at 07/02/2022 5:42 PM CDT documented in this encounter Plan of Treatment Not on file documented as of this encounter Visit Diagnoses Not on filedocumented in this encounter
--- OUTSIDE RECORDS SUMMARY | 2024-10-13 13:25 | XMS_ITS | Encounter Summary ---
Author Organization [employer] ([place], [place], [place], [place]) Address [address] [place] [address] Care Team Providers Care Sugar Chipper Machine Operator Name Role Phone Unavailable Primary Care Provider Unavailharinder e Encounter Details Date Type Department Care Team (Late st Contact Info) Description 04/10/2018 Transcribed Document [facility] [place] Family Medicine [address] [place] [address] ProviderJuarez MD [address], [place] [...] Cerner Conversion Note - Juarez ProviderMD - 04/10/2018 2:00 AM SENIOR CONSUMER INSIGHTS CONSULTANT Pain Assessment Entered On: 04/10/2018 3:05 EST Performed On: 04/10/2018 3:14 EST by Rafa Baptiste Rn Intervention Information: acetaminophen Performed by Rafa Baptiste Rn on 04/10/2018 02:14:00 EST acetaminophen,650mg Oral Pain Assessment Pain Assessment [...]
--- OUTSIDE RECORDS SUMMARY | 2024-10-13 13:25 | XMS_ITS | Clinical Summary ---
Author Organization [employer] ([place], [place], [place], [place]) Address [address] [place] [address] Care Team Providers Care Senior Bi Developer Name Role Phone Unavailable Primary Care Provider Unavailabl e Allergies No known active allergies Medications ARIPiprazole (ABILIFY) 10 MG tablet Take 10 mg by mouth daily. Active atorvastatin (LIPITOR) 40 MG tablet Take 40 mg by mouth daily. Active clonazePAM (KlonoPIN) 0.5 MG tablet Take 0.5 mg by mouth daily. Active clopidogreL (PLAVIX) 75 mg tablet Take 75 mg by mouth daily. Active DULoxetine (CYMBALTA) 60 MG capsule Take 120 mg by mouth daily. Active estradioL (ESTRACE) 1 MG tablet Take 1 mg by mouth daily. Active losartan (COZAAR) 25 MG tablet Take 25 mg by mouth daily. Active metoprolol succinate (TOPROL-XL) 25 MG 24 hr tablet Take 25 mg by mouth daily. Active naloxone (Narcan) 4 mg/actuation [place] 1 spray by Nasal route as needed for Opioid Reversal. Active esomeprazole (NexIUM) 40 MG capsule Take 40 mg by mouth daily. Active TiZANidine (ZANAFLEX) 4 MG capsule Take 4 mg by mouth 2 (two) times daily. Active ascorbic acid, vitamin C, (vitamin C) 1000 MG tablet Take 1,000 mg by mouth daily. Active multivitamin capsule Take 1 capsule by mouth daily. Active Active Problems No known active problems Family History Medical History Relation Name Comments Arthritis Father High blood pressure Father Arthritis Mother Cancer Mother Diabetes Mother Relation Name Status Comments Father Mother Social History Tobacco Use Types Packs/Day Years Used Date Smoking Tobacco: Never Smokeless Tobacco: Never Alcohol Use Standard Drinks/Week Comments Never 0 (1 standard drink = 0.6 oz pur e alcohol) Food Insecurity Answer Date Recorded Food run [...] Date Jeronimo rded Speak language other than Mauritanian at home Not on file 04/04/2023 Want [...] PM CDT Sexual Orientation Not on file Last Filed Vital Signs Vital Sign Reading Time Taken Comments Blood Pressure 117/80 02/11/2022 10:57 AM EST Pulse 65 02/11/2022 10:57 AM EST Temperature 36.6 C (97.9 F) 02/11/2022 10:57 AM EST Respiratory Rate 18 02/11/2022 10:57 AM EST Oxygen Saturation 96% 02/11/2022 10:57 AM EST RA Inhaled Oxygen Concentration - - Weight 62.6 kg (138 lb) 02/11/2022 10:57 AM EST Height 154.9 cm (5' 1 ) 02/11/2022 10:57 AM EST Body Mass Index 26.07 02/11/2022 10:57 AM EST Plan of Treatment Health Maintenance Due Date Last Done Comments CT Colonography 1948 Colonoscopy 1948 Colorectal Cancer Screening 1948 DXA SCAN 1948 FOBT/FIT 1948 Fit-DNA (Cologuard) 1948 Sigmoidoscopy 1948 Depression Screening (12+) 1960 Hepatitis C Screening 1966 Shingles Vaccine (Zoster) (1 of 2) 1998 Tobacco Cessation Counseling and Screening (12+) 02/11/2023 02/11/2022 COVID-19 VACCINE ( - 2023-2 5 season) 2023 11/09/2020, 04/19/2020, 03/22/2020 Respiratory Syncytial Virus (RSV) Adult or (1 - 1-dose 75+ series) 12/11/2023 Falls Risk Screening 03/17/2024 Influenza Vaccine (#1) 2024 2, 01/05/2021, 01/26/2019, Additional history exists DTAP/TDAP/TD VACCINES (2 - T d or Tdap) 07/01/2028 07/01/2018 Pneumococcal 50+ years Completed 09/16/2019, 2018 Medical Devices Explanted Type Area Machine Tool Builder Device Identifier Shelf Expiration Date Model / Serial / Lot Spine Scs Spine Description:Explanted about 7 yrs ago Insurance [employer]
--- OUTSIDE RECORDS SUMMARY | 2024-10-13 13:25 | XMS_ITS | Encounter Summary ---
Author Organization [employer] ([place], [place], [place], [place]) Address [address] [place] [address] Care Team Providers Care Nursing Unit Manager Name Role Phone Unavailable Primary Care Provider Unavailabl e Encounter Details Date Type Department Care Team (Late st Contact Info) Description 04/10/2018 Transcribed Document [facility] [place] [facility] [place] [address] ProviderJuarez MD [address] [place], [place] [id number] Social History Tobacco Use Types Packs/Day Years Used Date Smoking Tobacco: Never Assessed Comments Unknown Sex and Gender Information Value Date Recorded Sex Assigned at Female 09/11/2021 3:33 PM CDT Legal Sex Female 3:33 PM CDT Gender Identity Female 09/11/2021 3:33 PM CDT Sexual Orientation Not on file documented as of this encounter Miscellaneous Notes * Cerner Conversion Note - Historical ProviderMD - 04/10/2018 3:31 PM VOCATIONAL SERVICES SPECIALIST Discharge Summary, PT Entered On: 04/10/2018 15:33 EST Performed On: 04/10/2018 15:31 EST by PAVEL PALMER PTA Discharge Summary Discharge Summary Provider Notified : Physical Therapy Reason for Discharge : Discharged from hospital Discharged to, Therapy : Home, with home health PAVEL PALMER PTA - 04/10/2018 15:31 EST Discharge Summary Comment, PT : Patient was supervision for all transfers ambulates 280ft with RWx mod indep Patient has not met 3 LTGs and would benefit from home health PT. PT agrees with written D/C summary LISA RILEY, PT - 04/10/2018 16:06 EST Weed Controller Goals Mobility/Bed Mobility LTG PT Grid Goal #1 Goal #2 Activity : Supine to sit Sit to stand Assist : Independent, modified Independent, modified Date to Meet : 04/23/2018 EST 04/23/2018 EST Goal Status : Not met Not met Comment : via logroll PAVEL PALMER PTA - 04/10/2018 15:31 EST PAVEL PALMER PTA - 04/10/2018 15:31 EST Ambulation LTG Grid Goal #1 Device : Walker, front wheel Distance : 500ft Assist : Independent, modified Date to Meet : 04/23/2018 EST Goal Status : Not met PAVEL PALMER PTA - 04/10/2018 15:31 EST AM PAC Basic Mobility Turning Over in Bed : None Sit Down On/Stand Up From Chair w/ Arms : None Move Back Lying to Sitting Side of Bed : None Moving To/From a Bed to Chair : None Need to Walk in Hospital Room : None Climbing 3-5 Steps with a Railing : A little AM-PAC Basic Mobility Raw Score : 23 AM-PAC Basic Mobility CMS 0-100% Score : 11 % PAVEL PALMER PTA - 04/10/2018 15:31 EST Image 1 - Images currently included in the form version of this document have not been included in the text rendition version of the form. Functional Limitation Reporting, PT Functional Limitation Visit Type, PT : At time of discharge Severity Determination Method, PT : Clinical Judgment, AM PAC Basic Mobility Mobility G8979 - Proj Goal Mod, PT : 40 - 59% impaired, limited or restricted (CK) Mobility G8980 - Discharge Mod, PT : 1 - 19% impaired, limited or restricted (CI) PAVEL PALMER PTA - 04/10/2018 15:31 EST Electronically signed by [facility] Conversion Wildlife Control Agent Cerner at 07/02/2022 5:49 PM CDT documented in this encounter Plan of Treatment Not on file documented as of this encounter Visit Diagnoses Not on filedocumented in this encounter
--- OUTSIDE RECORDS SUMMARY | 2024-10-13 13:25 | XMS_ITS | Encounter Summary ---
Author Organization [employer] ([place], [place], [place], [place]) Address [address] [place] [address] Care Team Providers Care Chemistry Instructor Name Role Phone Unavailable Primary Care Provider Unavailabl e Encounter Details Date Type Department Care Team (Late st Contact Info) Description 04/09/2018 Transcribed Document [facility] [place] [facility] [place] [address] ProviderJuarez MD [address], [place] [id number] Social History Tobacco Use Types Packs/Day Years Used Date Smoking Tobacco: Never Assessed Comments Unknown Sex and Gender Information Value Date Recorded Sex Assigned at Female 09/11/2021 3:33 PM CDT Legal Sex Female 3:33 PM CDT Gender Identity Female 09/11/2021 3:33 PM CDT Sexual Orientation Not on file documented as of this encounter Miscellaneous Notes * Cerner Conversion Note - Juarez ProviderMD - 04/09/2018 10:49 AM BARREL POLISHER Discharge Instructions Entered On: 04/09/2018 10:49 EST Performed On: 04/09/2018 10:49 EST by MARY SANCHEZ RN DC Instructions HWD Stroke/TIA Discharge Ins : N/A Heart Failure Discharge Ins : N/A Warfarin Discharge Ins : N/A Diet After Discharge : Resume usual diet as tolerated Activity After Discharge : As tolerated, No strenuous activities, No heavy lifting over 10 pounds, Other: NO Bending, Lifting or Twisting Driving After Discharge : Do not drive Showering/Bathing : May shower Wound/Incision Care After Discharge : Keep operative site/wound site clean and dry Hoda Velez RN - 04/10/2018 13:09 EST Special Instructions : No NSAID/s for eight weeks after surgery STOP the following medications until otherwise instructed: 1) estradiol NEDRA PINEDA, DeandraD - 04/10/2018 11:32 EST documented in this encounter Plan of Treatment Not on file documented as of this encounter Visit Diagnoses Not on filedocumented in this encounter
--- OUTSIDE RECORDS SUMMARY | 2024-10-13 13:25 | XMS_ITS | Encounter Summary ---
Author Organization [employer] ([place], [place], [place], [place]) Address [address] [place] [address] Care Team Providers Care Scale Installer Name Role Phone Unavailable Primary Care Provider Unavailabl e Encounter Details Date Type Department Care Team (Late st Contact Info) Description 04/11/2018 Transcribed Document [facility] [place] [facility] [place] [address] ProviderJuarez MD [facility] [place], [place] [id number] Social History Tobacco Use Types Packs/Day Years Used Date Smoking Tobacco: Never Assessed Comments Unknown Sex and Gender Information Value Date Recorded Sex Assigned at Female 09/11/2021 3:33 PM CDT Legal Sex Female 3:33 PM CDT Gender Identity Female 09/11/2021 3:33 PM CDT Sexual Orientation Not on file documented as of this encounter Miscellaneous Notes * Cerner Conversion Note - Juarez ProviderMD - 04/11/2018 2:51 PM HOSE CEMENTER Post Visit Phone Call Entered On: 04/11/2018 14:54 EST Performed On: 04/11/2018 14:51 EST by Halima Vargas Rn Post Visit Phone Call Post Visit Phone Call History : First call Contact Relationship to Patient : Self Contact Name : [facility] Visit Since DC : No Adequate Pain Control After Visit : Yes Surgical Dressing Clean/Dry/Intact : Yes Surgical Site Free of Redness/Swelling/Drainage : Yes Symptoms of Fever : No Symptoms of Nausea or Vomiting : No Adequate Fluid Intake : Yes Food Intake, Post Visit : Fair Bowel/Bladder Concerns : No Mobility Progressing or Maintained as Expected : Yes Discharge Instructions Understood : Yes Follow-Up Actions : None Halima Vargas Rn - 04/11/2018 14:50 EST Electronically signed by [facility] Conversion Storage Solutions Architect Cerner at 07/02/2022 5:41 PM CDT documented in this encounter Plan of Treatment Not on file documented as of this encounter Visit Diagnoses Not on filedocumented in this encounter
--- OUTSIDE RECORDS SUMMARY | 2024-10-13 13:25 | XMS_ITS | Encounter Summary ---
Author Organization [employer] ([place], [place], [place], [place]) Address [address] [place] [address] Care Team Providers Care Loan Administrator Name Role Phone Unavailable Primary Care Provider Unavailabl e Encounter Details Date Type Department Care Team (Late st Contact Info) Description 04/09/2018 Transcribed Document [facility] [place] [address] [place] [address] ProviderJuarez MD [facility] [address] Social History Tobacco Use Types [...] Conversion Note - Juarez ProviderMD - 04/09/2018 9:32 AM EXEC. CREATIVE DIRECTOR Treatment Intervention, PT Entered On: 04/10/2018 10:34 EST Performed On: 04/10/2018 10:29 EST by PAVEL PALMER PTA General Information, PT Visit Type, PT : Treatment Note Patient Orders : Order Date Order Ordering 04/08/2018 14:34 Physical Therapy Eval and Treat Ordered By: THAO MURPHY MD-[facility] 04/09/2018 09:32 PT Additional Treatment Ordered By: NEERAJ DENT PT Active Diagnoses : 04/08/2018 14:32 Spinal instabilities, lumbosacral region Admission Date : 04/08/2018 06:40 Personal Devices : Personal Devices No Devices Recorded Assistive Devices : Assistive Devices No Devices Recorded Precautions in Place : Fall prevention measures, Log roll precautions PAVEL PALMER, [facility] - 04/10/2018 10:29 EST General Status Patient Received Status : Supine in bed Treatment Start Time : 04/10/2018 8:46 EST Patient Left Status : Sitting edge of bed, All needs met and within reach, Other: RN in room RN/PCT Informed Comment : CHRIS cochran'd to treat. Treatment End Time : 04/10/2018 8:57 EST Treatment Time : 11 Minute(s) PAVEL PALMER [facility] - 04/10/2018 10:29 EST Functional Mobility Mobility Grid Supine to Sit : Rehab Modified independence Sit to Stand : Rehab Modified independence Stand to Sit : Rehab Modified independence PAVEL PALMER EXCEPTIONAL CHILDREN TEACHER ASSISTANT - 04/10/2018 10:29 EST Bed Comment : patient successfully demonstrated log roll PAVEL PALMER, EXCEPTIONAL CHILDREN TEACHER ASSISTANT - 04/10/2018 10:29 EST Gait Training/Assessment, PT Weight Bearing Status Maintained : Yes Weight Bearing Status : Full Gait Assistance Level : Independent, modified Walking Distance : 280ft Ambulatory Devices : Gait belt, Walker, front wheel Gait Deviations : Yes Gait Training Comment : patient is steady with no LOB and states she is trying to stand up straighter PAVEL PALMER EXCEPTIONAL CHILDREN TEACHER ASSISTANT - 04/10/2018 10:29 EST Cognitive Treatment, PT Orientation : Oriented x 4 PAVEL PALMER PTA - 04/10/2018 10:29 EST [facility] [place] Topics Physical Therapy Education Grid Gait Training : Returns demonstration, Needs further teaching Role of Physical Therapy : Returns demonstration Transfer Training : Returns demonstration, Needs further teaching PAVEL PALMER PTA - 04/10/2018 10:29 EST Indication Assesessment, PT Physical Therapy Indicated : Yes PAVEL PALMER PTA - 04/10/2018 10:29 EST Plan of Care, PT PT Tx Plan/Goals Established w Patient : Yes PAVEL PALMER PTA - 04/10/2018 10:29 EST [facility] Goals Mobility/Bed Mobility LTG PT Grid Goal #1 Goal #2 Activity : Supine to sit Sit to stand Assist : Independent, modified Independent, modified Date to Meet : 04/23/2018 EST 04/23/2018 EST Goal Status : Progressing, continue Progressing, continue Comment : via logroll PAVEL PALMER PTA - 04/10/2018 10:29 EST PAVEL PALMER PTA - 04/10/2018 10:29 EST Ambulation LTG Grid Goal #1 Device : Walker, front wheel Distance : 500ft Assist : Independent, modified Date to Meet : 04/23/2018 EST Goal Status : Progressing, continue PAVEL PALMER PTA - 04/10/2018 10:29 EST Treatment Note Subjective Comment : Patient agrees to treat Assessment : Patient has met 2 LTGs this date for transfers and is safe to discharge home with home health Plan for Treatment : Continue per POC. PAVEL PALMER PTA - 04/10/2018 10:29 EST Pain Assessment Pain Comment : patient states pain isnt too bad today PAVEL PALMER PTA - 04/10/2018 10:29 EST Image 1 - Images currently included in the form version of this document have not been included in the text rendition version of the form. Anticipated Discharge Needs, OT/PT Anticipated Discharge to : Home, with home health PAVEL PALMER PTA - 04/10/2018 10:29 EST [facility] Charges PT Therap. Exercise 15 min : 1 PAVEL PALMER PTA - 04/10/2018 10:29 EST documented in this encounter Plan of Treatment Not on file documented as of this encounter Visit Diagnoses Not on filedocumented in this encounter
--- OUTSIDE RECORDS SUMMARY | 2024-10-13 13:25 | XMS_ITS | Encounter Summary ---
Author Organization [employer] ([place], [place], [place], [place]) Address [address] [place] [address] Care Team Providers Care Roller Setter Name Role Phone Unavailable Primary Care Provider Unavailabl e Encounter Details Date Type Department Care Team (Late st Contact Info) Description 04/16/2018 Transcribed Document [facility] [place] Family Medicine [facility] [place] [address] ProviderJuarez MD [facility] [place], [place] [address] Social History Tobacco Use Types Packs/Day Years Used Date Smoking Tobacco: Never Assessed Comments Unknown Sex and Gender Information Value Date Recorded Sex Assigned at Female 09/11/2021 3:33 PM CDT Legal Sex Female 3:33 PM CDT Gender Identity Female 09/11/2021 3:33 PM CDT Sexual Orientation Not on file documented as of this encounter Miscellaneous Notes * Cerner Conversion Note - Juarez ProviderMD - 04/16/2018 12:31 PM RESIDENTIAL MONITOR Post Visit Phone Call Entered On: 04/16/2018 12:33 EST Performed On: 04/16/2018 12:31 EST by JOHN NEUMANN RN Post Visit Phone Call Post Visit Phone [...] : Yes Food Intake, Post Visit : Poor Bowel/Bladder Concerns : Yes Bowel Movement Last Date : 04/16/18 Mobility Progressing or Maintained as Expected : Yes Discharge Instructions Understood : Yes Follow-Up Actions : None Post Visit Comments : Follow up post [facility], no concerns at this time. JOHN NEUMANN RN - 04/16/2018 12:31 EST documented in this encounter Plan of Treatment Not on file documented as of this encounter Visit Diagnoses Not on filedocumented in this encounter
--- OUTSIDE RECORDS SUMMARY | 2024-10-13 13:25 | XMS_ITS | Encounter Summary ---
Author Organization [employer] ([place], [place], [place], [place]) Address [address] [place] [address] Care Team Providers Care Complex Care Nurse Name Role Phone Unavailable Primary Care Provider Unavailabl e Encounter Details Date Type Department Care Team (Late st Contact Info) Description 04/10/2018 Transcribed Document [facility] [place] [address] [place] [address] ProviderJuarez MD [address], [place] [id number] Social History Tobacco Use Types Packs/Day Years [...] Conversion Note - Juarez Grant MD - 04/10/2018 1:13 PM CABLE SPLICER Patient Education Materials Follows: Spinal Fusion, Care After Refer to this sheet in the next few weeks. These instructions provide you with information about caring for yourself after your procedure. Your health care provider may also give you more specific instructions. Your treatment has been planned according to current medical practices, but problems sometimes occur. Call your health care provider if you have any problems or questions after your procedure. WHAT TO EXPECT AFTER THE PROCEDURE After your procedure, it is common to have: ??? Pain and stiffness in your back. ??? Pain around your incision. HOME CARE INSTRUCTIONS Medicines? Take [id number] and prescription medicines only as told by your health care provider. These include any pain medicines. ??? Do notdrive for 24 hours if you received a sedative. ??? Do notdrive or operate heavy machinery while taking prescription pain medicine. ??? If you were prescribed an antibiotic medicine, take it as told by your health care provider. Do not stop taking the antibiotic even if you start to feel better. Incision Care? Follow instructions from your health care provider about how to take care of your incision. Make sure you: ? Wash your hands with soap and water before you change your bandage (dressing). If soap and water are not available, use hand mice raiser. ? Change your dressing as told by your health care provider. ? Leave stitches (sutures), skin glue, or adhesive strips in place. These skin closures may need to be in place for 2 weeks or longer. If adhesive strip edges start to loosen and curl up, you may trim the loose edges. Do not remove adhesive strips completely unless your health care provider tells you to do that. ??? Keep your incision clean and dry. Do not take baths, swim, or use a hot tub until your health care provider approves. ??? Check your incision and the surrounding area every day for redness, swelling, and leaking fluid. Physical Activity? Return to your normal activities as told by your health care provider. Ask your health care provider what activities are safe for you. Rest and protect your back as much as possible. ??? Follow instructions from your health care provider about how to move and use good posture to help your spine heal. ??? Do notlift anything that is heavier than 8 lb (3.6 kg)?or the limit that your health care provider tells you until he or she says that it is safe. Avoid lifting anything over your head. ??? Do not twist or bend at the waist until your health care provider approves. ??? Avoid pushing and pulling motions. ??? Avoid sitting or lying down in the same position for long periods of time. ??? Do notbegin exercising until told by your health care provider. Ask your health care provider what kinds of exercise you can do to make your back stronger. General Instructions? If you were given a brace, use it as told by your health care provider. ??? Wear compression stockings as told by your health care provider. These stockings help to prevent blood clots and reduce swelling in your legs. ??? Do notuse tobacco products, including cigarettes, chewing tobacco, or e-cigarettes. If you need help quitting, ask your health care provider. ??? Keep all follow-up visits as told by your health care provider and, if necessary, your physical therapist. This is important. SEEK MEDICAL CARE IF: ??? You have pain that gets worse or does not get better with medicine. ??? Your legs or feet become painful or swollen. ??? You have redness, swelling, or pain at the site of your incision. ??? You have fluid, blood, or pus coming from your incision. ??? You vomit or feel nauseous. ??? You have weakness or numbness in your legs that is new or getting worse. ??? You have a fever. ??? You have trouble controlling urination or bowel movements. SEEK IMMEDIATE MEDICAL CARE IF: ??? You have severe pain. ??? You have chest pain. ??? You have trouble breathing. ??? You develop a cough. These symptoms may represent a serious problem that is an emergency. Do not wait to see if the symptoms will go away. Get medical help right away. Call your local emergency services (911 in the [place] Do not drive yourself to the hospital.? This information is not intended to replace advice given to you by your health care provider. Make sure you discuss any questions you have with your health care provider. Document Released: 09/20/2005 Document Revised: 06/24/2016 Document Reviewed: 08/16/2015 [employer] Interactive Patient Education ? 2017 [employer] documented in this encounter Plan of Treatment Not on file documented as of this encounter Visit Diagnoses Not on filedocumented in this encounter
--- OUTSIDE RECORDS SUMMARY | 2024-10-13 13:25 | XMS_ITS | Encounter Summary ---
Author Organization [employer] ([place], [place], [place], [place]) Address [address] [place] [address] Care Team Providers Care Credit Checker Name Role Phone Unavailable Primary Care Provider Unavailabl e Encounter Details Date Type Department Care Team (Late st Contact Info) Description 10/10/2021 Transcribed Document [facility] [place] [address] [place] [address] ProviderJuarez MD [address] [place] [address] Social History Tobacco Use Types [...] Date Jeronimo rded Speak language other than Thai at home Not on file 04/04/2023 Want [...] Cerner Conversion Note - Historical ProviderMD - 10/10/2021 11:53 AM CDT Nursing Discharge Summary Entered On: 10/10/2021 11:53 EDT Performed On: 10/10/2021 11:53 EDT by ALIA BARKLEY RN Discharge Documentation Discharge Date/Time : 10/10/2021 11:53 EDT Patient Disposition, General : Discharge [...] : Verbalizes understanding ALIA BARKLEY RN - 10/10/2021 11:53 EDT documented in this encounter Plan of Treatment Not on file documented as of this encounter Visit Diagnoses Not on filedocumented in this encounter
--- OUTSIDE RECORDS SUMMARY | 2024-10-13 13:25 | XMS_ITS | Encounter Summary ---
Author Organization [employer] ([place], [place], [place], [place]) Address [address] [place] [address] Care Team Providers Care Fashion Director Name Role Phone Unavailable Primary Care Provider Unavailabl e Encounter Details Date Type Department Care Team (Late st Contact Info) Description 10/15/2021 Transcribed Document [facility] [place] [address] [place] [address] ProviderJuarez MD [address] [place] [address] Social History Tobacco Use Types [...] Cerner Conversion Note - Historical ProviderMD - 10/15/2021 4:25 PM CDT Event Note Entered On: 10/15/2021 16:28 EDT Performed On: 10/15/2021 16:25 EDT by DULCE HEIN Event Note Event Date/Time : 10/15/2021 16:25 EDT Event Location : Other: added Med Event Details : Other: added Med Description of Event : Pt seen Ximena and she ask that she call with a med that showed on her UDS [place] from Dr Babin for tremors DULCE HEIN - 10/15/2021 16:25 EDT documented in this encounter Plan of Treatment Not on file documented as of this encounter Visit Diagnoses Not on filedocumented in this encounter
--- OUTSIDE RECORDS SUMMARY | 2024-10-13 13:25 | XMS_ITS | Encounter Summary ---
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 PREOPERATIVE DIAGNOSIS: Right first hallux valgus, right second hammertoe, right metatarsalgia, second metatarsal and pain. POSTOPERATIVE DIAGNOSIS: Right first hallux valgus, right second hammertoe, right metatarsalgia, and second metatarsal and pain. PROCEDURES PERFORMED: 1. Right Fortunato with modified Rivera bunionectomy, right Pavel bunionectomy to the first toe, 2. Right second toe hammertoe correction with arthroplasty, right metatarsal Chrissie osteotomy 3. C-arm visualization, 4. nerve block for pain management. PATHOLOGY: Bone. ANESTHESIA: Local with lidocaine, Marcaine plain. HEMOSTASIS: Pneumatic ankle tourniquet, right, at 250 mmHg. ESTIMATED BLOOD LOSS: Minimal. MATERIALS: Vicryl and Stratafix, Roosevelt screws and rick. INJECTABLES: See Anesthesia. COMPLICATIONS: None. INDICATIONS FOR THE PROCEDURE: The patient is a 68-year-old female with a chief complaint of right foot hammertoe and bunion and metatarsalgia. The patient has tried conservative treatment including padding, shoe gear changes, offloading without relief. At this point, the patient opted for surgical treatment. All risks, benefits, and potential complications were explained to the patient and family in great detail. The patient and family had the opportunity to ask questions. No guarantees were given or implied. PROCEDURE IN DETAIL: The patient was brought into the operating room and placed on the operating room table in supine position. Right lower extremity was prepped and draped in usual sterile fashion. Attention was then directed to the patient's right foot where we made an incision over the first and second rays. Incision was carried deeper with sharp and blunt dissection paying careful attention to any intravascular structures and the areas, which is bovied, ligated and retracted as necessary. We identified the bunion on the first toe. We removed medial eminence, sent it for Pathology as specimen. We then did a lateral release of the proximal phalanx, soft tissue structures as well as sesamoid structures as well. This allowed the sesamoids to then come underneath and we removed the bone over. We then removed the metatarsal head over and then impacted down the shaft of the first metatarsal. We used screw fixation to hold that. There was excellent fixation and alignment achieved. At this point in time, we went ahead and made an incision over the second toe and metatarsal. On the second toe, we went to the metatarsal first and did a Chrissie osteotomy, brought that back into proper alignment. Please note, the patient had metatarsal and fourth metatarsal too, also complicating the potential issue that she did not want to treat. On the second metatarsal, we did Chrissie osteotomy and then put screw fixation in it, and then we removed the overhang. Attention was then directed to the patient's second proximal interphalangeal joint. We removed the head of the proximal phalanx, sent it to Pathology as specimen. All bony prominences were fixed until there were non. The tendon structures and soft tissue capsular structures were reapproximated. The surgical site was reapproximated with 3-0 Vicryl. Skin structures with 3-0 Stratafix. The patient tolerated the procedure and anesthesia well without any complications. The patient was transported from the operating room to the recovery room for monitoring of the vital signs and neurovascular status. We did C-arm visualization. Tourniquet was deflated. Neurovascular status returned to the patient's right foot and digits. We used Acticoat, 4 x 4 gauze, Kerlix, Coban, everything was placed in neutral fashion with excellent correction we could tell on the x-ray with sesamoids under their proper alignment. /[id number] RUBENS Guzmán/TRISHA / JETT / MODL /[id number] documented in this encounter Plan of Treatment Not on file documented as of this encounter Visit Diagnoses Not on filedocumented in this encounter
--- OUTSIDE RECORDS SUMMARY | 2024-10-13 13:25 | XMS_ITS | Patient Health Record ---
Author Organization [facility] Address [address] [facility] [address] [facility] [address] [place] [id number] Care Team Providers Care Supervisor Refining Name Role Phone Lenora Montoya Primary Care Provider [phone] Patel Michelle Unavailable [phone] Louise Herrera Unavailable [phone] Allergies Allergen (clinical drug ingredient) Drug/Non Drug Allergy documented on EMR Reaction Allergy Type Onset Date Status Efudex hives Drug Allergy Active Results Component Value Reference Range Notes Urinalysis - Inhouse Reviewed date:10/27/2023 06:47:27 PM Interpretation: Performing Lab: Notes/Report: Color/Clarity yellow/clear Leuk 1+ Nitrite neg Urobili 3.2 Protein neg pH 6.0 Blood trace-intact Sp. Gr. 1.015 Ketone neg Bili neg Gluc neg P-Culture, Urine Reviewed date:10/29/2023 10:46:23 AM Interpretation:No growth Performing Lab: Notes/Report: Test performed by [facility] [address] [place] [address] , [address], [place] [address] Cedric Morales MD, Trolley Worker CLIA: [id number] Specimen Source Urine - Void Culture, Urine See Below Final Report : No growth Mammogram Reviewed date:11/01/2023 08:11:19 AM Interpretation:Negative, annual f/u Performing Lab: Notes/Report: Negative, annual f/u result Negative, annual f/u P-Culture, Urine Reviewed date:12/29/2023 09:14:13 AM Interpretation: Performing Lab: Notes/Report: Test performed by [facility], [address] , [address], [place] [address] Cedric Morales MD, Trolley Worker IZZYIA: [id number] Specimen Source Urine - Void Culture, Urine See Below See Microbiol ogy Report Escherichia coli 25,000-50,000 CFU/ml Escherichia coli Sensitivity Panel See Below Organism E. coli Antibiotic INTERP Amikacin S Ampicillin R Aztreonam S Cefepime S Cefoxitin S Ceftazidime S Ceftriaxone S Cefuroxime S Ciprofloxacin R Ertapenem S Gentamicin S Imipenem S Levofloxacin S Meropenem S Nitrofurantoin S Piperacillin/Tazo S Tetracycline R Tobramycin S Trimeth/Sulfa R S=SUSCEPTIBLE I=INTERMEDIATE R=RESISTANT Urinalysis - Inhouse Reviewed date:12/23/2023 04:02:12 PM Interpretation: Performing Lab: Notes/Report: Color/Clarity yellow Leuk 1+ Nitrite neg Urobili 3.2 Protein neg pH 5.5 Blood 2+ Sp. Gr. 1.015 Ketone neg Bili neg Gluc neg P-TSH Reviewed date:01/19/2024 01:38:24 PM Interpretation:1.44 Performing Lab: Notes/Report: Test performed by [facility] [address] [place] [address] [address], [place] [address] Cedric Morales MD, Trolley Worker CLIA: [id number] TSH 1.44 0.43-5.25 mU/L P-Magnesium Reviewed date:01/19/2024 01:38:12 PM Interpretation:2.1 Performing Lab: Notes/Report: Test performed by [facility] [address] [place] [address] [place] [address] Cedric Morales MD, Trolley Worker CLIA: [id number] Magnesium 2.1 1.6-2.4 mg/dL P-Lipid Panel Reviewed date:01/19/2024 01:37:46 PM Interpretation:LDL 33;HDL39; TG 119 Performing Lab: Notes/Report: Test performed by [facility] [address] [place] [address] [address] , [place] [address] Cedric Morales MD, Trolley Worker CLIA: [id number] Cholesterol 96 <200 mg/dL Triglycerides 119 <150 mg/dL HDL Cholesterol 39 >39 mg/dL Cholesterol / HDL Ratio 2.46 0.00-4.44 Ratio Non-HDL Cholesterol 57 <130 mg/dL LDL Cholesterol (Calculation) 33 <130 mg/dL LDL Cholesterol Levels* Less than 100 mg/dL Optimal 100 to 129 mg/dL Near Optimal/ Above Optimal 130 to 159 mg/dL Borderline High 160 to 189 mg/dL High 190 mg/dL and above Very High * Categories as recommended by the 2004 ATPIII guidelines LDL/HDL Ratio 0.9 <3.3 Ratio LDL Cholesterol Patient History Test Date: 01/13/2024 LDL Results: 33 Units: mg/dL % Change: - P-Comprehensive Metabolic Pa vamsi (CMP) Reviewed date:01/19/2024 01:37:14 PM Interpretation:BS 109 Performing Lab: Notes/Report: Test performed by [facility] [address] , [address], [place] [address] Cedric Morales MD, Trolley Worker CLIA: [id number] Sodium 139 135-145 mmol/L Potassium 4.6 3.5-5.3 mmol/L Chloride 101 97-108 mmol/L CO2 28 22-32 mmol/L Glucose 109 65-99 mg/dL BUN 12 8-23 mg/dL Creatinine 0.95 0.50-1.00 mg/dL Calcium 9.4 8.6-10.4 mg/dL eGFR by Creatinine 62 >59 mL/min/1.73m2 Protein 6.1 6.0-8.3 g/dL Albumin 4.1 3.5-5.3 g/dL Alkaline Phosphatase 76 35-121 IU/L ALT (SGPT) 15 <5-47 IU/L AST (SGOT) 19 <5-40 IU/L Bilirubin, Total 0.4 <0.2-1.2 mg/dL A/G Ratio 2.0 1.1-2.5 CBC Venipuncture (in house) Reviewed date:01/19/2024 01:37:59 PM Interpretation: Performing Lab: Notes/Report: wbc 6.9 3.5 - 10 lymph 24.9 15 - 50 mid 7.0 2 - 15 gran 68.1 35 - 80 rbc 4.65 3.5 - 5.5 hgb 13.8 11.5 - 16.5 hct 42.4 35 - 55 mcv 91.2 75 - 100 mch 29.7 25 - 35 mchc 32.6 31 - 38 platlet 354 100 - 400 Urinalysis - Inhouse Reviewed date:01/08/2024 03:52:41 PM Interpretation: Performing Lab: Notes/Report: Color/Clarity yellow Leuk 3+ Nitrite neg Urobili 3.2 Protein neg pH 6.5 Blood neg Sp. Gr. 1.015 Ketone neg Bili neg Gluc neg P-Culture, Urine Reviewed date:01/22/2024 08:48:21 AM Interpretation: Performing Lab: Notes/Report: Test performed by [facility] [address] [place] [address] , [address], [place] [address] Cedric Morales MD, Trolley Worker CLIA: [id number] Specimen Source Urine - Void Culture, Urine See Below Final Report : No growth MRI : Lumbar Spine without c ontrast Reviewed date:07/13/2024 01:10:27 PM Interpretation: Performing Lab: Notes/Report: CBC Fingerstick (in house) Reviewed date:12/15/2023 09:03:03 AM Interpretation: Performing Lab: Notes/Report: wbc 8.2 3.5 - 10 lym 23.4 15 - 50 mid 5.1 2 - 15 gran 71.5 35 - 80 rbc 4.60 3.5 - 5.5 hgb 13.7 11.5 - 16.5 hct 42.7 35 - 55 mcv 92.9 75 - 100 mch 29.9 25 - 35 mchc 32.2 31 - 38 plat 226 100 - 400 Reason For Referral Diagnosis 1 Abnormal colonoscopy (R93.3) [facility] Referring Provider First Name Michelle Referring Provider Last Name Patel Referring Provider [facility] ctice Referred Provider JAZMIN MAXWELL Notes Michelle Sweeney 02/2024 10:11:43 AM > needs FU colonoscopy as per note due to polys; needs Bernice PERDOMO Brynn 10/27/2023 12:02:02 PM > faxed to [facility] for Dr. Maxwell Referral Priority Routine Reason patient would like t o see [facility] in [place] Diagnosis 1 Bulging lumbar disc (M51.36) [facility] Referring Provider First Name Michelle Referring Provider Last Name Patel Referring Provider [facility] ctice Referred Provider Specialty Physical The rapist General Notes Roula Queen 11/10/19 24 1:44:26 PM > faxed to [facility] in [place] Referral Priority Routine Diagnosis 1 Tremors of nervous s ystem (R25.1) Referral Organization [facility] Referring Provider First Name Michelle Referring Provider Last Name Patel Referring Provider Speciality Family Pra ctice Referred Provider Neurosurgery, . Referred Provider Specialty Neurological Surgery General Notes Michelle Sweeney 06/21/2024 10:32:10 AM > has seen Dr. Simental previously with Hx of surgery; worsening back pain; will do MRI; does go to pain management, Roula Queen 06/21/2024 11:42:54 AM > submitted via [facility] website Referral Priority Routine Medications Medication SIG (Take, Route, Frequency, Duration) Notes Start Date End Date Status Multiple Vitamin - 1 cap(s) orally once a day Active Estradiol 1 MG TAKE 1 TABLET EVERY DAY; Duration: 90 Active Medrol 4 MG as directed orally daily; Duration: 6 days 10/11/2024 Active MiraLax 17 GM/SCOOP 1 scoop mixed with 8 ounces of fluid Orally twice daily 01/27/2024 Not-Taking Atorvastatin Calcium 40 MG 1 tab(s) orally once a day Active DULoxetine HCl 60 MG 1 capsule Orally twice a day; Duration: 30 days Active Ondansetron 4 MG 1 tablet on the tongue and allow to dissolve Orally q8h prn Active Losartan Potassium 50 MG 1 tab(s) orally once a day Active Vitamin C 1000 MG 1 tab(s) orally once a day Active Esomeprazole Magnesium 40 MG TAKE 1 CAPSULE EVERY DAY; Duration: 90 Active Plavix 75 MG 1 tablet Orally Once a day Not-Taking tiZANidine HCl 4 MG 1 or 2 tab(s) orally qhs Active Aspirin Adult Low Dose 81 MG 1 tab(s) orally once a day Active Percocet 7.5-325 MG 1 tab(s) orally three times a day increase by pain clinic to tid Active MetroLotion 0.75 % 1 application Externally Twice a day; Duration: 30 days 06/21/2024 Active Bactrim DS 800-160 MG 1 tablet Orally twice a day; Duration: 7 days 10/11/2024 Active Gabapentin 600 MG 1 tablet Orally twice a day Active Immunizations Vaccine Route Administration Date Status Comme nts COVID 19 Moderna Unknown 03/22/2020 Administered COVID 19 Moderna Unknown 04/19/2020 Administered COVID 19 Moderna Unknown 11/09/2020 Administered Fluzone High Dose (65yr and older) IM Intramuscular 12/17/2017 Administered Fluzone High Dose (65yr and older) IM Intramuscular 01/26/2019 Administered Fluzone High Dose (65yr and older) Unknown 01/07/2022 Administered Fluzone High Dose (65yr and older) Unknown 01/10/2023 Administered Fluzone PF Quad (6-35 months) Unknown 12/13/2019 Administered PNEUMOVAX 23 VACCINE IM Intramuscular 09/16/2019 Administe red Prevnar (PCV13) IM Intramuscular 07/01/2018 Administered Shingrix Unknown 07/01/2018 Pending Tetanus Tdap-Adacel (over 7yrs) IM Intramuscular 07/01/2018 Administered xFluzone High Dose-private (65yr&older) Unknown 01/05/2021 Administered Problems Problem Type SNOMED Code ICD Code Onset Dates Problem Status W/U Status Risk Notes Problem History of malignant melanoma of the skin (728509918157) History of melanoma (Z85.820) Active confirmed Problem Essential hypertension (44559430) Essential hypertension (I10) Active confirmed Problem Constipation (82978304) Constipation (K59.00) Active confirmed Problem Urinary incontinence (945209549) Urinary incontinence (R32) Active confirmed Problem Anxiety (54347318) Anxiety (F41.9) Active confi rmed Problem Cholelithiasis (161243083) Cholelithiasis (K80.20) Active confirmed Problem Osteopenia (822383568) Osteopenia (M85.80) Active confirmed Problem Mixed anxiety and depressive disorder (255631354) Anxiety and depression (F41.8) Active confirmed Problem Arthritis (7366443) Arthritis (M19.90) Active c onfirmed Problem Rosacea (940807690) Rosacea (L71.9) Active conf irmed Problem Coronary artery disease (47965493) CAD (coronary artery disease) (I25.10) Active confirmed Problem Mixed anxiety and depressive disorder (558790691) Depression with anxiety (F41.8) Active confirmed Problem Sciatica (70772278) Lumbago with sciatica, right side (M54.41) Active confirmed Problem Fibromyalgia (703528011) Fibromyalgia (M79.7) Active confirmed Problem Mixed hyperlipidemia (520004626) Mixed hyperlipidemia (E78.2) Active confirmed Problem Chronic pain (41434714) Other chronic pain (G89.29) Active confirmed Problem Lumbosacral arthrodesis (56307135) Fusion of spine, 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) Active confirmed Problem Sciatica (34353959) Lumbago with sciatica, unspecified side (M54.40) Active confirmed Problem Sciatica (40796565) Lumbago with sciatica, left side (M54.42) Active confirmed Problem Restless legs (72686937) Restless leg (G25.81) Active confirmed Problem Constipation (01639469) Constipation, unspecified constipation type (K59.00) Active confirmed Problem Gastroesophageal reflux disease without esophagitis (374011760) Gastroesophageal reflux disease without esophagitis (K21.9) Active confirmed Problem Depression (723810137) Depression (F32.9) Active confirmed Problem Gastroesophageal reflux disease with esophagitis (767000035) Gastroesophageal reflux disease with esophagitis (K21.0) Active confirmed Problem Moderate recurrent major depression (38580047) Moderate episode of recurrent major depressive disorder (F33.1) Active confirmed Problem Essential hypertension (25849302) Essential hypertension with goal blood pressure less than 130\/85 (I10) Active confirmed Problem Peripheral vascular disease (141044882) PAD (peripheral artery disease) (I73.9) Active confirmed Problem Acne rosacea (391551294) Acne rosacea (L71.9) Active confirmed Problem Chronic pain syndrome (196938797) Chronic pain disorder (G89.4) Active confirmed Problem Atherosclerotic heart disease of [place] coronary artery without angina pectoris (309189537370294) Coronary artery disease without angina pectoris, unspecified vessel or lesion type, unspecified whether ch[place] or transplanted heart (I25.10) Active confirmed Problem Right-sided carotid artery disease (I77.9) Active confirmed Problem Post-laminectomy syndrome (73848503) Postlaminectomy syndrome of lumbar region (M96.1) Active confirmed Problem Osteopenia following menopause (disorder) (891613360) Osteopenia after menopause (M81.0) Active confirmed Problem Gastroesophageal reflux disease with esophagitis (disorder) (450747883) Gastroesophageal reflux disease with esophagitis without hemorrhage (K21.00) Active confirmed Problem Degeneration of lumbar intervertebral disc (35685818) Bulging lumbar disc (M51.36) Active confirmed Vital Signs Heart Rate 72 /min 10/11/2024 Blood pressure diastolic 62 mm Hg 10/11/2024 Height 61 in 10/11/2024 Blood pressure systolic 122 mm Hg 10/11/2024 Weight 136.4 lbs 10/11/2024 BMI 25.77 kg/m2 10/11/2024 Encounters Encounter Location Date Provider Diagnosis [facility] [address] [facility] [address] [place] [id number] 10/27/2023 Michelle Sweeney Abnormal colonoscopy R93.3 and Hematuria R31.9 [facility] [address] [facility] [address] [place] [id number] 12/08/2023 Michelle Sweeney Leg weakness R29.898 ; Fatigue R53.83 ; Fibromyalgia M79.7 ; Tremor R25.1 ; Coronary artery disease without angina pectoris, unspecified vessel or lesion type, unspecified whether [place] or transplanted heart I25.10 and PAD (peripheral artery disease) I73.9 [facility] [address] [facility] [address] [place] [id number] 12/23/2023 Michelle Sweeney UTI (lower urinary t ract infection) N39.0 [facility] [address] [facility] [address] [place] [id number] 01/08/2024 Louise Crowdy Dysuria R30.0 ; Drug induced constipation K59.03 and Adverse effect of other opioids, initial encounter T40.2X5A [facility] [address] [facility] [address] [place] [id number] 01/13/2024 Michelle Sweeney Constipation K59.00 ; Nausea R11.0 ; Candidal vulvovaginitis B37.31 ; Fibromyalgia M79.7 ; Essential hypertension I10 ; Gastroesophageal reflux disease with esophagitis K21.0 ; Mixed hyperlipidemia E78.2 ; Tremor R25.1 ; Thyroid disorder screen Z13.29 ; Gastroesophageal reflux disease with esophagitis without hemorrhage K21.00 and Gastroesophageal reflux disease without esophagitis K21.9 [facility] [address] [facility] [address] [place] [id number] 01/27/2024 Michelle Sweeney Constipation K59.00 ; Nausea R11.0 and Gastroesophageal reflux disease without esophagitis K21.9 [facility] [address] [place] [id number] 04/19/2024 Michelle Sweeney Anxiety and depressi on F41.8 [facility] [address] [place] [id number] 06/21/2024 Michelle Sweeney Tremors of nervous system R25.1 ; Chronic pain disorder G89.4 ; Fibromyalgia M79.7 ; Lumbago with sciatica, unspecified side M54.40 ; Fusion of spine, lumbosacral region M43.27 ; Rosacea L71.9 ; Mixed hyperlipidemia E78.2 ; Essential hypertension I10 ; Moderate episode of recurrent major depressive disorder F33.1 and BMI 27.0-27.9,adult Z68.27 [facility] [address] [place] [id number] 10/11/2024 Michelle Sweeney Acne rosacea L71.9 a nd Abscess or cellulitis of face L03.211 [facility] [address] [place], [place] [id number] 10/23/2023 R Blas Montoya [facility] [address] [place], [place] [id number] 11/10/2023 Michelle Sweeney Bulging lumbar disc M51.36 [facility] [address] [place], [place] [id number] 12/29/2023 [facility] [address] [place] [address] [place], [place] [id number] 04/15/2024 Michelle Sweeney [facility] [address] [place], [place] [id number] 06/28/2024 Michellewanda Sweeney Assessments Encounter Date Diagnosis (ICD Code) Assessment Notes Treatment Notes Treatment Clinical Notes Section Notes 10/27/2023 Hematuria (ICD-10 - R31.9) good water intake 10/27/2023 Abnormal colonoscopy (ICD-10 - R93.3) 11/10/2023 Bulging lumbar disc (ICD-10 - M51.36) 12/08/2023 Fatigue (ICD-10 - R53.83) discussed at length exercise with walking program; she is interested in Silver sneakers; also discussed chair exercises; discussed that weaning from Gabapentin is the cause of her not feeling well-she was taking 800mg tid 12/08/2023 Leg weakness (ICD-10 - R29.898) encouraged exercise program 12/23/2023 UTI (lower urinary tract infection) (ICD-10 - N39.0) good water intake 01/08/2024 Dysuria (ICD-10 - R30.0) Previous urine culture showed sensitivity to macrobid but she states her symptoms did not improve. Will try cefuroxime and get another culture. 01/08/2024 Drug induced constipation (ICD-10 - K59.03) Her insurance will no longer pay for relistor. Will try amitiza. 01/13/2024 Constipation (ICD-10 - K59.00) will add Miralax prn and stop amitiza; discussed that with colonoscopy and prep the GI system was stressed and taking awhile to recover 01/13/2024 Nausea (ICD-10 - R11.0) bland diet 01/27/2024 Constipation (ICD-10 - K59.00) continue with miralax + amitza bid; good water intake 01/27/2024 Nausea (ICD-10 - R11.0) bland diet 04/19/2024 Anxiety and depression (ICD-10 - F41.8) she is also now dealing with the of her grandson ; discussed briefly 10/11/2024 Abscess or cellulitis of face (ICD-10 - L03.211) facial cleansing discussed 10/11/2024 Acne rosacea (ICD-10 - L71.9) f 06/21/2024 Tremors of nervous system (ICD-10 - R25.1) 06/21/2024 Chronic pain disorder (ICD-10 - G89.4) continue with pain management 01/13/2024 Candidal vulvovaginitis (ICD-10 - B37.31) 06/21/2024 Fibromyalgia (ICD-10 - M79.7) 01/27/2024 Gastroesophageal reflux disease without esophagitis (ICD-10 - K21.9) will wean from caffeine 01/08/2024 Adverse effect of other opioids, initial encounter (ICD-10 - T40.2X5A) 12/08/2023 Fibromyalgia (ICD-10 - M79.7) 01/13/2024 Fibromyalgia (ICD-10 - M79.7) 12/08/2023 Tremor (ICD-10 - R25.1) 06/21/2024 Lumbago with sciatica, unspecified side (ICD-10 - M54.40) worsening back pain; referral to Dr. Simental; encouraged not to lift/push or pull; she uses creams and heat andcold application 06/21/2024 Fusion of spine, lumbosacral region (ICD-10 - M43.27) 12/08/2023 Coronary artery disease without angina pectoris, unspecified vessel or lesion type, unspecified whether [place] or transplanted heart (ICD-10 - I25.10) stressed importance of starting back on Plavix as per cardiology 01/13/2024 Essential hypertension (ICD-10 - I10) 01/13/2024 Gastroesophageal reflux disease with esophagitis (ICD-10 - K21.0) 12/08/2023 PAD (peripheral artery disease) (ICD-10 - I73.9) 06/21/2024 Rosacea (ICD-10 - L71.9) 06/21/2024 Mixed hyperlipidemia (ICD-10 - E78.2) 01/13/2024 Mixed hyperlipidemia (ICD-10 - E78.2) 01/13/2024 Tremor (ICD-10 - R25.1) 06/21/2024 Essential hypertension (ICD-10 - I10) 06/21/2024 Moderate episode of recurrent major depressive disorder (ICD-10 - F33.1) 01/13/2024 Thyroid disorder screen (ICD-10 - Z13.29) 06/21/2024 BMI 27.0-27.9,adult (ICD-10 - Z68.27) 01/13/2024 Gastroesophageal reflux disease with esophagitis without hemorrhage (ICD-10 - K21.00) 01/13/2024 Gastroesophageal reflux disease without esophagitis (ICD-10 - K21.9) 10/27/2023 Other will RTC for fasting labs to include CMP, Lipid, Tsh, A1c, Iron. B12, folic acid; Magnesium 12/08/2023 Other will RTC for fasting labs to include CMP and lipids 01/13/2024 Other FU in 2 weeks ; will hold Wegovy until then; will need to reevaluate GI system 04/19/2024 Other she continues to follow with pain management and Dr. Maxwell Plan Of Treatment No Information Insurance Providers Payer Name Payer Address Payer Phone Subscriber Number Group Number Insured Name Patient Relationship to Insured Coverage Start Date Coverage End Date [employer] (MEDICARE) [address] [address] [place] [address] [id number] CARLOS BOYKIN Self - patient is the insured [employer] [address] [place] [id number] CARLOS BYOKIN Self - patient is the insured Medications Administered Medication Instructions Date of Administration Dosage Notes B-12 09/09/2018 1 mL Dexamethasone 02/28/2021 1 mL Dexamethasone 03/14/2021 1 mL Dexamethasone 05/02/2021 1 mL Dexamethasone 07/23/2021 1 mL Toradol 03/09/2021 30 mg Medical (General) History Medical History History ICD Code HTN Stress/Anxiety back pain sinus problems Hiatal Hernia Fibromyalgia GERD Tremor Surgical History Surgery Date(Month/Year) total hysterectomy 2005 lower back fusion 2014 tubal tonsilectomy back surgery mar 2018 Cardiac Stent x1 Oct 2018 Cardiac Stent 04/22/2022 Hospitalization History Reason Date(Month/Year) Back surgery Mar 2018
--- OUTSIDE RECORDS SUMMARY | 2024-10-13 13:25 | XMS_ITS | Encounter Summary ---
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 Name: ANAHI BOYKIN /Sex: 1950 Female Med Rec #: [id number] Physician: CHANEL FOX DPM-POD Financial #: [id number] Pt. Type: O Room/Bed: /1 Admit/Disch: 02/24/19 05:33:00 - Institution: [facility] Main OR PostOp Case Times Entry 1 In PACU II 02/24/19 10:51:00 Ready for PACU II 02/24/19 11:00:00 Discharge Discharge from PACU 02/24/19 11:00:00 II Last Modified By: RAMESH CEDILLO RN 02/24/19 11:47:30 [facility] Main OR PostOp Case Times Audit 02/24/19 11:47:30 Plumbing Engineer: [email or web address] Modifier: [email or web address] <+> 1 Ready for PACU II Discharge <+> 1 Discharge from PACU II Finalized By: RAMESH CEDILLO RN Document Signatures Signed By: RAMESH CEDILLO RN 02/24/19 11:47 Electronically signed by Aurea [facility] Conversion Metal Products Viewer Cerner at 07/02/2022 5:34 PM CDT documented in this encounter Plan of Treatment Not on file documented as of this encounter Visit Diagnoses Not on filedocumented in this encounter
--- OUTSIDE RECORDS SUMMARY | 2024-10-13 13:25 | XMS_ITS | Encounter Summary ---
Author Organization [employer] ([place], [place], [place], [place]) Address [address] [place] [address] Care Team Providers Care Waiter/Waitress First Class Name Role Phone Unavailable Primary Care Provider Unavailabl e Encounter Details Date Type Department Care Team (Late st Contact Info) Description 04/09/2018 Transcribed Document [facility] Radiology [address] [place] [address] Bo Butcher MD [address] [place] [address] Social History Tobacco Use Types Packs/Day Years Used Date Smoking Tobacco: Never Assessed Comments Unknown Sex and Gender Information Value Date Recorded Sex Assigned at Female 09/11/2021 3:33 PM CDT Legal Sex Female 3:33 PM CDT Gender Identity Female 09/11/2021 3:33 PM CDT Sexual Orientation Not on file documented as of this encounter Miscellaneous Notes * Cerner Conversion Note - Bo Butcher MD - 04/09/2018 12:05 PM EST Patient: ANAHI BOYKIN Age: 67 years Sex: Female : 1950 Associated Diagnoses: None Author: DAVID HADDAD PA-JOSEMANUEL 04/09/18 cc: medical management s/p lumbar fusion per Dr. Simental S: Pt is doing ok. No f'/c/s. No n/v/d. (+) gas, (-) BM. Feels like her abd is bloated. States she feels like her back brace is getting titer. No CP, SOA, palpitations. No cough or sputum. Urinating well. +post op pain. Using incentive spirometer. HPI: Patient is a 67 yo female admitted to [facility] per Dr. Simental for a lumbar fusion. Preoperatively patient was found to have advanced spondylolisthesis of the lumbar spine and elected surgical intervention after failing conservative treatment. Patient is followed perioperatively while hospitalized for medical management. Initital visit on floor - Denies prior stroke or seizure. Denies [place], CHF or cardiac arrhythmia. Denies DM. Denies [...] 1,000 mg = 1 Tab, Oral, Daily Exam: Vitals Signs (last 24 hrs) Last Charted Minimum Maximum Temp 99.2 (APR 09 06:00) 97.7 (APR 08 18:03) 99.1 (APR 08 14:38) Mon HR 86 (APR 09 06:00) 68 (APR 08 15:10) 94 (APR 08 14:45) Resp Rate 20 (APR 09 06:00) L 10 (APR 08 15:10) H 26 (APR 08 14:45) SBP 118 (APR 09 06:00) 100 (APR 08 14:38) 132 (APR 08 19:20) DBP 61 (APR 09 06:00) L 53 (APR 08 14:40) 78 (APR 08 19:20) MAP 76 (APR 09 06:00) 72 (APR 08 14:45) 90 (APR 08 19:20) SpO2 L 93 (APR 09 06:00) L 92 (APR 08 14:45) 98 (APR 08 14:38) GEN: awake, but sleepy; NAD CV: S1S2, no murmur. No LE edema Resp: CTAB, NL Abd: Soft, NT, ND +BS Skin: no rashes on inspection and palpation. Ext: No LE edema. No joint edema, erythema. no calf tenderness Neuro: A&O x 3 Data: CBC Results (Current Encounter/Past 24 Hours) WBC 9.8 K/uL 04/09/2018 03:55 Hct 34.2 % 04/09/2018 03:55 Hgb 10.5 g/dL LOW 04/09/2018 03:55 Platelet Count 257 K/uL 04/09/2018 03:55 CMP Results (Current Encounter/Past 24 Hours) eGFR >60 mL/min/1.73m2 04/09/2018 04:15 Bun/Creatinine 13.3 04/09/2018 04:15 eGFR NonAfrican >60 mL/min/1.73m2 04/09/2018 04:15 Creatinine Level 0.90 mg/dL 04/09/2018 04:15 Sodium Level 134 mmol/L LOW 04/09/2018 04:15 Potassium Level 4.4 mmol/L 04/09/2018 04:15 Chloride Level 99 mmol/L LOW 04/09/2018 04:15 Carbon Dioxide Level 30 mmol/L 04/09/2018 04:15 Anion Gap 9 04/09/2018 04:15 Blood Urea Nitrogen 12 mg/dL 04/09/2018 04:15 Glucose Level 103 mg/dL 04/09/2018 04:15 Calcium Level 7.9 mg/dL LOW 04/09/2018 04:15 preop: reviewed cbc, bmp, ua EKG Ventricular Rate : 71 BPM Atrial Rate : 71 BPM P-R Interval : 130 ms QRS Duration : 66 ms Q-T Interval : 382 ms QTC Calculation(Bezet) : 415 ms P [place] : 48 degrees R [place] : -1 degrees T [place] : 58 degrees Normal sinus rhythm Low voltage QRS, consider pulmonary disease, pericardial effusion, or normal variant Borderline ECG No previous ECGs available Confirmed by Ayla BAILEY NEZAR ([id number]), legal editor Evy Barragan ([id number]) on 04/03/2018 8:54:13 AM Impression: spondylolisthesis Lspine; [...] steroids. hx spinal cord stimulator attempted. Plan: give dulcolax tab recommend outpt sleep study, pt to f/u with PCP continue to hold amlodipine, reevalute bp in am Monitor [...] with Prateek Butcher MD *Scribed by Caitlin Hopkins documented in this encounter Plan of Treatment Not on file documented as of this encounter Visit Diagnoses Not on filedocumented in this encounter
--- OUTSIDE RECORDS SUMMARY | 2024-10-13 13:25 | XMS_ITS | Encounter Summary ---
Author Organization [employer] ([place], [place], [place], [place]) Address [address] [place] [address] Care Team Providers Care Traffic Director Name Role Phone Unavailable Primary Care Provider Unavailabl e Encounter Details Date Type Department Care Team (Late st Contact Info) Description 10/10/2021 Transcribed Document [facility] [place] [address] [place] [address] ProviderJuarez MD [address] [place] [address] Social History Tobacco Use Types [...] Date Jeronimo rded Speak language other than Korean at home Not on file 04/04/2023 Want [...] Historical ProviderMD - 10/10/2021 11:53 AM CDT [address] [address] ANAHI BOYKIN :1950 Visit Time:10/10/2021 Your Visit Summary Your Care Team Admitting Physician - LUCA BURTON PAC Attending Physician - LUCA BURTON PAC Primary Care Physician - SHAHRIAR CHUA MD-[facility] Referring Physician - IRVIN FLORES MD-[facility] These Are Your Goals No qualifying data available. Discharge Vitals Temperature 36.6 ??C Heart Rate 72 Respiratory Rate 17 Blood Pressure 127/83 What to do next Follow-Up Appointments Follow Up with LUCA BURTON PAC When Within 2 months Where: [address] [place] [phone]- Medications What How Much When Instructions Next Dose acetaminophen-oxyCODONE (Percocet 7.5 mg-325 mg oral tablet) 1 Tablet(s) Oral Three Times A Day as needed for as needed for pain amantadine (amantadine 100 mg oral [...] tablet) 1 Tablet(s) Oral Every Day gabapentin (gabapentin 800 mg oral tablet) 1 Tablet(s) Oral Three Times A Day Duration: 30 Day(s) losartan (losartan 50 mg oral tablet) 1 Tablet(s) Oral Every Day metoprolol (metoprolol succinate 25 mg oral capsule, extended release) 1 Tablet(s) Oral Every Day multivitamin (Multi [...] Keep items that you use often in yqrs-ox-ktepd places. Lower the shelves around your home [...] the way. ??? Do not use floor serbian or wax that makes floors slippery. What [...] ??? Centers for Disease Control and Prevention, [place]: www.cdc.gov ??? National [place] on Aging: www.deirdre.nih.gov Contact a doctor if: [...] provider. Document Revised: 10/04/2020 Document Reviewed: 10/04/2020 Elsevier Patient Education ?? 2020 [employer] Emergency Awareness and Preventative Care STROKE [...] Assistance with quitting is available by contacting 3-542-QTWW-NOW. This is a free resource providing counseling, [...] This Visit (last charted value for your 10/10/2021 visit) No Laboratory or Other Results This Visit Patient Name:ANAHI BOYKIN I have received and understand this information and was given the opportunity to ask questions. Patient/Die Trouble Shooter Name: Patient/Die Trouble Shooter Signature: Relationship to Patient: Clinician/Hospital Die Trouble Shooter Signature: Date: documented in this encounter Plan of Treatment Not on file documented as of this encounter Visit Diagnoses Not on filedocumented in this encounter
--- OUTSIDE RECORDS SUMMARY | 2024-10-13 13:25 | XMS_ITS | Encounter Summary ---
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 BSC obtained from [facility] and has been delivered to pt's room. Pt requests HH for PT with [facility] as she has used them in the past. Referral sent via sayda and spoke to intake, they will start care tomorrow 04/11. No other CM needs identified. Care Management Note Report : Almita Castañeda RN - 04/09/18 18:13:10 [id number] Documentation Status Complete : Yes Almita Castañeda RN - 04/10/2018 15:21 EST Ant. DC Needs/Initial Plan Anticipated Discharge Needs, Care Management : Equipment needs, Home health Anticipated Home Care Needs : Physical Therapy Anticipated Equipment Needs : [employer] Almita Castañeda RN - 04/10/2018 15:21 EST Discharge Planning Details Discharge Home : Home, Home health (related) Discharge Home Care Needs : Physical Therapy Almita Castañeda RN - 04/10/2018 15:21 EST Info/List/Choices Provided Patient Offered Choice/Affiliations Explained : Yes List/Info Provided Pt/Fam/Support Person : Durable medical equipment, Home health Almita Castañeda RN - 04/10/2018 15:21 EST Final Discharge Disposition Note-CM Final Discharge Disposition Note-CM : Pt dc'd home today. Discharge To Care Management : Home Health Services (Related/SOC within 3 days)-06 Almita Castañeda RN - 04/10/2018 15:21 EST documented in this encounter Plan of Treatment Not on file documented as of this encounter Visit Diagnoses Not on filedocumented in this encounter
--- OUTSIDE RECORDS SUMMARY | 2024-10-13 13:25 | XMS_ITS | Encounter Summary ---
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 Patient: ANAHI BOYKIN Age: 68 years Sex: Female : 1950 Associated Diagnoses: None Author: WALKER BRAVO APRN Chief Complaint R foot pain Review of Systems ROS reviewed as documented in chart no change since last seen by surgeon Health Status Allergies: Allergic Reactions (Selected) No Known Medication Allergies, Allergies (1) Active Reaction No Known Medication Allergies None Documented Current medications: (Selected) Inpatient Medications Ordered Ancef: 2 Gram, 50 mL, 100 mL/Hr, IV Piggyback, PREOP Lactated Ringers Injection intravenous solution 1,000 mL: 20 mL/Hr, IntraVENous midazolam: 2 mg, IV Push, Q10Min, PRN: Anxiety Prescriptions Prescribed Keflex 500 mg oral capsule: 1 Cap, Oral, Q8H, for 1 Day(s), 3 Cap, 0 Refill(s) acetaminophen-oxyCODONE 325 mg-7.5 mg oral tablet: 1 Tab, Oral, Q6H, PRN: for pain, 12 Tab, 0 Refill(s) promethazine 25 mg oral tablet: 1 Tab, Oral, TID, PRN: as needed for nausea/vomiting, 60 Tab, 0 Refill(s) Documented Medications Documented DULoxetine: 120 mg, Oral, Daily, 0 Refill(s) Metoprolol Succinate ER 25 mg oral tablet, extended release: 1 Tab, Oral, Daily, 0 Refill(s) NexIUM 40 mg oral delayed release capsule: 1 Cap, Oral, Daily, 30 Cap, 0 Refill(s) Vitamin C 1000 mg oral tablet: 1 Tab, Oral, Daily, 30 Tab, 0 Refill(s) acetaminophen-oxyCODONE 325 mg-5 mg oral tablet: 1 Tab, Oral, BID, 0 Refill(s) aspirin: 81 mg, Oral, Daily, 0 Refill(s) atorvastatin 40 mg oral tablet: 1 Tab, Oral, Daily, 0 Refill(s) clopidogrel 75 mg oral tablet: 1 Tab, Oral, Daily, 0 Refill(s) estradiol 1 mg oral tablet: 1 Tab, Oral, Daily, 0 Refill(s) gabapentin: 800 mg, Oral, TID, 0 Refill(s) losartan 50 mg oral tablet: 1 Tab, Oral, Daily, 0 Refill(s) tiZANidine 4 mg oral tablet: 1 Tab, Oral, At Bedtime, 180 Tab, 0 Refill(s), Home Medications (15) Active acetaminophen-oxyCODONE 325 mg-5 mg oral tablet 1 Tab, Oral, BID acetaminophen-oxyCODONE 325 mg-7.5 mg oral tablet 1 Tab, PRN, Oral, Q6H aspirin 81 mg, Oral, Daily atorvastatin 40 mg oral tablet 40 mg = 1 Tab, Oral, Daily clopidogrel 75 mg oral tablet 75 mg = 1 Tab, Oral, Daily DULoxetine 120 mg, Oral, Daily estradiol 1 mg oral tablet 1 mg = 1 Tab, Oral, Daily gabapentin 800 mg, Oral, TID Keflex 500 mg oral capsule 500 mg = 1 Cap, Oral, Q8H losartan 50 mg oral tablet 50 mg = 1 Tab, Oral, Daily Metoprolol Succinate ER 25 mg oral tablet, extended release 25 mg = 1 Tab, Oral, Daily NexIUM 40 mg oral delayed release capsule 40 mg = 1 Cap, Oral, Daily promethazine 25 mg oral tablet 25 mg = 1 Tab, PRN, Oral, TID tiZANidine 4 mg oral tablet 4 mg = 1 Tab, Oral, At Bedtime Vitamin C 1000 mg oral tablet 1,000 mg = 1 Tab, Oral, Daily , Medications (3) Active Scheduled: (1) ceFAZolin/D5w 2 Gram 50 mL, IV Piggyback, PREOP Continuous: (1) lactated ringers 1,000 mL 1,000 mL, IntraVENous, 20 mL/Hr PRN: (1) midazolam 1 mg/1 mL inj 2 mL 2 mg 2 mL, IV Push, Q10Min Problem list: All Problems Lumbar spinal stenosis / SNOMED CT 80066076 / Confirmed Spinal stenosis / SNOMED CT 519536867 / Confirmed Sleep apnea (family report) / SNOMED CT 799244356 / Confirmed Restless legs syndrome / SNOMED CT 80002609 / Confirmed Bulging lumbar disc / SNOMED CT 803632115 / Confirmed panic attacks / SNOMED CT 236521122 / Confirmed Anxiety and depression / SNOMED CT 007366569 / Confirmed Malignant melanoma of skin of left lower leg / SNOMED CT 2341475444 / Confirmed Hypertension / SNOMED CT 44181356 / Confirmed History of obstructive sleep apnea / IMO 67343653 / Confirmed History of mononucleosis / SNOMED CT 0834778309 / Confirmed in high school Hiatal hernia / SNOMED CT 657891946 / Confirmed Hemorrhoids / SNOMED CT 162870025 / Confirmed H/O dizziness / SNOMED CT 047075470 / Confirmed GERD - Gastro-esophageal reflux disease / SNOMED CT 2115848150 / Confirmed Fibromyalgia / SNOMED CT 280983692 / Confirmed Female stress incontinence / SNOMED CT 483200184 / Confirmed dry eyes / SNOMED CT 501955208 / Confirmed Carotid artery disorder (mild, right) / SNOMED CT 9542380798 / Confirmed DDD (degenerative disc disease), lumbar / SNOMED CT 70449739 / Confirmed Coronary artery disease (mild) / SNOMED CT 8103360057 / Confirmed Cardiomyopathy (questionable) / SNOMED CT 375889256 / Confirmed 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 Lis Pop denies this. Back pain / SNOMED CT 386461066 / Confirmed At risk for sleep apnea / IMO 65976260 / Confirmed Arthritis / SNOMED CT 5891738 / Confirmed H/O seasonal allergies / SNOMED CT 9381384384 / Confirmed Cataract / SNOMED CT 259901548 / Confirmed, Active Problems (27) Anxiety and depression Arthritis At risk for sleep apnea Back pain Bulging lumbar disc Cardiomyopathy (questionable) Carotid artery disorder (mild, right) Cataract Coronary artery disease (mild) DDD (degenerative disc disease), lumbar dry eyes Female stress incontinence Fibromyalgia GERD - Gastro-esophageal reflux disease H/O dizziness H/O seasonal allergies Hemorrhoids Hiatal hernia History of mononucleosis History of obstructive sleep apnea Hypertension Lumbar spinal stenosis Malignant melanoma of skin of left lower leg panic attacks Restless legs syndrome Sleep apnea (family report) Spinal stenosis R foot pain Histories Past Medical History: Resolved Wears reading eyeglasses (614433840): Resolved. Family History: No family history items [...] facet injection steroids. spinal cord stimulator attempted. Physical Examination VS/Measurements Vital Signs/Vital Measures 02/24/2019 6:00 EST Systolic BP, Arterial Line 1 132 mmHg Diastolic BP, Arterial Line 1 68 mmHg Temperature Source Temporal artery scanning Temperature Mode Fahrenheit Temperature, Fahrenheit 98.7 Deg F Heart Rate Monitored 65 bpm Respiratory Rate 16 Breaths/Min Oxygen Saturation 95 % Oxygen Therapy Mode Room air , Vitals Signs (last 24 hrs) Last Charted Minimum Maximum Temp 98.7 (FEB 24 06:00) 98.7 (FEB 24 06:00) 98.7 (FEB 24 06:00) Mon HR 65 (FEB 24 06:00) 65 (DEC 11 06:00) 65 (FEB 24 06:00) Resp Rate 16 (FEB 24 06:00) 16 (FEB 24 06:00) 16 (FEB 24 06:00) SpO2 95 (FEB 24 06:00) 95 (FEB 24 06:00) 95 (FEB 24 06:00) , Measurements from flowsheet : Measurements 02/23/2019 15:47 EST Height Source Measured Height Entry Format [place] Height/Length, SWEDISH (ft) 0 ft Height/Length SWEDISH 61 Inch CLINICALHEIGHT 154.94 cm Dike Body Weight 47 kg Weight Source Standing scale Weight Entry Format [place] Weight French lb 143.2 lb CLINICALWEIGHT 65.09 kg Body Surface Area (BSA) 1.64 m2 Body Mass Index 27.1 kg/m2 HI General: Alert and oriented, No acute distress. Eye: Pupils are equal, round and reactive to light, Extraocular movements are intact. HENT: Normocephalic, Normal hearing. Neck: Supple, Non-tender. Respiratory: Lungs are clear to auscultation, Respirations are non-labored. Cardiovascular: Normal rate, Regular rhythm, No murmur, No gallop, No edema. Gastrointestinal: Soft, Non-tender. Genitourinary: No costovertebral angle tenderness. Lymphatics: No lymphadenopathy neck, axilla, groin. Musculoskeletal: Normal strength, painful ROM R foot. Integumentary: Warm, Dry, [place]. Neurologic: Alert, Oriented. Psychiatric: Cooperative, Appropriate mood & affect. Review / Management Results review: No qualifying data available, Lab results: 02/24/2019 6:48 EST Potassium POC 4.3 mmol/L . Impression and Plan Condition: Stable. documented in this encounter Plan of Treatment Not on file documented as of this encounter Visit Diagnoses Not on filedocumented in this encounter
--- OUTSIDE RECORDS SUMMARY | 2024-10-13 13:25 | XMS_ITS | Patient Health Record ---
Author Organization [facility] Address [address] [place] [address] [place] [address] Care Team Providers Care Acute Care Nurse Practitioner Name Role Phone Ariana Puri Primary Care Provider [phone] Halley Galvan Unavailable [phone] Katrin Fitch Unavailable [phone] Allergies Allergen (clinical drug ingredient) Drug/Non Drug Allergy documented on EMR Reaction Allergy Type Onset Date Status Iodine Unknown Drug Allergy Active Reason For Referral No Information Medications Medication SIG (Take, Route, Frequency, Duration) Notes Start Date End Date Status Biotin 10 MG 1 tablet Orally Once a day Active oxyCODONE-Acetaminophen 7.5-325 MG Oral for 30 Days Active Atorvastatin Calcium 40 MG 1 tablet Oral ly Once a day Active Estradiol 1 MG Oral for 90 Days Active tiZANidine HCl 4 MG Oral for 30 Days Active DULoxetine HCl 60 MG 1 capsule Orally On ce a day Active Multi Complete - as directed Orally Active Metoprolol Succinate ER 25 MG Oral for 90 Days Active ARIPiprazole 10 MG Oral for 90 Days Active NexIUM 40 MG 1 capsule Orally Onc e a day Active Atorvastatin Calcium 40 MG 1 tablet Oral ly Once a day for 90 days 10/30/2023 Active Losartan Potassium 50 MG 1 tablet Orally Once a day Active Gabapentin 800 MG Oral for 30 Days Active Vitamin C 500 MG as directed Orally Active Melatonin 10 MG as directed Orally Active Vitamin D 50 MCG (1999) 1 capsule Ora lly Once a day Active Social History Sexual History Question Answer Notes Had sex in the past 12 months (vaginal, oral, or anal)? No Have you ever had a Sexually transmitted disease ? No Problems Problem Type SNOMED Code ICD Code Onset Dates Problem Status W/U Status Risk Notes Problem Hyperlipidemia (10444692) Hyperlipidemia (E78.5) Active confirmed Problem Insomnia (669854347) Insomnia (G47.00) Active confirmed Problem Fibromyalgia (012942953) Fibromyalgia (M79.7) Active confirmed Problem Hypertension (07059789) HTN (hypertension) (I10) Active confirmed Problem Essential tremor (153186402) Essential tremor (G25.0) Active confirmed Problem 34009951 Other chronic pain (G89.29) Active confirmed Problem Peripheral vascular disease (901465743) PAD (peripheral artery disease) (I73.9) Active confirmed Problem 329708763 Moderate episode of recurrent major depressive disorder (F33.1) Active confirmed Problem 57148509 Coronary artery disease of [place] artery of [place] heart with stable angina pectoris (I25.118) Active confirmed Encounters Encounter Location Date Provider Diagnosis [facility] [place] [address] [facility] [address] [place] [address] 12/30/2023 Katrin Fitch [facility] [place] [address] [facility] [address] [place] [address] 10/30/2023 Ariana Puri [facility] [address] [place] [address] 02/02/2024 Ariana Puri [facility] [place] [address] [facility] [address] [address] [place] [address] 02/21/2024 Halley Galvan [facility] [address] [place] [address] 10/30/2023 Ariana Puri Plan Of Treatment No Information Insurance Providers Payer Name Payer Address Payer Phone Subscriber Number Group Number Insured Name Patient Relationship to Insured Coverage Start Date Coverage End Date [employer] RISK CAP MCR ADV PPO UNASSIGNED [address] [address] [place] [address] [id number] CARLOS BOYKIN Self - patient is the insured 0 Medical (General) History Medical History History ICD Code Lumbar spondylosis Essential tremor Fibromyalgia History of melanoma Surgical History Surgery Date(Month/Year) Cholecystectomy Tonsilectomy Hysterectomy Internal fixation - screws in both hips Steven in back Hospitalization History Reason Date(Month/Year) Hysterectomy hip surgery back surgery
--- OUTSIDE RECORDS SUMMARY | 2024-10-13 13:25 | XMS_ITS | Encounter Summary ---
Author Organization [employer] ([place], [place], [place], [place]) Address [address] [place] [address] Care Team Providers Care Solar Installer Pv Name Role Phone Unavailable Primary Care Provider Unavailabl e Encounter Details Date Type Department Care Team (Late st Contact Info) Description 12/12/2021 Transcribed Document [facility] [address] [place] [address] ProviderJuarez MD [address] [place] [address] Social History Tobacco Use Types [...] Cerner Conversion Note - Historical ProviderMD - 12/12/2021 11:24 AM CDT [place] [id number] ANAHI BOYKIN :1950 Visit Time:12/12/2021 Your Visit Summary Your Care Team Admitting Physician - LUCA BURTON PAC Attending Physician - LUCA BURTON PAC Primary Care Physician - SHAHRIAR CHUA MD-[facility] Referring Physician - IRVIN FLORES MD-[facility] These Are Your Goals No qualifying data available. Discharge Vitals Temperature 36.6 ??C Respiratory Rate 18 Blood Pressure 149/77 What to do next Follow-Up Appointments Follow Up with LUCA BURTON PAC When Within 2 months Where: [address] [place] [address]- Medications What How Much When Instructions Next Dose acetaminophen-oxyCODONE (acetaminophen-oxyCODONE 325 mg-7.5 mg oral tablet) 1 Tablet(s) Oral Three Times A Day ARIPiprazole (ARIPiprazole 10 mg oral tablet with sensor) Oral Every Day ascorbic acid (Vitamin C 1000 mg oral tablet) 1 Tablet(s) Oral Every Day atorvastatin (atorvastatin 40 mg oral tablet) 1 Tablet(s) Oral Every Day clonazePAM 0.5 Milligram(s) Oral Every Day clopidogrel (clopidogrel 75 mg [...] Tablet(s) Oral Every Day multivitamin (Multi Vitamin+) naloxegol (naloxegol 12.5 mg oral tablet) 2 Tablet(s) Oral Every Morning Duration: 30 Day(s) tiZANidine (tiZANidine 4 mg oral tablet) 1 [...] Keep items that you use often in [id number] places. Lower the shelves around your home [...] the way. ??? Do not use floor costa rican or wax that makes floors slippery. What [...] Control and Prevention, STEADI: www.cdc.gov ??? National [place] on Aging: www.deirdre.nih.gov Contact a doctor if: [...] provider. Document Revised: 10/04/2020 Document Reviewed: 10/04/2020 [employer] Patient Education ?? [address] [employer] Emergency Awareness and Preventative Care STROKE [...] Assistance with quitting is available by contacting 9-566-JSTSNetMovieNOW. This is a free resource providing counseling, [...] This Visit (last charted value for your 12/12/2021 visit) No Laboratory or Other Results This Visit Patient Name:ANAHI BOYKIN I have received and understand this information and was given the opportunity to ask questions. Patient/Binder Stripper Machine Name: Patient/Binder Stripper Machine Signature: Relationship to Patient: Clinician/Hospital Binder Stripper Machine Signature: Date: documented in this encounter Plan of Treatment Not on file documented as of this encounter Visit Diagnoses Not on filedocumented in this encounter
--- OUTSIDE RECORDS SUMMARY | 2024-10-13 13:25 | XMS_ITS | Encounter Summary ---
Author Organization [employer] ([place], [place], [place], [place]) Address [address] [place] [address] Care Team Providers Care Director Behavioral Health Name Role Phone Unavailable Primary Care Provider Unavailabl e Encounter Details Date Type Department Care Team (Late st Contact Info) Description 04/14/2018 Transcribed Document [facility] [address] [employer] [address] [address] Marvin Simental MD [address] [place] [address] Social History Tobacco Use Types Packs/Day Years Used Date Smoking Tobacco: Never Assessed Comments Unknown Sex and Gender Information Value Date Recorded Sex Assigned at Female 09/11/2021 3:33 PM CDT Legal Sex Female 3:33 PM CDT Gender Identity Female 09/11/2021 3:33 PM CDT Sexual Orientation Not on file documented as of this encounter Miscellaneous Notes * Cerner Conversion Note - Marivn Simental MD - 04/14/2018 1:24 PM EST Patient: ANAHI BOYKIN Age: 67 Years Sex: Female : 1950 Admission Information Date of Admission: 08 April 2018 Date of Discharge: 10 April 2018 Consultants: 1. Bo Butcher MD ??? Hospital Medicine Admitting Diagnosis: 1. L5-S1 Severe neural foraminal stenosis with instability 2. Previous L2-5 lumbar fusion Discharge Diagnosis: 1. Same Procedure Performed: 1. L5???S1 posterior lateral fusion with 2 interbody spacers 2. Iliac bolt fixation 3. Intraoperative CT scan was stereotactic navigation Hospital Course Ms. Christian was admitted to [facility] on 08 April 2018 for a plannedlumbar fusion extension with Dr. Simental. The surgery was without consultation. See operative note for full details. Patient was extubated in the operating room. She was transferred hemodynamically stable first to the PACU and then the floor with a subfascial ANN drain and a Espino catheter. On the floor, Ms. Christian's pain was well-controlled first IV and then by mouth pain medications. Her diet was advanced. She participated with physical and occupational therapy. Internal medicine was consult to assist in her postoperative care. On postoperative day 1, she was started on subcutaneous heparin for DVT prophylaxis. On postoperative day 2, her ANN drain was removed without incident. She progressed very well with physical and occupational therapy. No postoperative needs were identified. In general her postoperative course was unremarkable. Day of discharge, her left vital signs are stable. Her postoperative pain was well-controlled. She was tolerating by mouth. She was voiding spontaneously. She was ambulating independently. She was discharged home in good condition on postoperative day 2 which was 10 April 2018. Discharge Plan 1. May resume regular diet 2. No strenuous activity. No lifting > 10lbs. No bending or twisting at the waist 3. May shower. No baths or swimming. Keep incision clean and dry. 4. Used LSO Brace while up and ambulate in 5. No driving on narcotic pain medicines 6. Follow up in 2 weeks to see the nurse for staple removal 7. Follow up in 1 month with lumbar films for first post-op visit. Discharge Medications Home Medications (9) Active amLODIPine 5 mg oral tablet 5 mg = 1 Tab, Oral, Daily Colace 100 mg oral capsule 100 mg = 1 Cap, PRN, Oral, Daily cyclobenzaprine 10 mg oral tablet 10 mg = 1 Tab, PRN, Oral, TID DULoxetine 120 mg, Oral, Daily gabapentin 800 mg, Oral, TID NexIUM 40 mg oral delayed release capsule 40 mg = 1 Cap, Oral, Daily Percocet 7.5/325 oral tablet 1 Tab, PRN, Oral, Q6H tiZANidine 4 mg oral tablet 4 mg = 1 Tab, Oral, At Bedtime Vitamin C 1000 mg oral tablet 1,000 mg = 1 Tab, Oral, Daily Blood Products No qualifying data available. documented in this encounter Plan of Treatment Not on file documented as of this encounter Visit Diagnoses Not on filedocumented in this encounter
--- OUTSIDE RECORDS SUMMARY | 2024-10-13 13:25 | XMS_ITS | Encounter Summary ---
Author Organization [employer] ([place], [place], [place], [place]) Address [address] [place] [address] Care Team Providers Care Sand Shoveler Name Role Phone Unavailable Primary Care Provider Unavailabl e Encounter Details Date Type Department Care Team (Late st Contact Info) Description 12/12/2021 Transcribed Document [facility] [place] [address] [place] [address] ProviderJuarez MD [address] [place] [address] Social History Tobacco Use Types [...] Date Jeronimo rded Speak language other than Persian at home Not on file 04/04/2023 Want [...] Conversion Note - Historical ProviderMD - 12/12/2021 11:23 AM CDT Nursing Discharge Summary Entered On: 12/12/2021 11:23 EDT Performed On: 12/12/2021 11:23 EDT by ALIA BARKLEY RN Discharge Documentation Discharge Date/Time : 12/12/2021 11:23 EDT Patient Disposition, General : Discharge Discharge [...] : Verbalizes understanding ALIA BARKLEY RN - 12/12/2021 11:23 EDT Electronically signed by Titi Villar Conversion Cement Production Plant Operator Cerner at 07/02/2022 5:34 PM CDT documented in this encounter Plan of Treatment Not on file documented as of this encounter Visit Diagnoses Not on filedocumented in this encounter
--- OUTSIDE RECORDS SUMMARY | 2024-10-13 13:25 | XMS_ITS | Encounter Summary ---
Author Organization [employer] ([place], [place], [place], [place]) Address [address] [place] [address] Care Team Providers Care Reverse Unit Operator Fisherman Name Role Phone Unavailable Primary Care Provider Unavailabl e Encounter Details Date Type Department Care Team (Late st Contact Info) Description 04/09/2018 Transcribed Document [facility] [address] [facility] [address] [address] Marvin Simental MD [address] [place] [address] Social History Tobacco Use Types Packs/Day Years [...] Conversion Note - Marvin Simental MD - 04/09/2018 8:46 AM EST Patient: ANAHI BOYKIN Age: 67 years Sex: Female : 1950 Associated Diagnoses: None Author: ELIN REDDY PA Subjective Back pain well controlled Objective VS/Measurements Vitals Signs (last 24 hrs) Last Charted Minimum Maximum Temp 99.2 (APR 09 06:00) 97.7 (APR 08 18:03) 99 (APR 08 09:00) Mon HR 86 (APR 09 06:00) 68 [...] L 92 (APR 08 14:45) 98 (APR 08:38) Incision intact with moderate bloody drainage on dressing. Isrrael drain with 200cc shift mechanic. CONSTANCE. Impression and Plan POD 1 extension of lumbar fusion with hardware from L2 through iliacs. PT/OT. Continue drain. D/C maldonado. Heparin for dvt prophylaxis. documented in this encounter Plan of Treatment Not on file documented as of this encounter Visit Diagnoses Not on filedocumented in this encounter
--- OUTSIDE RECORDS SUMMARY | 2024-10-13 13:25 | XMS_ITS | Encounter Summary ---
Author Organization [employer] ([place], [place], [place], [place]) Address [address] [place] [address] Care Team Providers Care Management Consultant Name Role Phone Unavailable Primary Care Provider Unavailabl e Encounter Details Date Type Department Care Team (Late st Contact Info) Description 12/12/2021 Transcribed Document [facility] [place] Medicine [address] [place] [address] ProviderJuarez MD [address] [place] [address] Social History Tobacco Use Types [...] Date Jeronimo rded Speak language other than Austrian at home Not on file 04/04/2023 Want [...] Conversion Note - Historical ProviderMD - 12/12/2021 10:56 AM CDT Ambulatory Intake and History Entered On: 12/12/2021 11:00 EDT Performed On: 12/12/2021 10:56 EDT by ALIREZA BAÑUELOS RN General Info Ambulatory Chief Complaint : fibromyalgia and lower back pain Primary Language : Austrian ALIREZA BAÑUELOS RN - 12/12/2021 10:56 EDT Height and Weight, Clinical Dosing Height Source : Stated Height Entry Format : [place] Height, Feet : 5 ft(Converted to: 152 cm, 60 Inch) Height, Inches : 1 Inch(Converted to: 0 ft 1 Inch, 2.54 cm) Clinical Height : 154.94 cm Weight Source : Standing scale Weight Entry Format : [place] Clinical Dosing Weight : 60 kg Weight, Pounds : 132 lb Body Surface Area (BSA) : 1.58 m2 Body Mass Index : 25 kg/m2 (HI) [place] Body Weight : 47 kg ALIREZA BAÑUELOS RN - 12/12/2021 10:56 EDT Vital Measurements Temperature Source : Temporal artery scanning Temperature Mode : Fahrenheit Temperature, Fahrenheit : 97.8 Deg F Clinical Temperature, C : 36.6 Deg C Peripheral Pulse Rate : 57 bpm (LOW) Respiratory Rate : 18 Breaths/Min Blood Pressure Location : Arm, right upper Blood Pressure Source : Non-Invasive BP Device Blood Pressure Position : Sitting Systolic Blood Pressure : 149 mmHg (HI) Diastolic Blood Pressure : 77 mmHg Oxygen Saturation : 97 % Oxygen Therapy Mode : Room air ALIREZA BAÑUELOS RN - 12/12/2021 10:56 EDT Pain Assessment Pain Assessment : Follow-up assessment Pain Scale Used : 0-10 Scale Location : Back, lower, Generalized Onset : Chronic Quality : Aching Pain Radiation : Yes Pain Radiation Location : Groin, bilateral Pain Improved by : Cold therapy, Heat therapy, Relaxation, Repositioning, Other: chiropractor Pain Intervention, Non-Drug : Cold therapy, Heat, Positioning, Relaxation, Other: chiropractor Pain Improved by Intervention : Yes Intervention, Consult : Pain management Pain Comment : 50% pain relief with medication ALIREZA BAÑUELOS RN - 12/12/2021 10:56 EDT Patient Health Questionnaire Depression Scale-9 (PHQ-9) Trouble Falling/Staying Asleep/Sleeping : Not at all Little Interest or Pleasure Doing Things : Not at all Feeling Down, Depressed, Hopeless : Not at all Feeling Tired or Little Energy : Nearly every day Poor Appetite or Overeating : Several days Feel Bad About Self/That You are Failure : Not at all Trouble Concentrating on Things : Not at all Moving/Speaking Slowly, Fidgety/Restless : Not at all Thoughts of Better Off /Hurting Self : Not at all PHQ-9 Score : 4 PHQ-9 Score Interpretation : Minimal depression (0-4) ALIREZA BAÑUELOS RN - 12/12/2021 10:56 EDT Fall Risk Scales HUGO Hx Falls Immediate/Within 3 Months : No Hugo Secondary Diagnosis : Yes HUGO Use of Ambulatory Aid : None HUGO IV Therapy or IV Access : No Hugo Gait/Transferring : Weak Hugo Mental Status : Oriented to own ability Hugo Fall Risk Score : 25 HUGO Fall Scale Risk Level : 25-45 Medium Risk [place] Fall Interventions : Adequate lighting, Non-slip footwear, Personal items within reach, Room free of clutter/spills ALIREZA BAÑUELOS RN - 12/12/2021 10:56 EDT Pain Scale Intensity : 3 ALIREZA BAÑUELOS RN - 12/12/2021 10:56 EDT Image 4 - Images currently included in the form version of this document have not been included in the text rendition version of the form. documented in this encounter Plan of Treatment Not on file documented as of this encounter Visit Diagnoses Not on filedocumented in this encounter
--- OUTSIDE RECORDS SUMMARY | 2024-10-13 13:25 | XMS_ITS | Encounter Summary ---
Author Organization [employer] ([place], [place], [place], [place]) Address [address] [place] [address] Care Team Providers Care Barrel Cleaner Name Role Phone Unavailable Primary Care Provider Unavailabl e Encounter Details Date Type Department Care Team (Late st Contact Info) Description 02/23/2019 Transcribed Document [facility] [place] [address] [place] [address] ProviderJuarez MD [address] [place] [id number] Social History Tobacco Use Types Packs/Day Years Used Date Smoking Tobacco: Never Assessed Comments Unknown Sex and Gender Information Value Date Recorded Sex Assigned at Female 09/11/2021 3:33 PM CDT Legal Sex Female 3:33 PM CDT Gender Identity Female 09/11/2021 3:33 PM CDT Sexual Orientation Not on file documented as of this encounter Miscellaneous Notes * Cerner Conversion Note - Juarez ProviderMD - 02/23/2019 3:47 PM ORACLE DATABASE DEVELOPER PAT Adult Entered On: 02/23/2019 15:50 EST Performed On: 02/23/2019 15:47 EST by SHAHIDA BENÍTEZ, CHRIS Height and Weight, Clinical Dosing Height Source : Measured Height Entry Format : [place] Height, Feet : 0 ft(Converted to: 0 cm, 0 Inch) Height, Inches : 61 Inch(Converted to: 5 ft 1 Inch, 154.94 cm) Clinical Height : 154.94 cm Weight Source : Standing scale Weight Entry Format : [place] Clinical Dosing Weight : 65.09 kg Weight, Pounds : 143.2 lb Body Surface Area (BSA) : 1.64 m2 Body Mass Index : 27.1 kg/m2 (HI) [place] Body Weight : 47 kg Kristin Cordoba, Nurse Call Center Receptionist - 02/24/2019 6:16 EST Health Histories Smoking Status : Never (less than 100 in lifetime; none in last 30 days) Smokeless Tobacco Status : Never SHAHIDA BENÍTEZ RN - 02/23/2019 15:47 EST Social History (As Of: 02/23/2019 15:50:42 EST) Tobacco: Smoking Status Never smoker. Used Tobacco, but Quit No. Second Hand Smoke Exposure: No. (Last Updated: 01/10/2015 11:10:13 EDT by EFRAIN EGAN RN) Alcohol: Alcohol Use History No. (Last Updated: 04/02/2018 11:36:42 EST by DULCE BYRD RN) Substance Abuse: Drug Use Hx: No. Use in Last 12 Months: No. (Last Updated: 01/10/2015 11:10:38 EDT by EFRAIN EGAN, CHRIS) Home/Environment: Lives with Alone. (Last Updated: 01/10/2015 11:10:32 EDT by EFRAIN EGAN, CHRIS) Employment/School: Retired (Last Updated: 01/10/2015 11:10:24 EDT by EFRAIN EGAN, CRHIS) Infectious Disease History Fever/Chills Last 48 Hours : No Kristin Cordoba, Nurse Call Center Receptionist - 02/24/2019 6:16 EST Infectious Disease History : Chicken pox/Shingles, Influenza, Measles, Mononucleosis, Mumps Travel To Regions with Travel Advisories : No Travel Outside [place] Within Last 30 Days : No Contact With Traveler to Advisory Region : No Tuberculosis Symptoms : None SHAHIDA BENÍTEZ RN - 02/23/2019 15:47 EST Anesthesia/Transfusion History Family History of Anesthesia Reaction : No prior transfusion(s) Transfusion History : Prior anesthesia without reaction Family History of Anesthesia Reaction : None SHAHIDA BENÍTEZ RN - 02/23/2019 15:47 EST Advance Directive Patient has Advance Directive *Q : No, patient refuses Advance Directive information SHAHIDA BENÍTEZ RN - 02/23/2019 15:47 EST [place] Suicide Severity Rating Scale (C-SSRS) CSSRS Past Month Wish to be : No CSSRS Past Month Suicidal Thoughts : No CSSRS Lifetime Suicide Behavior : No Suicide Severity Rating Score : 0 Suicide Severity Rating : No Additional Care Required at this time SHAHIDA BENÍTEZ RN - 02/23/2019 15:47 EST Psychosocial History Do You Have a History of the Following? : Anxiety, Depression, Other: panic attacks (occasional) Currently in Unsafe Situation : No SHAHIDA BENÍTEZ RN - 02/23/2019 15:47 EST Education Topics, Periop Preadmission Perioperative Education Grid Arrival Time/Place : Verbalizes understanding NPO Status/Directions : Verbalizes understanding Remove Body Piercings : Verbalizes understanding Responsible Adult : Verbalizes understanding Take/Hold Medications Pre-Procedure : Verbalizes understanding SHAHIDA BENÍTEZ RN - 02/23/2019 15:47 EST General Info Preferred Name : Anahi Support Person/Patient Optomechanical Engineer : Yes Support Person/Pt Rep Name : Carmen Smith Support Person/Pt Rep Contact Information : [phone] Want Family/Rep/Phys Notified of Admit : No Emergency Contact #1 : Carmen Smith Emergency Contact #1 Emergency Contact #1 Relationship : daughter Emergency Contact #2 : ` Emergency Contact #2 Phone Number : ` Emergency Contact #2 Relationship : ` Primary Language : Welsh Preferred Communication Mode : Verbal Communication Barrier : None SHAHIDA BENÍTEZ RN - 02/23/2019 15:47 EST Randy Scale Randy Sensory Perception : No impairment Randy Moisture : Rarely moist Randy Activity : Walks occasionally Randy Mobility : No limitation Randy Nutrition : Adequate Randy Friction and Shear : No apparent problem Randy Score : 21 Kristin Cordoba, Nurse Call Center Receptionist - 02/24/2019 6:16 EST Sleep Apnea Risk Assmt BiPAP/CPAP Ordered for Home Use : Yes Hx of Obstructive Sleep Apnea Diagnosis : Yes BiPAP/CPAP Used at Home : Yes Kristin Cordoba Nurse Call Center Receptionist - 02/24/2019 6:16 EST Age over 50 Years Old : Yes Gender Male : No SHAHIDA BENÍTEZ RN - 02/23/2019 15:47 EST documented in this encounter Plan of Treatment Not on file documented as of this encounter Visit Diagnoses Not on filedocumented in this encounter
--- OUTSIDE RECORDS SUMMARY | 2024-10-13 13:25 | XMS_ITS | Encounter Summary ---
Author Organization [employer] ([place], [place], [place], [place]) Address [address] [place] [address] Care Team Providers Care Mosaic Floor Layer Name Role Phone Unavailable Primary Care Provider Unavailabl e Encounter Details Date Type Department Care Team (Late st Contact Info) Description 01/15/[address] [facility] [place] Medicine [address] [place] [address] ProviderJuarez MD [address], [place] [id number] Social History Tobacco Use Types Packs/Day Years [...] Conversion Note - Juarez ProviderMD - 01/15/2021 12:31 PM CDT PAT Adult Entered On: 01/15/2021 12:34 EDT Performed On: 01/15/2021 12:31 EDT by Sarah Blue RN Vital Measurements Temperature Source : Temporal artery scanning Temperature Mode : Fahrenheit Temperature, Fahrenheit : 98.4 Deg F Clinical Temperature, C : 36.9 Deg C Pulse Method : Pulse Oximetry Peripheral Pulse Rate : 65 bpm Pulse Rhythm : Regular Respiratory Rate : 16 Breaths/Min Blood Pressure Location : Arm, left upper Blood Pressure Source : Non-Invasive BP Device Blood Pressure Position : Sitting Systolic Blood Pressure : 141 mmHg (HI) Diastolic Blood Pressure : 67 mmHg Oxygen Saturation : 95 % Oxygen Therapy Mode : Room air Sarah Blue RN - 01/15/2021 12:31 EDT Pain Assessment Pain Assessment : Initial assessment Pain Scale Goal : 4 Pain Scale Used : 0-10 Scale Sarah Blue RN - 01/15/2021 12:31 EDT Height and Weight, Clinical Dosing Height Source : Stated Height Entry Format : Walsh Height, Feet : 5 ft(Converted to: 152 cm, 60 Inch) Height, Inches : 1 Inch(Converted to: 0 ft 1 Inch, 2.54 cm) Clinical Height : 154.94 cm Weight Source : Standing scale Weight Entry Format : Walsh Clinical Dosing Weight : 60.45 kg Weight, Pounds : 133 lb Body Surface Area (BSA) : 1.59 m2 Body Mass Index : 25.2 kg/m2 (HI) Banks Body Weight : 47 kg Sarah Blue RN - 01/15/2021 12:31 EDT Health Histories Smoking Status : Never (less than 100 in lifetime; none in last 30 days) Smokeless Tobacco Status : Never Sarah Blue RN - 01/15/2021 12:31 EDT Social History (As Of: 01/15/2021 12:34:50 EDT) Tobacco: Smoking Status Never smoker. Used Tobacco, [...] Updated: 01/10/2015 11:10:24 EDT by EFRAIN EGAN, CHRIS) Infectious Disease History Does patient have symptoms of COVID-19? : No Has the Patient Been Tested for COVID-19 in the last 14 days? : Yes, Patient stated results Negative Does the Patient state known exposure to a COVID-19 positive case in the last 14 days? : No Patient Vaccinated for COVID-19 : Fully vaccinated Sarah Blue RN - 01/15/2021 12:31 EDT Infectious Disease Risk Screening Grid Cough < 2 wks of unknown origin : NO Cough > 2 weeks : NO Blood in Sputum : NO Fever or self-reported Fever : NO Rash of unknown origin : NO Headache : NO Stiff neck : NO Night Sweats : NO Unexplained Weight Loss : NO Diarrhea (3 episode per day) : NO Sarah Blue RN - 01/15/2021 12:31 EDT Patient Masked? : Yes Physical contact outside [place] in the last 30 days : No Hospitalized in Foreign Country : No Infectious Disease History : Chicken pox/Shingles, Influenza, Measles, Mononucleosis, Mumps INF Disease TB Screening Calc : 0 INF Disease Recent Travel Calc : 0 Sarah Blue RN - 01/15/2021 12:31 EDT COVID19 PreProcedure Screening Is this an Emergent or Add on Procedure? : No Date PreProcedure COVID-19 test known? : Yes Date of PreProcedure COVID-19 : 01/11/2021 EDT Has patient been isolated since the test : Yes Exposed to COVID19 symptoms since test? : No Sarah Blue RN - 01/15/2021 12:31 EDT Anesthesia/Transfusion History Family History of Anesthesia Reaction : No prior transfusion(s) Transfusion History : Prior anesthesia without reaction Family History of Anesthesia Reaction : None Sarah Blue RN - 01/15/2021 12:31 EDT Advance Directive Patient has Advance Directive *Q : No, patient refuses Advance Directive information Sarah Blue RN - 01/15/2021 12:31 EDT Spiritual/Cultural Needs Any Spiritual/Cultural Needs or Requests : No Sarah Blue RN - 01/15/2021 12:31 EDT [place] Suicide Severity Rating Scale (C-SSRS) CSSRS Past Month Wish to be : No CSSRS Past Month Suicidal Thoughts : No CSSRS Lifetime Suicide Behavior : No Suicide Severity Rating Score : 0 Suicide Severity Rating : No Additional Care Required at this time Sarah Blue RN - 01/15/2021 12:31 EDT Psychosocial History Do You Have a History of the Following? : Anxiety, Depression, Other: panic attacks (occasional) Currently in Unsafe Situation : No Sarah Blue RN - 01/15/2021 12:31 EDT Teaching/Learning Assessment Barriers To Learning : None evident Individuals Taught : Patient Readiness to Learn : Cooperative Baseline Knowledge of Topic : Good Readiness to Learn : Explanation, Printed materials Learning Style Preferences Patient : Printed materials, Verbal explanation Learning Style Preferences Family : Printed materials, Verbal explanation Sarah Blue RN - 01/15/2021 12:31 EDT Education Topics, Periop Preadmission Perioperative Education Grid IV's : Verbalizes understanding NPO Status/Directions : Verbalizes understanding Responsible Adult : Verbalizes understanding Sarah Blue RN - 01/15/2021 12:31 EDT General Info Preferred Name : Anahi Arrived From : Home Mode of Arrival on Unit : Ambulatory Patient Arrival Date/Time : 01/15/2021 11:55 EDT Legal Guardian : Unaccompanied Support Person/Patient Flame Cutting Machine Operator Helper : Yes Support Person/Pt Rep Name : Carmen Smith Support Person/Pt Rep Contact Information : [phone] Want Family/Rep/Phys Notified of Admit : No Emergency Contact #1 : Errol Emergency Contact #1 Emergency Contact #1 Relationship : friend Emergency Contact #2 : . Emergency Contact #2 Phone Number : . Emergency Contact #2 Relationship : . Information Obtained From : Patient Primary Language : Chadian Preferred Communication Mode : Verbal Communication Barrier : None Bicycle I Assembler Needed : No Objects to Sharing Info w Family : No Clinical Trials Participant *Q : None CTP, None *Q : Yes Sarah Blue RN - 01/15/2021 12:31 EDT Randy Scale Randy Sensory Perception : No impairment Randy Moisture : Rarely moist Randy Activity : Walks frequently Randy Mobility : No limitation Randy Nutrition : Adequate Randy Friction and Shear : No apparent problem Randy Score : 22 Sarah Blue RN - 01/15/2021 12:31 EDT Sleep Apnea Risk Assmt Hx of Obstructive [...] Sleep Apnea Risk Level Score : 1 Sarah Blue RN - 01/15/2021 12:31 EDT Pain Scale Intensity : 0 Sarah Blue RN - 01/15/2021 12:31 EDT Image 4 - Images currently included in the form version of this document have not been included in the text rendition version of the form. documented in this encounter Plan of Treatment Not on file documented as of this encounter Visit Diagnoses Not on filedocumented in this encounter
--- OUTSIDE RECORDS SUMMARY | 2024-10-13 13:25 | XMS_ITS | Encounter Summary ---
Author Organization [employer] ([place], [place], [place], [place]) Address [address] [place] [address] Care Team Providers Care Motors Assembler Name Role Phone Unavailable Primary Care Provider Unavailabl e Encounter Details Date Type Department Care Team (Late st Contact Info) Description 02/24/2019 Transcribed Document [facility] [place] [address] [place] [address] ProviderJuarez MD [address] [place], [place] [id number] Social History Tobacco Use Types Packs/Day Years [...] Conversion Note - Juarez Grant MD - 02/24/2019 10:50 AM SALVAGE MECHANIC Patient Education Materials Follows: General Anesthesia, Adult, Care After This sheet gives you information about how to care for yourself after your procedure. Your health care provider may also give you more specific instructions. If you have problems or questions, contact your health care provider. What can I expect after the procedure? After the procedure, the following side effects are common: ??? Pain or discomfort at the IV site. ??? Nausea. ??? Vomiting. ??? Sore throat. ??? Trouble concentrating. ??? Feeling cold or chills. ??? Weak or tired. ??? Sleepiness and fatigue. ??? Soreness and body aches. These side effects can affect parts of the body that were not involved in surgery. Follow these instructions at home: For at least 24 hours after the procedure: ??? Have a responsible adult stay with you. It is important to have someone help care for you until you are awake and alert. ??? Rest as needed. ??? Do not: ? Participate in activities in which you could fall or become injured. ? Drive. ? Use heavy machinery. ? Drink alcohol. ? Take sleeping pills or medicines that cause drowsiness. ? Make important decisions or sign legal documents. ? Take care of children on your own. Eating and drinking ??? Follow any instructions from your health care provider about eating or drinking restrictions. ??? When you feel hungry, start by eating small amounts of foods that are soft and easy to digest (bland), such as toast. Gradually return to your regular diet. ??? Drink enough fluid to keep your urine pale yellow. ??? If you vomit, rehydrate by drinking water, juice, or clear broth. General instructions ??? If you have sleep apnea, surgery and certain medicines can increase your risk for breathing problems. Follow instructions from your health care provider about wearing your sleep device: ? Anytime you are sleeping, including during daytime naps. ? While taking prescription pain medicines, sleeping medicines, or medicines that make you drowsy. ??? Return to your normal activities as told by your health care provider. Ask your health care provider what activities are safe for you. ??? Take [id number] and prescription medicines only as told by your health care provider. ??? If you smoke, do not smoke without supervision. ??? Keep all follow-up visits as told by your health care provider. This is important. Contact a health care provider if: ??? You have nausea or vomiting that does not get better with medicine. ??? You cannot eat or drink without vomiting. ??? You have pain that does not get better with medicine. ??? You are unable to pass urine. ??? You develop a skin rash. ??? You have a fever. ??? You have redness around your IV site that gets worse. Get help right away if: ??? You have difficulty breathing. ??? You have chest pain. ??? You have blood in your urine or stool, or you vomit blood. Summary ??? After the procedure, it is common to have a sore throat or nausea. It is also common to feel tired. ??? Have a responsible adult stay with you for the first 24 hours after general anesthesia. It is important to have someone help care for you until you are awake and alert. ??? When you feel hungry, start by eating small amounts of foods that are soft and easy to digest (bland), such as toast. Gradually return to your regular diet. ??? Drink enough fluid to keep your urine pale yellow. ??? Return to your normal activities as told by your health care provider. Ask your health care provider what activities are safe for you. This information is not intended to replace advice given to you by your health care provider. Make sure you discuss any questions you have with your health care provider. Document Released: 06/09/2001 Document Revised: 10/17/2017 Document Reviewed: 10/17/2017 [email or web address] Interactive Patient Education ? 2019 [employer] documented in this encounter Plan of Treatment Not on file documented as of this encounter Visit Diagnoses Not on filedocumented in this encounter
--- OUTSIDE RECORDS SUMMARY | 2024-10-13 13:25 | XMS_ITS | Encounter Summary ---
Author Organization [employer] ([place], [place], [place], [place]) Address [address] [place] [address] Care Team Providers Care Integration Manager Name Role Phone Unavailable Primary Care Provider Unavailabl e Encounter Details Date Type Department Care Team (Late st Contact Info) Description 04/10/2018 Transcribed Document [facility] [place] [address] [place] [address] ProviderJuarez MD [address] [place], [place] [id number] Social History Tobacco Use Types Packs/Day Years [...] - Juarez ProviderMD - 04/10/2018 2:00 AM INTERNIST MEDICAL DOCTOR MD Picker And Packer Details Entered On: 04/10/2018 3:04 EST Performed On: 04/10/2018 2:00 EST by Rafa Baptiste, Rn Order Details Transport Mode Order Detail : Wheelchair Isolation Precautions Order Detail : Standard Precautions Order Detail : 0 IV Order Detail : 1 Oxygen Order Detail : 1 Nurse Collect Order Detail : 0 Lift/Transfer : Minimal Central Line Order Detail : No Room Service : Appropriate Arterial Line : No Rafa Baptiste, Rn - 04/10/2018 3:04 EST documented in this encounter Plan of Treatment Not on file documented as of this encounter Visit Diagnoses Not on filedocumented in this encounter
--- OUTSIDE RECORDS SUMMARY | 2024-10-13 13:25 | XMS_ITS | Referral Summary ---
Author Organization [employer] ([place], [place], [place], [place]) Address [address] [place] [address] Care Team Providers Care Excavator Operator Name Role Phone Unavailable Primary Care [...] mouth daily. Active naloxone (Narcan) 4 mg/actuation [place] 1 spray by Nasal route as needed [...] Active Active Problems No known active problems Social History Tobacco Use Types Packs/Day Years [...] Date Jeronimo rded Speak language other than Spanish at home Not on file 04/04/2023 Want [...] 02/11/2022 10:57 AM EST Plan of Treatment Not on file Medical Devices Explanted Type Area Marine Service Operator Device Identifier Shelf Expiration Date Model / Serial / Lot Spine Scs Spine Description:Explanted about 7 yrs ago Insurance [employer]
--- OUTSIDE RECORDS SUMMARY | 2024-10-13 13:25 | XMS_ITS | Encounter Summary ---
Author Organization [employer] ([place], [place], [place], [place]) Address [address] [place] [address] Care Team Providers Care Profiling Machine Setup Operator Name Role Phone Unavailable Primary Care Provider Unavailabl e Encounter Details Date Type Department Care Team (Late st Contact Info) Description 02/24/2019 Transcribed Document [facility] [place] Family Medicine [address] [place] [address] ProviderJuarez MD [address], [place] [id number] Social History Tobacco Use Types Packs/Day Years [...] - Juarez ProviderMD - 02/24/2019 9:02 AM SALESPERSON BURIAL NEEDS [facility] Main OR Preop Summary Primary Physician: CHANEL FOX, RUBENS-POD Finalized Date/Time: 02/24/19 13:38:31 Pt. Name: ANAHI BOYKIN /Sex: 1950 Female Med Rec #: [id number] Physician: CHANEL FOX DPM-POD Financial #: [id number] Pt. Type: O Room/Bed: /1 Admit/Disch: 02/24/19 05:33:00 - Institution: [facility] PreOp Case Times Entry 1 In Preop 02/24/19 05:56:00 Ready for Holding n/a Room Patient Ready for 12/11/19 07:00:00 Surgery Patient Out of Preop 02/24/19 07:29:00 Patient Out of n/a Holding Room Last Modified By: Kristin Cordoba Nurse Retail Sales Lead 02/24/19 13:38:29 Finalized By: Kristin Cordoba Nurse Miner Assistant Signatures Signed By: Kristin Cordoba Nurse Retail Sales Lead 02/24/19 13:38 Electronically signed by Aurea [facility] Conversion Fur Drummer Cerner at 07/02/2022 5:34 PM CDT documented in this encounter Plan of Treatment Not on file documented as of this encounter Visit Diagnoses Not on filedocumented in this encounter
--- OUTSIDE RECORDS SUMMARY | 2024-10-13 13:25 | XMS_ITS | Encounter Summary ---
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 [address] , [place] [address] Patient Copy Patient Information: Name: ANAHI BOYKIN Current Date: 04/10/2018 13:13:47 : 1950 Patient Address: [address] [place] [address] Patient Attending Physician: THAO MURPHY MD-[facility] Primary Care Provider: SHAHRIAR CHUA MD-[facility] Primary Care Provider Discharge Diagnosis: 1:Spinal instability Weight on Admission: 143 lb, 6 oz Comment: Follow-up Instructions: With: Address: When: THAO MURPHY [address] [place] [address], [address] [place] [address] [id number] Business (1) 12:45 PM Comments: 05/11/18 xrays at 12:45pm with appointment to follow at 1:30pm With: Address: When: THAO MURPHY [address] [place] [address], [address] [place] [address] Business (1) 11:00 AM Comments: staple removal Discharge Instructions: Diet after Discharge: Resume usual diet as tolerated Activity after Discharge: As tolerated, No strenuous activities, No heavy lifting over 10 pounds, Other: NO Bending, Lifting or Twisting Driving after Discharge: Do not drive Showering/Bathing:May shower Wound/Incision Care after Discharge: Keep operative site/wound site clean and dry Immunizations Documented During Stay: No Immunizations Found Special Instructions: No NSAID/s for eight weeks after surgery STOP the following medications until otherwise instructed: 1) estradiol Heart Failure Discharge Instructions (if any): Stroke Related Discharge Instructions (if any): Warfarin Related Discharge Instructions (if any): Final Medication List: [facility], [address] [address], [phone] docusate (Colace 100 mg oral capsule) 1 Capsule(s) Oral Every Day as needed as needed for constipation. hold for loose stools. Refills: 0. Patient Instructions: New medication. Prescription sent to [facility] polyethylene glycol 3350 (MiraLax oral powder for reconstitution) 17 Gram(s) Oral Every Day. hold for loose stools. Refills: 0. Patient Instructions: New medication. Prescription sent to [facility] Other Medications acetaminophen-oxyCODONE (Percocet 7.5/325 oral tablet) 1 Tablet(s) Oral Every 6 Hours as needed for pain. Refills: 0. Patient Instructions: Please note: new dose and directions. Prescription provided. amLODIPine (amLODIPine 5 mg oral tablet) 1 Tablet(s) Oral Every Day. HOLD if Systolic Blood Pressure (top number) is less than 130. ascorbic acid (Vitamin C 1000 mg oral tablet) 1 Tablet(s) Oral Every Day. cyclobenzaprine (cyclobenzaprine 10 mg oral tablet) 1 Tablet(s) Oral Three Times A Day as needed as needed for spasm. Refills: 0. Patient Instructions: New medication. Prescription provided. DULoxetine 120 Milligram(s) Oral Every Day. esomeprazole (NexIUM 40 mg oral delayed release capsule) 1 Capsule(s) Oral Every Day. gabapentin 800 Milligram(s) Oral Three Times A Day. tiZANidine (tiZANidine 4 mg oral tablet) 1 Tablet(s) Oral At Bedtime. Patient Allergies: Percocet 10/325 Medication Instructions: Take your medications faithfully. Do NOT skip [...] cramping, rapid heartbeat, difficulty sleeping, and nervousness. Patient education materials: Spinal Fusion, Care After Refer to this [...] your incision. HOME CARE INSTRUCTIONS Medicines? Take vavp-ljz-ihrqwsl and prescription medicines only as told by [...] and water are not available, use hand ground products director. ? Change your dressing as told by [...] 09/20/2005 Document Revised: 06/24/2016 Document Reviewed: 08/16/2015 Elsevier Interactive Patient Education ? 2017 [employer] Medication Leaflets: cyclobenzaprine ([place]) Amrix, Comfort Pac with Cyclobenzaprine, Fexmid What is the most important information I should know about cyclobenzaprine? You should not use cyclobenzaprine if you have a thyroid disorder, heart block, congestive heart failure, a heart rhythm disorder, or you have recently had a heart attack. Do not use cyclobenzaprine if you have taken an MAO inhibitor in the past 14 days, such as isocarboxazid, linezolid, phenelzine, rasagiline, selegiline, or tranylcypromine. What is cyclobenzaprine? Cyclobenzaprine is a muscle relaxant. It works by blocking nerve impulses (or pain sensations) that are sent to your brain. Cyclobenzaprine is used together with rest and physical therapy to relieve muscle spasms caused by painful conditions such as an injury. Cyclobenzaprine may also be used for purposes not listed in this medication guide. What should I discuss with my healthcare provider before taking cyclobenzaprine? You should not use cyclobenzaprine if you are allergic to it, or if you have: ? a thyroid disorder; ?? heart block, heart rhythm disorder, congestive heart failure; or ?? if you have recently had a heart attack. Cyclobenzaprine is not approved for use by anyone younger than 15 years old. Do not use cyclobenzaprine if you have taken an MAO inhibitor in the past 14 days. A dangerous drug interaction could occur. MAO inhibitors include isocarboxazid, linezolid, phenelzine, rasagiline, selegiline, and tranylcypromine. Some medicines can interact with cyclobenzaprine and cause a serious condition called serotonin syndrome. Be sure your doctor knows if you also take stimulant medicine, opioid medicine, herbal products, or medicine for depression, mental illness, Parkinson's disease, migraine headaches, serious infections, or prevention of nausea and vomiting. Ask your doctor before making any changes in how or when you take your medications. Tell your doctor if you have ever had: ? liver disease; ?? glaucoma; ?? enlarged prostate; or ?? problems with urination. It is not known whether this medicine will harm an unborn baby. Tell your doctor if you are or plan to become . It may not be safe to breast-feed while using this medicine. Ask your doctor about any risk. Older adults may be more sensitive to the effects of this medicine. How should I take cyclobenzaprine? Follow all directions on your prescription label and read all medication guides or instruction sheets. Your doctor may occasionally change your dose. Use the medicine exactly as directed. Cyclobenzaprine is usually taken once daily for only 2 or 3 weeks. Follow your doctor's dosing instructions very carefully. Swallow the capsule whole and do not crush, chew, break, or open it. Take the medicine at the same time each day. Call your doctor if your symptoms do not improve after 3 weeks, or if they get worse. Store at room temperature away from moisture, heat, and light. What happens if I miss a dose? Take the medicine as soon as you can, but skip the missed dose if it is almost time for your next dose. Do not take two doses at one time. What happens if I overdose? Seek emergency medical attention or call the Poison Help line at . An overdose of cyclobenzaprine can be fatal. Overdose symptoms may include severe drowsiness, vomiting, fast heartbeats, tremors, agitation, or hallucinations. What should I avoid while taking cyclobenzaprine? Avoid driving or hazardous activity until you know how this medicine will affect you. Your reactions could be impaired. Avoid drinking alcohol. Dangerous side effects could occur. What are the possible side effects of cyclobenzaprine? Get emergency medical help if you have signs of an allergic reaction: hives; difficult breathing; swelling of your face, lips, tongue, or throat. Stop using cyclobenzaprine and call your doctor at once if you have: ? fast or irregular heartbeats; ?? chest pain or pressure, pain spreading to your jaw or shoulder; or ?? sudden numbness or weakness (especially on one side of the body), slurred speech, balance problems. Seek medical attention right away if you have symptoms of serotonin syndrome, such as: agitation, hallucinations, fever, sweating, shivering, fast heart rate, muscle stiffness, twitching, loss of coordination, nausea, vomiting, or diarrhea. Serious side effects may be more likely in older adults. Common side effects may include: ? drowsiness, tiredness; ?? headache, dizziness; ?? dry mouth; or ?? upset stomach, nausea, constipation. This is not a complete list of side effects and others may occur. Call your doctor for medical advice about side effects. You may report side effects to FDA at 7-638-BWK-0377. What other drugs will affect cyclobenzaprine? Using cyclobenzaprine with other drugs that make you drowsy can worsen this effect. Ask your doctor before using opioid medication, a sleeping pill, a muscle relaxer, or medicine for anxiety or seizures. Tell your doctor about all your other medicines, especially: ? bupropion (Zyban, for smoking cessation); ?? meperidine; ?? tramadol; ?? verapamil; ?? cold or allergy medicine that contains an antihistamine (Benadryl and others); ?? medicine to treat Parkinson's disease; ?? medicine to treat excess stomach acid, stomach ulcer, motion sickness, or irritable bowel syndrome; ?? medicine to treat overactive bladder; or ?? bronchodilator asthma medication. This list is not complete. Other drugs may affect cyclobenzaprine, including prescription and fsqr-hwh-zfwhjqu medicines, vitamins, and herbal products. Not all possible drug interactions are listed here. Where can I get more information? Your pharmacist can provide more information about cyclobenzaprine. Remember, keep this and all other medicines out of the reach of children, never share your medicines with others, and use this medication only for the indication prescribed. Every effort has been made to ensure that the information provided by [employer] is accurate, up-to-date, and complete, but no guarantee is made to that effect. Drug information contained herein may be time sensitive. [employer] information has been compiled for use by healthcare practitioners and consumers in the [place] and therefore [employer] does not warrant that uses outside of the [place] are appropriate, unless specifically indicated otherwise. [employer] drug information does not endorse drugs, diagnose patients or recommend therapy. [employer] drug information is an informational resource designed to assist licensed healthcare practitioners in caring for their patients and/or to serve consumers viewing this service as a supplement to, and not a substitute for, the expertise, skill, knowledge and judgment of healthcare practitioners. The absence of a warning for a given drug or drug combination in no way should be construed to indicate that the drug or drug combination is safe, effective or appropriate for any given patient. [employer] does not assume any responsibility for any aspect of healthcare administered with the aid of information [employer] provides. The information contained herein is not intended to cover all possible uses, directions, precautions, warnings, drug interactions, allergic reactions, or adverse effects. If you have questions about the drugs you are taking, check with your doctor, nurse or pharmacist. Copyright 9508-6519 [employer]. Version: 5.01. Revision Date: 2017. acetaminophen and oxycodone (a SEET a MIN oh fen and OX i KOE done) Percocet 10/325, Percocet 2.5/325, Percocet 5/325, Percocet 7.5/325, Primlev, Roxicet, Xartemis XR What is the most important information I should know about acetaminophen and oxycodone? MISUSE OF OPIOID MEDICINE CAN CAUSE ADDICTION, OVERDOSE, OR . Keep the medication in a place where others cannot get to it. An overdose of acetaminophen can damage your liver or cause . Call your doctor at once if you have pain in your upper stomach, loss of appetite, dark urine, or jaundice (yellowing of your skin or eyes). Taking opioid medicine during may cause life-threatening withdrawal symptoms in the . Fatal side effects can occur if you use opioid medicine with alcohol, or with other drugs that cause drowsiness or slow your breathing. Stop taking this medicine and call your doctor right away if you have skin redness or a rash that spreads and causes blistering and peeling. What is acetaminophen and oxycodone? Oxycodone is an opioid pain medication, sometimes called a narcotic. Acetaminophen is a less potent pain reliever that increases the effects of oxycodone. Acetaminophen and oxycodone is a combination medicine used to relieve moderate to severe pain. Acetaminophen and oxycodone may also be used for purposes not listed in this medication guide. What should I discuss with my healthcare provider before taking acetaminophen and oxycodone? You should not use this medicine if you are allergic to acetaminophen or oxycodone, or if you have: ? severe asthma or breathing problems; or ?? a blockage in your stomach or intestines. Tell your doctor if you have ever had: ? liver disease; ?? a drug or alcohol addiction; ?? kidney disease; ?? a head injury or seizures; ?? urination problems; or ?? problems with your thyroid, pancreas, or gallbladder. If you use opioid medicine while you are , your baby could become dependent on the drug. This can cause life-threatening withdrawal symptoms in the baby after it is born. Babies born dependent on opioids may need medical treatment for several weeks. Do not breast-feed. This medicine can pass into breast milk and cause drowsiness, breathing problems, or in a nursing baby. How should I take acetaminophen and oxycodone? Follow all directions on your prescription label. Never take this medicine in larger amounts, or for longer than prescribed. An overdose can damage your liver or cause . Tell your doctor if the medicine seems to stop working as well in relieving your pain. Never share this medicine with another person, especially someone with a history of drug abuse or addiction. MISUSE CAN CAUSE ADDICTION, OVERDOSE, OR . Keep the medicine in a place where others cannot get to it. Selling or giving away acetaminophen and oxycodone is against the law. Measure liquid medicine carefully. Use the dosing syringe provided, or use a medicine dose-measuring device (not a kitchen spoon). If you need surgery or medical tests, tell the doctor ahead of time that you are using this medicine. You should not stop using this medicine suddenly. Follow your doctor's instructions about tapering your dose. Store at room temperature away from moisture and heat. Keep track of your medicine. You should be aware if anyone is using it improperly or without a prescription. Do not keep leftover opioid medication. Just one dose can cause in someone using this medicine accidentally or improperly. Ask your pharmacist where to locate a drug take-back disposal program. If there is no take-back program, flush the unused medicine down the toilet. What happens if I miss a dose? Since this medicine is used for pain, you are not likely to miss a dose. Skip any missed dose if it is almost time for your next dose. Do not use two doses at one time. What happens if I overdose? Seek emergency medical attention or call the Poison Help line at . An overdose of acetaminophen and oxycodone can be fatal. The first signs of an acetaminophen overdose include loss of appetite, nausea, vomiting, stomach pain, sweating, and confusion or weakness. Later symptoms may include pain in your upper stomach, dark urine, and yellowing of your skin or the whites of your eyes. Overdose can also cause severe muscle weakness, pinpoint pupils, very slow breathing, extreme drowsiness, or coma. What should I avoid while taking acetaminophen and oxycodone? Avoid driving or operating machinery until you know how this medicine will affect you. Dizziness or drowsiness can cause falls, accidents, or severe injuries. Do not drink alcohol. Dangerous side effects or could occur. Ask a doctor or pharmacist before using any other medicine that may contain acetaminophen (sometimes abbreviated as APAP). Taking certain medications together can lead to a fatal overdose. What are the possible side effects of acetaminophen and oxycodone? Get emergency medical help if you have signs of an allergic reaction: hives; difficulty breathing; swelling of your face, lips, tongue, or throat. Opioid medicine can slow or stop your breathing, and may occur. A person caring for you should seek emergency medical attention if you have slow breathing with long pauses, blue colored lips, or if you are hard to wake up. In rare cases, acetaminophen may cause a severe skin reaction that can be fatal. This could occur even if you have taken acetaminophen in the past and had no reaction. Stop taking this medicine and call your doctor right away if you have skin redness or a rash that spreads and causes blistering and peeling. Call your doctor at once if you have: ? noisy breathing, sighing, shallow breathing; ?? a light-headed feeling, like you might pass out; ?? weakness, tiredness, fever, unusual bruising or bleeding; ?? confusion, unusual thoughts or behavior; ?? problems with urination; ?? liver problems--nausea, upper stomach pain, tiredness, loss of appetite, dark urine, danna-colored stools, jaundice (yellowing of the skin or eyes); or ?? low cortisol levels-- nausea, vomiting, loss of appetite, dizziness, worsening tiredness or weakness. Seek medical attention right away if you have symptoms of serotonin syndrome, such as: agitation, hallucinations, fever, sweating, shivering, fast heart rate, muscle stiffness, twitching, loss of coordination, nausea, vomiting, or diarrhea. Serious side effects may be more likely in older adults and those who are overweight, malnourished, or debilitated. Long-term use of opioid medication may affect fertility (ability to have children) in men or women. It is not known whether opioid effects on fertility are permanent. Common side effects include: ? dizziness, drowsiness, feeling tired; ?? feelings of extreme happiness or sadness; ?? nausea, vomiting, stomach pain; ?? constipation; or ?? headache. This is not a complete list of side effects and others may occur. Call your doctor for medical advice about side effects. You may report side effects to FDA at 0-320-ZVB-3235. What other drugs will affect acetaminophen and oxycodone? You may have breathing problems or withdrawal symptoms if you start or stop taking certain other medicines. Tell your doctor if you also use an antibiotic, antifungal medication, heart or blood pressure medication, seizure medication, or medicine to treat HIV or hepatitis C. Opioid medication can interact with many other drugs and cause dangerous side effects or . Be sure your doctor knows if you also use: ? cold or allergy medicines, bronchodilator asthma/COPD medication, or a diuretic ('water pill'); ?? medicines for motion sickness, irritable bowel syndrome, or overactive bladder; ?? other narcotic medications--opioid pain medicine or prescription cough medicine; ?? a sedative like Valium--diazepam, alprazolam, lorazepam, Xanax, Klonopin, Versed, and others; ?? drugs that make you sleepy or slow your breathing--a sleeping pill, muscle relaxer, medicine to treat mood disorders or mental illness; ?? drugs that affect serotonin levels in your body--a stimulant, or medicine for depression, Parkinson's disease, migraine headaches, serious infections, or nausea and vomiting. This list is not complete. Other drugs may affect acetaminophen and oxycodone, including prescription and ehyl-djc-uyqzstr medicines, vitamins, and herbal products. Not all possible interactions are listed here. Where can I get more information? Your doctor or pharmacist can provide more information about acetaminophen and oxycodone. Remember, keep this and all other medicines out of the reach of children, never share your medicines with others, and use this medication only for the indication prescribed. Every effort has been made to ensure that the information provided by [employer] is accurate, up-to-date, and complete, but no guarantee is made to that effect. Drug information contained herein may be time sensitive. [employer] information has been compiled for use by healthcare practitioners and consumers in the [place] and therefore [employer] does not warrant that uses outside of the [place] are appropriate, unless specifically indicated otherwise. [employer]'s drug information does not endorse drugs, diagnose patients or recommend therapy. [employer] drug information is an informational resource designed to assist licensed healthcare practitioners in caring for their patients and/or to serve consumers viewing this service as a supplement to, and not a substitute for, the expertise, skill, knowledge and judgment of healthcare practitioners. The absence of a warning for a given drug or drug combination in no way should be construed to indicate that the drug or drug combination is safe, effective or appropriate for any given patient. [employer] does not assume any responsibility for any aspect of healthcare administered with the aid of information [employer] provides. The information contained herein is not intended to cover all possible uses, directions, precautions, warnings, drug interactions, allergic reactions, or adverse effects. If you have questions about the drugs you are taking, check with your doctor, nurse or pharmacist. Copyright 9536-6276 [employer] Version: 18.01. Revision Date: 01/19/2018. CIGARETTE SMOKING: The facts are clear, cigarette smoking will shorten your life. Smoking can cause many illnesses along the way. As a healthcare provider, we recommend that you stop smoking. Assistance with quitting is available by contacting 0-915-FQMD-NOW. This is a free resource providing counseling, support, and referral. Or you may contact your personal physician. STROKE is an EMERGENCY [employer] ACT F.A.S.T! FACE ?? Facial droop ?? Uneven smile ARM ?? Arm numbness ?? Arm weakness SPEECH ?? Slurred speech ?? Difficulty speaking or understanding TIME ?? Call 911 and get to the hospital immediately Have the ambulance go to the nearest stroke center. STROKE Risk Factors High blood pressure High cholesterol Heart Disease Diabetes Smoking Heavy alcohol use Physical inactivity and obesity Atrial Fibrillation (irregular heartbeat) Family history of stroke Reminder: Be sure to sign up for the [facility] patient portal, which gives you 07/10 access to your medical information ??? including these discharge instructions ??? using your computer, smartphone, or tablet. Just go to [employer] to get started. Questions? Call . [facility] would like to thank you for allowing us to assist you with your healthcare needs. LUCRETIA Clarke CAROL H, (or utility sales representative) have received the above patient education materials/instructions and have verbalized understanding: Patient Signature _ Date/Time Patient Court Monitor Signature (if needed) Date/Time Clinician/Hospital Court Monitor Signature (if needed) Date/Time documented in this encounter Plan of Treatment Not on file documented as of this encounter Visit Diagnoses Not on filedocumented in this encounter
--- OUTSIDE RECORDS SUMMARY | 2024-10-13 13:25 | XMS_ITS | Encounter Summary ---
Author Organization [employer] ([place], [place], [place], [place]) Address [address] [place] [address] Care Team Providers Care Hospice Superintendent Name Role Phone Unavailable Primary Care Provider Unavailabl e Encounter Details Date Type Department Care Team (Late st Contact Info) Description 04/10/2018 Transcribed Document [facility] [place] Family Medicine [address] [place] [address] ProviderJuarez MD [address] [place], [place] [address] Social History Tobacco Use Types Packs/Day Years [...] Conversion Note - Juarez ProviderMD - 04/10/2018 1:08 PM MANAGER HARDWARE Nursing Discharge Summary Entered On: 04/10/2018 13:09 EST Performed On: 04/10/2018 13:08 EST by Hoda Velez, furniture sales associate Documentation Patient Disposition, General : Discharge Discharge To : Home with ambulatory/outpatient follow-up Mode Of Departure, General Discharge : Private vehicle, Wheelchair with adult Accompanied By, Discharge : Daughter IV Discontinued : Yes Medications Given to Patient : No Personal Belongings With Patient : Yes Pt's Own Supply of Medications Returned : No Prescriptions Given to Patient : Yes Discharge Instructions Reviewed With, Opportunity For Questions Given : Patient, Daughter Number of Prescriptions Given : 2 Teaching Method : Demonstration, Explanation Teaching Evaluation : Returns demonstration, Verbalizes understanding Education Comment : pain medication education Hoda Velez, RN - 04/10/2018 13:08 EST Electronically signed by Aurea, [facility] Conversion Registered Travel Nurse Cerner at 07/02/2022 5:30 PM CDT documented in this encounter Plan of Treatment Not on file documented as of this encounter Visit Diagnoses Not on filedocumented in this encounter
--- OUTSIDE RECORDS SUMMARY | 2024-10-13 13:25 | XMS_ITS | Encounter Summary ---
Author Organization [employer] ([place], [place], [place], [place]) Address [address] [place] [address] Care Team Providers Care Supervisor Fusing Room Name Role Phone Unavailable Primary Care Provider Unavailabl e Encounter Details Date Type Department Care Team (Late st Contact Info) Description 04/09/2018 Transcribed Document [facility] [place] [address] [place] [address] ProviderJuarez MD [address] [place] [address] Social History Tobacco Use Types [...] Conversion Note - Juarez ProviderMD - 04/09/2018 2:00 AM CHASER HELPER Pain Assessment Entered On: 04/09/2018 1:56 EST Performed On: 04/09/2018 2:54 EST by Mika Steel Rn Intervention Information: acetaminophen Performed by Mika Steel Rn on 04/09/2018 01:54:00 EST acetaminophen,650mg Oral Pain Assessment Pain Assessment : Follow-up assessment Pain Scale Goal : 3 Pain Scale Used : 0-10 Scale Mika Steel Rn - 04/09/2018 1:56 EST Pain Scale Intensity : 2 Mika Steel Rn - 04/09/2018 1:56 EST Image 4 - Images currently included in the form version of this document have not been included in the text rendition version of the form. Electronically signed by Aurea, [facility] Conversion Insulation Nozzleman Cerner at 07/02/2022 5:45 PM CDT documented in this encounter Plan of Treatment Not on file documented as of this encounter Visit Diagnoses Not on filedocumented in this encounter
--- OUTSIDE RECORDS SUMMARY | 2024-10-13 13:25 | XMS_ITS | Encounter Summary ---
Author Organization [employer] ([place], [place], [place], [place]) Address [address] [place] [address] Care Team Providers Care Lockstitch Lining Maker Name Role Phone Unavailable Primary Care Provider Unavailabl e Encounter Details Date Type Department Care Team (Late st Contact Info) Description 04/10/2018 Transcribed Document [facility] [address] [facility] [address] [id number] Marvin Simental MD [address] [place] [address] Social History Tobacco Use Types Packs/Day Years [...] Conversion Note - Marvin Simental MD - 04/10/2018 9:21 AM EST Patient: ANAHI BOYKIN Age: 67 years Sex: Female : 1950 Associated Diagnoses: None Author: ELIN REDDY PA Subjective Pain well controlled. Ambulating in room. Feels ready for discharge. Objective VS/Measurements Vitals Signs (last 24 hrs) Last Charted Minimum Maximum Temp 98.1 (APR 10 06:35) 98.1 (APR 10:35) H 100.6 (APR 10 02:30) Mon HR 99 (APR 10:35) 88 (APR 09 11:38) 125 (APR 09 18:20) Resp Rate 16 (APR 10 06:35) 16 (APR 09 11:38) 20 (APR 09 18:20) SBP 105 (APR 10 06:35) 94 (APR 09 21:40) 111 (APR 10 02:30) DBP L 57 (APR 10:35) L 45 (APR 10 02:30) 67 (APR 09 18:20) MAP 69 (APR 10 06:35) 57 (APR 10 02:30) 74 (APR 09 18:20) SpO2 95 (APR 10:35) L 91 (APR 09:40) 95 (APR 09:20) Incision clean, dry, and intact. ANN with 110cc night coordinator. Ambulated 280' with PT. Impression and Plan POD 2 extension of lumbar fusion with hardware from L2 through iliacs. PT this morning. Will plan on discharge home after lunch. D/C ANN before discharge. Discussed monitoring BP at home before restarting amlodipine. Discussed wound care and follow up. Admitting Dx: L5-S1 foraminal stenosis and instability Discharge Dx: L5-S1 foraminal stenosis and instability Home Medications (7) Active cyclobenzaprine 10 mg oral tablet 10 mg = 1 Tab, PRN, Oral, TID DULoxetine 120 mg, Oral, Daily gabapentin 800 mg, Oral, TID NexIUM 40 mg oral delayed release capsule 40 mg = 1 Cap, Oral, Daily Percocet 7.5/325 oral tablet 1 Tab, PRN, Oral, Q4H tiZANidine 4 mg oral tablet 4 mg = 1 Tab, Oral, At Bedtime Vitamin C 1000 mg oral tablet 1,000 mg = 1 Tab, Oral, Daily documented in this encounter Plan of Treatment Not on file documented as of this encounter Visit Diagnoses Not on filedocumented in this encounter
--- OUTSIDE RECORDS SUMMARY | 2024-10-13 13:25 | XMS_ITS | Encounter Summary ---
Author Organization [employer] ([place], [place], [place], [place]) Address [address] [place] [address] Care Team Providers Care Raisin Washer Name Role Phone Unavailable Primary Care Provider Unavailabl e Encounter Details Date Type Department Care Team (Late st Contact Info) Description 10/10/2021 Transcribed Document [facility] [place] Family Medicine [address] [place] [address] ProviderJuarez MD [address] [place] [address] Social History Tobacco Use Types [...] Date Jeronimo rded Speak language other than Yakut at home Not on file 04/04/2023 Want [...] Historical ProviderMD - 10/10/2021 11:53 AM CDT Patient Education Materials Follows: [...] Keep items that you use often in rndr-ce-rtfxv places. Lower the shelves around your home [...] Control and Prevention, [place]: www.cdc.gov ??? National [place] on Aging: www.deirdre.nih.gov Contact a doctor if: [...] provider. Document Revised: 10/04/2020 Document Reviewed: 10/04/2020 [employer] Patient Education ? 2020 [employer] documented in this encounter Plan of Treatment Not on file documented as of this encounter Visit Diagnoses Not on filedocumented in this encounter
--- OUTSIDE RECORDS SUMMARY | 2024-10-13 13:25 | XMS_ITS | Encounter Summary ---
Author Organization [employer] ([place], [place], [place], [place]) Address [address] [place] [address] Care Team Providers Care Customer Relations Assistant Name Role Phone Unavailable Primary Care Provider Unavailabl e Encounter Details Date Type Department Care Team (Late st Contact Info) Description 04/09/2018 Transcribed Document [facility] [place] Family Medicine [address] [place] [address] ProviderJuarez MD [address], [place] [address] Social History Tobacco Use Types Packs/Day Years Used Date Smoking Tobacco: Never Assessed Comments Unknown Sex and Gender Information Value Date Recorded Sex Assigned at Female 09/11/2021 3:33 PM CDT Legal Sex Female 3:33 PM CDT Gender Identity Female 09/11/2021 3:33 PM CDT Sexual Orientation Not on file documented as of this encounter Miscellaneous Notes * Cerner Conversion Note - Historical ProviderMD - 04/09/2018 5:00 PM DOCTOR OF NAPRAPATHY Chart Check - Review Order Profile Entered On: 04/09/2018 18:28 EST Performed On: 04/09/2018 17:00 EST by MARY SANCHEZ RN Chart Check Chart Reviewed Date and Time : 04/09/2018 18:28 EST [employer] Initiated/Discontinued as Appropriate : Yes All Active Orders Reviewed : Yes MARY SANCHEZ RN - 04/09/2018 18:28 EST Electronically signed by Aurea [facility] Conversion Telesales Supervisor Cerner at 07/02/2022 5:32 PM CDT documented in this encounter Plan of Treatment Not on file documented as of this encounter Visit Diagnoses Not on filedocumented in this encounter
--- OUTSIDE RECORDS SUMMARY | 2024-10-13 13:25 | XMS_ITS | Encounter Summary ---
Author Organization [employer] ([place], [place], [place], [place]) Address [address] [place] [address] Care Team Providers Care Computed Tomography Technologist Name Role Phone Unavailable Primary Care Provider Unavailabl e Encounter Details Date Type Department Care Team (Late st Contact Info) Description 10/10/2021 Transcribed Document [facility] [place] [address] [place] [address] ProviderJuarez MD [address] [place] [address] Social History Tobacco Use Types [...] Date Jeronimo rded Speak language other than Yoruba at home Not on file 04/04/2023 Want [...] Conversion Note - Historical ProviderMD - 10/10/2021 11:19 AM CDT Ambulatory Intake and History Entered On: 10/10/2021 11:24 EDT Performed On: 10/10/2021 11:19 EDT by ALFREDO SWAIN RN General Info Ambulatory Accompanied By : Unaccompanied Chief Complaint : LBP, occ. + numbness in LE's to knee Primary Language : Yoruba ALFREDO SWAIN RN - 10/10/2021 11:19 EDT Height and Weight, Clinical Dosing Height Source : Stated Height Entry Format : [place] Height, Feet : 5 ft(Converted to: 152 cm, 60 Inch) Height, Inches : 1 Inch(Converted to: 0 ft 1 Inch, 2.54 cm) Clinical Height : 154.94 cm Weight Source : Standing scale Weight Entry Format : [place] Clinical Dosing Weight : 61.82 kg Weight, Pounds : 136 lb Body Surface Area (BSA) : 1.6 m2 Body Mass Index : 25.8 kg/m2 (HI) [place] Body Weight : 47 kg ALFREDO SWAIN RN - 10/10/2021 11:19 EDT Vital Measurements Temperature Source : Temporal artery scanning Temperature Mode : Fahrenheit Temperature, Fahrenheit : 97.9 Deg F Clinical Temperature, C : 36.6 Deg C Pulse Method : Non-Invasive BP Device Pulse Source : Brachial, Right Heart Rate, Apical : 72 bpm Pulse Rhythm : Regular Respiratory Rate : 17 Breaths/Min Blood Pressure Location : Arm, right upper Blood Pressure Source : Non-Invasive BP Device Blood Pressure Position : Sitting Systolic Blood Pressure : 127 mmHg Diastolic Blood Pressure : 83 mmHg Oxygen Saturation : 97 % Oxygen Therapy Mode : Room air ALFREDO SWAIN RN - 10/10/2021 11:19 EDT Pain Assessment Pain Assessment : Follow-up assessment Duration : years Pain Scale Used : 0-10 Scale Location : Legs, bilateral, Lumbar Onset : Chronic Pain Location Comment : Constant Pain Worsened by : Movement Pain Improved by : Cold therapy, Heat therapy, Medication, Relaxation, Repositioning Pain Intervention, Non-Drug : Cold therapy, Heat, Positioning, Relaxation Pain Improved by Intervention : Yes Intervention, Consult : Pain management Pain Comment : 80% pain relief with medication ALFREDO SWAIN RN - 10/10/2021 11:19 EDT Patient Health Questionnaire Depression Scale-9 (PHQ-9) Trouble Falling/Staying Asleep/Sleeping : Not at all Little Interest or Pleasure Doing Things : Not at all Feeling Down, Depressed, Hopeless : Not at all Feeling Tired or Little Energy : Not at all Poor Appetite or Overeating : Not at all Feel Bad About Self/That You are Failure : Not at all Trouble Concentrating on Things : Not at all Moving/Speaking Slowly, Fidgety/Restless : Not at all Thoughts of Better Off /Hurting Self : Not at all PHQ-9 Score : 0 PHQ-9 Score Interpretation : Minimal depression (0-4) ALFREDO SWIAN RN - 10/10/2021 11:19 EDT Fall Risk Scales HUGO Hx Falls Immediate/Within 3 Months : No Hugo Secondary Diagnosis : Yes HUGO Use of Ambulatory Aid : None HUGO IV Therapy or IV Access : No Hugo Gait/Transferring : Normal, bedrest, immobile Hugo Mental Status : Oriented to own ability Hugo Fall Risk Score : 15 HUGO Fall Scale Risk Level : 0-24 Low Risk [place] Fall Interventions : Adequate lighting, Fall prevention handout/education per facility policy, Non-slip footwear, Personal items within reach, Room free of clutter/spills ALFREDO SWAIN, CHRIS - 10/10/2021 11:19 EDT Pain Scale Intensity : 3 ALFREDO SWAIN RN - 10/10/2021 11:19 EDT Image 4 - Images currently included in the form version of this document have not been included in the text rendition version of the form. documented in this encounter Plan of Treatment Not on file documented as of this encounter Visit Diagnoses Not on filedocumented in this encounter
--- OUTSIDE RECORDS SUMMARY | 2024-10-13 13:25 | XMS_ITS | Encounter Summary ---
Author Organization [employer] ([place], [place], [place], [place]) Address [address] [place] [address] Care Team Providers Care Entertainment Manager Name Role Phone Unavailable Primary Care Provider Unavailabl e Encounter Details Date Type Department Care Team (Late st Contact Info) Description 04/10/2018 Transcribed Document [facility] [place] [facility] [place] [address] ProviderJuarez MD [address] [place] [address] Social History Tobacco Use Types Packs/Day [...] Note - Juarez Grant MD - 04/10/2018 1:12 PM EMS COORDINATOR [address] , [place] [address] Patient Copy Patient Information: Name: ANAHI BOYKIN Current Date: 04/10/2018 13:12:46 : 1950 Patient Address: [address] [place] [address] Patient Attending Physician: THAO MURPHY MD-[facility] Primary Care Provider: SHAHRIAR CHUA MD-[facility] Primary Care Provider Discharge Diagnosis: 1:Spinal instability Weight on Admission: 143 lb, 6 oz Comment: Follow-up Instructions: With: Address: When: THAO MURPHY [address] [place] [address], [address] [place] [phone] Business (1) 12:45 PM Comments: 05/11/18 xrays at 12:45pm with appointment to follow at 1:30pm With: Address: When: THAO MURPHY [address] [place] [address], [address] [place] [address] Business (1) 11:00 AM Comments: staple removal [...] Discharge Instructions (if any): Final Medication List: [facility], [address] [address], [phone] docusate (Colace 100 mg oral capsule) 1 Capsule(s) Oral Every Day as needed as needed for constipation. hold for loose stools. Refills: 0. Patient Instructions: New medication. Prescription sent to [facility] polyethylene glycol 3350 (MiraLax oral powder for reconstitution) 17 Gram(s) Oral Every Day. hold for loose stools. Refills: 0. Patient Instructions: New medication. Prescription sent to [facility] Other Medications acetaminophen-oxyCODONE (Percocet 7.5/325 oral tablet) [...] your incision. HOME CARE INSTRUCTIONS Medicines? Take kjtz-gns-xkshjad and prescription medicines only as told by [...] and water are not available, use hand web site specialist. ? Change your dressing as told by [...] 08/16/2015 Elsevier Interactive Patient Education ? 2017 [employer] Medication Leaflets: cyclobenzaprine ([place]) Amrix, [...] may report side effects to FDA at 6-730-BVY-1358. What other drugs will affect cyclobenzaprine? Using [...] drugs may affect cyclobenzaprine, including prescription and jfik-ncr-tvwrilb medicines, vitamins, and herbal products. Not all [...] to ensure that the information provided by datatracker. ('[employer]') is accurate, up-to-date, and complete, but no guarantee is made to that effect. Drug information contained herein may be time sensitive. [employer] information has been compiled for use by healthcare practitioners and consumers in the [place] and therefore [employer] does not warrant that uses outside of the [place] are appropriate, unless specifically indicated otherwise. [employer] drug information does not endorse drugs, diagnose patients or recommend therapy. [employer] drug information is an informational resource designed [...] effective or appropriate for any given patient. [employer] does not assume any responsibility for any aspect of healthcare administered with the aid of information [employer] provides. The information contained herein is not intended to cover all possible uses, directions, precautions, warnings, drug interactions, allergic reactions, or adverse effects. If you have questions about the drugs you are taking, check with your doctor, nurse or pharmacist. Copyright 8728-0261 datatracker. Version: 5.01. Revision Date: 2017. acetaminophen and [...] may report side effects to FDA at 2-491-DMP-7059. What other drugs will affect acetaminophen and [...] affect acetaminophen and oxycodone, including prescription and vvon-alj-hbwmvgy medicines, vitamins, and herbal products. Not all [...] to ensure that the information provided by dat[employer]racker. ('[employer]') is accurate, up-to-date, and complete, but no guarantee is made to that effect. Drug information contained herein may be time sensitive. [employer] information has been compiled for use by healthcare practitioners and consumers in the [place] and therefore [employer] does not warrant that uses outside of the [place] are appropriate, unless specifically indicated otherwise. [employer]'s drug information does not endorse drugs, diagnose patients or recommend therapy. [employer] drug information is an informational resource designed [...] effective or appropriate for any given patient. [employer] does not assume any responsibility for any aspect of healthcare administered with the aid of information [employer] provides. The information contained herein is not intended to cover all possible uses, directions, precautions, warnings, drug interactions, allergic reactions, or adverse effects. If you have questions about the drugs you are taking, check with your doctor, nurse or pharmacist. Copyright 0548-6122 [employer]acker. Version: 18.01. Revision Date: 01/19/2018. CIGARETTE SMOKING: The facts are clear, cigarette smoking will shorten your life. Smoking can cause many illnesses along the way. As a healthcare provider, we recommend that you stop smoking. Assistance with quitting is available by contacting 1-297-VTBE-NOW. This is a free resource providing counseling, [...] Be sure to sign up for the [employer] patient portal, which gives you 07/10 access to your medical information ??? including these discharge instructions ??? using your computer, smartphone, or tablet. Just go to [employer] to get started. Questions? Call . [facility] would like to thank you for allowing us to assist you with your healthcare needs. LUCRETIA Clarke CAROL H, (or printing sales representative) have received the above patient education materials/instructions and have verbalized understanding: Patient Signature _ Date/Time Patient Creel Clerk Signature (if needed) Date/Time Clinician/Hospital Creel Clerk Signature (if needed) Date/Time documented in this encounter Plan of Treatment Not on file documented as of this encounter Visit Diagnoses Not on filedocumented in this encounter
--- OUTSIDE RECORDS SUMMARY | 2024-10-13 13:25 | XMS_ITS | Encounter Summary ---
Author Organization [employer] ([place], [place], [place], [place]) Address [address] [place] [address] Care Team Providers Care Pin Game Machine Inspector Name Role Phone Unavailable Primary Care Provider Unavailabl e Encounter Details Date Type Department Care Team (Late st Contact Info) Description 02/24/[address] 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 Main OR IntraOp Summary Primary Physician: CHANEL FOX DPM-POD Finalized Date/Time: 03/01/19 13:00:46 Pt. Name: LUCRETIA CARLOS Alexander /Sex: 1950 Female Med Rec #: [id number] Physician: CHANEL FOX DPM-POD Financial #: [id number] Pt. Type: O Room/Bed: /1 Admit/Disch: 02/24/19 05:33:00 - 02/24/19 11:10:00 Institution: [facility] IntraOp Case Attendance Entry 1 Entry 2 Entry 3 Case Attendee CHANEL FOX WORLEY, CYNTHIA LEE, REYMANN, BRENDA, MARIO DPM-POD MD-ANS Role Performed Surgeon/Proceduralist, Anesthesiologist of CONTACT CENTER AGENT/Nurse [employer] Spray Supervisor First Record Time In 02/24/19 07:45:00 02/24/19 07:45:00 02/24/19 07:48:00 Time Out 02/24/19 09:50:00 02/24/19 09:50:00 02/24/19 09:50:00 Procedure Bunionectomy(Right), Bunionectomy(Right), Bunionectomy(Right), Toe Osteotomy(Right), Toe Osteotomy(Right), Toe Osteotomy(Right), Toe Arthroplasty(Right) Toe Arthroplasty(Right) Toe Arthroplasty(Right) Other Attendee Superficial Wound Closed By: Last Modified By: Johnathan Tompkins, RN Johnathan Tompkins, RN Johnathan Tompkins, CHRIS 02/24/19 09:50:18 02/24/19 09:50:18 02/24/19 09:50:18 Entry 4 Entry 5 Entry 6 Case Attendee Johnathan Tompkins, RN Georgiana Hogan Kemp, Robin A, Surgical Instrumentation Controls Engineer Property Custodian Role Performed Migratory Game Bird Biologist, First Scrub, First Scrub, First Time In 02/24/19 07:45:00 02/24/19 07:45:00 02/24/19 07:45:00 Time Out 02/24/19 09:50:00 02/24/19 09:50:00 02/24/19 09:50:00 Procedure Bunionectomy(Right), Bunionectomy(Right), Bunionectomy(Right), Toe Osteotomy(Right), Toe Osteotomy(Right), Toe Osteotomy(Right), Toe Arthroplasty(Right) Toe Arthroplasty(Right) Toe Arthroplasty(Right) Other Attendee Superficial Wound Closed By: Last Modified By: Johnathan Tompkins, RN Johnathan Tompkins, RN Johnathan Tompkins RN 02/24/19 09:50:18 02/24/19 09:50:18 02/24/19 09:50:18 Entry 7 Case Attendee OTHER, ATTENDEE #1 Role Performed Vendor Time In 02/24/19 07:45:00 Time Out 02/24/19 09:50:00 Procedure Bunionectomy(Right), Toe Osteotomy(Right), Toe Arthroplasty(Right) Other Attendee ELMER WOODARD Superficial Wound Closed By: Last Modified By: Johnathan Tompkins RN 02/24/19 09:50:43 [facility] IntraOp Case Attendance Audit 02/24/19 09:50:43 Occupational Therapy Program Director: [id number] Modifier: [id number] <+> 7 Procedure 02/24/19 09:50:18 Occupational Therapy Program Director: [id number] Modifier: [id number] 1 <+> Time Out 1 <*> Procedure Bunionectomy(Right), Toe Osteotomy(Right), Toe Arthroplasty(Right) 2 <+> Time Out 2 <*> Procedure Bunionectomy(Right), Toe Osteotomy(Right), Toe Arthroplasty(Right) 3 <+> Time Out 3 <*> Procedure Bunionectomy(Right), Toe Osteotomy(Right), Toe Arthroplasty(Right) 4 <+> Time Out 4 <*> Procedure Bunionectomy(Right), Toe Osteotomy(Right), Toe Arthroplasty(Right) 5 <+> Time Out 5 <*> Procedure Bunionectomy(Right), Toe Osteotomy(Right), Toe Arthroplasty(Right) 6 <+> Time Out 6 <*> Procedure Bunionectomy(Right), Toe Osteotomy(Right), Toe Arthroplasty(Right) <+> 7 Time Out 02/24/19 09:47:26 Occupational Therapy Program Director: [id number] Modifier: [id number] 1 <*> Procedure Bunionectomy(Right), Toe Osteotomy(Right), Toe Arthroplasty(Right) 2 <*> Procedure Bunionectomy(Right), Toe Osteotomy(Right), Toe Arthroplasty(Right) 3 <*> Procedure Bunionectomy(Right), Toe Osteotomy(Right), Toe Arthroplasty(Right) 4 <*> Procedure Bunionectomy(Right), Toe Osteotomy(Right), Toe Arthroplasty(Right) 5 <*> Procedure Bunionectomy(Right), Toe Osteotomy(Right), Toe Arthroplasty(Right) 6 <*> Procedure Bunionectomy(Right), Toe Osteotomy(Right), Toe Arthroplasty(Right) <+> 7 Time In 02/24/19 09:37:24 Occupational Therapy Program Director: [id number] Modifier: [id number] 1 <*> Procedure Bunionectomy(Right) 2 <*> Procedure Bunionectomy(Right) 3 <*> Procedure Bunionectomy(Right) 4 <*> Procedure Bunionectomy(Right) 5 <*> Procedure Bunionectomy(Right) <+> 6 Procedure <+> 7 Case Attendee <+> 7 Role Performed <+> 7 Other Attendee 02/24/19 08:57:12 Occupational Therapy Program Director: [id number] Modifier: [id number] 1 <*> Procedure Bunionectomy(Right) 2 <*> Procedure Bunionectomy(Right) 3 <*> Procedure Bunionectomy(Right) 4 <*> Procedure Bunionectomy(Right) 5 <*> Procedure Bunionectomy(Right) <+> 6 Time In 02/24/19 08:14:10 Occupational Therapy Program Director: [id number] Modifier: [id number] 1 <*> Procedure Bunionectomy(Right) 2 <+> Time In 2 <*> Procedure Bunionectomy(Right) 3 <*> Procedure Bunionectomy(Right) 4 <+> Time In 4 <*> Procedure Bunionectomy(Right) 5 <+> Time In 5 <*> Procedure Bunionectomy(Right) <+> 6 Case Attendee <+> 6 Role Performed 02/24/19 07:49:58 Occupational Therapy Program Director: [id number] Modifier: [id number] 1 <+> Time In 1 <*> Procedure Bunionectomy(Right) <+> 2 Case Attendee <+> 2 Role Performed <+> 2 Procedure <+> 3 Case Attendee <+> 3 Role Performed <+> 3 Time In <+> 3 Procedure <+> 4 Case Attendee <+> 4 Role Performed <+> 4 Procedure <+> 5 Case Attendee <+> 5 Role Performed <+> 5 Procedure [facility] IntraOp Case Times Entry 1 Patient In Room Time 02/24/19 07:45:00 Out Room Time 02/24/19 09:50:00 Anesthesia Start Time 02/24/19 07:45:00 Stop Time 02/24/19 09:50:00 Surgery / Procedure Times Start Time 02/24/19 09:02:00 Stop Time 02/24/19 09:43:00 Last Modified By: Johnathan Tompkins RN 02/24/19 09:50:11 [facility] IntraOp Case Times Audit 02/24/19 09:50:11 Occupational Therapy Program Director: [id number] Modifier: [id number] <+> 1 Out Room Time <+> 1 Stop Time 02/24/19 09:47:46 Occupational Therapy Program Director: [id number] Modifier: [id number] <+> 1 Start Time 02/24/19 09:47:23 Occupational Therapy Program Director: [id number] Modifier: [id number] <+> 1 Stop Time [facility] IntraOp Cautery Entry 1 ESU Identification Cautery Type Monopolar ESU ID Number [id number] ID Type Hospital Number Cautery Settings Cut Setting 30 Coag Setting 30 ESU Grounding Pad Ground Pad Type Adult Grounding Pad Site Right thigh Grounding Pad Johnathan Tompkins RN Applied By Grounding Pad Site Intact Skin Condition Before Cautery Grounding Pad Site Unchanged Skin Condition After Cautery Last Modified By: Johnathan Tompkins RN 02/24/19 07:50:32 [facility] IntraOp Communication Entry 1 Communication To Family/Significant other Communication By Johnathan Tompkins RN Date and Time 02/24/19 08:05:00 Last Modified By: Johnathan Tompkins RN 02/24/19 08:05:54 [facility] IntraOp Counts Verification Entry 1 Procedure Bunionectomy(Right), Toe Osteotomy(Right), Toe Arthroplasty(Right) Count Info Count Type Sponge, Sharps Counts Verification Baseline/pre-procedure Sequence Count Results Not Applicable Counts Performed By Count Performed By Georgiana Hogan, (Scrub) Instrumentation Controls Engineer Count Performed By Johnathan Tompkins RN (RN) Last Modified By: Johnathan Tompkins RN 02/24/19 08:13:45 [facility] IntraOp Counts Final Entry 1 Procedure Bunionectomy(Right), Toe Osteotomy(Right), Toe Arthroplasty(Right) Final Count Info Count Type Sponge, Sharps Counts Verification Skin Closure/end of Sequence procedure Count Results Correct, surgeon notified Counts Performed By Count Performed By Georgiana Hogan, (Scrub) Instrumentation Controls Engineer Count Performed By Johnathan Tompkins, RN (RN) Last Modified By: Johnathan Tompkins RN 02/24/19 09:32:18 [facility] IntraOp Counts Final Audit 02/24/19 09:32:18 Occupational Therapy Program Director: [id number] Modifier: [id number] 1 <*> Procedure Bunionectomy(Right), Toe Osteotomy(Right), Toe Arthroplasty(Right) 1 <+> Count Performed By (Scrub) 1 <+> Count Performed By (RN) 1 <+> Counts Verification Sequence [facility] IntraOp Cultures and Spec Summary Entry 1 Cultrures and Specimens Specimen Ordered: Yes Test(s) Routine/Path-Lab Requested/Final Disposition Last Modified By: Johnathan Tompkins RN 02/24/19 08:44:07 [facility] IntraOp Delays Entry 1 Entry 2 Delay Reason Surgeon late - no reason Surgeon late - no reason Duration 15 Minute(s) 15 Minute(s) Comment Last Modified By: Johnathan Tompkins, RN Johnathan Tompkins RN 02/24/19 08:16:38 02/24/19 08:16:38 [facility] IntraOp Departure from OR Entry 1 Integumentary Assessment Transfer/Handoff Transfer to PACU Phase I Handoff Method Phone call Post-op Transport Stretcher/Gurney Via Patient Transport Johnathan Tompkins, RN, Accompanied by CHANEL FOX, DPM-POD Last Modified By: Johnathan Tompkins RN 02/24/19 08:17:16 [facility] IntraOp Dressing and Packing Entry 1 Type Dressing Wound Dressing Item 4x4's, Brayan, Kerlix/Chace, Stockinette, Webril, Occlusive dressing Applied By CHANEL FOX, DPM-POD Last Modified By: Johnathna Tompkins RN 02/24/19 09:31:56 [facility] IntraOp Dressing and Packing Audit 02/24/19 09:31:56 Occupational Therapy Program Director: [id number] Modifier: [id number] 1 <*> Wound Dressing Item 4x4's, Brayan, Kerlix/Chace, Stockinette, Webril 1 <-> Other Comments cast orthoglass [facility] IntraOp Fire Risk Assessment Entry 1 Fire Info Surgical Site or 0- No Incision Above the Xyphoid Open O2 Source 1- Yes (Mask or Cannula) Available Ignition 1- Yes (ESU, Laser, Light Source) Fire Risk 2 Assessment Score Fire Score Fire Risk Yes Assessment Complete Fire Risk Johnathan Tompkins strategic consultant Verified By Fire Risk 02/24/19 07:46:00 Assessment Verified Date/Time Fire Risk Standard Fire Yes Safety Precautions Followed Last Modified By: Johnathan Tompkins RN 02/24/19 08:18:16 [facility] IntraOp General Case Telecom Sales Consultant 1 Case Information OR OR 02 [facility] Case Level 1 Room Verified Yes Wound Class I - Clean Specialty SN Podiatry Anesthesia Type General ASA Class 3 Diagnosis Preop Diagnosis RIGHT FOOT BUNION/HAMMER TOE/METATARSALGIA Postop Same As Preop No Postop Diagnosis SEE NOTES Last Modified By: Johnathan Tompkins RN 02/24/19 08:25:39 [facility] IntraOp General Case Data Audit 02/24/19 08:25:39 Occupational Therapy Program Director: [id number] Modifier: [id number] 1 <*> Preop Diagnosis RIGHT FOOT BUNION/HAMMER TOE/ 02/24/19 08:23:47 Occupational Therapy Program Director: [id number] Modifier: [id number] <+> 1 Preop Diagnosis [facility] IntraOp Implant Log Entry 1 Entry 2 Entry 3 Type Implant (Synthetic) Implant (Synthetic) Implant (Synthetic) Implant Log Implant Type Hardware Hardware Hardware Tissue Implant Type Implant EASYCLIP 10 [id number] SCR FRANCIS 14/4MM 3.0 SCR FRANCIS 16/4MM 3.0 Identification ASNIS [id number] ASNIS [id number] Description Implant Quantity 1 2 1 Implant Site OPSITE OPSITE OPSITE Implant Identification Model Number Implant Identification Serial Number Implant [id number] Identification Lot Number Implant Linwood:Linwood Linwood:Linwood Identification Orthopaedics Orthopaedics Sr. Vendor Management Associate Name: Implant [id number] Identification Catalog Number Implant Size Implant Has an Expiration Date Implant Expiration Date Wasted Radioactive Material Time Implanted Tissue Implant Continue for Tissue Implant Documentation Tissue Identification Number Graft Prep Per Sr. Vendor Management Associate Instructions: Tissue Preparation Method: Reconstitution Solution: Reconstitution Solution Lot Number Reconstitution Solution Expiration Date: Thawing Solution Thawing Solution Lot Number Thawing Solution Expiration Date Preparation Materials, Other Preparation Materials, Other Lot Number Preparation Materials, Other Expiration Date Tissue Prepared/Processed By Sr. Vendor Management Associate Paperwork Completed Implant Type Comment Last Modified By: Johnathan Tompkins, RN Johnathan Tompkins, RN Johnathan Tompkins RN 02/24/19 10:02:36 02/24/19 10:02:36 02/24/19 10:02:36 Entry 4 Type Implant (Synthetic) Implant Log Implant Type Hardware Tissue Implant Type Implant SCR FRANCIS AUSTEN ASNIS 2.0 Identification [id number] Description Implant Quantity 1 Implant Site OPSITE Implant Identification Model Number Implant Identification Serial Number Implant Identification Lot Number Implant Linwood:[place] Identification Orthopaedics Sr. Vendor Management Associate Name: Implant Identification Catalog Number Implant Size Implant Has an Expiration Date Implant Expiration Date Wasted Radioactive Material Time Implanted Tissue Implant Continue for Tissue Implant Documentation Tissue Identification Number Graft Prep Per Sr. Vendor Management Associate Instructions: Tissue Preparation Method: Reconstitution Solution: Reconstitution Solution Lot Number Reconstitution Solution Expiration Date: Thawing Solution Thawing Solution Lot Number Thawing Solution Expiration Date Preparation Materials, Other Preparation Materials, Other Lot Number Preparation Materials, Other Expiration Date Tissue Prepared/Processed By Sr. Vendor Management Associate Paperwork Completed Implant Type Comment Last Modified By: Johnathan Tompkins RN 02/24/19 10:02:36 [facility] IntraOp Implant Log Audit 02/24/19 10:02:36 Occupational Therapy Program Director: [id number] Modifier: [id number] 1 <*> Implant Identification Description EASYCLIP 10 [id number] <+> 2 Implant Identification Description <+> 2 Implant Identification Sr. Vendor Management Associate Name: <+> 2 Implant Site <+> 2 Implant Quantity <+> 2 Implant Identification Catalog Number <+> 2 Implant Type <+> 2 Type <+> 3 Implant Identification Description <+> 3 Implant Site <+> 3 Implant Quantity <+> 3 Implant Type <+> 3 Type <+> 4 Implant Identification Description <+> 4 Implant Identification Sr. Vendor Management Associate Name: <+> 4 Implant Site <+> 4 Implant Quantity <+> 4 Implant Identification Catalog Number <+> 4 Implant Type <+> 4 Type [facility] IntraOp Intraoperative Assessment Entry 1 Valid History / Yes Physical in Chart Preoperative Yes Checklist Reviewed/Evaluated Allergies Reviewed Yes Patient is Latex No Sensitive Level of WDL Consciousness (WDL = Alert, Oriented to Person, Place, and Time) Skin Assessment Yes Verified Present Upon IVs Arrival to OR Last Modified By: Johnathan Tompkins RN 02/24/19 08:25:53 [facility] IntraOp Intraoperative Equipment Entry 1 Type Equipment Equipment Equipment Sheldon Suction System Intraop Monitoring Antiembolic Devices Scopes Photo/Video Documentation Last Modified By: Johnathan Tompkins RN 02/24/19 08:26:17 [facility] IntraOp Medication Admin Entry 1 Entry 2 Medication/Irrigant Bupivicaine/Marcaine Xylocaine 1% SDV 30ml - 0.5% 30ml - [id number] Combo Med List Time Administered Route of Administration Dose Dose 10 11 Unit of Measure ml ml Volume Administered By CHANEL FOX, CHANEL FOX, DPM-POD DPM-POD Procedure Irrigation Irrigant Volume In Irrigant Volume Out Last Modified By: Johnathan Tompkins, RN Johnathan Tompkins RN 02/24/19 08:27:07 02/24/19 08:27:07 [facility] IntraOp Patient Positioning Entry 1 Procedure Bunionectomy(Right), Toe Osteotomy(Right), Toe Arthroplasty(Right) Body Position Supine Left Arm Position Resting at side Right Arm Position Resting at side Left Leg Position Uncrossed, parallel Right Leg Position Held on field Feet Uncrossed Yes Pressure Points Yes Checked Positioning Devices Foot Rest, Head Rest, Pad, Arm, Safety Strap, Chest Positioned By CHANEL FOX, DPM-POD, NAEEM LAMB, MARIO, Johnathan Tompkins, RN, Georgiana Hogan, Instrumentation Controls Engineer Position Verified Positioning Yes Verified by Anesthesia Positioning Yes Verified by Surgeon Last Modified By: Johnathan Tompkins RN 02/24/19 08:27:57 [facility] IntraOp Sign In Entry 1 Patient, Site, [...] Warming Measures Yes Taken Last Modified By: Johnathan Tompkins RN 02/24/19 08:28:09 [facility] IntraOp Sign Out Entry 1 RN Confirmation Surgical Yes Procedure(s) Identified Instrument, Sponge Yes and Sharps Counts Correct/Documented Equipment Problems Yes Documented Specimen Labeled Yes Correctly Urinary Catheter N/A Documented in IView [place] Patient Yes Recovery Concerns Reviewed with Anesthesia Provider, Surgeon and RN [place] Patient Yes Management Concerns Reviewed with Anesthesia Provider, Surgeon and RN Safety Checklist Yes Elements Complete? RN Sign Out Johnathan Tompkins, RN Signature RN Sign Out 02/24/19 10:03:00 Signature Date/Time Plan of Care Outcome - [...] related to extraneous objects Last Modified By: Johnathan Tompkins RN 02/24/19 10:03:14 [facility] IntraOp Sign Out Audit 02/24/19 10:03:14 Occupational Therapy Program Director: [id number] Modifier: [id number] <+> 1 RN Sign Out Signature Date/Time [facility] IntraOp Skin Prep Entry 1 Procedure Bunionectomy(Right) Prescribed N/A Pre-Surgical Prep Completed Prep Area RIGHT FOOT Intraop Prep Integumentary WDL Assessment WDL Prep Agents Chloraprep Prep by Johnathan Tompkins, RN Hair Removal Last Modified By: Johnathan Tompkins RN 02/24/19 08:30:32 [facility] IntraOp Surgical Procedures Entry 1 Entry 2 Entry 3 Procedure Bunionectomy Toe Osteotomy Toe Arthroplasty Modifiers Right Right Right Additional (RT DAVEY BUNIONECTOMY Procedure WITH GLENN, RT 2ND TOE Description LEDY OSTEOTOMY, RT 2ND TOE ARTHROPLASTY) Primary Procedure Yes No No Primary Surgeon CHANEL FOX, CHANEL FOX, CHANEL FOX, DPM-POD DPM-POD DPM-POD Start 02/24/19 09:02:00 02/24/19 09:02:00 02/24/19 09:02:00 Stop 02/24/19 09:43:00 02/24/19 09:43:00 02/24/19 09:43:00 Physician States Cecum Reached Anesthesia Type General General General Specialty SN Podiatry SN Podiatry SN Podiatry Wound Class I - Clean I - Clean I - Clean Last Modified By: Johnathan Tompkins, RN Johnathan Tompkins, RN Johnathan Tompkins RN 02/24/19 09:47:49 02/24/19 09:47:49 02/24/19 09:47:49 [facility] IntraOp Surgical Procedures Audit 02/24/19 09:47:49 Occupational Therapy Program Director: [id number] Modifier: [id number] <+> 1 Start <+> 2 Start <+> 3 Start 02/24/19 09:47:27 Occupational Therapy Program Director: [id number] Modifier: [id number] <+> 1 Stop <+> 2 Stop <+> 3 Stop [facility] IntraOp Temp Regulation Devices Entry 1 Temp Regulation Temperature Forced Air Warming Regulation Device device, Warm blankets, Room temperature Temperature Upper body Regulation Site Temperature NAEEM LAMB, CONTACT CENTER AGENT Regulation Device Applied by Last Modified By: Johnathan Tompkins RN 02/24/19 08:34:33 [facility] IntraOP Time Out Entry 1 Procedure to be Bunionectomy(Right), Performed Toe Osteotomy(Right), Toe Arthroplasty(Right) Time Out Time Out Pause Time 02/24/19 08:09:00 All activity Yes suspended (unless life threatening [...] Performed in location of procedure after prepped/draped, Reconcile problems if responses among team members differ Antibiotic Yes Prophylaxis Administered Or In Progress Within the Last 60 Minutes Beta Iam Yes Administered Venous N/A Thromboembolism Prophylaxis Required Anticipated Critical Events Surgeon None expected Anesthesia Provider None expected Nursing Assures Sterility of instruments Last Modified By: Johnathan Tompkins RN 02/24/19 08:32:27 General Comments: ANCEF 2 GRAMS VIA ANESTHESIA 0748 [facility] IntraOp Tourniquet Entry 1 Type Pneumatic Setting 250 Pheumatic Yes Tourniquet Checked Per Protocol Size 12 inches Skin Protection - Yes Padded Under Cuff Applied By CHANEL FOX DPM-POD Removed By CHANEL FOX DPM-POD Times Start Time 02/24/19 08:11:00 Stop Time 02/24/19 09:41:00 Total Time 90 calculated manually (Mins) Last Modified By: Johnathan Tompkins RN 02/24/19 09:47:15 [facility] IntraOp Tourniquet Audit 02/24/19 09:47:15 Occupational Therapy Program Director: [id number] Modifier: [id number] <+> 1 Total Time calculated manually (Mins) <+> 1 Stop Time [facility] IntraOp X-Ray and Images Entry 1 X-Ray/Imaging Type Fluoroscopy Fluoroscopy Type Mini C-Arm Site RIGHT FOOT Last Modified By: Johnathan Tompkins RN 02/24/19 08:35:03 Case Comments <None> Finalized By: WILL DUCKWORTH Document Signatures Signed By: Johnathan Tompkins RN 02/24/19 10:03 WILL DUCKWORTH 03/01/19 13:00 Unfinalized History Date/Time Username Reason for Unfinalizing Freetext Reason for Unfinalizing 03/01/19 12:58 [id number] Correct Billing Electronically signed by Titi Villar Conversion Hourly Sign Language Interpreter Cerner at 07/02/2022 5:39 PM CDT documented in this encounter Plan of Treatment Not on file documented as of this encounter Visit Diagnoses Not on filedocumented in this encounter
--- OUTSIDE RECORDS SUMMARY | 2024-10-13 13:25 | XMS_ITS | Encounter Summary ---
Author Organization [employer] ([place], [place], [place], [place]) Address [address] [place] [address] Care Team Providers Care Director Internal Control Name Role Phone Unavailable Primary Care Provider Unavailabl e Encounter Details Date Type Department Care Team (Late st Contact Info) Description 12/12/2021 Transcribed Document [facility] [place] [facility] [address] [place] [address] ProviderJuarez MD [address] [place] [address] Social History Tobacco Use Types [...] Historical ProviderMD - 12/12/2021 11:23 AM CDT Patient Education Materials Follows: Fall [...] Keep items that you use often in ysla-dy-zbsib places. Lower the shelves around your home [...] the way. ??? Do not use floor frisian or wax that makes floors slippery. What [...] Control and Prevention, STEAD[place]: www.cdc.gov ??? National [employer] Aging: www.deirdre.nih.gov Contact a doctor if: [...] provider. Document Revised: 10/04/2020 Document Reviewed: 10/04/2020 [employer] Patient Education ? 2021 [employer] documented in this encounter Plan of Treatment Not on file documented as of this encounter Visit Diagnoses Not on filedocumented in this encounter
--- OUTSIDE RECORDS SUMMARY | 2024-10-13 13:25 | XMS_ITS | Encounter Summary ---
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 [address] ANAHI BOYKIN :1950 Visit Time:02/24/2019 What to do next Your Diagnosis Bunion of right foot, Bunion of right foot Metatarsalgia, unspecified foot Other hammer toe(s) (acquired), unspecified foot Pain in right foot Instructions From Your Care Team Diet after Discharge: Resume usual diet as tolerated, Do not drink any alcoholic beverages, Drink at least 8-10 glasses of water per day Activity after Discharge: Keep you foot elevated above your heart. Exercise your legs frequently by bending your knees. Lifting Restrictions: No lifting restrictions Weight Bearing: no weight bearing to operative foot. Driving after Discharge: _when cleared by surgeon May Return to Work/School: when cleared by surgeon Showering/Bathing: No showering, No tub bathing, soaking or swimming Notify Provider of: temp greater than 101, pus like or excess bloody drainage, discoloration of toes on operative foot, severe pain uncontrolled with medication. Wound/Incision Care after Discharge: Keep operative site/wound site clean and dry, DO NOT change dressing; may reinforce it as needed Medical Equipment for Home Use: surgical shoe, crutches follow post op sheet enclosed Follow-Up Appointments Follow Up with CHANEL FOX, DPM-POD When Within 2 days Comments follow up as scheduled Where: [address] [place] [id number]- Follow Up with CHANEL FOX, DPM-POD When Within 3 to 5 days Comments Appointment has been made Where: [address] [place] [address]- Medications What How Much When Instructions Next Dose gabapentin 800 Milligram(s) Oral Three Times A Day acetaminophen-oxyCODONE (acetaminophen-oxyCODONE 325 mg-5 mg oral tablet) 1 Tablet(s) Oral Two Times A Day acetaminophen-oxyCODONE (acetaminophen-oxyCODONE 325 mg-7.5 mg oral tablet) 1 Tablet(s) Oral Every 6 Hours as needed for for pain Printed Prescription ascorbic acid (Vitamin C 1000 mg oral tablet) 1 Tablet(s) Oral Every Day aspirin 81 Milligram(s) Oral Every Day atorvastatin (atorvastatin 40 mg oral tablet) 1 Tablet(s) Oral Every Day cephalexin (Keflex 500 mg oral capsule) 1 Capsule(s) Oral Every 8 Hours Duration: 1 Day(s) Printed Prescription clopidogrel (clopidogrel 75 mg oral tablet) 1 Tablet(s) Oral Every Day DULoxetine 120 Milligram(s) Oral Every Day esomeprazole (NexIUM 40 mg oral delayed release capsule) 1 Capsule(s) Oral Every Day estradiol (estradiol 1 mg oral tablet) 1 Tablet(s) Oral Every Day losartan (losartan 50 mg oral tablet) 1 Tablet(s) Oral Every Day metoprolol (Metoprolol Succinate ER 25 mg oral tablet, extended release) 1 Tablet(s) Oral Every Day promethazine (promethazine 25 mg oral tablet) 1 Tablet(s) Oral Three Times A Day as needed for as needed for nausea/vomiting Printed Prescription tiZANidine (tiZANidine 4 mg oral tablet) 1 [...] and medications per pharmacy guidance. Education Materials General Anesthesia, Adult, Care After This sheet [...] activities are safe for you. ??? Take ldiz-oof-rtshshz and prescription medicines only as told by [...] 06/09/2001 Document Revised: 10/17/2017 Document Reviewed: 10/17/2017 [employer] Interactive Patient Education ?? 2019 [employer]. Emergency Awareness and Preventative Care STROKE is [...] Assistance with quitting is available by contacting 6-470-FYFD-NOW. This is a free resource providing counseling, [...] This Visit (last charted value for your 02/24/2019 visit) General Chemistry 02/24/2019 6:48 AM Potassium POC: 4.3 mmol/L -- Normal range between ( 3.5 and 4.9 ) :Potassium Level POC: :Potassium Level POC Patient Name:ANAHI BOYKIN I have received this information and was given the opportunity to ask questions. Patient/Machine Assembler Supervisor Name: Patient/Machine Assembler Supervisor Signature: Relationship to Patient: Clinician/Hospital Machine Assembler Supervisor Signature: Date: documented in this encounter Plan of Treatment Not on file documented as of this encounter Visit Diagnoses Not on filedocumented in this encounter
--- OUTSIDE RECORDS SUMMARY | 2024-10-13 13:25 | XMS_ITS | Encounter Summary ---
Author Organization [employer] ([place], [place], [place], [place]) Address [address] [place] [address] Care Team Providers Care Air Export Agent Name Role Phone Unavailable Primary Care Provider Unavailabl e Encounter Details Date Type Department Care Team (Late st Contact Info) Description 04/09/2018 Transcribed Document [facility] Family Medicine [address] [place] [address] ProviderJuarez MD [address] [place] [address] Social History Tobacco Use Types [...] Conversion Note - Juarez ProviderMD - 04/09/2018 10:00 AM SHIPPER Pain Assessment Entered On: 04/09/2018 18:27 EST Performed On: 04/09/2018 10:32 EST by MARY SANCHEZ RN Intervention Information: acetaminophen Performed by MARY SANCHEZ RN on 04/09/2018 09:32:00 EST acetaminophen,650mg Oral Pain Assessment Pain Assessment : Follow-up assessment Pain Scale Goal : 3 Pain Scale Used : 0-10 Scale Location : Back Pain Improved by : Medication Pain Intervention, Drug : Medicated Pain Improved by Intervention : Yes MARY SANCHEZ RN - 04/09/2018 18:26 EST Pain Scale Intensity : 3 MARY SANCHEZ RN - 04/09/2018 18:26 EST Image 4 - Images currently included in the form version of this document have not been included in the text rendition version of the form. documented in this encounter Plan of Treatment Not on file documented as of this encounter Visit Diagnoses Not on filedocumented in this encounter
--- OUTSIDE RECORDS SUMMARY | 2024-10-13 13:26 | XMS_ITS | Encounter Summary ---
Author Organization [employer] ([place], [place], [place], [place]) Address [address] [place] [address] Care Team Providers Care Clay Puddler Name Role Phone Unavailable Primary Care Provider Unavailabl e Encounter Details Date Type Department Care Team (Late st Contact Info) Description 04/10/2018 Transcribed Document [facility] Radiology [address] [place] [address] Bo Butcher MD [address] [place] [id number] Social History Tobacco Use Types Packs/Day [...] Conversion Note - Bo Butcher MD - 04/10/2018 12:17 PM EST Patient: ANAHI BOYKIN Age: 67 years Sex: Female : 1950 Associated Diagnoses: None Author: DAVID HADDAD PA-JOSEMANUEL 04/10/18 cc: medical management s/p lumbar fusion per Dr. Simental S: pt is doing ok. Fc cath removed. Has not urinated yet on own. Denies any f/c/s. no n/v/d. No cp, soa. No cough or sputum. +flatus; no bm yet. HPI: Patient is a 67 yo female admitted to [facility] [place] per Dr. Simental for a lumbar fusion. Preoperatively patient was found to have advanced spondylolisthesis of the lumbar spine and elected surgical intervention after failing conservative treatment. Patient is followed perioperatively while hospitalized for medical management. Initital visit on floor - Denies prior stroke or seizure. Denies [place], CHF or cardiac arrhythmia. Denies DM. Denies [...] Active Reaction Percocet 10/325 Hallucinations Home Medications (7) Active cyclobenzaprine 10 mg [...] (APR 09 18:20) Resp Rate 16 (APR 10:35) 16 (APR 09 11:38) 20 (APR 09 18:20) SBP 105 (APR 10 06:35) 94 (APR 09 21:40) 111 (APR 10 02:30) DBP L 57 (APR 10 06:35) L 45 (APR 10 02:30) 67 (APR 09 18:20) MAP 69 (APR 10 06:35) 57 (APR 10 02:30) 74 (APR 09 18:20) SpO2 95 (APR 10 06:35) L 91 (APR 09 21:40) 95 (APR 09 18:20) GEN: Alert, awake, NAD CV: S1S2, no murmur. No LE edema Resp: CTAB, NL Abd: Soft, NT, ND +BS in all 4 quadrants Skin: no rashes on inspection and palpation. Ext: No LE edema. No joint edema, erythema. Neuro: A&O x 3 Data: CBC Results (Current Encounter/Past 24 Hours) WBC 9.9 K/uL 04/10/2018 03:57 Hct 32.1 % LOW 04/10/2018 05:12 Hgb 10.0 g/dL LOW 04/10/2018 05:12 Platelet Count 227 K/uL 04/10/2018 03:57 CMP Results (Current Encounter/Past 24 Hours) eGFR >60 mL/min/1.73m2 04/10/2018 04:13 Bun/Creatinine 15.0 04/10/2018 04:13 eGFR NonAfrican >60 mL/min/1.73m2 04/10/2018 04:13 Creatinine Level 0.80 mg/dL 04/10/2018 04:13 Sodium Level 136 mmol/L 04/10/2018 04:13 Potassium Level 4.1 mmol/L 04/10/2018 04:13 Chloride Level 101 mmol/L LOW 04/10/2018 04:13 Carbon Dioxide Level 28 mmol/L 04/10/2018 04:13 Anion Gap 11 04/10/2018 04:13 Blood Urea Nitrogen 12 mg/dL 04/10/2018 04:13 Glucose Level 118 mg/dL HI 04/10/2018 04:13 Calcium Level 8.1 mg/dL LOW 04/10/2018 04:13 preop: reviewed cbc, bmp, ua EKG Ventricular Rate : 71 BPM Atrial Rate : 71 BPM P-R Interval : 130 ms QRS Duration : 66 ms Q-T Interval : 382 ms QTC Calculation(Bezet) : 415 ms P [place] : 48 degrees R [place] : -1 degrees T [place] : 58 degrees Normal sinus rhythm Low voltage QRS, consider pulmonary disease, pericardial effusion, or normal variant Borderline ECG No previous ECGs available Confirmed by Ayla BAILEY NEZAR ([id number]), editorial director Evy Barragan ([id number]) on 04/03/2018 8:54:13 AM Impression: spondylolisthesis Lspine; [...] of 05/2017 at 66 Years. hx lap olw in the month of 03/2017 at 66 Years. hx lumbar fusion L2-5) in 2014 at 64 Years. hx hysterectomy in 2005 at 54 Years. hx heart cath (negative) in 2002 at 52 Years. 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 hx tonsillectomy in 1964 at 14 Years. hx colonoscopy. hx wisdom teeth. hx epidural and facet injection steroids. hx spinal cord stimulator attempted. Plan: hold amlodipine at home if SBp is < 130 recommend outpt sleep study, pt to f/u with PCP ok for discharge from IM standpoint IS at home Bowel regimen at home Assessment and treatment plan made in conjunction with Prateek Butcher MD *Scribed by Caitiln Hopkins documented in this encounter Plan of Treatment Not on file documented as of this encounter Visit Diagnoses Not on filedocumented in this encounter
--- NOTE | 2024-10-13 13:45 | CA_ITS ---
APPROVED REPORT EXAM: Comprehensive 2D, Doppler, and color-flow Echocardiogram Pipe Maker: TAMMY Riojas, RVS Ht: 5 ft 1 in Wt: 138lbs BSA: 1.61 BP: 122/60 mmHg Indications: SOB, Pre-op pain pump, HTN, LVH, HLD 2D Dimensions Left Atrium 2.68 cm F: 2.7 - 3.8 LA Volume 29.10 mL LA Volume Index 18.07 mL/m2 (M/F) 16-34 M-Mode Dimensions RVDd 3.35 cm (0.9-2.6) LA Diam 3.26 cm (1.9-4.0) LVDd 3.55 cm (3.5-5.7) LVDs 2.41 cm (3.5-5.7) IVSd 1.07 cm (0.6-1.1) PWd 1.04 cm (0.6-1.1) EF (Teich) 61.20% EPSs 0.40 cm FS 32.10% EDV (Teich) 52.60 mL TAPSE 1.98 (<1.7) ESV (Teich) 20.40 mL LV Diastology E Decel Time 323 (160-240 msec) E/A Ratio 0.62 MED A' 12.70 cm/s LAT A' 13.90 cm/s Aortic Valve VANNESSA Index 0.92 cm2/m2 AoV Peak Edward. 128.0 (50-130 cm/s) AO Peak GR. 6.50 mmHg AO Mean GR. 3.20 (<5 mmHg) AO VTI 23.0 (18-25 cm) VANNESSA (VTI) 1.52 (2.5-4.5 cm2) Mitral Valve MV A Velocity 82.0 (40-130 cm/s) E/A Ratio 0.62 Tricuspid Valve TR P. Velocity 241.00 cm/s RAP Estimate 10.00 mmHg RVSP 33.20 mmHg Left Ventricle The left ventricle is normal size. Left ventricular systolic function is normal. The left ventricular ejection fraction is within the normal range. There is increased left ventricular wall thickness. There is normal LV segmental wall motion. Transmitral Doppler flow pattern suggests impaired LV relaxation. LVEF is 60%. Right Ventricle The right ventricle is normal size. The right ventricular systolic function is normal. Atria The left atrium size is normal. The right atrium size is normal. There is no color Doppler evidence of interatrial shunt. Aortic Valve The aortic valve is mildly thickened. There is no hemodynamically significant aortic valvular stenosis. Trace aortic regurgitation is present. Mitral Valve The mitral valve is normal in structure. No evidence of mitral valve stenosis. Trace mitral regurgitation is present. Tricuspid Valve The tricuspid valve leaflets are thin and pliable. Mild tricuspid regurgitation. RVSP is 20-25 mmHg. Pulmonic Valve The pulmonary valve is grossly normal in structure. Trace pulmonic valve regurgitation is present. Great Vessels The aortic root is normal in size. IVC is normal in size and collapses >50% with inspiration. Pericardium There is no pericardial effusion. Other Information Study Quality: Fair Conclusion Normal biventricular systolic function. Mild TR. Electronically signed by : Lizz Payne MD 10/14/2024 11:35:04
== END 2024-10-13 23:59 | disposition home or self-care (01) ==
LOC: RT 13:21
PROVIDERS: PCP Nurse Practitioner Family; Visit Provider Internal Medicine
DX: Z01.810 Encounter for preprocedural cardiovascular examination (principal); I07.1 Rheumatic tricuspid insufficiency; I11.9 Hypertensive heart disease without heart failure; I25.10 Atherosclerotic heart disease of native coronary artery without angina pectoris; E78.5 Hyperlipidemia, unspecified; R94.31 Abnormal electrocardiogram [ECG] [EKG]
CPT/HCPCS: 93306

== ENCOUNTER 2024-10-13 15:00 | Outpatient (RCR) | payer MEDICARE, SELFPAY | END 2024-10-13 23:59 | disposition home or self-care (01) | LOC: PT 15:00 | PROVIDERS: Visit Provider Physician Assistant | DX: M96.1 Postlaminectomy syndrome, not elsewhere classified (principal) | CPT/HCPCS: 97110; 97163 ==